=== PATIENT | female | born 2005 | race Caucasian/White ===

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

== ENCOUNTER 2023-10-24 18:17 | Emergency (ER) | payer MEDICAID, SELFPAY ==
[2023-10-24 18:18] VITALS: BP 115/96; PULSE 78; RESP 16; TEMP 36.6; O2SAT 99; BMI 26.4
--- NOTE | 2023-10-24 18:51 | US_ITS ---
STUDY: ULTRASOUND TRANSVAGINAL CLINICAL: Female, 18 years old. vaginal pain-RLQ PAIN TECHNIQUE: Transvaginal COMPARISON: None. FINDINGS: Normal uterine size measuring 8.1 x 5.8 x 3.8 cm in maximal craniocaudal dimension. There are no myometrial masses. Normal endometrial thickness measuring 13 mm. There are no endometrial masses, and there is no fluid in the endometrial cavity. Normal uterine cervix. Normal right ovary, measuring 2.9 x 2 x 2 cm. There are multiple follicles without a dominant cyst. Normal left ovary, measuring 2.9 x 2.2 x 1.9 cm. There are multiple follicles with a dominant cyst measuring 1.5 x 1.1 x 0.9 cm There is no free fluid in the pelvis. Polycystic ovary disease: No. US/Transvaginal Non- IMPRESSION: Small left ovarian cyst. No other significant abnormality Electronically Signed: Riki Gregg MD at 20:23 EDT ,
[2023-10-24] MEDS: 0.9% Normal Saline (1000mL) 1,000 ML 1000 ML IV (19:07)
[2023-10-24] MEDS: Ketorolac 15 MG/ML Vial IV (19:07)
[2023-10-24 19:08] LABS: Absolute Lymphocyte Count 2.22 X10^3/uL (0.83-4.51); Absolute Neutrophil Count 3.9 X10^3/uL (2.0-7.7); Basophil# 0.06 X10^3/uL; Basophil% 0.9 % (0-1); Eosinophil# 0.12 X10^3/uL; Eosinophils% 1.7 % (0-5); Hematocrit 42.7 % (37-47); Hemoglobin 13.7 g/dL (12.0-15.0); Lymphocyte # 2.22 X10^3/ul (0.83-4.51); Lymphocyte % 31.5 % (19-41); Mean Corp Hgb Conc 32.1 g/dL (32-36); Mean Corpuscular Volume 77.8 fL (81-99); Mean Platelet Vol. 9.6 fl (6.2-12.0); Monocyte# 0.76 X10^3/uL; Monocyte% 10.8 % (0-10); NRBC Flagged by Analyzer 0 % (0-5); Neutrophil # 3.86 X10^3/uL (2.7-7.7); Neutrophil % 54.8 % (47-70); Platelet Count 356 K/mm3 (150-450); RBC Distribution Width CV 13.7 % (11.6-14.6); RBC Distribution Width SD 38.9 fl (35.1-43.9); Red Blood Count 5.49 M/mm3 (4.2-5.4)
[2023-10-24] MEDS: Ondansetron 4 MG/2 ML Vial IV (19:08)
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
[2023-10-24 19:22] LABS: Anion Gap 5 (5-15); BUN 13 mg/dL (7-18); BUN/Creat Ratio 14.9 RATIO (10-20); Calcium,Total 9.9 mg/dL (8.5-10.1); Chloride 105 mmol/L (98-107); Creatinine, Serum 0.87 mg/dL (0.55-1.02); EST Glomerular Filtration Rate 88 mL/min (>60); Est Glom Filt Rate - Afr Amer 107 mL/min (>60); Estimated Creatinine Clearance 99.05 ml/min; Glucose 94 mg/dL (74-106); Potassium 3.8 mmol/L (3.5-5.1); Sodium Level 138 mmol/L (136-145)
[2023-10-24 19:51] LABS: Internal QC Validated? YES +Cl - CLEAR BKGD; Pregnancy, Serum, hCG Quali. NEGATIVE Negative
[2023-10-24 20:18] VITALS: BP 125/87; PULSE 68; RESP 18; O2SAT 100
[2023-10-24 20:46] LABS: Mucous, Urine 0 SEEN /hpf (<or=2+); Red Blood Cells-Urine 0 SEEN /hpf (0-5); White Blood Cells 0 SEEN /hpf (0-5)
[2023-10-24 20:51] LABS: Color, Urine Yellow (Yellow); Glucose, Dipstick Normal (Normal); Ketone-Dipstick Negative (Negative); Leukocyte Esterase-Dipstick 25 /ul (Negative); Nitrite-Dipstick Negative (Negative); Occult Blood-Urine Negative /ul (Negative); Protein-Dipstick Negative (Negative); Urine Bilirubin Dipstick Negative (Negative); Urine Clarity Sl. Cloudy (Clear); Urine Urobilinogen Normal (Normal); Urine pH 6.5 (5.0 - 8.0)
[2023-10-24 20:58] LABS: Bacteria 2+ /hpf (None Seen); Squamous Epithelial Cells - UA 5-10 SEEN /hpf (5-10)
[2023-10-24 20:59] LABS: Amorphous Sediment 1+
== END 2023-10-24 21:22 | disposition home or self-care (01) ==
PROVIDERS: Nurse Practitioner; Emergency Provider Emergency Medicine; PCP Family Medicine; Visit Provider Emergency Medicine
DX: N83.202 Unspecified ovarian cyst, left side (principal); R10.2 Pelvic and perineal pain
CPT/HCPCS: 76830; 80048; 81001; 84703; 85025; 96361; 96374; 96375; 99283; J7030; A4216; J2405

== ENCOUNTER → 2024-02-16 | Outpatient (CLI) | payer MEDICAID, SELFPAY ==
--- NOTE | 2024-02-16 10:26 | RAD_ITS ---
HISTORY COLLAR BONE PAIN. TECHNIQUE: XR Clavicle Unilateral. COMPARISON: 01/23/2018. FINDINGS: BONES : Cortical plate and screw fixation of old healed clavicle fracture. No acute fracture identified. Mineralization unremarkable. JOINTS: No dislocation. Joint spaces maintained. SOFT TISSUES: Right lung apex clear. RAD/Clavicle IMPRESSION: No acute fracture identified in the right clavicle. ORIF old clavicle fracture. Electronically Signed: Gianna Jacob MD at 8:53 EDT ,
== END | disposition home or self-care (01) ==
LOC: MTRAD 10:24
PROVIDERS: PCP Family Medicine; Referring Provider Family Medicine; Visit Provider Family Medicine
DX: M25.511 Pain in right shoulder (principal); X58.XXXA Exposure to other specified factors, initial encounter
CPT/HCPCS: 73000

== ENCOUNTER 2024-02-23 19:08 | Emergency (ER) | payer MEDICAID, SELFPAY ==
[2024-02-23 19:08] VITALS: BP 117/78; PULSE 64; RESP 14; TEMP 36.2; O2SAT 99; BMI 26.6
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
[2024-02-23 21:08] VITALS: BP 121/77; PULSE 66; RESP 16; O2SAT 98
[2024-02-23 21:50] VITALS: BP 118/74; PULSE 64; RESP 16; TEMP 36.8; O2SAT 99
== END 2024-02-23 21:53 | disposition home or self-care (01) ==
PROVIDERS: Emergency Provider Emergency Medicine; PCP Family Medicine; Visit Provider Emergency Medicine
DX: F07.81 Postconcussional syndrome (principal); F17.290 Nicotine dependence, other tobacco product, uncomplicated; V49.40XA Driver injured in collision with unspecified motor vehicles in traffic accident, initial encounter
CPT/HCPCS: 70450; 99283

== ENCOUNTER → 2024-12-10 | Outpatient (CLI) | payer MEDICAID, SELFPAY ==
[2024-12-10 17:12] LABS: Absolute Lymphocyte Count 1.68 X10^3/uL (0.83-4.51); Absolute Neutrophil Count 6.4 X10^3/uL (2.0-7.7); Basophil# 0.04 X10^3/uL; Basophil% 0.4 % (0-1); Eosinophil# 0.14 X10^3/uL; Eosinophils% 1.6 % (0-5); Hematocrit 39.2 % (37-47); Hemoglobin 13.2 g/dL (12.0-15.0); Lymphocyte # 1.68 X10^3/ul (0.83-4.51); Lymphocyte % 18.7 % (19-41); Mean Corp Hgb Conc 33.7 g/dL (32-36); Mean Corpuscular Hgb 26.1 pg (27.0-32.0); Mean Corpuscular Volume 77.5 fL (81-99); Mean Platelet Vol. 10.3 fl (6.2-12.0); Monocyte# 0.69 X10^3/uL; Monocyte% 7.7 % (0-10); NRBC Flagged by Analyzer 0 % (0-5); Neutrophil # 6.42 X10^3/uL (2.7-7.7); Neutrophil % 71.3 % (47-70); Platelet Count 318 K/mm3 (150-450); RBC Distribution Width CV 14.3 % (11.6-14.6); RBC Distribution Width SD 39.8 fl (35.1-43.9); Red Blood Count 5.06 M/mm3 (4.2-5.4)
[2024-12-10 18:18] LABS: HIV Nonreactive (Nonreactive); Hepatitis B Surface Antigen Nonreactive (Nonreactive); Hepatitis C Antibody Nonreactive (Nonreactive); Syphilis Antibodies Nonreactive (Nonreactive)
[2024-12-10 18:20] LABS: Rubella IgG REAC (Nonreactive)
[2024-12-10 18:49] LABS: Hemoglobin A1c 5.5 % (<=5.6)
== END | disposition home or self-care (01) ==
PROVIDERS: Registered Nurse; PCP Family Medicine; Referring Provider Obstetrics & Gynecology; Visit Provider Obstetrics & Gynecology
DX: O09.90 Supervision of high risk pregnancy, unspecified, unspecified trimester (principal); O99.210 Obesity complicating pregnancy, unspecified trimester; Z3A.00 Weeks of gestation of pregnancy not specified
CPT/HCPCS: 36415; 83036; 85025; 86703; 86762; 86780; 86803; 86850; 86900; 86901; 87086; 87340; 87491; 87591; 88175; G0145

== ENCOUNTER → 2025-03-06 | Outpatient (CLI) | payer MEDICAID, SELFPAY ==
--- OUTSIDE RECORDS SUMMARY | 2025-03-06 11:54 | XMS RPT_ITS | CCD ---
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 men Comment: [id number] Comment: No. of containers..01 ThinPrep Vial Result Comment: Tish Calle, Yarding Supervisor Performed By: #### L 509.4006, L501.9985, L3890.6102, L509.8002, L7000.1800, L3890.6301, L7400.0353, BTS, L100.0100, M100.2200, L3890.6006 ####[facility] [address] [place], [place], [phone] Urine Cultureon 12-13-2024 URC Mixed Gram Positive Organisms Mora Count 11,000-25,000 MIXC Mixed contaminants. Submit a new specimen if indicated. Normal [facility] Comment on above: Performed By: #### L 509.4006, L501.9985, L3890.6102, L509.8002, L7000.1800, L3890.6301, L7400.0353, BTS, L100.0100, M100.2200, L3890.6006 ####[facility] [address] [place], [address] Absolute lymphocyte countOrd ered By: Elo Rivas on 12-10-2024 Lymphocytes Auto (Unsp spec) [#/Vol] 1.68 10*3/uL 0.83-4.51 [facility] Absolute neutrophil countOrd ered By: Elo Rivas on 12-10-2024 Neutrophils (Bld) [#/Vol] 6.4 10*3/uL 2.0-7.7 [facility] Automated blood erythrocyte countOrdered By: Elo Rivas on 12-10-2024 RBC (Bld) [#/Vol] 5.06 10*6/uL Normal 4.2-5.4 [facility] Comment on above: Performed By: #### L 509.4006, L501.9985, L3890.6102, L509.8002, L7000.1800, L3890.6301, L7400.0353, BTS, L100.0100, M100.2200, L3890.6006 #### [facility] [address] [place], [place], [phone] Automated blood hematocrit ( percentage)Ordered By: Elo Rivas on 12-10-2024 Hematocrit (Bld) [Volume fraction] 39.2 % Normal 37-47 [facility] Comment on above: Performed By: #### L 509.4006, L501.9985, L3890.6102, L509.8002, L7000.1800, L3890.6301, L7400.0353, BTS, L100.0100, M100.2200, L3890.6006 #### [facility] [address] [place], [address] Automated lymphocyte count a s percentage of total leukocytesOrdered By: Elo Rivas on 12-10-2024 Lymphocytes/100 WBC Auto (Unsp spec) 18.7 % Low 19-41 [facility] Basophil percentageOrdered B y: Elo Rivas on 12-10-2024 Basophils/100 WBC (Bld) 0.4 % Normal 0-1 [facility] Comment on above: Performed By: #### L 509.4006, L501.9985, L3890.6102, L509.8002, L7000.1800, L3890.6301, L7400.0353, BTS, L100.0100, M100.2200, L3890.6006 #### [facility] [address] [place], [place], [phone] CBC W/Diff, Automatedon 11-13 Absolute Lymph 1.68 X10 3/uL Normal 0.83-4.51 [facility] Comment on above: Performed By: #### L 509.4006, L501.9985, L3890.6102, L509.8002, L7000.1800, L3890.6301, L7400.0353, BTS, L100.0100, M100.2200, L3890.6006 #### [facility] [address] [place], [place], [phone] Absolute Neut 6.4 X10 3/uL Normal 2.0-7.7 [facility] Comment on above: Performed By: #### L 509.4006, L501.9985, L3890.6102, L509.8002, L7000.1800, L3890.6301, L7400.0353, BTS, L100.0100, M100.2200, L3890.6006 #### [facility] [address] [place], [place], [phone] IG% 0.300 Normal 0.0-0.9 [facility] Comment on above: Result Comment: IG% - Immature Granulocytes (promyelocytes, myelocytes and metamyelocytes) > 1% indicates that a LEFT SHIFT is Present. Performed By: #### L 509.4006, L501.9985, L3890.6102, L509.8002, L7000.1800, L3890.6301, L7400.0353, BTS, L100.0100, M100.2200, L3890.6006 #### [facility] [address] [place], [address] Lymphocytes/100 WBC (Bld) 18.7 % Low 19-41 [facility] Comment on above: Performed By: #### L 509.4006, L501.9985, L3890.6102, L509.8002, L7000.1800, L3890.6301, L7400.0353, BTS, L100.0100, M100.2200, L3890.6006 #### [facility] [address] [place], [place], [phone] ([phone]) Nucleated RBC (Bld) [#/Vol] 0 10*3/uL Normal 0-5 [facility] Comment on above: Performed By: #### L 509.4006, L501.9985, L3890.6102, L509.8002, L7000.1800, L3890.6301, L7400.0353, BTS, L100.0100, M100.2200, L3890.6006 #### [facility] [address] [place], [place], [phone] (656) RDW SD 39.8 fl Normal 35.1-43.9 [facility] Comment on above: Performed By: #### L 509.4006, L501.9985, L3890.6102, L509.8002, L7000.1800, L3890.6301, L7400.0353, BTS, L100.0100, M100.2200, L3890.6006 #### [facility] [address] [place], [address] Cervical or vagninal specime n microscopic examination by cytology stain (reported asOrdered By: Elo Rivas on 12-10-2024 Cytology report Cyto stain Doc (Cvx/Vag) Comment . [facility] Comment on above: The Pap smear is a s creening test designed to aid in thedetection of premalignant and malignant conditions of theuterine cervix. It is not a diagnostic procedure andshould not be used as the sole means of detecting cervicalcancer. Both false-positive and false-negative reports dooccur. Chlamydia trachomatis rRNA d etection by probe and target amplification methodOrdered By: Elo Rivas on 12-10-2024 C. trachomatis rRNA SARIKA+probe Ql (Unsp spec) Negative Negative [facility] Eosinophil percentageOrdered By: Elo Rivas on 12-10-2024 Eosinophils/100 WBC (Bld) 1.6 % Normal 0-5 [facility] Comment on above: Performed By: #### L 509.4006, L501.9985, L3890.6102, L509.8002, L7000.1800, L3890.6301, L7400.0353, BTS, L100.0100, M100.2200, L3890.6006 #### [facility] [address] [place], [place], [phone] Erythrocyte distribution wid th ratioOrdered By: Elo Rivas on 12-10-2024 Erythrocyte distribution width (RBC) [Ratio] 14.3 % Normal 11.6-14.6 [facility] Comment on above: Performed By: #### L 509.4006, L501.9985, L3890.6102, L509.8002, L7000.1800, L3890.6301, L7400.0353, BTS, L100.0100, M100.2200, L3890.6006 #### [facility] [address] [place], [place], [phone] Erythrocyte distribution wid th standard deviationOrdered By: Elo Rivas on 12-10-2024 Erythrocyte distribution width (RBC) [Ratio] 39.8 fl 35.1-43.9 [facility] HIVon 12-10-2024 HIV Non-Reactive Normal Nonreactive [facility] Comment on above: Result Comment: Non- Reactive Reactive Repeatedly reactive samples must be confirmed according to CDC recommended confirmatory algorithms. The subresults for either HIVAG or AHIV can be used as an aid in the selection of the confirmation algorithm for reactive samples. Send out specimens with Reactive results to [facility] for confirmation. Order the HIV antibody detection and differentiation: lc#[id number] Performed By: #### L 509.4006, L501.9985, L3890.6102, L509.8002, L7000.1800, L3890.6301, L7400.0353, BTS, L100.0100, M100.2200, L3890.6006 #### [facility] [address] [place], [place], [phone] Hemoglobin A1c percentageOrd ered By: Elo Rivas on 12-10-2024 HbA1c (Bld) [Mass fraction] 5.5 % Normal <=5.6 [facility] Comment on above: Normal < 5.7 % Predi abetic 5.7 - 6.4 % Diabetic >or= 6.5 % Please note range changes. Result Comment: Norm al < 5.7 % Prediabetic 5.7 - 6.4 % Diabetic >or= 6.5 % Please note range changes. Performed By: #### L 509.4006, L501.9985, L3890.6102, L509.8002, L7000.1800, L3890.6301, L7400.0353, BTS, L100.0100, M100.2200, L3890.6006 ####[facility] [address] [place], [place], [phone] Hemoglobin measurementOrdere d By: Elo Rivas on 12-10-2024 Hemoglobin (Bld) [Mass/Vol] 13.2 g/dL Normal 12.0-15.0 [facility] Comment on above: Performed By: #### L 509.4006, L501.9985, L3890.6102, L509.8002, L7000.1800, L3890.6301, L7400.0353, BTS, L100.0100, M100.2200, L3890.6006 #### [facility] [address] [place], [place], [phone] Hepatitis C Antibodyon 12-10 Hepatitis C Ab Non-Reactive Normal Nonreactive [facility] Comment on above: Result Comment: Reac tive: Presumptive evidence of antibodies to HCV. Follow CDC recommendations for supplemental testing. Non-Reactive: Antibodies to HCV were not detected; does not exclude the possibility of exposure to HCV Reactive Results are presumptive evidence of antibodies to HCV. Follow CDC recommendations for supplemental testing. Order confirmation testing: HCV Quant by PCR testing - HCVPCR lc#[id number] Non Reactive: < 0.8 Equivocal: >/= 0.8 to < 1.0 Reactive: >/= 1.0 The [facility] requires that a reactive/equivocal HCV antibody result be sent out for confirmation. HCV Quant by PCR testing. Performed By: #### L 509.4006, L501.9985, L3890.6102, L509.8002, L7000.1800, L3890.6301, L7400.0353, BTS, L100.0100, M100.2200, L3890.6006 #### [facility] [address] [place], [place], [phone] Immature granulocytes/100 WB C Auto (Bld)Ordered By: Elo Rivas on 12-10-2024 Immature granulocytes/100 WBC (Bld) 0.300 % 0.0-0.9 [facility] Comment on above: IG% - Immature Granu locytes (promyelocytes, myelocytes and metamyelocytes) > 1% indicates that a LEFT SHIFT is Present. L3890.6102on 12-10-2024 HEP B Surf Ag Non-Reactive Normal Nonreactive [facility] Comment on above: Result Comment: Reac tive: Presumptive evidence of HBV. Repeatedly reactive samples must be confirmed using a neutralization test ([employer] HBsAg Confirmatory Test) Non-Reactive: HBsAg not detected; does not exclude the possibility of exposure to HBV Performed By: #### L 509.4006, L501.9985, L3890.6102, L509.8002, L7000.1800, L3890.6301, L7400.0353, BTS, L100.0100, M100.2200, L3890.6006 #### [facility] [address] [place], [place], [id number] L509.4006on 12-10-2024 Rubella IgG REAC Normal Nonreactive [facility] Comment on above: Result Comment: Anti body Result: Interpretation Non-Reactive: Non-Immune Reactive: Immune The following results were obtained with the [employer] Rubella IgG assay. Results from assays of other manufacturers cannot be used interchangeably. Performed By: #### L 509.4006, L501.9985, L3890.6102, L509.8002, L7000.1800, L3890.6301, L7400.0353, BTS, L100.0100, M100.2200, L3890.6006 #### [facility] [address] [place], [place], [phone] Laboratory - CytologyOrdered By: Elo Rivas on 12-10-2024 Yarding Supervisor Cyto stain Nom (Cvx/Vag) [ID] Comment . [facility] Comment on above: Misael Aguirre Laboratory - Microbiology an d Antimicrobial susceptibilityOrdered By: Elo Rivas on 12-10-2024 HBV surface Ag Ql (S) Non-Reactive Nonreactive [facility] Comment on above: Reactive: Presumptiv e evidence of HBV. Repeatedly reactive samples must be confirmed using a neutralization test ([employer] HBsAg Confirmatory Test)Non-Reactive: HBsAg not detected; does not exclude the possibility of exposure to HBV Laboratory - Miscellaneous t estsOrdered By: Elo Rivas on 12-10-2024 Service comment (Unsp spec) [Interp] . . [facility] MCV (mean corpuscular volume ) determinationOrdered By: Elo Rivas on 12-10-2024 MCV (RBC) [Entitic vol] 77.5 fL Low 81-99 [facility] Comment on above: Performed By: #### L 509.4006, L501.9985, L3890.6102, L509.8002, L7000.1800, L3890.6301, L7400.0353, BTS, L100.0100, M100.2200, L3890.6006 #### [facility] [address] [place], [place], [phone] Mean corpuscular hemoglobin (MCH) determinationOrdered By: Elo Rivas on 12-10-2024 MCH (RBC) [Entitic mass] 26.1 pg Low 27.0-32.0 [facility] Comment on above: Performed By: #### L 509.4006, L501.9985, L3890.6102, L509.8002, L7000.1800, L3890.6301, L7400.0353, BTS, L100.0100, M100.2200, L3890.6006 #### [facility] [address] [place], [address] Mean corpuscular hemoglobin concentration (MCHC) determinationOrdered By: Elo Rivas on 12-10-2024 MCHC (RBC) [Mass/Vol] 33.7 g/dL Normal 32-36 [facility] Comment on above: Performed By: #### L 509.4006, L501.9985, L3890.6102, L509.8002, L7000.1800, L3890.6301, L7400.0353, BTS, L100.0100, M100.2200, L3890.6006 #### [facility] [address] [place], [place], [phone] Mean platelet volume determi nationOrdered By: Elo Rivas on 12-10-2024 Platelet mean volume (Bld) [Entitic vol] 10.3 fL Normal 6.2-12.0 [facility] Comment on above: Performed By: #### L 509.4006, L501.9985, L3890.6102, L509.8002, L7000.1800, L3890.6301, L7400.0353, BTS, L100.0100, M100.2200, L3890.6006 #### [facility] [address] [place], [address] Monocyte percentageOrdered B y: Elo Rivas on 12-10-2024 Monocytes/100 WBC (Bld) 7.7 % Normal 0-10 [facility] Comment on above: Performed By: #### L 509.4006, L501.9985, L3890.6102, L509.8002, L7000.1800, L3890.6301, L7400.0353, BTS, L100.0100, M100.2200, L3890.6006 #### [facility] [address] [place], [address] NATERAon 12-10-2024 NATURA SEE SCANNED REPORT Normal [facility] Comment on above: Performed By: #### L 900.0098 ####[facility] [address] [place], [address] Neisseria gonorrhoeae nuclei c acid detection by amplified probe techniqueOrdered By: Elo Rivas on 12-10-2024 N. gonorrhoeae DNA SARIKA+probe Ql (Unsp spec) Negative Negative [facility] Comment on above: Performed at: =[address] [id number] Director: Rabia Odom MD, Phone: [phone] Neutrophil percentageOrdered By: Elo Rivas on 12-10-2024 Neutrophils/100 WBC (Bld) 71.3 % High 47-70 [facility] Comment on above: Performed By: #### L 509.4006, L501.9985, L3890.6102, L509.8002, L7000.1800, L3890.6301, L7400.0353, BTS, L100.0100, M100.2200, L3890.6006 #### [facility] [address] [place], [address] No Panel InformationOrdered By: Elo Rivas on 12-10-2024 HIV (1&2) Antibody Non-Reactive Nonreactive [facility] Comment on above: Non-ReactiveReactive Repeatedly reactive samples must be confirmed according to CDC recommended confirmatory algorithms. The subresults for either HIVAG or AHIV can be used as an aid in the selection of the confirmation algorithm for reactive samples.Send out specimens with Reactive results to [facility] for confirmation.Order the HIV antibody detection and differentiation: #[id number] Pap Smear Specimen Adequacy Comment . [facility] Comment on above: Satisfactory for iqra luation. Endocervical and/or squamous metaplasticcells (endocervical component) are present. Nucleated red blood cell per centageOrdered By: Elo Rivas on 12-10-2024 Nucleated RBC/100 WBC (Bld) [Ratio] 0 % 0-5 [facility] Janitorial Assistant Office Visit Reporton 12-10-2024 Janitorial Assistant Office Visit Report [facility] [address], [address] [place] [address] OFFICE VISIT Date of Service: 12/10/24 MR#: [id number] Acct: [id number] Name: ADENIKE RUTH Rep #: [id number] : 2005 Provider: Dr. Mayi Roach DO Age/Sex: 19/F Location: [facility] Status: Signed Intake Vital Signs 10/12/24 14:19 12/10/24 15:09 12/10/24 15:10 Height 5 ft 4 in 5 ft 4 in 5 ft 4 in Weight: 183 lb 2 oz BMI 31.4 BP 103/66 Intake Visit Reasons: NOB LMP 09/04 Disbursing Officer Required: No Is patient in pain?: No Allergies No Known Allergies Allergy (Verified 12/10/24 15:09) Medications ???Medication ???Instructions ???Recorded ???Confirmed ???Type PNV 153-FA 400 mcg-om3 35 mg-dha tab PO 10/26/24 12/10/24 History 25 mg-epa 5 mg-fish oil chew tablet ondansetron HCl 4 mg tablet 4 mg PO Q4H #60 tabs 10/26/2411/13 Rx Last Menstrual Period: 09/04/24 Zika: Zika virus screening: Negative : No PFSH PFSH Medical History Vaginal delivery Depression Surgical History Clavicle fracture Family History Father Diabetes Hypertension Uncle Diabetes Maternal Grandmother Diabetes Maternal Hypertension Maternal Social History adopted: No household members: significant other and children number of children: 1 current occupational status: employed 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 current occupational exposures/hazards: No pets and animals: No history of recent travel: No sexually active: Yes Smoking Status: Former smoker quit date: 10/12/24 alcohol intake: never substance use type: does not use well-balanced diet: about half the time caffeine: No eating out: 1-3 times/week during the past year weight has: increased > 10 lbs sharmila/mormon: None seatbelt use: sometimes do you feel safe at home: Yes additional social history: Boyfriend-Solomon History 4 Elective abortions 2 Hx Para 1 Spontaneous abortions Hx # Term Pregnancies Ectopic pregnancies Hx # Pregnancies Multiple births # of living children 1 Past Pregnancies Del. Date Name GA/Weeks Outcome Route Bth Weight Infant Gen Labor Lgth Anesthesia Del Locatn Provider FOB 12/01/22 Esatalyne 38 live - full term 7lbs 11oz Female epidural [facility] Nadege Jacob Delivery Date: 12/01/22 Last Updated by: Ruthy Wyatt 1st degree laceration HPI NOB LMP 09/04 Details: ADENIKE RUTH is a 19 year old who presents for New OB visit. OB Visit JIMENA Calculator Estimated Delivery Date Method Current WG Current Estimate 06/11/25 LMP (Certain) 13w 6d Estimated Due Date: 11/05/20 Expected Delivery Route/Plan Labor Preferences- CB/BF classes: [] labor support person: [] labor intervention preferences: [] pain management options preferred: [] cut cord/dad catch: [] : [] PP control planned: [] discussed possible routes of delivery and associated risks: [] special requests: [] Specific Issue/Plans Covid status: [] Flu vaccine: [] Tdap vaccine: [] Rhogam: [] LARC form signed: [] Problem list reviewed and updated with the most current plan of care details and appropriate orders placed. Relevant counseling for the gestational age provided. Continue routine care and follow up unless otherwise noted in visit notes/problem list details Initial Weight: Not Recorded Date -???-???-???-???-???-?? ?-???-???-???-???-???-? ??- EGA Weight BP Urine Prot -???-???-???-???-???-?? ?-???-???-???-???-???-? ??- Glucose FHR FuHt Pres Dilation -???-???-???-???-???-?? ?-???-???-???-???-???-? ??- Effaced St Visit Note 12/10/24 -???-???-???-???-???-?? ?-???-???-???-???-???-? ??- 13w 6d 183 lb 2 oz 103/66 -???-???-???-???-???-?? ?-???-???-???-???-???-? ??- 165 -???-???-???-???-???-?? ?-???-???-???-???-???-? ??- JV- CRL cons istent with LMP. 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 FOB to be tested. (new partner)also desires afp testing. Menstrual History Last Menstrual Period: 09/04/24 Reported LMP: definite Normal amount/duration: Yes Frequency in days: 28-30 On hormonal BC at conception: No hCG+: 10/11/24 Antepartum Record Genetic Screening: Congenital Heart Defect: Other, Neural Tube Defect: Other, Hemoglobinopathy Or Carrier: Other, Cystic Fibrosis: Other, Chromosome Abnormality: Other, Karson-Sachs: Other, Hemophilia: Other, Intellectual Disability/Autism: Other, Recurrent Loss/Stillbirth: Other, Other Structural Defect: Other, Other Genetic Disease: Other an (more content not included)... Normal [facility] Platelet countOrdered By: Shaista Rivas on 12-10-2024 Platelets (Bld) [#/Vol] 318 10*3/uL Normal 150-450 [facility] Comment on above: Performed By: #### L 509.4006, L501.9985, L3890.6102, L509.8002, L7000.1800, L3890.6301, L7400.0353, BTS, L100.0100, M100.2200, L3890.6006 #### [facility] [address] [place], [place], [id number] Syphilis Antibodieson 2024 Syphilis Abs Non-Reactive Normal Nonreactive [facility] Comment on above: Performed By: #### L 509.4006, L501.9985, L3890.6102, L509.8002, L7000.1800, L3890.6301, L7400.0353, BTS, L100.0100, M100.2200, L3890.6006 #### [facility] [address] [place], [place], [address] Type AND Screenon 12-10-2024 ABO and Rh group Nom (Bld) Blood group A Rh(D) positive Normal [facility] Comment on above: Order Comment: PN Performed By: #### L 509.4006, L501.9985, L3890.6102, L509.8002, L7000.1800, L3890.6301, L7400.0353, BTS, L100.0100, M100.2200, L3890.6006 #### [facility] [address] [place], [place], [address] Urine cultureOrdered By: lEizabeth Rivas on 12-10-2024 Bacteria identified Cx Nom (U) Positive Abnormal [facility] White blood cell (WBC) count Ordered By: Elo Rivas on 12-10-2024 WBC (Bld) [#/Vol] 9.0 10*3/uL Normal 4.4-11.0 [facility] Comment on above: Performed By: #### L 509.4006, L501.9985, L3890.6102, L509.8002, L7000.1800, L3890.6301, L7400.0353, BTS, L100.0100, M100.2200, L3890.6006 #### [facility] [address] [place], [place], [address] CNCOon 09-23-2024 CNCO Letter Text Normal [facility] CNOVon 09-23-2024 CNOV Office Visit (UCWSTR ) ADENIKE RUTHEE ([id number]) 1 F Date Time Provider Department 09/23/24 2:15 PM RIKI ALBARADO [facility] During your visit today, we recorded the following information about you: Temperature Pulse Respiration Blood pressure 98.3 degrees 84/minute 16/minute 110/76 Weight Last Period 87.5 kg 09/04/24 Riki Albarado APRN.CONSTRUCTION MANAGEMENT INSTRUCTOR 09/23/2024 2:52 PM Signed Subjective HPI Nontoxic-appearing female presents urgent care chief complaint headache. Duration of symptoms 3 days. Associated symptoms headache sinus pressure sore throat cough. States daughter sick with similar signs symptoms. Presents today with 6 out of 10 headache. Has not taken any medication today. Did try to try 200 mg ibuprofen yesterday. Denies any chest pain shortness of breath or hemoptysis. Is not is not breast-feeding. No flashes light floaters. Does have mild photophobia. Past medical history prescription medications allergies reviewed BP 110/76 (BP Site: Left Arm, BP Position: Sitting) Pulse 84 Temp 36.8 ?C (98.3 ?F) Resp 16 Wt 87.5 kg (192 lb 14.4 oz) LMP 09/04/2024 (Exact Date) SpO2 98% No .Patient presents with: Headache: X 3-4 days, fatigue, pain is behind the eyes PAST MEDICAL HISTORY Diagnosis Date Anemia Depression Fracture, clavicle 2018 right NEGATIVE HISTORY OF 01/30/2009 Normal color vision Trauma PAST SURGICAL HISTORY Procedure Laterality Date NONE PAST SURGICAL HISTORY OF right clavical ALLERGIES Patient has no known allergies. MEDICATIONS prental multivitamin 27 mg iron- 800 mcg tablet Take 1 tablet by mouth once daily. (Patient not taking: Reported on 08/11/2023) Polyethylene Glycol 3350 (MIRALAX) 17 gram/dose ORAL powder Take by mouth once daily. mix in juice or water. START 1/2 CAPFUL DAILY ADJUST DOSE TO PRODUCE SOFT STOOL DAILY (Patient not taking: No sig reported) FAMILY HISTORY Problem Relation Age of Onset No Known Problems Mother No Known Problems Father No Known Problems Sister No Known Problems Sister No Known Problems Sister No Known Problems Brother Stroke Maternal Grandmother Heart Attack Maternal Grandfather No Known Problems Paternal Grandmother Diabetes Other Maternal side Social History Tobacco Use Smoking status: Never Smokeless tobacco: Never Vaping Use Vaping status: Former Quit date: 04/13/2021 Substances: Nicotine Substance Use Topics Alcohol use: Not Currently Comment: rarely Drug use: Never Review of Systems Constitutional: Positive for malaise/fatigue. Negative for chills and fever. HENT: Positive for congestion and sore throat. Negative for ear discharge, ear pain and sinus pain. Eyes: Negative for blurred vision, pain, discharge and redness. Respiratory: Positive for cough. Negative for hemoptysis, sputum production, shortness of breath, wheezing and stridor. Cardiovascular: Negative for chest pain. Gastrointestinal: Negative for abdominal pain, diarrhea, nausea and vomiting. Musculoskeletal: Positive for myalgias. Skin: Negative for itching and rash. Neurological: Positive for headaches. Negative for dizziness. Objective Physical Exam HENT: Head: Normocephalic. Jaw: No trismus, tenderness, swelling or pain on movement. Right Ear: Tympanic membrane, ear canal and external ear normal. Left Ear: Tympanic membrane, ear canal and external ear normal. Nose: Congestion present. Mouth/Throat: Mouth: Mucous membranes are moist. Pharynx: Oropharynx is clear. Uvula midline. No oropharyngeal exudate or posterior oropharyngeal erythema. Eyes: Pupils: Pupils are equal, round, and reactive to light. Cardiovascular: Rate and Rhythm: Normal rate. Pulmonary: Effort: Pulmonary effort is normal. No accessory muscle usage, respiratory distress or retractions. Breath sounds: No stridor. No wheezing, rhonchi or rales. Abdominal: Palpations: Abdomen is soft. Tenderness: There is no abdominal tenderness. There is no guarding or rebound. Musculoskeletal: Cervical back: No erythema or tenderness. No pain with movement. Normal range of motion. Lymphadenopathy: Cervical: No cervical adenopathy. Neurological: General: No focal deficit present. Mental Status: She is alert and oriented to person, place, and time. Mental status is at baseline. ASSESSMENT/PLAN: 1. Viral illness - ICD9: 079.99, ICD10: B34.9 Diagnosed with viral illness. We discussed headache management. If symptoms are not revolved with use of 600 mg ibuprofen referred patient to ED. Patient was educated on supportive therapies. Patient will follow up with primary care provider as needed. Patient was instructed to immediately proceed to emergency room for any new, worsening, or symptoms lasting longer than anticipated. The patient's clinical presentation is otherwise unremarkabl (more content not included)... Normal [facility] Absolute lymphocyte countOrd ered By: Mickey Archer on 10-24-2023 Lymphocytes Auto (Unsp spec) [#/Vol] 2.22 10*3/uL 0.83-4.51 [facility] Amorphous sediment detection in urine sediment by light microscopyOrdered By: Mickey Archer on 10-24-2023 Amorphous sediment LM Ql (Urine sed) 1+ [facility] Automated lymphocyte count a s percentage of total leukocytesOrdered By: Mickey Archer on 10-24-2023 Lymphocytes/100 WBC Auto (Unsp spec) 31.5 % 19-41 [facility] Basophil percentageOrdered B y: Mickey Archer on 10-24-2023 Basophil percentage 0 SEEN /hpf 0-5 [facility] Basophils/100 WBC (Bld) 0.9 % 0-1 [facility] Chloride [Moles/Vol] 105 mmol/L 98-107 [facility] Eosinophils/100 WBC (Bld) 1.7 % 0-5 [facility] Glucose [Mass/Vol] 94 mg/dL 74-106 [facility] Hemoglobin (Bld) [Mass/Vol] 13.7 g/dL 12.0-15.0 [facility] Monocytes/100 WBC (Bld) 10.8 % 0-10 [facility] Neutrophils (Bld) [#/Vol] 3.9 10*3/uL 2.0-7.7 [facility] Neutrophils/100 WBC (Bld) 54.8 % 47-70 [facility] Potassium [Moles/Vol] 3.8 mmol/L 3.5-5.1 [facility] Sodium [Moles/Vol] 138 mmol/L 136-145 [facility] WBC (Bld) [#/Vol] 7.0 10*3/uL 4.4-11.0 [facility] Bilirubin Test strip Ql (U)O rdered By: Mickey Archer on 10-24-2023 Bilirubin Ql (U) Negative Negative [facility] Determination of erythrocyte mean corpuscular volume (MCV)Ordered By: Mickey Archer on 10-24-2023 MCV (RBC) [Entitic vol] 77.8 fL 81-99 [facility] Erythrocyte distribution wid th ratioOrdered By: Mickey Archer on 10-24-2023 Erythrocyte distribution width (RBC) [Ratio] 13.7 % 11.6-14.6 [facility] Erythrocyte distribution wid th standard deviationOrdered By: Mickey Archer on 10-24-2023 Erythrocyte distribution width (RBC) [Entitic vol] 38.9 fL 35.1-43.9 [facility] Hematocrit Auto (Bld) [Volum e fraction]Ordered By: Mickey Archer on 10-24-2023 Hematocrit (Bld) [Volume fraction] 42.7 % 37-47 [facility] Immature granulocytes/100 WB C Auto (Bld)Ordered By: Mickey Archer on 10-24-2023 Immature granulocytes/100 WBC (Bld) 0.300 % 0.0-0.9 [facility] Comment on above: IG% - Immature Granu locytes (promyelocytes, myelocytes and metamyelocytes) > 1% indicates that a LEFT SHIFT is Present. Ketones Test strip Ql (U)Ord ered By: Mickey Archer on 10-24-2023 Ketones Ql (U) Negative Negative [facility] Laboratory - Chemistry and C hemistry - challengeOrdered By: Mickey Archer on 10-24-2023 CO2 [Moles/Vol] 28.0 mmol/L 21.0-32.0 [facility] Urea nitrogen/Creatinine [Mass ratio] 14.9 mg/mg 10-20 [facility] Laboratory - Hematology and Cell countsOrdered By: Mickey Archer on 10-24-2023 MCH (RBC) [Entitic mass] 25.0 pg 27.0-32.0 [facility] MCHC (RBC) [Mass/Vol] 32.1 g/dL 32-36 [facility] Nucleated RBC/100 WBC (Bld) [Ratio] 0 % 0-5 [facility] Platelet mean volume (Bld) [Entitic vol] 9.6 fL 6.2-12.0 [facility] Platelets (Bld) [#/Vol] 356 10*3/uL 150-450 [facility] Mucus LM Ql (Urine sed)Order ed By: Mickey Archer on 10-24-2023 Mucus Ql (Urine sed) 0 SEEN /hpf [facility] Nitrite Test strip Ql (U)Ord ered By: Mickey Archer on 10-24-2023 Nitrite Ql (U) Negative Negative [facility] No Panel InformationOrdered By: Mickey Archer on 10-24-2023 Urine RBC 0 SEEN /hpf 0-5 [facility] Estimated Creatinine Clearance Calc 99.05 ml/min [facility] Estimated GFR (MDRD) Amer 107 mL/min >60 [facility] Comment on above: GFR Calc Estimated GFR (MDRD) Non-Af Amer 88 mL/min >60 [facility] Comment on above: Non- GFR Calc Protein Test strip Ql (U)Ord ered By: Mickey Archer on 10-24-2023 Protein Ql (U) Negative Negative [facility] RBC Auto (Bld) [#/Vol]Ordere d By: Mickey Archer on 10-24-2023 RBC (Bld) [#/Vol] 5.49 10*6/uL 4.2-5.4 [facility] Serum or plasma calcium debbie urement (mass/volume)Ordered By: Mickey Archer on 10-24-2023 Calcium [Mass/Vol] 9.9 mg/dL 8.5-10.1 [facility] Serum or plasma choriogonado tropin detectionOrdered By: Mayi Calix on 10-24-2023 HCG ( test) Ql Negative [facility] Serum or plasma creatinine m easurement (mass/volume)Ordered By: Mickey Archer on 10-24-2023 Creatinine [Mass/Vol] 0.87 mg/dL 0.55-1.02 [facility] Comment on above: The validity of the calculated GFR & GFRAA in patients over 70 years has not been determined. Clinical correlation is essential. Serum or plasma urea nitroge n measurement (mass/volume)Ordered By: Mickey Archer on 10-24-2023 Urea nitrogen [Mass/Vol] 13 mg/dL 7-18 [facility] Squamous epithelial cells de tection in urine sediment by light microscopyOrdered By: Mickey Archer on 10-24-2023 Epithelial cells.squamous LM Ql (Urine sed) 5-10 SEEN /hpf 5-10 [facility] Thin prep Papanicolaou smear with manual screeningOrdered By: Mickey Archer on 10-24-2023 Thin prep Papanicolaou smear with manual screening 5 5-15 [facility] Urine blood detectionOrdered By: Mickey Archer on 10-24-2023 RBC Ql (U) Negative Negative [facility] Urine clarityOrdered By: Janette Archer on 10-24-2023 Clarity (U) Sl. Cloudy Clear [facility] Urine color determinationOrd ered By: Mickey Archer on 10-24-2023 Color (U) Yellow Yellow [facility] Urine glucose detectionOrder ed By: Mickey Archer on 10-24-2023 Glucose Ql (U) Normal mg/dl Normal [facility] Urine leukocyte esterase det ection by dipstickOrdered By: Mickey Archer on 10-24-2023 Leukocyte esterase Test strip Ql (U) 25 /ul Negative [facility] Urine pHOrdered By: Mickey garza on 10-24-2023 pH (U) 6.5 [pH] 5.0 - 8.0 [facility] Urine sediment bacteria coun t by microscopy (number/high power field)Ordered By: Mickey Archer on 10-24-2023 Bacteria LM.HPF (Urine sed) [#/Area] 2 /[HPF] None Seen [facility] Urine specific gravity measu rementOrdered By: Mickey Archer on 10-24-2023 Specific gravity (U) [Rel density] 1.020 1.002-1.030 [facility] Urine urobilinogen measureme ntOrdered By: Mickey Archer on 10-24-2023 Urobilinogen Ql (U) Normal mg/dl Normal [facility] Absolute lymphocyte countOrd ered By: Dr. Knight on 12-01-2022 Lymphocytes Auto (Unsp spec) [#/Vol] 1.92 10*3/uL 0.83-4.51 [facility] Basophil percentageOrdered B y: Dr. Knight on 12-01-2022 Basophils/100 WBC (Bld) 0.4 % 0-1 [facility] Eosinophils/100 WBC (Bld) 1.7 % 0-5 [facility] Neutrophils (Bld) [#/Vol] 7.3 10*3/uL 2.0-7.7 [facility] Neutrophils/100 WBC (Bld) 67.7 % 47-70 [facility] WBC (Bld) [#/Vol] 10.7 10*3/uL 4.4-11.0 [facility] Blood erythrocytes count (nu mber/volume)Ordered By: Dr. Knight on 12-01-2022 RBC (Bld) [#/Vol] 4.72 10*6/uL 4.2-5.4 [facility] Blood hemoglobin measurement (mass/volume)Ordered By: Dr. Knight on 12-01-2022 Hemoglobin (Bld) [Mass/Vol] 12.0 g/dL 12.0-15.0 [facility] Blood lymphocytes/100 leukoc ytesOrdered By: Dr. Knight on 12-01-2022 Lymphocytes/100 WBC (Bld) 17.9 % 19-41 [facility] Blood monocytes/100 leukocyt esOrdered By: Dr. Knight on 12-01-2022 Monocytes/100 WBC (Bld) 10.8 % 0-10 [facility] Blood platelet mean volumeOr dered By: Dr. Knight on 12-01-2022 Platelet mean volume (Bld) [Entitic vol] 10.7 fL 6.2-12.0 [facility] Determination of erythrocyte mean corpuscular volume (MCV)Ordered By: Dr. Knight on 12-01-2022 MCV (RBC) [Entitic vol] 77.8 fL 81-99 [facility] Hematocrit Auto (Bld) [Volum e fraction]Ordered By: Dr. Knight on 12-01-2022 Hematocrit (Bld) [Volume fraction] 36.7 % 37-47 [facility] Laboratory - Drug toxicology Ordered By: Dr. Knight on 12-01-2022 Amphetamines Ql (U) Negative <1000 ng/mL [facility] Benzodiazepines Ql (U) Negative < 200 ng/mL [facility] Cannabinoids Screen Ql (U) Negative < 50 ng/mL [facility] Cocaine Ql (U) Negative < 300 ng/mL [facility] Opiates Ql (U) Negative < 300 ng/mL [facility] Laboratory - Hematology and Cell countsOrdered By: Dr. Knight on 12-01-2022 Erythrocyte distribution width (RBC) [Entitic vol] 41.8 fL 35.1-43.9 [facility] Erythrocyte distribution width (RBC) [Ratio] 15.1 % 11.6-14.6 [facility] Immature granulocytes/100 WBC (Bld) 1.500 % 0.0-0.9 [facility] Comment on above: IG% - Immature Granu locytes (promyelocytes, myelocytes and metamyelocytes) > 1% indicates that a LEFT SHIFT is Present. MCH (RBC) [Entitic mass] 25.4 pg 27.0-32.0 [facility] Nucleated RBC/100 WBC (Bld) [Ratio] 0 % 0-5 [facility] Auto (RBC) [Mass/Vol]Or dered By: Dr. Knight on 12-01-2022 MCHC (RBC) [Mass/Vol] 32.7 g/dL 32-36 [facility] No Panel InformationOrdered By: Dr. Knight on 12-01-2022 MDMA (Ecstasy) Screen Negative < 500 ng/mL [facility] Urine Barbiturates Screen Negative < 200 ng/mL [facility] Urine Drug Screen Comment [facility] Comment on above: CONFIRMATORY TESTING FOR ALL POSITIVE URINE DRUG SCREENRESULTS WILL ONLY BE SENT OUT UPON PHYSICIAN ORDER. [facility] Urine Drug Screen methods provide only preliminaryanalytical test results. A more specific alternate chemicalmethod must be used in order to obtain a confirmedanalytical result. Gas chromatography/mass spectrometery(GC/MS) is the preferred confirmatory method. Clinicalconsideration and professional judgement should be appliedto any drug of abuse test result, particularly whenpreliminary positive results are used. URINE TCA TESTING MUST BE ORDERED SEPARATELY. USE TESTMNEMONIC: [facility] Urine Methadone Screen Negative < 300 ng/mL [facility] Vaginal Amniotic Fluid Detection Positive Negative [facility] Comment on above: Amniotic fluid prese nt indicates rupture of Membranes. RESULTS CALLED TO Bladimir SCHAFER 12/01/22 0114 Jose Alejandro Echavarria.REPORT READ BACK BY SAME. Platelets bldOrdered By: Dr. Knight on 12-01-2022 Platelets (Bld) [#/Vol] 278 10*3/uL 150-450 [facility] Serum Treponema species anti body detectionOrdered By: Dr. Knight on 12-01-2022 Treponema sp Ab Ql (S) Non-Reactive [facility] Urine phencyclidine (PCP) de tectionOrdered By: Dr. Knight on 12-01-2022 Phencyclidine Ql (U) Negative < 25 ng/mL [facility] Laboratory - Chemistry and C hemistry - challengeon 11-24-2022 Glucose Ql (U) Negative [facility] Laboratory - Urinalysison Protein Ql (U) Negative [facility] No Panel InformationOrdered By: Elo Rivas on 06-10-2023 Group B Streptococcus Culture Group B Beta Streptococcus is not isolated. [facility] Laboratory - Chemistry and C hemistry - challengeon 11-17-2022 Glucose Ql (U) Negative [facility] Laboratory - Urinalysison Protein Ql (U) Negative [facility] Laboratory - Chemistry and C hemistry - challengeon 11-03-2022 Glucose Ql (U) Negative [facility] Laboratory - Urinalysison Protein Ql (U) Negative [facility] Laboratory - Chemistry and C hemistry - challengeon 10-20-2022 Glucose Ql (U) Negative [facility] Laboratory - Urinalysison Protein Ql (U) Negative [facility] Laboratory - Chemistry and C hemistry - challengeon 10-06-2022 Glucose Ql (U) Negative [facility] Laboratory - Urinalysison Protein Ql (U) Negative [facility] Chlamydia trachomatis rRNA d etection by probe and target amplification methodOrdered By: Beverly Penny on 09-22-2022 C. trachomatis rRNA SARIKA+probe Ql (Unsp spec) Negative Negative [facility] Laboratory - Chemistry and C hemistry - challengeon 09-22-2022 Glucose Ql (U) Negative [facility] Laboratory - Microbiology an d Antimicrobial susceptibilityOrdered By: Beverly Penny on 09-22-2022 N. gonorrhoeae DNA SARIKA+probe Ql (Unsp spec) Negative Negative [facility] Comment on above: Performed at: =[address] [id number] Director: Rabia Odom MD, Phone: [phone] Laboratory - Urinalysison Protein Ql (U) Negative [facility] Absolute lymphocyte countOrd ered By: Dr. Aguirre on 09-08-2022 Lymphocytes Auto (Unsp spec) [#/Vol] 1.43 10*3/uL 0.83-4.51 [facility] Basophil percentageOrdered B y: Dr. Aguirre on 09-08-2022 Basophils/100 WBC (Bld) 0.4 % 0-1 [facility] Eosinophils/100 WBC (Bld) 2.1 % 0-5 [facility] Neutrophils (Bld) [#/Vol] 7.4 10*3/uL 2.0-7.7 [facility] Neutrophils/100 WBC (Bld) 72.9 % 47-70 [facility] WBC (Bld) [#/Vol] 10.1 10*3/uL 4.4-11.0 [facility] Blood erythrocytes count (nu mber/volume)Ordered By: Dr. Aguirre on 09-08-2022 RBC (Bld) [#/Vol] 4.48 10*6/uL 4.2-5.4 [facility] Blood hemoglobin measurement (mass/volume)Ordered By: Dr. Aguirre on 09-08-2022 Hemoglobin (Bld) [Mass/Vol] 11.7 g/dL 12.0-15.0 [facility] Blood lymphocytes/100 leukoc ytesOrdered By: Dr. Aguirre on 09-08-2022 Lymphocytes/100 WBC (Bld) 14.2 % 19-41 [facility] Blood monocytes/100 leukocyt esOrdered By: Dr. Aguirre on 09-08-2022 Monocytes/100 WBC (Bld) 8.8 % 0-10 [facility] Blood platelet mean volumeOr dered By: Dr. Aguirre on 09-08-2022 Platelet mean volume (Bld) [Entitic vol] 9.8 fL 6.2-12.0 [facility] Determination of erythrocyte mean corpuscular volume (MCV)Ordered By: Dr. Aguirre on 09-08-2022 MCV (RBC) [Entitic vol] 82.4 fL 81-99 [facility] Gestational diabetes screen 1-hour screen with 50g oral glucose loadOrdered By: Dr. Aguirre on 09-08-2022 Glucose 1 Hr post 50 g glucose PO [Mass/Vol] 113 mg/dL 70-140 [facility] HIV 1 and HIV-2 antibody ass ay with HIV-1 p24 antigen detectionOrdered By: Dr. Aguirre on 09-08-2022 HIV 1+2 Ab+HIV1 p24 Ag IA Ql Non-Reactive Nonreactive [facility] Hematocrit Auto (Bld) [Volum e fraction]Ordered By: Dr. Aguirre on 09-08-2022 Hematocrit (Bld) [Volume fraction] 36.9 % 37-47 [facility] Laboratory - Chemistry and C hemistry - challengeon 09-08-2022 Glucose Ql (U) Negative [facility] Laboratory - Drug toxicology Ordered By: Beverly Penny on 09-08-2022 Amphetamines Ql (U) Negative <1000 ng/mL [facility] Benzodiazepines Ql (U) Negative < 200 ng/mL [facility] Cannabinoids Screen Ql (U) Negative < 50 ng/mL [facility] Cocaine Ql (U) Negative < 300 ng/mL [facility] Opiates Ql (U) Negative < 300 ng/mL [facility] Laboratory - Hematology and Cell countsOrdered By: Dr. Aguirre on 09-08-2022 Erythrocyte distribution width (RBC) [Entitic vol] 43.7 fL 35.1-43.9 [facility] Erythrocyte distribution width (RBC) [Ratio] 14.9 % 11.6-14.6 [facility] Immature granulocytes/100 WBC (Bld) 1.600 % 0.0-0.9 [facility] Comment on above: IG% - Immature Granu locytes (promyelocytes, myelocytes and metamyelocytes) > 1% indicates that a LEFT SHIFT is Present. MCH (RBC) [Entitic mass] 26.1 pg 27.0-32.0 [facility] Nucleated RBC/100 WBC (Bld) [Ratio] 0 % 0-5 [facility] Laboratory - Urinalysison Protein Ql (U) Negative [facility] MCHC Auto (RBC) [Mass/Vol]Or dered By: Dr. Aguirre on 09-08-2022 MCHC (RBC) [Mass/Vol] 31.7 g/dL 32-36 [facility] No Panel InformationOrdered By: Beverly Penny on 09-08-2022 MDMA (Ecstasy) Screen Negative < 500 ng/mL [facility] Urine Barbiturates Screen Negative < 200 ng/mL [facility] Urine Drug Screen Comment [facility] Comment on above: CONFIRMATORY TESTING FOR ALL POSITIVE URINE DRUG SCREENRESULTS WILL ONLY BE SENT OUT UPON PHYSICIAN ORDER. [facility] Urine Drug Screen methods provide only preliminaryanalytical test results. A more specific alternate chemicalmethod must be used in order to obtain a confirmedanalytical result. Gas chromatography/mass spectrometery(GC/MS) is the preferred confirmatory method. Clinicalconsideration and professional judgement should be appliedto any drug of abuse test result, particularly whenpreliminary positive results are used. URINE TCA TESTING MUST BE ORDERED SEPARATELY. USE TESTMNEMONIC: [facility] Urine Methadone Screen Negative < 300 ng/mL [facility] Platelets bldOrdered By: Dr. Aguirre on 09-08-2022 Platelets (Bld) [#/Vol] 317 10*3/uL 150-450 [facility] Serum Treponema species anti body detectionOrdered By: Dr. Aguirre on 09-08-2022 Treponema sp Ab Ql (S) Non-Reactive [facility] Urine phencyclidine (PCP) de tectionOrdered By: Beverly Penny on 09-08-2022 Phencyclidine Ql (U) Negative < 25 ng/mL [facility] Laboratory - Chemistry and C hemistry - challengeon 08-13-2022 Glucose Ql (U) Negative [facility] Laboratory - Urinalysison Protein Ql (U) Negative [facility] Laboratory - Chemistry and C hemistry - challengeon 07-16-2022 Glucose Ql (U) Negative [facility] Laboratory - Urinalysison Protein Ql (U) Negative [facility] Laboratory - Chemistry and C hemistry - challengeon 06-18-2022 Glucose Ql (U) Negative [facility] Laboratory - Urinalysison Protein Ql (U) Negative [facility] Absolute lymphocyte countOrd ered By: Dr. Oshea on 05-31-2022 Lymphocytes Auto (Unsp spec) [#/Vol] 1.39 10*3/uL 0.83-4.51 [facility] Basophil percentageOrdered B y: Dr. Oshea on 05-31-2022 Basophils/100 WBC (Bld) 0.3 % 0-1 [facility] Bilirubin [Mass/Vol] 0.30 mg/dL 0.20-1.00 [facility] Comment on above: For patients on eltr ombopag therapy, use of Dimension [place] TBIL is not recommended. Chloride [Moles/Vol] 106 mmol/L 98-107 [facility] Eosinophils/100 WBC (Bld) 1.6 % 0-3 [facility] Glucose [Mass/Vol] 91 mg/dL 74-106 [facility] Neutrophils (Bld) [#/Vol] 4.7 10*3/uL 2.0-7.7 [facility] Neutrophils/100 WBC (Bld) 68.2 % 34-64 [facility] Potassium [Moles/Vol] 3.4 mmol/L 3.5-5.1 [facility] Protein [Mass/Vol] 7.5 g/dL 6.4-8.2 [facility] Sodium [Moles/Vol] 137 mmol/L 136-145 [facility] WBC (Bld) [#/Vol] 6.9 10*3/uL 4.5-13.0 [facility] Blood erythrocytes count (nu mber/volume)Ordered By: Dr. Oshea on 05-31-2022 RBC (Bld) [#/Vol] 4.96 10*6/uL 4.1-4.8 [facility] Blood hemoglobin measurement (mass/volume)Ordered By: Dr. Oshea on 05-31-2022 Hemoglobin (Bld) [Mass/Vol] 12.8 g/dL 12.0-15.0 [facility] Blood lymphocytes/100 leukoc ytesOrdered By: Dr. Oshea on 05-31-2022 Lymphocytes/100 WBC (Bld) 20.2 % 25-45 [facility] Blood monocytes/100 leukocyt esOrdered By: Dr. Oshea on 05-31-2022 Monocytes/100 WBC (Bld) 9.3 % 3-6 [facility] Blood platelet mean volumeOr dered By: Dr. Oshea on 05-31-2022 Platelet mean volume (Bld) [Entitic vol] 9.4 fL 6.2-12.0 [facility] Determination of erythrocyte mean corpuscular volume (MCV)Ordered By: Dr. sOhea on 05-31-2022 MCV (RBC) [Entitic vol] 78.4 fL 78-96 [facility] Hematocrit Auto (Bld) [Volum e fraction]Ordered By: Dr. Oshea on 05-31-2022 Hematocrit (Bld) [Volume fraction] 38.9 % 37-46 [facility] Laboratory - Chemistry and C hemistry - challengeOrdered By: Dr. Oshea on 05-31-2022 ALP [Catalytic activity/Vol] 46 U/L 47-119 [facility] ALT [Catalytic activity/Vol] 18 U/L 13-56 [facility] CO2 [Moles/Vol] 24.0 mmol/L 21.0-32.0 [facility] Globulin (S) [Mass/Vol] 4.0 g/dL 2.2-4.2 [facility] Lipase [Catalytic activity/Vol] 75 U/L 73-393 [facility] Urea nitrogen/Creatinine [Mass ratio] 9.3 mg/mg 10-20 [facility] Laboratory - Hematology and Cell countsOrdered By: Dr. Oshea on 05-31-2022 Erythrocyte distribution width (RBC) [Entitic vol] 37.7 fL 35.1-43.9 [facility] Erythrocyte distribution width (RBC) [Ratio] 13.3 % 11.6-14.6 [facility] Immature granulocytes/100 WBC (Bld) 0.400 % 0.0-0.9 [facility] Comment on above: IG% - Immature Granu locytes (promyelocytes, myelocytes and metamyelocytes) > 1% indicates that a LEFT SHIFT is Present. MCH (RBC) [Entitic mass] 25.8 pg 25.0-35.0 [facility] Nucleated RBC/100 WBC (Bld) [Ratio] 0 % 0-5 [facility] MCHC Auto (RBC) [Mass/Vol]Or dered By: Dr. Oshea on 05-31-2022 MCHC (RBC) [Mass/Vol] 32.9 g/dL 32-36 [facility] No Panel InformationOrdered By: Dr. Oshea on 05-31-2022 Estimated Creatinine Clearance Calc 139.76 ml/min [facility] Estimated GFR (MDRD) Amer 189 mL/min >60 [facility] Comment on above: GFR Calc Estimated GFR (MDRD) Non-Af Amer 156 mL/min >60 [facility] Comment on above: Non- GFR Calc Platelets bldOrdered By: Dr. Oshea on 05-31-2022 Platelets (Bld) [#/Vol] 294 10*3/uL 150-450 [facility] Serum or plasma albumin debbie urement (mass/volume)Ordered By: Dr. Oshea on 05-31-2022 Albumin [Mass/Vol] 3.5 g/dL 3.2-5.0 [facility] Serum or plasma albumin/glob ulin mass ratioOrdered By: Dr. Oshae on 05-31-2022 Albumin/Globulin [Mass ratio] 0.9 {ratio} 0.9-2.4 [facility] Serum or plasma calcium dbebie urement (mass/volume)Ordered By: Dr. Oshea on 05-31-2022 Calcium [Mass/Vol] 9.7 mg/dL 8.5-10.1 [facility] Serum or plasma choriogonado tropin detectionOrdered By: Dr. Oshea on 05-31-2022 HCG ( test[place]l [address] mIU/mL <4 [facility] Comment on above: hCG levels with Gest ational AgeGestational Age hCG mIU/mL (IU/L)0.2 - 1 week 5 - 501-2 weeks 50 - 5002-3 weeks 100 - 04995-2 weeks 500 - 062541-4 weeks 1000 - 750502-0 weeks 98453 - 100,0006-8 weeks 29180 - 200,0002-3 months 76613 - 100,000 Serum or plasma creatinine m easurement (mass/volume)Ordered By: Dr. Oshea on 05-31-2022 Creatinine [Mass/Vol] 0.54 mg/dL 0.55-1.02 [facility] Comment on above: The validity of the calculated GFR & GFRAA in patients over 70 years has not been determined. Clinical correlation is essential. Serum or plasma urea nitroge n measurement (mass/volume)Ordered By: Dr. Oshea on 05-31-2022 Urea nitrogen [Mass/Vol] 5 mg/dL 7-18 [facility] Thin prep Papanicolaou smear with manual screeningOrdered By: Dr. Oshea on 05-31-2022 Thin prep Papanicolaou smear with manual screening 10 U/L 15-37 [facility] Thin prep Papanicolaou smear with manual screening 7 5-15 [facility] Culture, urineOrdered By: Dr Kerry Aguirre on 05-24-2022 Bacteria identified Cx Nom (U) Positive [facility] No Panel InformationOrdered By: Dr. Aguirre on 05-24-2022 Miscellaneous Test Comment MAILED SPECIMEN [facility] Absolute lymphocyte countOrd ered By: Dr. Aguirre on 05-21-2022 Lymphocytes Auto (Unsp spec) [#/Vol] 1.54 10*3/uL 0.83-4.51 [facility] Basophil percentageOrdered B y: Dr. Aguirre on 05-21-2022 Basophils/100 WBC (Bld) 0.3 % 0-1 [facility] Eosinophils/100 WBC (Bld) 1.0 % 0-3 [facility] Neutrophils (Bld) [#/Vol] 6.2 10*3/uL 2.0-7.7 [facility] Neutrophils/100 WBC (Bld) 71.4 % 34-64 [facility] WBC (Bld) [#/Vol] 8.7 10*3/uL 4.5-13.0 [facility] Blood erythrocytes count (nu mber/volume)Ordered By: Dr. Aguirre on 05-21-2022 RBC (Bld) [#/Vol] 5.02 10*6/uL 4.1-4.8 [facility] Blood hemoglobin measurement (mass/volume)Ordered By: Dr. Aguirre on 05-21-2022 Hemoglobin (Bld) [Mass/Vol] 13.3 g/dL 12.0-15.0 [facility] Blood lymphocytes/100 leukoc ytesOrdered By: Dr. Aguirre on 05-21-2022 Lymphocytes/100 WBC (Bld) 17.8 % 25-45 [facility] Blood monocytes/100 leukocyt esOrdered By: Dr. Aguirre on 05-21-2022 Monocytes/100 WBC (Bld) 9.2 % 3-6 [facility] Blood platelet mean volumeOr dered By: Dr. Aguirre on 05-21-2022 Platelet mean volume (Bld) [Entitic vol] 9.4 fL 6.2-12.0 [facility] Determination of erythrocyte mean corpuscular volume (MCV)Ordered By: Dr. Aguirre on 05-21-2022 MCV (RBC) [Entitic vol] 78.9 fL 78-96 [facility] HIV 1 and HIV-2 antibody ass ay with HIV-1 p24 antigen detectionOrdered By: Dr. Aguirre on 05-21-2022 HIV 1+2 Ab+HIV1 p24 Ag IA Ql Non-Reactive Nonreactive [facility] Hematocrit Auto (Bld) [Volum e fraction]Ordered By: Dr. Aguirre on 05-21-2022 Hematocrit (Bld) [Volume fraction] 39.6 % 37-46 [facility] Laboratory - Drug toxicology Ordered By: Dr. Aguirre on 05-21-2022 Amphetamines Ql (U) Negative <1000 ng/mL [facility] Benzodiazepines Ql (U) Negative < 200 ng/mL [facility] Cannabinoids Screen Ql (U) Positive < 50 ng/mL [facility] Cocaine Ql (U) Negative < 300 ng/mL [facility] Opiates Ql (U) Negative < 300 ng/mL [facility] Laboratory - Hematology and Cell countsOrdered By: Dr. Aguirre on 05-21-2022 Erythrocyte distribution width (RBC) [Entitic vol] 37.7 fL 35.1-43.9 [facility] Erythrocyte distribution width (RBC) [Ratio] 13.3 % 11.6-14.6 [facility] Immature granulocytes/100 WBC (Bld) 0.300 % 0.0-0.9 [facility] Comment on above: IG% - Immature Granu locytes (promyelocytes, myelocytes and metamyelocytes) > 1% indicates that a LEFT SHIFT is Present. MCH (RBC) [Entitic mass] 26.5 pg 25.0-35.0 [facility] Nucleated RBC/100 WBC (Bld) [Ratio] 0 % 0-5 [facility] MCHC Auto (RBC) [Mass/Vol]Or dered By: Dr. Aguirre on 05-21-2022 MCHC (RBC) [Mass/Vol] 33.6 g/dL 32-36 [facility] No Panel InformationOrdered By: Dr. Aguirre on 05-21-2022 MDMA (Ecstasy) Screen Negative < 500 ng/mL [facility] Urine Barbiturates Screen Negative < 200 ng/mL [facility] Urine Drug Screen Comment [facility] Comment on above: CONFIRMATORY TESTING FOR ALL POSITIVE URINE DRUG SCREENRESULTS WILL ONLY BE SENT OUT UPON PHYSICIAN ORDER. [facility] Urine Drug Screen methods provide only preliminaryanalytical test results. A more specific alternate chemicalmethod must be used in order to obtain a confirmedanalytical result. Gas chromatography/mass spectrometery(GC/MS) is the preferred confirmatory method. Clinicalconsideration and professional judgement should be appliedto any drug of abuse test result, particularly whenpreliminary positive results are used. URINE TCA TESTING MUST BE ORDERED SEPARATELY. USE TESTMNEMONIC: [facility] Urine Methadone Screen Negative < 300 ng/mL [facility] Hepatitis B Surface Antigen Non-Reactive Nonreactive [facility] Hepatitis C Antibody Non-Reactive Nonreactive [facility] Comment on above: Non Reactive: < 0.8 Equivocal: >/= 0.8 to < 1.0 Reactive: >/= 1.0The [facility] recommends that a reactive/equivocal HCV antibody result be followed up by the HCV Nucleic Acid Amplificationtest (346068) Rubella IgG Antibody Reactive Nonreactive [facility] Comment on above: Antibody Results Int erpretation of Immune Status Non Reactive Presumed Non-Immune Equivocal Equivocal Reactive Presumed Immune Platelets bldOrdered By: Dr. Aguirre on 05-21-2022 Platelets (Bld) [#/Vol] 402 10*3/uL 150-450 [facility] Serum Treponema species anti body detectionOrdered By: Dr. Aguirre on 05-21-2022 Treponema sp Ab Ql (S) Non-Reactive [facility] Urine phencyclidine (PCP) de tectionOrdered By: Dr. Aguirre on 05-21-2022 Phencyclidine Ql (U) Negative < 25 ng/mL [facility] AOH MAIN OR Intraop Recordon 01-31-2018 AO MAIN OR Intraop Record Normal [facility] ([place]) Depart Summaryon 01-31-2018 Depart Summary Normal [facility] ([place]) [place] Operative Reporton 01-31-2018 [place] Operative Report Normal [facility] ([place]) [place] Outpatient Patient Summaryon 01-31-2018 [place] [facility] Patient Summary Normal [facility] ([place]) XR FLUORO < 1HR TECH TIMEon 01-31-2018 XR FLUORO < 1HR TECH TIME ORIGINAL Images acquired, not reported on this accession number. Normal [facility] ([place]) Culture, urine Bacteria identified Cx Nom (U) Positive [facility] Work Phone: Vital Signs Date Time Vital Sign Value Performing Clinician Facility 02-04-2025 10:58-0400 Body height 162.56 cm Chucho Nickerson MD Work Phone: [facility] 02-04-2025 10:58-0400 Body mass index (BMI) [Ratio] 31.8 kg/m2 Chucho Nickerson MD Work Phone: [facility] 02-04-2025 10:58-0400 Body weight 84.05 kg Chucho Nickerson MD Work Phone: [facility] 02-04-2025 10:58-0400 Diastolic blood pressure 70 mm[Hg] Chucho Nickerson MD Work Phone: [facility] 02-04-2025 10:58-0400 Systolic blood pressure 104 mm[Hg] Chucho Nickerson MD Work Phone: [facility] 01-09-2025 15:51-0400 Body height 162.56 cm Chucho Nickerson MD Work Phone: [facility] 01-09-2025 15:51-0400 Body mass index (BMI) [Ratio] 31.2 kg/m2 Chucho Nickerson MD Work Phone: [facility] 01-09-2025 15:51-0400 Body weight 82.61 kg Chucoh Nickerson MD Work Phone: [facility] 01-09-2025 15:51-0400 Diastolic blood pressure 67 mm[Hg] Chucho Nickerson MD Work Phone: [facility] 01-09-2025 15:51-0400 Systolic blood pressure 102 mm[Hg] Chucho Nickerson MD Work Phone: [facility] 12-10-2024 15:10-0400 Body height 162.56 cm Chucho Nickerson MD Work Phone: [facility] 12-10-2024 15:09-0400 Body mass index (BMI) [Ratio] 31.4 kg/m2 Chucho Nickerson MD Work Phone: [facility] 12-10-2024 15:09-0400 Body weight 83.06 kg Chucho Nickerson MD Work Phone: [facility] 12-10-2024 15:09-0400 Diastolic blood pressure 66 mm[Hg] Chucho Nickerson MD Work Phone: [facility] 12-10-2024 15:09-0400 Systolic blood pressure 103 mm[Hg] Chucho Nickerson MD Work Phone: [facility] 09-23-2024 14:25-0400 Body temperature 98.29 [degF] [facility] ARCHITECT MANAGER.CONSTRUCTION MANAGEMENT INSTRUCTOR Work Phone: [facility] 09-23-2024 14:25-0400 Body weight 87.5 kg [facility] ARCHITECT MANAGER.CONSTRUCTION MANAGEMENT INSTRUCTOR Work Phone: [facility] 09-23-2024 14:25-0400 Diastolic blood pressure 76 mm[Hg] Riki [facility] ARCHITECT MANAGER.CONSTRUCTION MANAGEMENT INSTRUCTOR Work Phone: [facility] 09-23-2024 14:25-0400 Heart rate 84 /min [facility] ARCHITECT MANAGER.CONSTRUCTION MANAGEMENT INSTRUCTOR Work Phone: [facility] 09-23-2024 14:25-0400 Respiratory rate 16 /min Rikimaranda [facility] ARCHITECT MANAGER.CONSTRUCTION MANAGEMENT INSTRUCTOR Work Phone: [facility] 09-23-2024 14:25-0400 SaO2% (BldA) [Mass fraction] 98 [facility].CONSTRUCTION MANAGEMENT INSTRUCTOR Work Phone: [facility] 09-23-2024 14:25-0400 Systolic blood pressure 110 mm[Hg] Riki Jhay[facility] ARCHITECT MANAGER.CONSTRUCTION MANAGEMENT INSTRUCTOR Work Phone: [facility] 10-24-2023 20:18-0400 Diastolic blood pressure 87 mm[Hg] [facility] 10-24-2023 20:18-0400 Heart rate 68 /min [facility] 10-24-2023 20:18-0400 Respiratory rate 18 /min [facility] 10-24-2023 20:18-0400 SaO2% (BldA) [Mass fraction] 100 % [facility] 10-24-2023 20:18-0400 Systolic blood pressure 125 mm[Hg] [facility] 10-24-2023 18:18-0400 Body height 162.56 cm [facility] 10-24-2023 18:18-0400 Body mass index (BMI) [Ratio] 26.4 kg/m2 [facility] 10-24-2023 18:18-0400 Body temperature 97.8 [degF] [facility] 10-24-2023 18:18-0400 Body weight 70.02 kg [facility] 12-02-2022 13:53-0400 Body temperature 97.8 [degF] No Primary Care Physician [facility] 12-02-2022 13:53-0400 Diastolic blood pressure 62 mm[Hg] No Primary Care Physician [facility] 12-02-2022 13:53-0400 Heart rate 87 /min No Primary Care Physician [facility] 12-02-2022 13:53-0400 Respiratory rate 15 /min No Primary Care Physician [facility] 12-02-2022 13:53-0400 SaO2% (BldA) [Mass fraction] 97 % No Primary Care Physician [facility] 12-02-2022 13:53-0400 Systolic blood pressure 101 mm[Hg] No Primary Care Physician [facility] 12-01-2022 00:56-0400 Body height 162.56 cm No Primary Care Physician [facility] 12-01-2022 00:56-0400 Body mass index (BMI) [Percentile] Per age and sex 95.4 % No Primary Care Physician [facility] 12-01-2022 00:56-0400 Body mass index (BMI) [Ratio] 31.8 kg/m2 No Primary Care Physician [facility] 12-01-2022 00:56-0400 Body weight 84.02 kg No Primary Care Physician [facility] 11-24-2022 09:13-0400 Body mass index (BMI) [Percentile] Per age and sex 95.7 % No Primary Care Physician [facility] 11-24-2022 09:13-0400 Body mass index (BMI) [Ratio] 32.1 kg/m2 No Primary Care Physician [facility] 11-24-2022 09:13-0400 Body weight 82.15 kg No Primary Care Physician [facility] 11-24-2022 09:13-0400 Diastolic blood pressure 71 mm[Hg] No Primary Care Physician [facility] 11-24-2022 09:13-0400 Systolic blood pressure 113 mm[Hg] No Primary Care Physician [facility] 11-17-2022 10:24-0400 Body mass index (BMI) [Percentile] Per age and sex 95.4 % No Primary Care Physician [facility] 11-17-2022 10:24-0400 Body mass index (BMI) [Ratio] 31.7 kg/m2 No Primary Care Physician [facility] 11-17-2022 10:24-0400 Body weight 81.3 kg No Primary Care Physician [facility] 11-17-2022 10:24-0400 Diastolic blood pressure 75 mm[Hg] No Primary Care Physician [facility] 11-17-2022 10:24-0400 Systolic blood pressure 112 mm[Hg] No Primary Care Physician [facility] 11-03-2022 08:42-0400 Body mass index (BMI) [Percentile] Per age and sex 94.9 % No Primary Care Physician [facility] 11-03-2022 08:42-0400 Body mass index (BMI) [Ratio] 31.1 kg/m2 No Primary Care Physician [facility] 11-03-2022 08:42-0400 Body weight 79.83 kg No Primary Care Physician [facility] 11-03-2022 08:42-0400 Diastolic blood pressure 70 mm[Hg] No Primary Care Physician [facility] 11-03-2022 08:42-0400 Systolic blood pressure 111 mm[Hg] No Primary Care Physician [facility] 10-20-2022 09:15-0400 Body mass index (BMI) [Percentile] Per age and sex 94.3 % No Primary Care Physician [facility] 10-20-2022 09:15-0400 Body mass index (BMI) [Ratio] 30.5 kg/m2 No Primary Care Physician [facility] 10-20-2022 09:15-0400 Body weight 78.24 kg No Primary Care Physician [facility] 10-20-2022 09:15-0400 Diastolic blood pressure 66 mm[Hg] No Primary Care Physician [facility] 10-20-2022 09:15-0400 Systolic blood pressure 107 mm[Hg] No Primary Care Physician [facility] 10-06-2022 10:09-0400 Body mass index (BMI) [Percentile] Per age and sex 93.3 % No Primary Care Physician [facility] 10-06-2022 10:09-0400 Body mass index (BMI) [Ratio] 29.7 kg/m2 No Primary Care Physician [facility] 10-06-2022 10:09-0400 Body weight 76.26 kg No Primary Care Physician [facility] 10-06-2022 10:09-0400 Diastolic blood pressure 67 mm[Hg] No Primary Care Physician [facility] 10-06-2022 10:09-0400 Systolic blood pressure 102 mm[Hg] No Primary Care Physician [facility] 09-22-2022 09:10-0400 Body mass index (BMI) [Percentile] Per age and sex 92.9 % No Primary Care Physician [facility] 09-22-2022 09:10-0400 Body mass index (BMI) [Ratio] 29.4 kg/m2 No Primary Care Physician [facility] 09-22-2022 09:10-0400 Body weight 75.29 kg No Primary Care Physician [facility] 09-22-2022 09:10-0400 Diastolic blood pressure 68 mm[Hg] No Primary Care Physician [facility] 09-22-2022 09:10-0400 Systolic blood pressure 102 mm[Hg] No Primary Care Physician [facility] 09-08-2022 08:51-0400 Body height 160.[address] Mariaelena Ornelas Work Phone: [facility] 09-08-2022 08:51-0400 Body mass index (BMI) [Percentile] Per age and sex 91.3 % Dr. Mariaelena Ornelas Work Phone: [facility] 09-08-2022 08:51-0400 Body mass index (BMI) [Ratio] 28.4 kg/m2 Dr. Mariaelena Ornelas Work Phone: 5(189)294-775617 [place] [address] 09-08-2022 08:51-0400 Body weight 72.[address] Mariaelena Ornelas Work Phone: 1(929)619-183317 [place] [address] 09-08-2022 08:51-0400 Diastolic blood pressure 70 mm[Hg] Dr. Mariaelena Ornelas Work Phone: 3(950)152-161217 [place] [address] 09-08-2022 08:51-0400 Systolic blood pressure 110 mm[Hg] Dr. Mariaelena Ornelas Work Phone: 7(509)597-545817 [place] [address] 08-13-2022 08:45-0500 Body mass index (BMI) [Percentile] Per age and sex 88.3 % Dr. Mariaelena Ornelas Work Phone: 9(165)921-154117 [place] [address] 08-13-2022 08:45-0500 Body mass index (BMI) [Ratio] 27.1 kg/m2 Dr. Mariaelena Ornelas Work Phone: 4(847)546-552917 [place] [address] 08-13-2022 08:45-0500 Body weight 69.[address] Mariaelena Ornelas Work Phone: 7(566)857-923917 [place] [address] 08-13-2022 08:45-0500 Diastolic blood pressure 61 mm[Hg] Dr. Mariaelena Ornelas Work Phone: 5(026)824-408617 [place] [address] 08-13-2022 08:45-0500 Systolic blood pressure 102 mm[Hg] Dr. Mariaelena Ornelas Work Phone: 8(625)347-295617 [place] [address] 07-16-2022 13:23-0500 Body mass index (BMI) [Percentile] Per age and sex 81.6 % Dr. Mariaelena Ornelas Work Phone: 1(292)726-660417 [place] [address] 07-16-2022 13:23-0500 Body mass index (BMI) [Ratio] 25.3 kg/m2 Dr. Mariaelena Ornelas Work Phone: 6(382)232-815117 [place] [address] 07-16-2022 13:23-0500 Body weight 64.[address] Mariaelena Ornelas Work Phone: 6(678)370-274717 [place] [address] 07-16-2022 13:23-0500 Diastolic blood pressure 73 mm[Hg] Dr. Mariaelena Ornelas Work Phone: 3(919)754-861349 [address] 07-16-2022 13:23-0500 Systolic blood pressure 114 mm[Hg] Dr. Mariaelena Ornelas Work Phone: 1(960)547-560217 [place] [address] 06-18-2022 13:21-0500 Body mass index (BMI) [Percentile] Per age and sex 77.4 % Dr. Mariaelena Ornelas Work Phone: 2(356)255-308817 [place] [address] 06-18-2022 13:21-0500 Body mass index (BMI) [Ratio] 24.5 kg/m2 Dr. Mariaelena Ornelas Work Phone: 8(934)672-556017 [place] [address] 06-18-2022 13:21-0500 Body weight 62.[address] Mariaelena Ornelas Work Phone: 1(760)214-194817 [place] [address] 06-18-2022 13:21-0500 Diastolic blood pressure 76 mm[Hg] Dr. Mariaelena Ornelas Work Phone: 2(160)023-526117 [place] [address] 06-18-2022 13:21-0500 Systolic blood pressure 113 mm[Hg] Dr. Mariaelena Ornelas Work Phone: 6(189)657-572217 [place] [address] 05-31-2022 06:42-0500 Body height 160.[address] Mariaelena Ornelas Work Phone: 4(899)649-204117 [place] [address] Work Phone: 05-31-2022 06:42-0500 Body mass index (BMI) [Percentile] Per age and sex 83.2 % Dr. Mariaelena Ornelas Work Phone: 5(731)872-297749 [address] 05-31-2022 06:42-0500 Body mass index (BMI) [Ratio] 25.6 kg/m2 Dr. Mariaelena Ornelas Work Phone: 6(713)351-811917 [place] [address] 05-31-2022 06:42-0500 Body temperature 97.6 [degF] Dr. Mariaelena Ornelas Work Phone: 6(606)037-625117 [place] [address] 05-31-2022 06:42-0500 Body weight 65.[address] Mariaelena Ornelas Work Phone: 8(661)649-919417 [place] [address] 05-31-2022 06:42-0500 Diastolic blood pressure 70 mm[Hg] Dr. Mariaelena Ornelas Work Phone: [facility] 05-31-2022 06:42-0500 Heart rate 74 /min Dr. Mariaelena Ornelas Work Phone: [facility] 05-31-2022 06:42-0500 Respiratory rate 18 /min Dr. Mariaelena Ornelas Work Phone: [facility] 05-31-2022 06:42-0500 SaO2% (BldA) [Mass fraction] 96 % Dr. Mariaelena Ornelas Work Phone: 1(592)151-503835 [place] [address] 05-31-2022 06:42-0500 Systolic blood pressure 115 mm[Hg] Dr. Mariaelena Ornelas Work Phone: 4(678)716-810735 [place] [address] 05-21-2022 14:07-0500 Body mass index (BMI) [Percentile] Per age and sex 75.7 % Dr. Mariaelena Ornelas Work Phone: 2(612)046-920335 [place] [address] 05-21-2022 14:07-0500 Body mass index (BMI) [Ratio] 24.2 kg/m2 Dr. Mariaelena Ornelas Work Phone: 9(593)032-288335 [place] [address] 05-21-2022 14:07-0500 Body weight 64.[address] Mariaelena Ornelas Work Phone: [facility] 05-21-2022 14:07-0500 Diastolic blood pressure 74 mm[Hg] Dr. Mariaelena Ornelas Work Phone: 3(779)573-433435 [place] [address] 05-21-2022 14:07-0500 Systolic blood pressure 114 mm[Hg] Dr. Mariaelena Ornelas Work Phone: [facility] Encounters Encounter Date Encounter Type Care Provider Facility Start: 03-06-2025 ambulatory Chucho Nickerson Facility:[facility] Start: 02-04-2025 End: 02-04-2025 Patient encounter procedure Nadege Jarrell CNM -[facility] Work Phone: Start: 02-04-2025 End: 02-04-2025 ambulatory Chucho Nickerson MD Work Phone: [facility] Start: 01-24-2025 End: 01-24-2025 ambulatory BUBBA [facility] Start: 01-09-2025 End: 01-09-[address] Mayi Nuñez DO [facility] Work Phone: Start: 01-09-2025 End: 01-09-2025 ambulatory Chucho Nickerson MD Work Phone: [facility] Start: 12-10-2024 End: 12-10-2024 ambulatory Chucho Nickerson MD Work Phone: [facility] Start: 12-10-2024 End: 12-10-[address] Mayi Nuñez DO [facility] Start: 12-10-2024 End: 12-10-[address] Mayi Nuñez DO [facility] Work Phone: Start: 12-10-2024 End: 12-10-2024 ambulatory Chucho Nickerson MD Work Phone: [facility] Start: 12-10-2024 End: 12-10-2024 ambulatory Mayi Nuñez Facility:[facility] Start: 11-09-2024 ambulatory Elo Alvarez y:[facility] Start: 09-23-2024 End: 09-23-2024 ambulatory MARIAELENA ORNELAS Facility:[facility] Start: 09-23-2024 End: 09-23-2024 Office outpatient visit 15 minutes Riki Albarado APRN.CNP Work Phone: [facility] Comment on above: Viral illness (Prima ry Dx) Start: 06-22-2024 ambulatory Chucho Nickerson Facility:[facility] Start: 10-24-2023 End: 10-24-2023 Emergency department patient visit [facility] Work Phone: Start: 08-11-2023 End: 08-11-2023 Patient encounter procedure Nayan Clarke Work Phone: Podiatry Comment on above: Ingrowing toenail (P rimary Dx); Raynaud's disease without gangrene; Diminished pulses in lower extremity Start: 12-02-2022 Non-patient / Non-visit No Bette wise Care Physician [facility] Start: 12-01-2022 Non-patient / Non-visit No Bette wise [facility] Physician [facility] Start: 12-01-2022 End: 12-02-2022 Evaluation and management of inpatient No Primary [facility] Start: 11-24-2022 End: 11-24-2022 Patient encounter procedure No Primary Care Physician [facility] Start: 11-17-2022 End: 11-17-2022 Patient encounter procedure No Primary Care Physician [facility]-Laboratory, Specimen Start: 11-17-2022 End: 11-17-2022 Patient encounter procedure No Primary Care Physician [facility] Start: 11-03-2022 End: 11-03-2022 Patient encounter procedure No Primary Care Physician [facility] Start: 10-20-2022 End: 10-20-2022 Patient encounter procedure No Primary Care Physician [facility] Start: 10-06-2022 End: 10-06-2022 Patient encounter procedure No Primary Care Physician [facility] Start: 09-22-2022 End: 09-22-2022 Patient encounter procedure No Primary Care Physician [facility]Laboratory, Specimen Start: 09-22-2022 End: 09-22-2022 Patient encounter procedure No Primary Care Physician [facility] Start: 09-08-2022 End: 09-08-[address] Mariaelena Ornelas Work Phone: [facility] Work Phone: Start: 09-08-2022 End: 09-08-[address] Mariaelena Ornelas Work Phone: [facility] Start: 08-13-2022 End: 08-13-[address] Mariaelena Ornelas Work Phone: [facility] Start: 07-16-2022 End: 07-16-[address] Mariaelena Ornelas Work Phone: [facility] Start: 06-18-2022 End: 06-18-[address] Mariaelena Ornelas Work Phone: [facility] Start: 05-31-2022 End: 05-31-2022 Emergency department patient visit Dr. Mariaelena Ornelas Work Phone: [facility] Start: 05-24-2022 End: 05-24-[address] Mariaelena Ornelas Work Phone: [facility] Work Phone: Start: 05-24-2022 End: 05-24-[address] Mariaelena Ornelas Work Phone: [facility] Start: 05-21-2022 End: 05-21-[address] Mariaelena Ornelas Work Phone: [facility] Work Phone: Start: 05-21-2022 End: 05-21-[address] Mariaelena Ornelas Work Phone: [facility] Start: 05-21-2022 End: 05-21-[address] Mariaelena Ornelas Work Phone: [facility] Start: 05-05-2022 End: 05-05-2022 Nursing evaluation of patient and report Nurse [facility] Work Phone: OB/Gynecology Comment on above: Supervision of herrera brown first teen , unspecified trimester (Primary Dx); Nausea/vomiting in ; History of depression; Patient request for diagnostic testing Start: 05-05-2022 End: 05-05-2022 Patient requested procedure Nurse [facility] Work Phone: OB/Gynecology Start: 01-31-2018 End: 01-31-2018 Patient encounter KAMILAH ABEBE Facility:[facility] Start: 01-27-2018 Patient encounter KAMILAH NasirKerry ANDRAE Earl acility:B Procedures Date Procedure Procedure Detail Performing Clinician Start: 12-10-2024 Hepatitis C antibody measurement Chucho Nickerson MD Work Phone: Comment on above: Reactive: Presumptiv e evidence of antibodies to HCV. Follow CDC recommendations for supplemental testing.Non-Reactive: Antibodies to HCV were not detected; does not exclude the possibility of exposure to HCVReactive Results are presumptive evidence of antibodies to HCV. Follow CDC recommendations for supplemental testing.Order confirmation testing: HCV Quant by PCR testing - HCVPCR #[id number] Non Reactive: < 0.8 Equivocal: >/= 0.8 to < 1.0 Reactive: >/= 1.0The CDC requires that a reactive/equivocal HCV antibody result be sent out for confirmation. HCV Quant by PCR testing. Start: 12-10-2024 Liquid based cervica l cytology screening Chucho Nickerson MD Work Phone: Comment on above: NEGATIVE FOR INTRAEP ITHELIAL LESION OR MALIGNANCY. This liquid based Th inPrep(R) pap test was screened withthe use of an image guided system. The HPV DNA reflex c riteria were not met with this specimenresult therefore, no HPV testing was performed.Performed at: [address] [id number] Director: Rabia Odom MD, Phone: [phone] Start: 12-10-2024 Procedure Chucho swain MD Work Phone: Start: 12-10-2024 Rubella IgG measurement Chucho Nickerson MD Work Phone: Comment on above: Antibody Result: Int erpretationNon-Reactive: Non- ImmuneReactive: ImmuneThe following results were obtained with the [employer] Rubella IgG assay. Results from assays of other manufacturers cannot be used interchangeably. Start: 12-10-2024 Serologic test for syphilis Chucho Nickerson MD Work Phone: Start: 12-10-2024 Urine culture Chucho richardson MD Work Phone: Start: 10-24-2023 Transvaginal echography Group B Streptococcu s Culture No Primary Care Physician Urine culture Dr. Mariaelena dutton Work Phone: Urine culture Dr. Mariaelena dtuton Work Phone: Plan of Treatment Date Care Activity Detail Author Start: 04-29-2026 Urine microalbumin profile DTa P,Tdap,Td Vaccine (7 - Td or Tdap) [facility] Start: 12-10-2024 Procedure [facility] Start: 12-10-2024 Bacteria identified in Urine by Culture Urine Culture [facility] Start: 2024 Screening for malign ant neoplasm of cervix Cervical Cancer Screening [facility] Start: 02-12-2024 Covid-19 Vaccine ( season) Covid-19 Vaccine ( season) [facility] Start: 02-12-2024 Influenza vaccination Influenza Vacc ine (#1) [facility] Start: 10-24-2023 [facility] Start: 06-13-2023 Depression Assessment Depression Ass essment [facility] Start: 02-11-2023 Influenza vaccination Influenza Vacc ine (#1) [facility] Start: 12-02-2022 Patient discharge [facility] Start: 12-01-2022 Administration of medication [facility] Start: 12-01-2022 Application of ice c ollar, cap or bag [facility] Start: 12-01-2022 Catheterization of vein [facility] Start: 12-01-2022 Introduction of urin paul catheter [facility] Start: 12-01-2022 Measuring intake and output [facility] Start: 12-01-2022 Notification of physician [facility] Start: 12-01-2022 Procedure discontinued [facility] Start: 12-01-2022 Provision of activit y privileges [facility] Start: 12-01-2022 Vital signs measurements [facility] Start: 12-01-2022 [facility] Start: 12-01-2022 Admission procedure [facility] Start: 12-01-2022 Consultation [facility] Start: 02-11-2022 Influenza vaccination INFLUENZA (#1) [facility] Start: 2021 Anxiety Screening Anxiety Screening [facility] Start: 2021 CHLAMYDIA SCREENING (18-24) CHLAMYDIA SCREENING (18-24) [facility] Start: 2021 Depression Screening Depression Scre ening [facility] Start: 2021 GC (GONORRHEA) SCREE ASIA (18-24) GC (GONORRHEA) SCREENING (18-24) [facility] Start: 2021 HEPATITIS C SCREENING HEPATITIS C [facility] Start: 2021 Hepatitis C screening Hepatitis C [facility] Start: 2021 HIV SCREENING HIV SCREENING [facility] Start: 2021 HIV screening HIV Screening [facility] Start: 2021 Screening for Chlamy juan trachomatis Chlamydia Screening (18) [facility] Start: 06-13-2021 DEPRESSION ASSESSMENT DEPRESSION ASS ESSMENT [facility] Start: 2019 Meningococcal B Vacc ine (1 of 2 - Standard) Meningococcal B Vaccine (1 of 2 - Standard) [facility] Start: 2019 Meningococcal B Vacc ine: Consider Based On Risk (1 of 2 - Patient Seeks Protection) Meningococcal B Vaccine: Consider Based On Risk (1 of 2 - Patient Seeks Protection) [facility] Start: 2019 MENINGOCOCCAL CONJUG ATE (1 - 2-dose series) MENINGOCOCCAL CONJUGATE (1 - 2-dose series) [facility] Start: 2017 PEDS TO ADULT TRANSI TION ANNUAL ASSESSMENT PEDS TO ADULT TRANSITION ANNUAL ASSESSMENT [facility] Start: 2015 PEDS TO ADULT TRANSI TION INITIAL DISCUSSION PEDS TO ADULT TRANSITION INITIAL DISCUSSION [facility] Start: 2014 HPV VACCINE (1 - 2-d ose series) HPV VACCINE (1 - 2-dose series) [facility] Start: 2014 Urine microalbumin profile DTAP,TDAP ,TD (6 - Tdap) [facility] Start: 01-13-2004 COVID-19 VACCINE (#1) COVID-19 VACCI NE (#1) [facility] Chlamydia deoxyribon ucleic acid detection [facility] Work Phone: Erythrocyte mean corpuscular volume determination [facility] Hematocrit [Volume Fraction] of Blood [facility] Hemoglobin [Mass/vol ume] in Blood [facility] Hemoglobin A1c/Hemoglobin.total in Blood [facility] Hepatitis B virus peralta rface Ag [Presence] in Serum [facility] Hepatitis C antibody measurement [facility] Leukocytes [#/volume ] in Blood [facility] Mean corpuscular hemoglobin concentration determination [facility] Mean corpuscular hemoglobin determination [facility] Neisseria gonorrhoea e rRNA [Presence] in Unspecified specimen by SARIKA with probe detection [facility] Neutrophil count [facility] Neutrophil percent differential count [facility] Path report.final Dx Spec [facility] Patient Education [facility] Work Phone: Patient referral [facility] Work Phone: PCR test for Chlamyd ia trachomatis [facility] Platelets [#/volume] in Blood [facility] Red blood cell count [facility] Red cell distributio n width determination [facility] Rubella IgG measurement [facility] Serologic test for syphilis [facility] Urine culture [facility] End: 08-10-2024 US.doppler Extremity arteries - bilateral for physiologic artery study [facility] Vascular Lab Routine Ingrowing toenail Raynaud's disease without gangrene Diminished pulses in lower extremity 1 Occurrences starting 08/11/2023 until 08/10/2024 [facility] Work Phone: Comment on above: 1 Occurrences starti ng 08/11/2023 until 08/10/2024 [facility] Immunizations Immunization Date Immunization Notes Care Provider Sen monae 04-01-2014 influenza virus vaccine, unspecified formulation Nayan Clarke Work Phone: [facility] 09-27-2008 diphtheria, tetanus toxoids and acellular pertussis vaccine Nurse Rust Work Phone: [facility] Work Phone: 09-27-2008 measles, mumps and rubella virus vaccine Nurse Rust Work Phone: [facility] Work Phone: 09-27-2008 poliovirus vaccine, inactivated Nurse Wstr Work Phone: [facility] Work Phone: 09-27-2008 varicella virus vaccine Nurs e Wstr Work Phone: [facility] Work Phone: 02-24-2006 diphtheria, tetanus toxoids and acellular pertussis vaccine Nurse Wstr Work Phone: [facility] Work Phone: 02-24-2006 pneumococcal conjuga te vaccine, 7 valent Nurse Wstr Work Phone: [facility] Work Phone: 10-20-2004 haemophilus influenz ae type b vaccine, HbOC conjugate Nurse Wstr Work Phone: [facility] Work Phone: 10-20-2004 measles, mumps and rubella virus vaccine Nurse Wstr Work Phone: [facility] Work Phone: 10-20-2004 varicella virus vaccine Nurs e Wstr Work Phone: [facility] Work Phone: 01-29-2004 diphtheria, tetanus toxoids and acellular pertussis vaccine Nurse Wstr Work Phone: [facility] Work Phone: 01-29-2004 haemophilus influenz ae type b vaccine, HbOC conjugate Nurse Wstr Work Phone: [facility] Work Phone: 01-29-2004 hepatitis B vaccine, pediatric or pediatric/adolescent dosage Nurse Wstr Work Phone: [facility] Work Phone: 01-29-2004 poliovirus vaccine, inactivated Nurse Wstr Work Phone: [facility] Work Phone: 2003 diphtheria, tetanus toxoids and acellular pertussis vaccine Nurse Wstr Work Phone: [facility] Work Phone: 2003 haemophilus influenz ae type b vaccine, HbOC conjugate Nurse Wstr Work Phone: [facility] Work Phone: 2003 hepatitis B vaccine, pediatric or pediatric/adolescent dosage Nurse Wstr Work Phone: [facility] Work Phone: 2003 pneumococcal conjuga te vaccine, 7 valent Nurse Wstr Work Phone: [facility] Work Phone: 2003 poliovirus vaccine, inactivated Nurse Wstr Work Phone: [facility] Work Phone: 2003 diphtheria, tetanus toxoids and acellular pertussis vaccine Nurse Wstr Work Phone: [facility] Work Phone: 2003 haemophilus influenz ae type b vaccine, HbOC conjugate Nurse Wstr Work Phone: [facility] Work Phone: 2003 hepatitis B vaccine, pediatric or pediatric/adolescent dosage Nurse Wstr Work Phone: [facility] Work Phone: 2003 poliovirus vaccine, inactivated Nurse Wstr Work Phone: [facility] Work Phone: 2003 pneumococcal conjuga te vaccine, 7 valent Nurse Wstr Work Phone: [facility] Work Phone: Payers Date Payer Category Payer Self-pay [id number] 2022 [facility] [id number] 2018 Medicaid [id number] 2017 Medicaid [id number] 2003 Unknown [id number] [id number] Unknown [id number] [id number] Unknown [id number] [id number] [id number] Unknown [id number] [id number] [id number] Unknown [id number] [id number] Unknown [id number] [id number] Unknown [id number] [id number] Unknown [id number] [id number] [id number] Social History Date Type Detail Facility Start: 01-23-2018 End: 09-23-2024 Tobacco smoking status NHIS Never smoked tobacco [facility] Work Phone: Start: 01-23-2018 End: 09-23-2024 Tobacco use and exposure Smokeless tobacco non-user [facility] Work Phone: Start: 05-05-2022 End: 09-23-2024 Alcohol intake Ex-drinker (finding) [facility] Start: 05-05-2022 Education 11 [facility] Start: 05-05-2022 Alcohol Comment rarely [facility] Start: 03-22-2022 [facility] Start: 2003 [facility] Start: 04-25-2022 End: 05-05-2022 Exposure to SARS-CoV-2 (event) Not sure [facility] Work Phone: Start: 05-21-2022 End: 10-24-2023 Tobacco smoking status NHIS Unknown if ever smoked [facility] Start: 03-07-2023 End: 07-16-2024 History of Social function [facility] Start: 03-07-2023 End: 07-16-2024 Tobacco use panel [facility] National Score (1-100), lower number is lower risk 54 [facility] Start: 05-05-2022 Gender identity Identifies as female gender (finding) [facility] Start: 05-05-2022 Sexual orientation Heterosexual (kleber huertas) [facility] Start: 10-26-2024 End: 12-17-2024 Tobacco smoking status NHIS Ex-smoker (finding) [facility] NEGATED: Highlighted row [facility] Goals Date Patient Goal Desired Activity /State Clinical Notes 05-05-2022 to 02-04-2025 Note Date & Type Note Facility 02-04-2025 Progress note [facility] 12-10-2024 Evaluation note Diagnosis Onset Date Resolution Alpha thalassemia silent carrier acute December 10, 2024 2:58pm Depression acute December 10 2:58pm Former smoker acute December 10, 2024 2:58pm History of elective acute December 10, 2024 2:58pm Hx of vaginal delivery acute Ju ne 2024 2:58pm Obesity affecting acute December 10, 2024 2:58pm acute December 10 2:58pm Supervision of high-risk acute December 10, 2:58pm Varicella vaccination status unknown acute December 10, 2024 2:58pm [facility] Work Phone: 1(144) 200-725306-30-2025 Evaluation note* Diagnosis Onset Date Resolution Status Admit Date Alpha thalassemia silent carrier acu te December 10, 2024 2:58pm Depression acute December 10 2:58pm Former smoker acute December 10, 2024 2:58pm History of elective acute December 10, 2024 2:58pm Hx of vaginal delivery acute Ju ne 2024 2:58pm Obesity affecting acute December 10, 2024 2:58pm acute December 10 2:58pm Supervision of high-risk acute December 10, 2024 2:58pm Varicella vaccination status unknown acute December 10, 2024 2:58pm Alpha thalassemia silent carrier acu te January 09, 2025 3:49pm Depression acute January 09 3:49pm Former smoker acute January 09, 2025 3:49pm History of elective acute January 09, 2025 3:49pm Hx of vaginal delivery acute Ju ly 2024 3:49pm Obesity affecting acute January 09, 2025 3:49pm acute January 09 3:49pm Supervision of high-risk acute January 09, 2025 3:49pm Varicella vaccination status unknown acute January 09, 2025 3:49pm [place] [facility] Work Phone: 1(649) 227-712806-30-2025 Evaluation note* Diagnosis Onset Date Resolution Status Admit Date Alpha thalassemia silent carrier acute December 10, 2024 2:58pm Depression acute December 10 2:58pm Former smoker acute December 10, 2024 2:58pm History of elective acute December 10, 2024 2:58pm Hx of vaginal delivery acute Ju ne 2024 2:58pm Obesity affecting acute December 10, 2024 2:58pm acute December 10 2:58pm Supervision of high-risk acute December 10, 2024 2:58pm Varicella vaccination status unknown acute December 10, 2024 2:58pm Alpha thalassemia silent carrier acute January 09, 2025 3:49pm Depression acute January 09 3:49pm Former smoker acute January 09, 2025 3:49pm History of elective acute January 09, 2025 3:49pm Hx of vaginal delivery acute Ju ly 2024 3:49pm Obesity affecting acute January 09, 2025 3:49pm acute January 09 3:49pm Supervision of high-risk acute January 09, 2025 3:49pm Varicella vaccination status unknown acute January 09, 2025 3:49pm Alpha thalassemia silent carrier acute February 04 10:57am Depression acute February 04, 2 025 10:57am Former smoker acute January 10:57am History of elective acute February 04, 2025 10:57am Hx of vaginal delivery acute Au 2024 10:57am Obesity affecting acute February 04, 2025 10:57am acute February 04, 2 025 10:57am Supervision of high-risk acute February 04 10:57am Varicella vaccination status unknown acute February 04 10:57am [facility] Work Phone: 1(110) 445-759106-30-2025 Progress [facility] [address], [address] [place] [address] OFFICE VISIT Date of Service: 12/10/24 MR#: [id number] Acct: [id number] Name: ADENIKE RUTH Rep #: [id number] : 2005 Provider: Dr. Kat Nuñez DO Age/Sex: 19/F Location: [facility] [place] Status: Signed Intake Vital Signs 10/12/24 14:19 12/10/24 15:09 12/10/24 15:10 Height 5 ft 4 in 5 ft 4 in 5 ft 4 in Weight: 183 lb 2 oz BMI 31.4 BP 103/66 Intake Visit Reasons: NOB LMP 09/04 Disbursing Officer Required: No Is patient in pain?: No Allergies No Known Allergies Allergy (Verified 12/10/24 15:09) Medications ?Medication ?Instructions ?Recorded ?Confirmed ?Type PNV 153-FA 400 mcg-om3 35 mg-dha tab PO 10/26/2412/10 History 25 mg-epa 5 mg-fish oil chew tablet ondansetron HCl 4 mg tablet 4 mg PO Q4H #60 tabs 10/2612/10/24 Rx Last Menstrual Period: 09/04/24 Zika: Zika virus screening: Negative : No PFSH PFSH Medical History Vaginal delivery Depression Surgical History Clavicle fracture Family History Father Diabetes Hypertension Uncle Diabetes Maternal Grandmother Diabetes Maternal Hypertension Maternal Social History adopted: No household members: significant other and children number of children: 1 current occupational status: employed 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 current occupational exposures/hazards: No pets and animals: No history of recent travel: No sexually active: Yes Smoking Status: Former smoker quit date: 10/12/24 alcohol intake: never substance use type: does not use well-balanced diet: about half the time caffeine: No eating out: 1-3 times/week during the past year weight has: increased > 10 lbs sharmila/mormon: None seatbelt use: sometimes do you feel safe at home: Yes additional social history: Boyfriend-Solomon History 4 Elective abortions 2 Hx Para 1 Spontaneous abortions Hx # Term Pregnancies Ectopic pregnancies Hx # Pregnancies Multiple births # of living children 1 Past Pregnancies Del. Date Name GA/Weeks Outcome Route Bth Weight Infant Gen Labor Lgth Anesthesia Del Locatn Provider FOB 12/01/22 Esatalyne 38 live - full term 7lbs 11oz Female epidural [facility] Nadege Jacob Delivery Date: 12/01/22 Last Updated by: Ruthy Wyatt 1st degree laceration HPI NOB LMP 09/04 Details: ADENIKE RUTH is a 19 year old who presents for New OB visit. OB Visit JIMENA Calculator Estimated Delivery Date Method Current WG Current Estimate 06/11/25 LMP (Certain) 13w 6d Estimated Due Date: 11/05/20 Expected Delivery Route/Plan Labor Preferences- CB/BF classes: [] labor support person: [] labor intervention preferences: [] pain management options preferred: [] cut cord/dad catch: [] : [] PP control planned: [] discussed possible routes of delivery and associated risks: [] special requests: [] Specific Issue/Plans Covid status: [] Flu vaccine: [] Tdap vaccine: [] Rhogam: [] LARC form signed: [] Problem list reviewed and updated with the most current plan of care details and appropriate ordersplaced. Relevant counseling for the gestational age provided. Continue routine care and follow up unless otherwise noted in visit notes/problem list details Initial Weight: Not Recorded Date -?-?-?-?-?-?-?-?-?-?-?-?- EGA Weight BP Urine Prot -?-?-?-?-?-?-?-?-?-?-?-?- Glucose FHR FuHt Pres Dilation -?-?-?-?-?-?-?-?-?-?-?-?- Effaced St Visit Note 12/10/24 -?-?-?-?-?-?-?-?-?-?-?-?- 13w 6d 183 lb 2 oz 103/66 -?-?-?-?-?-?-?-?-?-?-?-?- 165 -?-?-?-?-?-?-?-?-?-?-?-?- JV- CRL consiste nt with LMP. 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 FOB to be tested. (new partner)also desires afp testing. Menstrual History Last Menstrual Period: 09/04/24 Reported LMP: definite Normal amount/duration: Yes Frequency in days: 28-30 On hormonal BC at conception: No hCG+: 10/11/24 Antepartum Record Genetic Screening: Congenital Heart Defect: Other, Neural Tube Defect: Other, Hemoglobinopathy Or Carrier: Other, Cystic Fibrosis: Other, Chromosome Abnormality: Other, Karson-Sachs: Other, Hemophilia: Other, Intellectual Disability/Autism: Other, Recurrent Loss/Stillbirth: Other, Other Structural Defect: Other, Other Genetic Disease: Other and Maternal Metabolic Disorder: Other Infection History: Live with someone with TB or Exposed to TB: No, Patient or Partner has history of Genital Herpes: No, Rash or Viral illness since last mentrual period: No, Prior GBS-Infected child: No, History of STD: No, HIV Infection: No, History of Hepatitis: No, Recent travel outside of [place]: No, Concern for hepatitis exposure: No, Varicella immune: No (unknown immunity) and Covid Vaccinated: No Medical History Medical History: Positive: Depression/ depression (Hx of childhood depression), Operations/hospitalizations (hx of clavical fracture) and Other (Obesity, 2 medical abortions in 2023) and Negative: Diabetes, Hypertension, Heart disease, Auto-immune disorder, Kidney disease/UTI, Neurologic/epilepsy, Psychiatric, Hepatitis/liver disease, Varicosities/phlebitis, Thyroid dysfunction, Trauma/domestic violence, History of blood transfusions, D (Rh) Sensitized, Pulmonary (e.g.,TB,Asthma), Seasonal allergies, Drug/latex allergies/reactions, Breast, Super[employer] Vault surgery, Anesthetic complications, History of abnormal pap, Uterine anomaly/kristy, Infertility, Anti-retroviral treatment and Relevant familyhistory ACOG First Trimester First Trimester: Desire for , Alcohol, Tobacco Cessation, Illicit/Recreational Drug/Substance Use, Intimate Partner Violence, Barriers to care, Unstable Housing, Communication Barriers, Environmental/Work Hazards, Anticipated Course of Care, Toxoplasmosis Precations, Use of Any med ications, Sexual activity, Exercise, Dental Care, Sauna/Hot tub use, Seat Belt use, Childbirth classes/Hospital facilities, Travel, Indications for Ultrasound and Screening for Aneuploidy; Discussed Second Trimester Second Trimester: Signs and Symptoms of Labor, Selecting a care provider, Reproductive Life Planning & Contreception, Care Planning and Intimate Partner Violence; Discussed Tobacco Cessation and Discussed Depression/Anxiety Third Trimester Third Trimester: Pain Management Plans, Labor support person(s), Immediate Larc, Movement Monitoring, Signs and Symptoms of Preeclampsia, Crivitz Education and Family Medical Leave or Disability Forms ROS Const Reports system reviewed and no additional complaints, except as documented, Reports fatigue and Denies fever(s) Eyes Reports system reviewed and no additional complaints, except as documented ENT Reports system reviewed and no additional complaints, except as documented Card Denies chest pain and Denies dyspnea Resp Reports system reviewed and no additional complaints, except as documented, Denies cough and Deniesdyspnea GI Denies abdominal pain and Reports nausea Reports system reviewed and no additional complaints, except as documented Musc Reports system reviewed and no additional complaints, except as documented Skin/Breast Reports system reviewed and no additional complaints, except as documented Neuro Yes system reviewed and no additional complaints, except as documented Psych Reports system reviewed and no additional complaints, except as documented Endo Reports system reviewed and no additional complaints, except as documented and Reports fatigue Exam Const General: healthy appearing, comfortable and no acute distress Orientation: alert [facility] Head: normal to inspection, normocephalic and atraumatic Ears: hearing grossly normal bilaterally and external ears normal Nose: external nose normal and nares normal Mouth: oral mucosae normal Teeth and gingiva: dentition normal Eyes General: appearance normal, both eyes and all related structures Neck Neck: normal visual inspection, no lymphadenopathy and supple Thyroid: thyroid normal Chest Chest palpation & inspection: normal inspection of the chest Breast inspection: normal inspection of the breasts and normal inspection of the axillae Breast palpation: normal palpation of the breasts and normal palpation of the axillae Resp Effort & Inspection: normal respiratory effort GI Inspection: normal to inspection Palpation: soft and no hepatosplenomegaly General: bladder normal to palpation External Female Exam: normal external appearance and normal appearance of the urethra Urethra: normal appearance of the urethra Speculum Exam - Vagina: normal appearance of the vagina and normal vaginal discharge Speculum Exam - Cervix: normal appearance of the cervix Bimanual Exam- Vagina & Uterus: normal bimanual exam, bladder normal to palpation, non-tender and other Bimanual Exam- Adnexa, other: non-tender Skin General: no rashes or lesions noted Neuro Motor: muscle tone normal throughout and no movement abnormalities noted Extrem General: normal to inspection and full ROM Supplemental Info ACOG book given and patient encouraged to read about nutrition, exercise, weight gain, and food avoidance in . Coding Level of Care Code Off vis,est,level 4 Diagnoses Hx of vaginal delivery Supervision of high-risk O09.90 Z34.90 History of elective Z98.890 Obesity affecting O99.210 Varicella vaccination status unknown Z78.9 Former smoker Z87.891 Depression F32.A Alpha thalassemia silent carrier D56.3 Assessment and Plan Assessment and Plan (1) Hx of vaginal delivery: Status: Acute (2) Supervision of high-risk : Status: Acute Comment: , JIMENA 06/11/25, TYLER Dia (3) : Status: Acute Comment: elects NIPT with Gender (4) History of elective : Status: Acute Comment: November 2023 & May 2024-medical abortions (5) Obesity affecting : Status: Acute Comment: HgbA1c (6) Varicella vaccination status unknown: Status: Acute (7) Former smoker: Status: Acute Comment: quit 2 weeks ago (8) Depression: Status: Acute Comment: enc counseling. Support International resource provided. Zoloft start at postpartem and 2 wk office follow up (9) Alpha thalassemia silent carrier: Status: Acute Comment: FOB to be tested. Orders: Orders BRENTON Today O09.90 - Supervision of high risk , unspecified, unspecified trimester Plan Patient oriented to practice and discussed care expectations and screenings. ACOG book offered to patient. Discussed routine and specially indicated labs if needed- patient consents to testing. See problem list details for plan information. Optional screening including maternal carrier screenings, neural tube defect screening, genetic screening options including quad screen, nuchal translucency, sequential screening, and NIPT screening offered to patient and patient chose: NIPT + AFP 12/10/24 1602 e Velde DO> Date _ Mayi Nuñez DO [facility] Services[facility] Signature: Date (if applicable) CC: ~ [id number] Progress note Author Mayi Aguirre [facility] Note Date/Time December 10, 2024 4:02 pm [facility] [address] [place] [address], [address] [place] [address] OFFICE VISIT Date of Service: 12/10/24 MR#: [id number] Acct: [id number] Name: ADENIKE RUTH Rep #: [id number] : 2005 Provider: Dr. Kat Nuñez DO Age/Sex: 19/F Location: [facility] [place] Status: Signed Intake Vital Signs 10/12/24 14:19 12/10/24 15:09 12/10/24 15:10 Height 5 ft 4 in 5 ft 4 in 5 ft 4 in Weight: 183 lb 2 oz BMI 31.4 BP 103/66 Intake Visit Reasons: NOB LMP 09/04 Disbursing Officer Required: No Is patient in pain?: No Allergies No Known Allergies Allergy (Verified 12/10/24 15:09) Medications ?Medication ?Instructions ?Recorded ?Confirmed ?Type PNV 153-FA 400 mcg-om3 35 mg-dha tab PO 10/26/2412/10 History 25 mg-epa 5 mg-fish oil chew tablet ondansetron HCl 4 mg tablet 4 mg PO Q4H #60 tabs 10/2612/10/24 Rx Last Menstrual Period: 09/04/24 Zika: Zika virus screening: Negative : No PFSH PFSH Medical History Vaginal delivery Depression Surgical History Clavicle fracture Family History Father Diabetes Hypertension Uncle Diabetes Maternal Grandmother Diabetes Maternal Hypertension Maternal Social History adopted: No household members: significant other and children number of children: 1 current occupational status: employed 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 current occupational exposures/hazards: No pets and animals: No history of recent travel: No sexually active: Yes Smoking Status: Former smoker quit date: 10/12/24 alcohol intake: never substance use type: does not use well-balanced diet: about half the time caffeine: No eating out: 1-3 times/week during the past year weight has: increased > 10 lbs sharmila/mormon: None seatbelt use: sometimes do you feel safe at home: Yes additional social history: Boyfriend-Solomon History 4 Elective abortions 2 Hx Para 1 Spontaneous abortions Hx # Term Pregnancies Ectopic pregnancies Hx # Pregnancies Multiple births # of living children 1 Past Pregnancies Del. Date Name GA/Weeks Outcome Route Bth Weight Gen Labor Lgth Anesthesia Del Locatn Provider FOB 12/01/22 Esatalyne 38 live - full term 7lbs 11oz Female epidural [facility] Nadege Jarrell Cecil Delivery Date: 12/01/22 Last Updated by: Ruthy Wyatt 1st degree laceration HPI NOB LMP 09/04 Details: ADENIKE RUTH is a 19 year old who presents for New OB visit. OB Visit JIMENA Calculator Estimated Delivery Date Method Current WG Current Estimate 06/11/25 LMP (Certain) 13w 6d Estimated Due Date: 11/05/20 Expected Delivery Route/Plan Labor Preferences- CB/BF classes: [] labor support person: [] labor intervention preferences: [] pain management options preferred: [] cut cord/dad catch: [] : [] PP control planned: [] discussed possible routes of delivery and associated risks: [] special requests: [] Specific Issue/Plans Covid status: [] Flu vaccine: [] Tdap vaccine: [] Rhogam: [] LARC form signed: [] Problem list reviewed and updated with the most current plan of care details and appropriate orders placed. Relevant counseling for the gestational age provided. Continue routine care and follow up unless otherwise noted in visit notes/problem list details Initial Weight: Not Recorded Date -?-?-?-?-?-?-?-?-?-?-?-?- EGA Weight BP Urine Prot -?-?-?-?-?-?-?-?-?-?-?-?- Glucose FHR FuHt Pres Dilation -?-?-?-?-?-?-?-?-?-?-?-?- Effaced St Visit Note 12/10/24 -?-?-?-?-?-?-?-?-?-?-?-?- 13w 6d 183 lb 2 oz 103/66 -?-?-?-?-?-?-?-?-?-?-?-?- 165 -?-?-?-?-?-?-?-?-?-?-?-?- JV- CRL consiste nt with LMP. 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 FOB to be tested. (new partner)also desires afp testing. Menstrual History Last Menstrual Period: 09/04/24 Reported LMP: definite Normal amount/duration: Yes Frequency in days: 28-30 On hormonal BC at conception: No hCG+: 10/11/24 Antepartum Record Genetic Screening: Congenital Heart Defect: Other, Neural Tube Defect: Other, Hemoglobinopathy Or Carrier: Other, Cystic Fibrosis: Other, Chromosome Abnormality: Other, Karson-Sachs: Other, Hemophilia: Other, Intellectual Disability/Autism: Other, Recurrent Loss/Stillbirth: Other, Other Structural Defect: Other, Other Genetic Disease: Other and Maternal Metabolic Disorder: Other Infection History: Live with someone with TB or Exposed to TB: No, Patient or Partner has history of Genital Herpes: No, Rash or Viral illness since last mentrual period: No, Prior GBS-Infected child: No, History of STD: No, HIV Infection: No, History of Hepatitis: No, Recent travel outside of [place]: No, Concern for hepatitis exposure: No, Varicella immune: No (unknown immunity) and Covid Vaccinated: No Medical History Medical History: Positive: Depression/ depression (Hx of childhood depression), Operations/hospitalizations (hx of clavical fracture) and Other (Obesity, 2 medical abortions in 2023) and Negative: Diabetes, Hypertension, Heart disease, Auto-immune disorder, Kidney disease/UTI, Neurologic/epilepsy, Psychiatric, Hepatitis/liver disease, Varicosities/phlebitis, Thyroid dysfunction, Trauma/domestic violence, History of blood transfusions, D (Rh) Sensitized, Pulmonary (e.g.,TB,Asthma), Seasonal allergies, Drug/latex allergies/reactions, Breast, [employer] Vault surgery, Anesthetic complications, History of abnormal pap, Uterine anomaly/kristy, Infertility, Anti-retroviral treatment and Relevant family history ACOG First Trimester First Trimester: Desire for , Alcohol, Tobacco Cessation, Illicit/Recreational Drug/Substance Use, Intimate Partner Violence, Barriers to care, Unstable Housing, Communication Barriers, Environmental/Work Hazards, Anticipated Course of Care, Toxoplasmosis Precations, Use of Any medications, Sexual activity, Exercise, Dental Care, Sauna/Hot tub use, Seat Belt use, Childbirth classes/Hospital facilities, Travel, Indications for Ultrasound and Screening for Aneuploidy; Discussed Second Trimester Second Trimester: Signs and Symptoms of Labor, Selecting a care provider, Reproductive Life Planning & Contreception, Care Planning and Intimate Partner Violence; Discussed Tobacco Cessation and Discussed Depression/Anxiety Third Trimester Third Trimester: Pain Management Plans, Labor support person(s), Immediate Larc, Movement Monitoring, Signs and Symptoms of Preeclampsia, Crivitz Education and Family Medical Leave or Disability Forms ROS Const Reports system reviewed and no additional complaints, except as documented, Reports fatigue and Denies fever(s) Eyes Reports system reviewed and no additional complaints, except as documented ENT Reports system reviewed and no additional complaints, except as documented Card Denies chest pain and Denies dyspnea Resp Reports system reviewed and no additional complaints, except as documented, Denies cough and Denies dyspnea GI Denies abdominal pain and Reports nausea Reports system reviewed and no additional complaints, except as documented Musc Reports system reviewed and no additional complaints, except as documented Skin/Breast Reports system reviewed and no additional complaints, except as documented Neuro Yes system reviewed and no additional complaints, except as documented Psych Reports system reviewed and no additional complaints, except as documented Endo Reports system reviewed and no additional complaints, except as documented and Reports fatigue Exam Const General: healthy appearing, comfortable and no acute distress Orientation: alert [facility] Head: normal to inspection, normocephalic and atraumatic Ears: hearing grossly normal bilaterally and external ears normal Nose: external nose normal and nares normal Mouth: oral mucosae normal Teeth and gingiva: dentition normal Eyes General: appearance normal, both eyes and all related structures Neck Neck: normal visual inspection, no lymphadenopathy and supple Thyroid: thyroid normal Chest Chest palpation & inspection: normal inspection of the chest Breast inspection: normal inspection of the breasts and normal inspection of the axillae Breast palpation: normal palpation of the breasts and normal palpation of the axillae Resp Effort & Inspection: normal respiratory effort GI Inspection: normal to inspection Palpation: soft and no hepatosplenomegaly General: bladder normal to palpation External Female Exam: normal external appearance and normal appearance of the urethra Urethra: normal appearance of the urethra Speculum Exam - Vagina: normal appearance of the vagina and normal vaginal discharge Speculum Exam - Cervix: normal appearance of the cervix Bimanual Exam- Vagina & Uterus: normal bimanual exam, bladder normal to palpation, non-tender and other Bimanual Exam- Adnexa, other: non-tender Skin General: no rashes or lesions noted Neuro Motor: muscle tone normal throughout and no movement abnormalities noted Extrem General: normal to inspection and full ROM Supplemental Info ACOG book given and patient encouraged to read about nutrition, exercise, weight gain, and food avoidance in . Coding Level of Care Code Off vis,est,level 4 Diagnoses Hx of vaginal delivery Supervision of high-risk O09.90 Z34.90 History of elective Z98.890 Obesity affecting O99.210 Varicella vaccination status unknown Z78.9 Former smoker Z87.891 Depression F32.A Alpha thalassemia silent carrier D56.3 Assessment and Plan Assessment and Plan (1) Hx of vaginal delivery: Status: Acute (2) Supervision of high-risk : Status: Acute Comment: , JIMENA 06/11/25, TYLER Dia (3) : Status: Acute Comment: elects NIPT with Gender (4) History of elective : Status: Acute Comment: November 2023 & May 2024-medical abortions (5) Obesity affecting : Status: Acute Comment: HgbA1c (6) Varicella vaccination status unknown: Status: Acute (7) Former smoker: Status: Acute Comment: quit 2 weeks ago (8) Depression: Status: Acute Comment: enc counseling. Support International resource provided. Zoloft start at postpartem and 2 wk office follow up (9) Alpha thalassemia silent carrier: Status: Acute Comment: FOB to be tested. Orders: Orders BRENTON Today O09.90 - Supervision of high risk , unspecified, unspecified trimester Plan Patient oriented to practice and discussed care expectations and screenings. ACOG book offered to patient. Discussed routine and specially indicated labs if needed- patient consents to testing. See problem list details for plan information. Optional screening including maternal carrier screenings, neural tube defect screening, genetic screening options including quad screen, nuchal translucency, sequential screening, and NIPT screening offered to patient and patient chose: NIPT + AFP 12/10/24 1602 <Electronically signed by Mayi Mcconnell DO> Date _ Mayi Nuñez DO Cosigner Signature: Date (if applicable) CC: ~ [facility] [place] [facility] Work Phone: [phone] NoteHNO ID: [id number] Author: RIKI ALBARADO APRN.[facility] Service: ? Author Type: Nurse Practitioner Type: Progress Notes Filed: 09/23/2024 14:52 Note Text: Subjective HPI Nontoxic-appearing female presents urgent care chief complaint headache. Duration of symptoms 3 days. Associated symptoms headache sinus pressure sore throat cough. States daughter sick with similar signs symptoms. Presents today with 6 out of 10 headache. Has not taken any medication today. Did try to try 200 mg ibuprofen yesterday. Denies any chest pain shortness of breath or hemoptysis. Is not is not breast-feeding. No flashes light floaters. Does have mild photophobia. Past medical history prescription medications allergies reviewed BP 110/76 (BP Site: Left Arm, BP Position: Sitting) Pulse 84 Temp 36.8 ?C (98.3 ?F) Resp 16 Wt 87.5 kg (192 lb 14.4 oz) LMP 09/04/2024 (Exact Date) SpO2 98% No .Patient presents with: Headache: X 3-4 days, fatigue, pain is behind the eyes PAST MEDICAL HISTORY Diagnosis Date Anemia Depression Fracture, clavicle 2018 right NEGATIVE HISTORY OF 01/30/2009 Normal color vision Trauma PAST SURGICAL HISTORY Procedure Laterality Date NONE PAST SURGICAL HISTORY OF right clavical ALLERGIES Patient has no known allergies. MEDICATIONS prental multivitamin 27 mg iron- 800 mcg tablet Take 1 tablet by mouth once daily. (Patient not taking: Reported on 08/11/2023) Polyethylene Glycol 3350 (MIRALAX) 17 gram/dose ORAL powder Take by mouth once daily. mix in juice or water. START 1/2 CAPFUL DAILY ADJUST DOSE TO PRODUCE SOFT STOOL DAILY (Patient not taking: No sig reported) FAMILY HISTORY Problem Relation Age of Onset No Known Problems Mother No Known Problems Father No Known Problems Sister No Known Problems Sister No Known Problems Sister No Known Problems Brother Stroke Maternal Grandmother Heart Attack Maternal Grandfather No Known Problems Paternal Grandmother Diabetes Other Maternal side Social History Tobacco Use Smoking status: Never Smokeless tobacco: Never Vaping Use Vaping status: Former Quit date: 04/13/2021 Substances: Nicotine Substance Use Topics Alcohol use: Not Currently Comment: rarely Drug use: Never Review of Systems Constitutional: Positive for malaise/fatigue. Negative for chills and fever. HENT: Positive for congestion and sore throat. Negative for ear discharge, ear pain and sinus pain. Eyes: Negative for blurred vision, pain, discharge and redness. Respiratory: Positive for cough. Negative for hemoptysis, sputum production, shortness of breath, wheezing and stridor. Cardiovascular: Negative for chest pain. Gastrointestinal: Negative for abdominal pain, diarrhea, nausea and vomiting. Musculoskeletal: Positive for myalgias. Skin: Negative for itching and rash. Neurological: Positive for headaches. Negative for dizziness. Objective Physical Exam HENT: Head: Normocephalic. Jaw: No trismus, tenderness, swelling or pain on movement. Right Ear: Tympanic membrane, ear canal and external ear normal. Left Ear: Tympanic membrane, ear canal and external ear normal. Nose: Congestion present. Mouth/Throat: Mouth: Mucous membranes are moist. Pharynx: Oropharynx is clear. Uvula midline. No oropharyngeal exudate or posterior oropharyngeal erythema. Eyes: Pupils: Pupils are equal, round, and reactive to light. Cardiovascular: Rate and Rhythm: Normal rate. Pulmonary: Effort: Pulmonary effort is normal. No accessory muscle usage, respiratory distress or retractions. Breath sounds: No stridor. No wheezing, rhonchi or rales. Abdominal: Palpations: Abdomen is soft. Tenderness: There is no abdominal tenderness. There is no guarding or rebound. Musculoskeletal: Cervical back: No erythema or tenderness. No pain with movement. Normal range of motion. Lymphadenopathy: Cervical: No cervical adenopathy. Neurological: General: No focal deficit present. Mental Status: She is alert and oriented to person, place, and time. Mental status is at baseline. ASSESSMENT/PLAN: 1. Viral illness - ICD9: 079.99, ICD10: B34.9 Diagnosed with viral illness. We discussed headache management. If symptoms are not revolved with use of 600 mg ibuprofen referred patient to ED. Patient was educated on supportive therapies. Patient will follow up with primary care provider as needed. Patient was instructed to immediately proceed to emergency room for any new, worsening, or symptoms lasting longer than anticipated. The patient's clinical presentation is otherwise unremarkable at this time. Based on exam and clinical finding, the patient is stable for discharge. Plan of care was discussed with patient. Patient verbalizes understanding and agrees to plan of care. [place] subarachnoid rule 0 this note was generated using Synergy Hub software. It may contain errors in wording, punctuation (more content not included)...[facility]04-13-2025 History of Present illness Narrative* Riki Albarado, KARLA.CONSTRUCTION MANAGEMENT INSTRUCTOR - 09/23/2024 2:31 PM EDT Subjective HPI Nontoxic-appearing female presents urgent care chief complaint headache. Duration of symptoms 3 days. Associated symptoms headache sinus pressure sore throat cough. States daughter sick with similar signs symptoms. Presents today with 6 out of 10 headache. Has not taken any medication today. Did try to try 200 mg ibuprofen yesterday. Denies any chest pain shortness of breath or hemoptysis. Is not is not breast-feeding. No flashes light floaters. Does have mild photophobia. Past medicalhistory prescription medications allergies reviewed BP 110/76 (BP Site: Left Arm, BP Position: Sitting) Pulse 84 Temp 36.8 C (98.3 F) Resp 16 Wt 87.5 kg (192 lb 14.4 oz) LMP 09/04/2024 (Exact Date) SpO2 98% No .Patient presents with: Headache: X 3-4 days, fatigue, pain is behind the eyes PAST MEDICAL HISTORY Diagnosis Date Anemia Depression Fracture, clavicle 2018 right NEGATIVE HISTORY OF 01/30/2009 Normal color vision Trauma PAST SURGICAL HISTORY Procedure Laterality Date NONE PAST SURGICAL HISTORY OF right clavical ALLERGIES Patient has no known allergies. MEDICATIONS prental multivitamin 27 mg iron- 800 mcg tablet Take 1 tablet by mouth once daily. (Patient not taking: Reported on 08/11/2023) Polyethylene Glycol 3350 (MIRALAX) 17 gram/dose ORAL powder Take by mouth once daily. mix in juice or water. START 1/2 CAPFUL DAILY ADJUST DOSE TO PRODUCE SOFT STOOL DAILY (Patient not taking: No sigreported) FAMILY HISTORY Problem Relation Age of Onset No Known Problems Mother No Known Problems Father No Known Problems Sister No Known Problems Sister No Known Problems Sister No Known Problems Brother Stroke Maternal Grandmother Heart Attack Maternal Grandfather No Known Problems Paternal Grandmother Diabetes Other Maternal side Social History Tobacco Use Smoking status: Never Smokeless tobacco: Never Vaping Use Vaping status: Former Quit date: 04/13/2021 Substances: Nicotine Substance Use Topics Alcohol use: Not Currently Comment: rarely Drug use: Never Review of Systems Constitutional: Positive for malaise/fatigue. Negative for chills and fever. HENT: Positive for congestion and sore throat. Negative for ear discharge, ear pain and sinus pain. Eyes: Negative for blurred vision, pain, discharge and redness. Respiratory: Positive for cough. Negative for hemoptysis, sputum production, shortness of breath, wheezing and stridor. Cardiovascular: Negative for chest pain. Gastrointestinal: Negative for abdominal pain, diarrhea, nausea and vomiting. Musculoskeletal: Positive for myalgias. Skin: Negative for itching and rash. Neurological: Positive for headaches. Negative for dizziness. Objective Physical Exam HENT: Head: Normocephalic. Jaw: No trismus, tenderness, swelling or pain on movement. Right Ear: Tympanic membrane, ear canal and external ear normal. Left Ear: Tympanic membrane, ear canal and external ear normal. Nose: Congestion present. Mouth/Throat: Mouth: Mucous membranes are moist. Pharynx: Oropharynx is clear. Uvula midline. No oropharyngeal exudate or posterior oropharyngeal erythema. Eyes: Pupils: Pupils are equal, round, and reactive to light. Cardiovascular: Rate and Rhythm: Normal rate. Pulmonary: Effort: Pulmonary effort is normal. No accessory muscle usage, respiratory distress or retractions. Breath sounds: No stridor. No wheezing, rhonchi or rales. Abdominal: Palpations: Abdomen is soft. Tenderness: There is no abdominal tenderness. There is no guarding or rebound. Musculoskeletal: Cervical back: No erythema or tenderness. No pain with movement. Normal range of motion. Lymphadenopathy: Cervical: No cervical adenopathy. Neurological: General: No focal deficit present. Mental Status: She is alert and oriented to person, place, and time. Mental status is at baseline. ASSESSMENT/PLAN: 1. Viral illness - ICD9: 079.99, ICD10: B34.9 Diagnosed with viral illness. We discussed headache management. If symptoms are not revolved with use of 600 mg ibuprofen referred patient to ED. Patient was educated on supportive therapies. Patient will follow up with primary care provider as needed. Patient was instructed to immediately proceed to emergency room for any new, worsening, or symptoms lasting longer than anticipated. The patient's clinical presentation is otherwise unremarkable at this time. Based on exam and clinical finding, the patient is stable for discharge. Plan of care was discussed with patient. Patient verbalizes understanding and agrees to plan of care. [place] subarachnoid rule 0 this note was generated using Synergy Hub software. It may contain errors in wording, p unctuation, or spelling. Riki Albarado APRN.AYAAN documented in this encounter[facility] History of Present illness Narrative* Vince Nayan - 08/11/2023 10:41 AM EST Initial Podiatric Office Visit: Chief Complaint: This 18 year old female who presents with chief complaint:ingrowing toenail of b/lhallux HPI Patient presents to clinic for evaluation of b/l great toe Has history of ingrowing toenail of b/l hallux medial and lateral nail border First noticed in March and she was prescribed doxycycline. Has had several episodes of ingrowing toenail with swelling and drainage. Has been on doxycycline multiple times. She has been offered removal of the toenail by her pcp but she has not elected to pursue. She is here to discuss options for ingrowing toenail. PAIN EVALUATION No data found in the last 1 encounters. No results found for: HBA1C PCP: Mariaelena Ornelas MD, MD PAST MEDICAL HISTORY Diagnosis Date Anemia Depression Fracture, clavicle 2018 right NEGATIVE HISTORY OF 01/30/2009 Normal color vision Trauma Current Outpatient Medications Medication Sig prental multivitamin 27 mg iron- 800 mcg tablet Take 1 tablet by mouth once daily. (Patient not taking: Reported on 08/11/2023) Polyethylene Glycol 3350 (MIRALAX) 17 gram/dose ORAL powder Take by mouth once daily. mix in juice or water. START 1/2 CAPFUL DAILY ADJUST DOSE TO PRODUCE SOFT STOOL DAILY (Patient not taking: No sigreported) No current facility-administered medications for this visit. ALLERGIES No Known Allergies PAST SURGICAL HISTORY Procedure Laterality Date NONE PAST SURGICAL HISTORY OF right clavical FAMILY HISTORY Problem Relation Age of Onset No Known Problems Mother No Known Problems Father No Known Problems Sister No Known Problems Sister No Known Problems Sister No Known Problems Brother Stroke Maternal Grandmother Heart Attack Maternal Grandfather No Known Problems Paternal Grandmother Diabetes Other Maternal side Social History Tobacco Use Smoking status: Never Smokeless tobacco: Never Vaping Use Vaping Use: Former Quit date: 04/13/2021 Substances: Nicotine Substance Use Topics Alcohol use: Not Currently Comment: rarely Drug use: Never REVIEW OF SYSTEMS GENERAL: Negative for Malaise, significant weight loss, fever RESPIRATORY: Negative for cough, wheezing and shortness of breath CARDIOVASCULAR: Negative for chest pain, leg swelling and palpitations GI: Negative for abdominal discomfort, blood in stools or black stools and change in bowel habits : Negative for dysuria, frequency and incontinence MUSCULOSKELETAL: Negative for joint pain or swelling, back pain, and muscle pain. SKIN: Negative for lesions, rash, and itching. HEMATOLOGY/LYMPHOLOGY Negative for prolonged bleeding, bruising easily, and swollen nodes. ENDOCRINE: Negative for cold or heat intolerance, polyuria, polydipsia and goiter. NEURO: negative Physical Exam: Constitutional: Pt is a well developed 18 year old female who is alert, oriented and cooperative Eyes: Following during examination. No redness or drainage. Respiratory: RR normal and nonlabored. Even breathing. No evidence of distress or shortness of breath. Psychology: Patient is engaged during conversation. Normal affect and mood. Does not appear depressed or anxious during encounter. Vascular: Dorsalis pedis and posterior tibial pulses palpable b/l Capillary Fill time < 5 seconds to digits 1-5 b/l Skin temperature warm to cool proximal to distal b/l Hair growth present to digits Neurological: intact light touch/epicritic sensation b/l intact protective sensation no significant neurological deficits Dermatological: B/l hallux medial and lateral nail border shows ingrowing tendency. No signs of infection. Webspaces clean and dry 1-4 b/l. Skin appears well hydrated and supple. good color, texture, turgor. No openlesions present. No callosities present. Radiographs: n/a ASSESSMENT: (L60.0) Ingrowing toenail (primary encounter diagnosis) (I73.00) Raynaud's disease without gangrene (R09.89) Diminished pulses in lower extremity PLAN: 1. History and physical examination performed. 2. Discussed ingrowing toenail of b/l hallux medial and lateral nail border. No signs of infection. 3. Discussed proper trimming of nail vs partial nail matrixectomy. Would consider partial nail matrixectomy of medial and lateral nail border. Would do phenol procedure but she is breast feeding. Would ask that she pump and dump for a few days to limit low risk of transmission 4. I do suspect she suffers from raynauds. Would like to get pvr prior to performing procedure justto make sure pressure in toe is adequate to heal a procedure 5. No signs of infection currently. No need for antibiotic. Pain minimal at this time. Nayan Clarke DPM Podiatry [address] [facility] [address] Dept: [phone] Dept * Gianna Prieto RN - 08/11/2023 10:18 AM EST Patient presents with: Left Foot - New: ingrown nail Right Foot - New: ingrown nail AMB ROOMING INTAKE FLOWSHEET DATA Risk Screening Do you have concerns about personal safety or safety in the home?: No documented in this encounterSelect [facility] Progress note Author Beverly Penny [facility] December 02, 2022 7:53am Note Date/Time December 02, 2022 7:53 am [facility] Medical Records Department [address] [place] [address] Progress Note - OBGYN 12/02/22 0744 MR#: [id number] Acct: [id number] Name: ADENIKE RUTH Rep #:[id number] : 2005 17 From: Beverly Penny EXPLOSIVES ENGINEER EXPLOSIVES ENGINEER-C PCP: Care Physician,No Primary Status :ADM IN Location: [address] Subjective Subjective Patient doing well without complaints. Tolerating PO. Ambulating and voiding without difficulty. Feeding well. Denies chest pain, shortness of breath, calf pain/swelling, fevers, chills, lightheadedness. Objective Data Objective Data Vital Signs: Vital Signs Temp Pulse Resp BP Pulse Ox O2 Del Method 98.9 F 97 18 102/70 97 Room Air 12/01/22 20:20 12/02/22 04:15 12/02/22 04:15 12/02/22 04:15 12/01/22 16:00 12/02/22 04:15 Oxygen Delivery Method Room Air Weight: 185 lb 4 oz Body Mass Index (BMI) 31.8 Intake & Output: Intake and Output for Last 24 Hours 11/30/22 12/01/22 12/02/22 23:59 23:59 23:59 Intake Total 2844.67 / 2844.67 Output Total 100 / 100 Balance 2744.67 / 2744.67 Lab / Micro Data Result Diagrams: 12/01/22 01:35 Physical Exam Const alert and oriented x3 HEENT normocephalic Eyes PERRL Neck full ROM Resp normal respiratory effort GI soft to palpation GI Narrative: FF below U Assessment & Plan (1) Vaginal delivery: COMMENT: KW 38.3 IAL-SROM Girl Estalyne (2) Depression: COMMENT: enc counseling. Support International resource provided. Zoloft start at postpartem and 2 wk office follow up PLAN: Plan s/p PPD # 1 1. routine post delivery care 2. breast feeding- support given 3. rh positive 4. rubella immune 5. Rx zoloft sent. Will have office call her to schedule 2 wk follow up 6. home today 12/02/22 2813 <Electronically signed by Beverly Penny NP, NP-C> Cosigner Signature (if applicable): CC: ~ Signed [facility] Work Phone: 1(156) 909-588406-21-2023 Discharge summary Author Nadege Jarrell [facility] December 01, 2022 10:49am Note Date/Time December 01, 2022 10:4 9am [facility] Medical Records Department [address] [place] [address] Instructions for Home/Discharge Instructions 12/01/22 1048 MR#: [id number] Acct: [id number] Name: ADENIKE RUTH Rep #:[id number] : 2005 17 From: Nadege Jarrell CNM PCP: Care Physician,No Primary Status :ADM IN Discharge Instructions Diet Discharge Diet: No restrictions Activity Discharge Activity: Return to Normal Activity May resume sexual activity in: 6-8 weeks Dressing / Incision Call your doctor if you observe: Fever of 101 or Higher, Coldness, Increased Pain, Numbness or Tingling, Change in Color, Inability to urinate, Inability to have a bowel movement, Using more than 1 pad per hour, Shortness of breath, Dizziness, Fainting spells, Swelling in the ankles, Chest pain, Increased palpitations (irregular heartbeat), Calf discomfort and Uncontrolled pain Follow Up Care Please Follow Up With: Nadege Jarrell CNM When: Please call the office to schedule your follow up appointment in 6 weeks. If you had high blood pressure please call to schedule an appointment in 2 weeks. Test Results: Test results from this visit will be discussed in further detail at your follow- up appointment, if applicable. Discharge Plan Admission Admit Date/Time: 12/01/22 01:17 Attending Provider: Nadege Jarrell Primary Care Provider: Luz Maria Physician,Amarilis Primary Discharge Orders/Prescriptions Prescriptions: No Action prenat.vits,julius,[id number] Tablet 1 tab PO DAILY Referrals / Follow Up: Care Physician,No Primary [Primary Care Provider] - Disposition Disposition (needs filled in before D/C Order can be placed): Home, Self Care 12/01/22 1049<Electronically signed by Nadege Jarrell CNM>Nadege Jarrell CNM CC: No Primary Care Physician ~ Signed [facility] Work Phone: 1(256) 579-472006-21-2023 Procedure [facility] 12-01-2022 Progress note Author Nadege Jarrell [facility] December 01, 2022 7:46am Note Date/Time December 01, 2022 7:46 am [facility] Medical Records Department [address] [place] [address] Progress Note 12/01/22 0743 MR#: [id number] Acct: [id number] Name: ADENIKE RUTH Rep #:[id number] : 2005 17 From: Nadege Jarrell CNM PCP: Care Physician,No Primary Status :ADM IN Location: [place] [address]1 Progress Note patient comfortable with epidural current tracing: FHT: 145 Moderate variability reactive no decelerations category I tracing Hagan: 2-4 minute Contractions SVE 5/90/0 A/P: start pitocin, titrate per protocol. continue position changes anticipate Multi Select Codes Urinary/Genital Urinary/Genital CPT Codes: No Charge 12/01/22 0746 <Electronically signed by Nadege Jarrell CNM> Nadege Jarrell CNM Cosigner Signature (if applicable): CC: ~ Signed [facility] Work Phone: 1(422) 744-768406-21-2023 History and physical note Author Dr. Knight [facility] December 01, 2022 5:56am Note Date/Time December 01, 2022 5:56 am [facility] Medical Records Department [address] [place] [address] H&P Exam - DOCUMENTATION SPEC 12/01/22 0546 MR#: [id number] Acct: [id number] Name: ADENIKE RUTH Rep #:[id number] : 2005 17 From: Jacqueline ellison MD PCP: Care Physician,No Primary Status :ADM IN Location: [address] HPI - General General Date of Admission: 12/01/22 HPI Narrative ADENIKE RUTH, is a 17 F who presents IAL and SROM clear fluid regular contractions, changed from 4 to 5 cm. Maternal Data Information JIMENA Calculator Estimated Delivery Date Method Current WG Current Estimate 12/13/22 LMP (Certain) 38w 2d Other Estimates 12/13/22 Ultrasound #1 38w 2d PFSH [facility] Medical History (Updated 12/01/22 @ 05:[address] Jacqueline Knight MD) Depression Home Medications prenat.vits,julius,[id number] 1 tab PO DAILY 09/08/22 [History Last Taken Unknown] Allergy/AdvReac Type Severity Reaction Status Date / Time No Known Allergies Allergy Verified 12/01/22 00:57 Family History Other Diabetes Hypertension Surgical History Clavicle fracture Social History Smoking Status: Never smoker alcohol intake: never substance use type: does not use caffeine: No what type of physical activity do you participate in: walking frequency: 5-6 times per week seatbelt use: always do you feel safe at home: Yes additional social history: Boyfriend-Cecil History 1 Elective abortions Hx Para 0 Spontaneous abortions Hx # Term Pregnancies Ectopic pregnancies Hx # Pregnancies Multiple births # of living children Visit Details Expected Delivery Route/Plan Labor Preferences- CB/BF classes: encouraged. Probably at [facility] labor support person: Frank labor intervention preferences: [] pain management options preferred: epidural cut cord/dad catch: maybe : yes PP control planned: plans nexplanon, info given discussed possible routes of delivery and associated risks: [] special requests: [] Plans Covid status: unvaccinated Flu vaccine: no Tdap vaccine: declines Rhogam: NA LARC form signed: yes Problem list reviewed and updated with the most current plan of care details and appropriate orders placed. Relevant counseling for the gestational age provided. Continue routine care and follow up unless otherwise noted in visit notes/problem list details OB Flowsheet Initial Weight: Not Recorded Date -?-?-?-?-?-?-?-?-?-?-?-?- EGA Weight BP Urine Prot -?-?-?-?-?-?-?-?-?-?-?-?- Glucose FHR FuHt Pres Dilation -?-?-?-?-?-?-?-?-?-?-?-?- Effaced St Visit Note 05/21/22 -?-?-?-?-?-?-?-?-?-?-?-?- 10w 4d 141 lb 2 oz 114/74 -?-?-?-?-?-?-?-?-?-?-?-?- 171 -?-?-?-?-?-?-?-?-?-?-?-?- JV- single live IUP consistent with 10 weeks 4 days, also consistent with LMP. wants nipt and carrier test. 06/18/22 -?-?-?-?-?-?-?-?-?-?-?-?- 14w 4d 138 lb 8 oz 113/76 Nega tive -?-?-?-?-?-?-?-?-?-?-?-?- Negative 158 -?-?-?-?-?-?-?-?-?-?-?-?- JV- no lof, vagi nal bleeding, or cramping. normal NIPT. female 07/16/22 -?-?-?-?-?-?-?-?-?-?-?-?- 18w 4d 143 lb 2 oz 114/73 Nega tive -?-?-?-?-?-?-?-?-?-?-?-?- Negative 141 -?-?-?-?-?-?-?-?-?-?-?-?- JV- energy obed zepeda. working and going to school, drinking a gallon of water a day. has anatomy scan scheduled 07/19/22 08/13/22 -?-?-?-?-?-?-?-?-?-?-?-?- 22w 4d 153 lb 6 oz 102/61 Nega tive -?-?-?-?-?-?-?-?-?-?-?-?- Negative 134 -?-?-?-?-?-?-?-?-?-?-?-?- JV- normal anato my scan. glucola ordered. going to [place] at 31 weeks. 09/08/22 -?-?-?-?-?-?-?-?-?-?-?-?- 26w 2d 160 lb 8 oz 110/70 Nega tive -?-?-?-?-?-?-?-?-?-?-?-?- Negative 149 26 -?-?-?-?-?-?-?-?-?-?-?-?- MH-No Vb, LOF. g ood FM. Plans nexplanon pp. Larc. 28 wk labs 09/22/22 -?-?-?-?-?-?-?-?-?-?-?-?- 28w 2d 166 lb 102/68 Negative -?-?-?-?-?-?-?-?-?-?-?-?- Negative 145 28 -?-?-?-?-?-?-?-?-?-?-?-?- MH-No Vb, LOF. G ood FM. 10/06/22 -?-?-?-?-?-?-?-?-?-?-?-?- 30w 2d 168 lb 2 oz 102/67 Nega tive -?-?-?-?-?-?-?-?-?-?-?-?- Negative 140 30 -?-?-?-?-?-?-?--?-?-?-?-?- JV- going to [place] next week. no complaints. 10/20/22 -?-?-?-?-?-?-?-?-?-?-?-?- 32w 2d 172 lb 8 oz 107/66 Nega tive -?-?-?-?-?-?-?-?-?-?-?-?- Negative 145 32 Cephalic -?-?-?-?-?-?-?-?-?-?-?-?- JV- no lof, vagi nal bleeding, or dec fm. no complaints other than some upper back pain. 11/03/22 -?-?-?-?-?-?-?-?-?-?-?-?- 34w 2d 176 lb 111/70 Negative -?-?-?-?-?-?-?-?-?-?-?-?- Negative 136 34 Cephalic -?-?-?-?-?-?-?-?-?-?-?-?- LC-no lof/vb/ctx . good fm. no concerns today. 11/17/22 -?-?-?-?-?-?-?-?-?-?-?-?- 36w 2d 179 lb 4 oz 112/75 Nega tive -?-?-?-?-?-?-?-?-?-?-?-?- Negative 140 36 Cephalic 1 -?-?-?-?-?-?-?-?-?-?-?-?- 40 -3 LC- no lof /vb/ctx. good fm. concerned with PP depression. had depression with early . would like to start zoloft at delivery. LC- no lof/vb/ctx. good fm. concerned with PP depression. had depression with early . would like to start zoloft at delivery. gbs collected today 11/24/22 -?-?-?-?-?-?-?--?-?-?-?-?- 37w 2d 181 lb 2 oz 113/71 Nega tive -?-?-?-?-?-?-?-?-?-?-?-?- Negative 132 37 Cephalic 2 -?-?-?-?-?-?-?-?-?-?-?-?- 70 -1 JV- no lof , vaginal bleeding, or dec fm. labor precautions discussed. no complaints. 12/01/22 -?-?-?-?-?-?-?-?-?-?-?-?- 38w 2d 185 lb 4 oz 125/79 134/86 138/89 119/85 134/76 122/63 111/58 112/62 117/68 100/60 89/51 98/57 83/51 90/54 97/55 96/52 95/53 97/53 -?-?-?-?-?-?-?-?-?-?-?-?- -?-?-?-?-?-?-?-?-?-?-?-?- NST FHR Rate Baby A Baseline: 140 Variability:: Moderate Accelerations:: 15 x 15 Decelerations:: None NST Reactive:: Yes FHR Category:: Category I Uterine Activity:: q3-5 ROS Constitutional Constitutional: Reports systems reviewed and no addt'l complaints, except as documented ENT HEENT: Reports systems reviewed and no addt'l complaints, except as documented Cardiovascular Cardiovascular: Reports systems reviewed and no addt'l complaints, except as documented Respiratory/Chest Respiratory/Chest: Reports systems reviewed and no addt'l complaints, except as documented Gastrointestinal Gastrointestinal: Reports systems reviewed and no addt'l complaints, except as documented and nausea; Denies abdominal pain Genitourinary Genitourinary: Reports systems reviewed and no addt'l complaints, except as documented, contractions Details: present and frequency (regular ) and movement Details: present Musculoskeletal Musculoskeletal: Reports systems reviewed and no addt'l complaints, except as documented Integumentary Integumentary: Reports as per HPI Neurologic Neurologic: Reports systems reviewed and no addt'l complaints, except as documented Endocrine Endocrinology: Reports systems reviewed and no addt'l complaints, except as documented Vital Signs Vital Signs Vital Signs: 12/01/22 00:55 12/01/22 00:55 12/01/22 00:52 Temperature Temperature Source Temporal Pulse Rate 90 Blood Pressure 125/79 H BP Systolic 125 BP Diastolic 79 Pulse Ox 12/01/22 00:52 12/01/22 01:08 12/01/22 01:08 Temperature 98.1 F Temperature Source Pulse Rate 90 Blood Pressure BP Systolic BP Diastolic Pulse Ox 97 12/01/22 02:13 12/01/22 02:13 12/01/22 03:10 Temperature Temperature Source Pulse Rate 91 Blood Pressure 134/86 H 138/89 H BP Systolic 134 138 BP Diastolic 86 89 Pulse Ox 12/01/22 03:10 12/01/22 03:08 12/01/22 03:08 Temperature 98.3 F Temperature Source Temporal Pulse Rate 79 Blood Pressure BP Systolic BP Diastolic Pulse Ox 12/01/22 04:16 12/01/22 04:16 12/01/22 04:21 Temperature Temperature Source Pulse Rate 155 H 107 H Blood Pressure BP Systolic BP Diastolic Pulse Ox 82 12/01/22 04:21 12/01/22 04:26 12/01/22 04:26 Temperature Temperature Source Pulse Rate 75 Blood Pressure 119/85 H BP Systolic 119 BP Diastolic 85 Pulse Ox 99 12/01/22 04:26 12/01/22 04:26 12/01/22 04:31 Temperature Temperature Source Pulse Rate 83 Blood Pressure 134/76 H BP Systolic 134 BP Diastolic 76 Pulse Ox 99 12/01/22 04:31 12/01/22 04:31 12/01/22 04:31 Temperature Temperature Source Pulse Rate 89 98 Blood Pressure BP Systolic BP Diastolic Pulse Ox 99 12/01/22 04:35 12/01/22 04:35 12/01/22 04:36 Temperature Temperature Source Pulse Rate 110 H 113 H Blood Pressure 122/63 H BP Systolic 122 BP Diastolic 63 Pulse Ox 12/01/22 04:36 12/01/22 04:40 12/01/22 04:40 Temperature Temperature Source Pulse Rate 85 Blood Pressure 111/58 L BP Systolic 111 BP Diastolic 58 Pulse Ox 98 12/01/22 04:41 12/01/22 04:41 12/01/22 04:41 Temperature Temperature Source Pulse Rate 96 Blood Pressure 112/62 BP Systolic 112 BP Diastolic 62 Pulse Ox 99 12/01/22 04:46 12/01/22 04:46 12/01/22 04:46 Temperature Temperature Source Pulse Rate 93 Blood Pressure 117/68 BP Systolic 117 BP Diastolic 68 Pulse Ox 98 12/01/22 04:50 12/01/22 04:50 12/01/22 04:51 Temperature Temperature Source Pulse Rate 89 87 Blood Pressure 100/60 BP Systolic 100 BP Diastolic 60 Pulse Ox 12/01/22 04:51 12/01/22 04:55 12/01/22 04:55 Temperature Temperature Source Pulse Rate 88 Blood Pressure 89/51 L BP Systolic 89 BP Diastolic 51 Pulse Ox 100 12/01/22 04:56 12/01/22 04:56 12/01/22 05:01 Temperature Temperature Source Pulse Rate 101 H Blood Pressure 98/57 L BP Systolic 98 BP Diastolic 57 Pulse Ox 100 12/01/22 05:01 12/01/22 05:01 12/01/22 05:01 Temperature Temperature Source Pulse Rate 88 89 Blood Pressure BP Systolic BP Diastolic Pulse Ox 99 12/01/22 05:06 12/01/22 05:06 12/01/22 05:11 Temperature 97.6 F L Temperature Source Pulse Rate 87 Blood Pressure BP Systolic BP Diastolic Pulse Ox 99 12/01/22 05:14 12/01/22 05:14 12/01/22 05:20 Temperature Temperature Source Pulse Rate 97 Blood Pressure 83/51 L 90/54 L BP Systolic 83 90 BP Diastolic 51 54 Pulse Ox 12/01/22 05:20 12/01/22 05:25 12/01/22 05:25 Temperature Temperature Source Pulse Rate 90 87 Blood Pressure 97/55 L BP Systolic 97 BP Diastolic 55 Pulse Ox 12/01/22 05:30 12/01/22 05:30 12/01/22 05:35 Temperature Temperature Source Pulse Rate 93 Blood Pressure 96/52 L 95/53 L BP Systolic 96 95 BP Diastolic 52 53 Pulse Ox 12/01/22 05:35 12/01/22 05:40 12/01/22 05:40 Temperature Temperature Source Pulse Rate 97 96 Blood Pressure 97/53 L BP Systolic 97 BP Diastolic 53 Pulse Ox Weight Weight: 185 lb 4 oz Body Mass Index (BMI) 31.8 Physical Exam Const alert, oriented x3 and healthy appearing Constitutional Narrative: uncomfortable with contractions HEENT normocephalic and moist oral mucous membranes Head and Scalp: atraumatic Neck full ROM, no lymphadenopathy, supple and thyroid normal General: trachea midline Thyroid: thyroid normal Lymph Lymphatic: no lymphadenopathy noted Chest inspection of chest normal Resp normal respiratory effort Cardio regular rate GI normal to inspection, nondistended, normoactive bowel sounds, soft to palpation and non-tender Inspection: gravid external exam normal Bimanual Exam - Vag & Uterus: uterus non-tender Manual OB Exam: estimated gestational size appropriate, presentation cephalic, dilated, effaced and station Extremity normal to inspection General Extremity: Negative for edema Skin no rashes or lesions noted Neuro deep tendon reflexes 2+ bilaterally Motor Exam: strength 5/5 throughout and clonus absent Psych mental status grossly normal Labs Labs Labs: Blood Type A POSITIVE Antibody Screen NEGATIVE Hct 36.7 % (37-47) L Hgb 12.0 g/dL (12.0-15.0) Syphilis Total Ab Non-reactive Rubella IgG Antibody Reactive (Nonreactive) Hep Bs Antigen Non-Reactive (Nonreactive) Chlamydia DNA (SARIKA) Negative (Negative) Neisseria gonorrhoeae DNA (SARIKA) Negative (Negative) HIV 1&2 Antibody Non-Reactive (Nonreactive) Glucose 1 Hr 50 gm 113 mg/dL (70-140) Assessment & Plan (1) : QUALIFIERS: Weeks of gestation: 37 weeks Qualified Code(s): Z3A.37 - 37 weeks gestation of COMMENT: GBS negative. anatomy nl, silent carrier for Alpha-Thalassemia recommend FOB to be tested, neg. (2) Marijuana use: COMMENT: 05/21 tox +; neg 09/08 (3) Supervision of normal first teen : COMMENT: PRR JIMENA 12/13/22 Girl BF:Cecil (4) Depression: COMMENT: enc counseling. Support International resource provided. wants to start Zoloft at delivery seen in office for 2 week PP to discuss mood (5) SROM (spontaneous rupture of membranes): PLAN: Plan Patient presents IAL, plan expectant management for , pitocin PRN if needed. Pain management: s/p epidural. GBS neg. Management of any complications: none I have reviewed the [facility] and made any clinically relevant updates. 12/01/22 0556 <Electronically signed by Jacqueline Knight MD> Cosigner Signature (if applicable): CC: Dr. Jacqueline Knight MD; No Primary Care Physician~ Signed [facility] Work Phone: [phone] 618-587911-23-2022 Miscellaneous Notes* Quick Notes - Noris Echeverria RN - 05/05/2022 1:26 PM EST DISTANCE HEALTH VISIT This Team Access Model visit is a phone encounter. It required patient-provider interaction for themedical decision making as documented below. Adenike Ruth is a 16 year old female seen for PNOB. She has had 2 visits of the care center. 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 Planning on graduating this spring. The father the babyis 18 years old. He is involved. Patient is complaining of nausea and occasional vomiting in . Dietary considerations discussed . Vitamin B6 recommended. Advised patient to call/come in if she is unable to keep any food or fluids down in a 24-hour period. Pt has a history of depression diagnosed 6 years ago. She has been off medication 5 years. She believes she is doing well off medication. She has seen a psychiatrist and a counselor at the counseling center in the past. Discussed increased risks of depression during and and importance of reporting the development or worsening of symptoms should they occur. Pt denies ever having any suicidal thoughts or tendencies or thoughts of hurting others. Patient desires aneuploidy screening. Patient given contact information for [employer] to check on insurance coverage. Patient considering genetic carrier screening testing. Patient is given contact information for the [facility] to check on insurance coverage.Noris Echeverria RN [facility] Diagnosis Supervision of normal first teen , unspecified trimester- Primary Nausea/vomiting in Unspecified vomiting of , unspecified as to episode of care History of depression Personal history of other mental disorder Patient request for diagnostic testing Other specified examination documented in this encounter [facility]* Diagnosis Onset Date Resolution Status acute Supervision of normal acute [facility] Work Phone: Evaluation note* Diagnosis Onset Date Resolution Status acute Supervision of normal acute Marijuana use acute acute Supervision of normal acute Marijuana use acute acute Supervision of normal acute Marijuana use acute acute Supervision of normal acute Marijuana use acute acute Supervision of normal acute [facility] Work Phone: Evaluation note* Diagnosis Onset Date Resolution Status Marijuana use resolved resolved Marijuana use resolved resolved Marijuana use resolved resolved Supervision of normal first teen resolved Marijuana use resolved resolved Supervision of normal first teen resolved Marijuana use resolved resolved Supervision of normal first teen resolved Marijuana use resolved resolved Supervision of normal first teen resolved Depression acute Marijuana use resolved resolved Supervision of normal first teen resolved Depression acute Marijuana use resolved resolved Supervision of normal first teen resolved Depression acute Vaginal delivery acute Marijuana use resolved resolved SROM (spontaneous rupture of membranes) resolved Supervision of normal first teen resolved [facility] Work Phone: Evaluation note* Diagnosis Ingrowing toenail- Primary Ingrowing nail Raynaud's disease without gangrene Diminished pulses in lower extremity Other symptoms involving cardiovascular system [facility] information availableW[facility] Work Phone: Evaluation note* Diagnosis Viral illness- Primary Unspecified viral infection, in conditions classified elsewhere and of unspecified site [facility] Diagnosis Onset Date Resolution Status Admit Date Alpha thalassemia silent carrier acu te December 10, 2024 2:58pm Depression acute December 10 2:58pm Former smoker acute December 10, 2024 2:58pm History of elective acute December 10, 2024 2:58pm Hx of vaginal delivery acute 2024 2:58pm Obesity affecting acute December 10, 2024 2:58pm acute December 10 2:58pm Supervision of high-risk acute December 10, 2024 2:58pm Varicella vaccination status unknown acute December 10, 2024 2:58pm [facility] Work Phone: Hospital Discharge instructions Additional Instructions Please follow-up outpatient. Use safe sex practicesWKind[facility] Work Phone: Progress note Author Nadege Jarrell [facility] Note Date/Time February 04, 2025 11 :18am [facility] [address] [place] [address], [address] [place] [address] OFFICE VISIT Date of Service: 02/04/25 MR#: [id number] Acct: [id number] Name: ADENIKE RUTH Rep #: [id number] : 2005 Provider: JAXON Jarrell Age/Sex: 19/F Location: [facility] Status: Signed Intake Vital Signs 01/09/25 15:51 02/04/25 10:58 Height 5 ft 4 in 5 ft 4 in Weight: 185 lb 5 oz BMI 31.8 BP 104/70 Intake Visit Reasons: 22wk ob Chief Complaint: 22wk OB Disbursing Officer Required: No Is patient in pain?: No Allergies No Known Allergies Allergy (Verified 02/04/25 10:58) Medications ?Medication ?Instructions ?Recorded ?Confirmed ?Type PNV 153-FA 400 mcg-om3 35 mg-dha tab PO 10/26/2402/04 History 25 mg-epa 5 mg-fish oil chew tablet ondansetron HCl 4 mg tablet 4 mg PO Q4H #60 tabs 10/2602/04/25 Rx Last Menstrual Period: 09/04/24 : No PFSH PFSH Medical History Vaginal delivery Depression Surgical History Clavicle fracture Family History Father Diabetes Hypertension Uncle Diabetes Maternal Grandmother Diabetes Maternal Hypertension Maternal Social History adopted: No household members: significant other and children number of children: 1 current occupational status: employed 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 current occupational exposures/hazards: No pets and animals: No history of recent travel: No sexually active: Yes Smoking Status: Former smoker quit date: 10/12/24 alcohol intake: never substance use type: does not use well-balanced diet: about half the time caffeine: No eating out: 1-3 times/week during the past year weight has: increased > 10 lbs sharmila/mormon: None seatbelt use: sometimes do you feel safe at home: Yes additional social history: Boyfriend-Soloomn History 4 Elective abortions 2 Hx Para 1 Spontaneous abortions Hx # Term Pregnancies Ectopic pregnancies Hx # Pregnancies Multiple births # of living children 1 Past Pregnancies Del. Date Name GA/Weeks Outcome Route Bth Weight Infant Gen Labor Lgth Anesthesia Del Locatn Provider FOB 12/01/22 Esatalyne 38 live - full term 7lbs 11oz Female epidural [facility] Nadege Jacob Delivery Date: 12/01/22 Last Updated by: Ruthy Wyatt 1st degree laceration HPI 22wk ob Details: ADENIKE RUTH is a 19 year old who presents for routine OB visit. OB Visit JIMENA Calculator Estimated Delivery Date Method Current WG Current Estimate 06/11/25 LMP (Certain) 21w 6d Expected Delivery Route/Plan Labor Preferences- CB/BF classes: [] labor support person: [] labor intervention preferences: [] pain management options preferred: [] cut cord/dad catch: [] : [] PP control planned: [] discussed possible routes of delivery and associated risks: [] special requests: [] Specific Issue/Plans Covid status: [] Flu vaccine: [] Tdap vaccine: [] Rhogam: [] LARC form signed: [] Problem list reviewed and updated with the most current plan of care details and appropriate orders placed. Relevant counseling for the gestational age provided. Continue routine care and follow up unless otherwise noted in visit notes/problem list details Initial Weight: Not Recorded Date -?-?-?-?-?-?-?-?-?-?-?-?- EGA Weight BP Urine Prot -?-?-?-?-?-?-?-?-?-?-?-?- Glucose FHR FuHt Pres Dilation -?-?-?-?-?-?-?-?-?-?-?-?- Effaced St Visit Note 12/10/24 -?-?-?-?-?-?-?-?-?-?-?-?- 13w 6d 183 lb 2 oz 103/66 -?-?-?-?-?-?-?-?-?-?-?-?- 165 -?-?-?-?-?-?-?-?-?-?-?-?- JV- CRL consiste nt with LMP. 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 FOB to be tested. (new partner)also desires afp testing. 01/09/25 -?-?-?-?-?--?-?-?-?-?-?-?- 18w 1d 182 lb 2 oz 102/67 Nega tive -?-?-?-?-?-?-?-?-?-?-?-?- Negative 145 -?-?-?-?-?-?-?-?-?-?-?-?- JV- no complaint s today. FOB passed out after she gave blood last time so she wants to decline afp. He will not do the carrier testing either. will notify peds for alpha thal carrier status. 02/04/25 -?-?-?--?-?-?-?-?-?-?-?-?- 21w 6d 185 lb 5 oz 104/70 Nega tive -?-?-?-?-?-?-?-?-?-?-?-?- Negative 160 -?-?-?-?-?-?-?-?-?-?-?-?- KW- no vb/lof/ct x. +flutters. glucose info given. anatomy US normal. concerns with yeast infection-only used Monistat for 2 days. instructed to use Monistat 7 ACOG First Trimester First Trimester: Desire for , Alcohol, Tobacco Cessation, Illicit/Recreational Drug/Substance Use, Intimate Partner Violence, Barriers to care, Unstable Housing, Communication Barriers, Environmental/Work Hazards, Anticipated Course of Care, Toxoplasmosis Precations, Use of Any medications, Sexual activity, Exercise, Dental Care, Sauna/Hot tub use, Seat Belt use, Childbirth classes/Hospital facilities, Travel, Indications for Ultrasound and Screening for Aneuploidy; Discussed Second Trimester Second Trimester: Signs and Symptoms of Labor, Selecting a care provider, Reproductive Life Planning & Contreception, Care Planning and Intimate Partner Violence; Discussed Tobacco Cessation and Discussed Depression/Anxiety Third Trimester Third Trimester: Pain Management Plans, Labor support person(s), Immediate Larc, Movement Monitoring, Signs and Symptoms of Preeclampsia, Crivitz Education and Family Medical Leave or Disability Forms ROS Const Reports system reviewed and no additional complaints, except as documented Eyes Reports system reviewed and no additional complaints, except as documented ENT Reports system reviewed and no additional complaints, except as documented Card Reports system reviewed and no additional complaints, except as documented Resp Reports system reviewed and no additional complaints, except as documented GI Reports system reviewed and no additional complaints, except as documented, Denies nausea and Denies vomiting Reports system reviewed and no additional complaints, except as documented Musc Reports system reviewed and no additional complaints, except as documented Skin/Breast Reports system reviewed and no additional complaints, except as documented Neuro Yes system reviewed and no additional complaints, except as documented Psych Reports system reviewed and no additional complaints, except as documented Endo Reports system reviewed and no additional complaints, except as documented Gonzales/Lymph Reports system reviewed and no additional complaints, except as documented Aller/Immun Reports system reviewed and no additional complaints, except as documented Exam Const General: cooperative, healthy appearing and no acute distress Orientation: alert, awake and oriented x3 Neck Neck: normal visual inspection and full ROM Resp Effort & Inspection: normal respiratory effort, able to speak in complete sentences and symmetric chest movement GI Inspection: normal to inspection Palpation: soft and other Other: gravid Skin General: no rashes or lesions noted Neuro General: patient alert, patient awake and patient oriented x3 Cognition: normal cognition Speech: speech normal Gait: normal gait Motor: muscle tone normal throughout Extrem General: normal to inspection and full ROM Psych Appearance: grossly normal Mental Status: mental status grossly normal Mood: congruent mood Affect: normal affect Speech and Movement: speech and movement normal Attitude: cooperative Thought Process: normal Thought Content: normal Judgment: judgment good Results POC Urinalysis 2 Dip (Clinic) Office Urine Glucose Negative Last Edit by Susan Morales on 02/04/25 11:06 Office Urine Protein Negative Last Edit by Susan Morales on 02/04/25 11:06 Coding Level of Care Code Off vis,est,level 3 Diagnoses Alpha thalassemia silent carrier D56.3 Hx of vaginal delivery Supervision of high-risk O09.90 21 weeks gestation of Z3A.21 Weeks of gestation: 21 weeks History of elective Z98.890 Obesity affecting O99.210 Former smoker Z87.891 Varicella vaccination status unknown Z78.9 Depression F32.A Assessment and Plan Assessment and Plan (1) Alpha thalassemia silent carrier: Status: Acute Comment: FOB to be tested. (2) Hx of vaginal delivery: Status: Acute (3) Supervision of high-risk : Status: Acute Comment: , JIMENA 06/11/25, boy, PC Aleshia, BF Solomon (4) : Status: Acute Qualifiers: Weeks of gestation: 21 weeks Qualified Code(s): Z3A.21 - 21 weeks gestation of Comment: NIPT low risk (5) History of elective : Status: Acute Comment: November 2023 & May 2024-medical abortions (6) Obesity affecting : Status: Acute Comment: HgbA1c (7) Former smoker: Status: Acute Comment: quit 2 weeks ago (8) Varicella vaccination status unknown: Status: Acute (9) Depression: Status: Acute Comment: enc counseling. Support International resource provided. Zoloft start at postpartem and 2 wk office follow up Orders: Orders POC Urinalysis 2 Dip (Clinic) Today Plan Details Additional Comments: ACOG trimester education reviewed and updated. see problem list details for updated plan management information and see below for orders placed at this visit. GA appropriate handout given. 02/04/25 1118 <Electronically signed by Nadege chung CNM> Date _ Nadege Jarrell CNM Cosigner Signature: Date (if applicable) CC: ~ [facility] Work Phone: Reason for referral (narrative)* Outpatient Procedure (Routine) - Authorized Specialty Diagnoses / Procedures Referred By Ziyad rao [facility] Diagnoses Ingrowing toenail Raynaud's disease without gangrene Diminished pulses in lower extremity Procedures PVR ANK PRESS [facility]ERRON V[facility] LAB NON-INVAS PHYSIOLOGIC STD EXTREMITY ART 2 LEVEL Nayan Clarke [address] [place] [address] [facility] [address] [place] [id number] Referral ID Status Reason Start Date Expiration Date Visits Requested Visits Authorized [id number] Authorized Auto-Generat ed Referral 08/11/2023 08/10/2024 1 1 [facility] for referral (narrative)No reason for referral information availableBar[facility] Work Phone: Summary Purpose Family History No Family History Records Found Relationship Condition Age at Onset Recorded Date/T joann Not Specified Diabetes mellitus Unknown Hypertension Unknown Relationship Condition Age at Onset Recorded Date/T joann father Diabetes mellitus Unknown Hypertension Unknown uncle Diabetes mellitus Unknown grandmother Diabetes mellitus Unknown Advance Directives No Advanced Directives Records Found Advance Directive Response Recorded Date/ Time Living Will No May 21 2:38pm Power of Svp [employer] No May 21, 2022 2:38pm Advance Directive Response Recorded Date/ Time Living Will No May 31 6:44am Power of Svp [employer] No May 31, 2022 6:44am Advance Directive Response Recorded Date/ Time Living Will No May 31, 022 7:44am Power of Svp [employer] No May 31, 2022 7:44am Advance Directive Response Recorded Date/ Time Living Will No December 01, 2022 1:51am Power of Svp [employer] No December 01 1:51am Advance Directive Response Recorded Date/ Time Living Will No October 24, 2023 6 :42pm Power of Svp [employer] No October 24, 2023 6:42pm Chief Complaint and Reason for Visit Chief Complaint NOB LMP 03/08/2022 E ORDER PANORAMA- BOX Reason for Visit Supervision of normal Chief Complaint NOB LMP 03/08/2022 E ORDER PANORAMA- BOX ABD PAIN Reason for Visit Supervision of normal Chief Complaint NOB LMP 03/08/2022 E ORDER PANORAMA- BOX ABD PAIN 14 WK OB 18 WK OB 22 WK OB GLUCOSE TEST 26 WK OB/GLUCOSE Reason for Visit Supervision of normal Marijuana use Supervision of normal Marijuana use Supervision of normal Marijuana use Supervision of normal Marijuana use Supervision of normal Chief Complaint 22 WK OB GLUCOSE TEST 26 WK OB/GLUCOSE 28 WK OB 30 WK OB 32 WK OB 34 WK OB 36 WK OB 37 WK OB 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 Reason for Visit Marijuana use Marijuana use Marijuana use Supervision of normal first teen Marijuana use Supervision of normal first teen Marijuana use Supervision of normal first teen Marijuana use Supervision of normal first teen Depression Marijuana use Supervision of normal first teen Depression Marijuana use Supervision of normal first teen Depression Vaginal delivery Marijuana use SROM (spontaneous rupture of membranes) Supervision of normal first teen Chief Complaint ABD PAIN Chief Complaint Admit Date NOB LMP 09/04December 10, 2024 2:58 pm Reason for Visit Admit Date Alpha thalassemia silent carrier December 102024 2:58pm Depression December 10, 2024 2:58 pm Former smoker December 10, 2024 2:58 pm History of elective December 10, 2024 2:58pm Hx of vaginal delivery December 10, 2024 2 :58pm Obesity affecting December 10, 2 025 2:58pm December 10, 2024 2:58 pm Supervision of high-risk December 10, 2024 2:58pm Varicella vaccination status unknown Nov 2:58pm Chief Complaint Admit Date NOB LMP 09/04December 10, 2024 2:58 pm 18 wks ob January 09, 2025 3:49 pm Reason for Visit Admit Date Alpha thalassemia silent carrier December 102024 2:58pm Depression December 10, 2024 2:58 pm Former smoker December 10, 2024 2:58 pm History of elective December 10, 2024 2:58pm Hx of vaginal delivery December 10, 2024 2 :58pm Obesity affecting December 10, 2 025 2:58pm December 10, 2024 2:58 pm Supervision of high-risk December 10, 2024 2:58pm Varicella vaccination status unknown Nov 2:58pm Alpha thalassemia silent carrier January 092024 3:49pm Depression January 09, 2025 3:49 pm Former smoker January 09, 2025 3:49 pm History of elective January 09, 2025 3:49pm Hx of vaginal delivery January 09, 2025 3 :49pm Obesity affecting January 09, 2 025 3:49pm January 09, 2025 3:49 pm Supervision of high-risk January 09, 2025 3:49pm Varicella vaccination status unknown Dec 3:49pm Chief Complaint Admit Date NOB LMP 09/04December 10, 2024 2:58 pm 18 wks ob January 09, 2025 3:49 pm 22wk ob February 04, 2025 10 :57am Reason for Visit Admit Date Alpha thalassemia silent carrier December 102024 2:58pm Depression December 10, 2024 2:58 pm Former smoker December 10, 2024 2:58 pm History of elective December 10, 2024 2:58pm Hx of vaginal delivery December 10, 2024 2 :58pm Obesity affecting December 10, 2 025 2:58pm December 10, 2024 2:58 pm Supervision of high-risk December 10, 2024 2:58pm Varicella vaccination status unknown Nov 2:58pm Alpha thalassemia silent carrier January 092024 3:49pm Depression January 09, 2025 3:49 pm Former smoker Sharri 30th, 2025 3:49 pm History of elective January 09, 2025 3:49pm Hx of vaginal delivery January 09, 2025 3 :49pm Obesity affecting January 09, 2 025 3:49pm January 09, 2025 3:49 pm Supervision of high-risk January 09, 2025 3:49pm Varicella vaccination status unknown Dec 3:49pm Alpha thalassemia silent carrier February 04, 2025 10:57am Depression February 04, 2025 10 :57am Former smoker February 04, 2025 10 :57am History of elective January 10:57am Hx of vaginal delivery February 04, 2025 10:57am Obesity affecting February 04, 2025 10:57am February 04, 2025 10 :57am Supervision of high-risk [id number] 10:57am Varicella vaccination status unknown Jan 10:57am Additional Source Comments INFORMATION SOURCE (unrecogn ized section and content) DATE CREATED AUTHOR 02/01/2018 [facility] ([place]) DATE CREATED AUTHOR AUTHOR'S ORGANIZ ATION 09/24/2024 [facility] DATE CREATED AUTHOR AUTHOR'S ORGANIZ ATION 01/26/2025 [facility] DATE CREATED AUTHOR AUTHOR'S ORGANIZ ATION 03/02/2025 [facility] Source Comments (unrecognize d section and content) In the event this informatio n is protected by the Federal Confidentiality of Alcohol and Drug Abuse Patient Records regulations: The Federal rules restrict any use of the information to criminally investigate or prosecute any alcohol or drug abuse patient.[facility] the event this information is protected by the Federal Confidentiality of Alcohol and Drug Abuse Patient Records regulations: The Federal rules restrict any use of the information to criminally investigate or prosecute any alcohol or drug abuse patient.[facility] the event this information is protected by the Federal Confidentiality of Alcohol and Drug Abuse Patient Records regulations: The Federal rules restrict any use of the information to criminally investigate or prosecute any alcohol or drug abuse patient.[facility] Reason for Visit (unrecogniz ed section and content) Reason Comments Care Reason Comments New ingrown nail Reason Comments Headache X 3-4 days, fatigue, pain is behind the eyes Care Teams (unrecognized sec tion and content) Crusher Assembler Relationship Specialty Start Date End Date [place] [address] [place] [address] PCP - General Pediatrics 03/14/17 Team Status: Active Member Role Status Dates Dr. Mariaelena Ornelas MD Family Provider Active No Primary Care Physician Primary Care Provider Active Team Status: Inactive Member Role Status Dates Dr. Mariaelena Ornelas MD Primary Care Provider, Referrin g Provider Active Dr. Mayi Nuñez , DO Attending Provider Activ e Team Status: Inactive Member Role Status Dates Dr. Mariaelena Ornelas MD Referring Provider Active Dr. Mayi Nuñez DO Attending Provider Activ e No Primary Care Physician Primary Care Provider Active Team Status: Inactive Member Role Status Dates No Primary Care Physician Primary Care Provider, Refer ring Provider Active Dr. Maiy Nuñez , DO Attending Provider Activ e Team Status: Inactive Member Role Status Dates No Primary Care Physician Primary Care Provider, Refer ring Provider Active Beverly Penny EXPLOSIVES ENGINEER, EXPLOSIVES ENGINEER-C Attending Provider Active Team Status: Inactive Member Role Status Dates No Primary Care Physician Primary Care Provider Active Dr. Mayi Nuñez DO Attending Provider Activ e Team Status: Inactive Member Role Status Dates No Primary Care Physician Primary Care Provider Active Dr. Mayi Nuñez DO Attending Provider, Refe rring Provider Active Team Status: Inactive Member Role Status Dates No Primary Care Physician Primary Care Provider Active Dr. Silverio Oshea DO Attending Provider, Emergency P sheryl Active Team Status: Inactive Member Role Status Dates No Primary Care Physician Primary Care Provider Active Dr. Mayi Nuñez DO Attending Provider, Refe rring Provider Active Beverly Penny EXPLOSIVES ENGINEER, EXPLOSIVES ENGINEER-C Other Provider Active Team Status: Inactive Member Role Status Dates No Primary Care Physician Primary Care Provider, Refer ring Provider Active Elo Rivas CNM Attending Provider Active Team Status: Active Member Role Status Dates No Primary Care Physician Primary Care Provider Active Dr. Jacqueline Knight MD Admit Provid er, Attending Provider, Referring Provider, Other Provider Active Team Status: Active Member Role Status Dates No Primary Care Physician Primary Care Provider Active Nadege Jarrell CNM Admit Provider, Ref erring Provider, Other Provider Active Beverly Penny EXPLOSIVES ENGINEER, EXPLOSIVES ENGINEER-C Attending Provider Active Team Status: Inactive Member Role Status Dates No Primary Care Physician Primary Care Provider Active Beverly Penny EXPLOSIVES ENGINEER, EXPLOSIVES ENGINEER-C Attending Provider, Referring Provider Active Team Status: Inactive Member Role Status Dates No Primary Care Physician Primary Care Provider Active Elo Rivas CNM Attending Provider, Referring Pr ovider Active Team Status: Inactive Member Role Status Dates No Primary Care Physician Primary Care Provider Active Nadege Jarrell CNM Admit Provider, Att ending Provider, Referring Provider Active Crusher Assembler Relationship Specialty Start Date End Date Mariaelena Ornelas MD [address] [place] [address] PCP - General Pediatrics 03/14/17 Team Status: Active Member Role Status Dates Dr. Mariaelena Ornelas MD Family Provider Active Chucho Nickerson MD Primary Care Provider Active Team Status: Inactive Member Role Status Dates Chucho Nickerson MD Primary Care Provider Active Dr. Mayi Calix MD Emergency Provider Active Crusher Assembler Relationship Specialty Start Date End Date Mariaelena Ornelas MD [address] [place] [address] PCP - General Pediatrics 03/14/17 Team Status: Active Member Role/Relationship Status Dates Dr. Mariaelena Ornelas MD Family Provider Active Chucho Nickerson MD Primary Care Provider Active Team Status: Inactive Member Role/Relationship Status Dates Chucho Nickerson MD Primary Care Provider Active St art: December 10, 2024 End: December 10, 2024 Chucho Nickerson MD Referring Provider Active Start : December 10, 2024 End: December 10, 2024 Dr. Mayi Nuñez DO Attending Provider Activ e Start: December 10, 2024 End: December 10, 2024 Team Status: Active Member Role/Relationship Status Narendra Nickerson MD Primary Care Provider Active St art: December 10, 2024 Dr. Mayi Nuñez DO Attending Provider Activ e Start: December 10, 2024 Dr. Mayi Nuñez DO Referring Provider Activ e Start: December 10, 2024 Team Status: Inactive Member Role/Relationship Status Narendra Nickerson MD Primary Care Provider Active St art: December 10, 2024 End: December 10, 2024 Dr. Mayi Nuñez DO Attending Provider Activ e Start: December 10, 2024 End: December 10, 2024 Dr. Mayi Nuñez DO Referring Provider Activ e Start: December 10, 2024 End: December 10, 2024 Team Status: Inactive Member Role/Relationship Status Narendra Nickerson MD Primary Care Provider Active St art: January 09, 2025 End: January 09, 2025 Chucho Nickerson MD Referring Provider Active Start : January 09, 2025 End: January 09, 2025 Dr. Mayi Nuñez DO Attending Provider Activ e Start: January 09, 2025 End: January 09, 2025 Team Status: Inactive Member Role/Relationship Status Narendra Nickerson MD Primary Care Provider Active St art: February 04, 2025 End: February 04, 2025 Chucho Nickerson MD Referring Provider Active Start : February 04, 2025 End: February 04, 2025 Nadege Jarrell CNM Attending Provider Active S tart: February 04, 2025 End: February 04, 2025 Goals (unrecognized section and content) Goals may be documented in a n alternate sectionGoals may be documented in an alternate sectionGoals may be documented in an alternate sectionGoals may be documented in an alternate sectionGoals may be documented in an alternate sectionGoals may be documented in an alternate sectionGoals may be documented in an alternate sectionGoals may be documented in an alternate sectionGoals may be documented in an alternate section FOR RECORDS PERTAINING TO PATIENTS WHO ARE OR HAVE BEEN ENROLLED IN A CHEMICAL DEPENDENCY/SUBSTANCEABUSE PROGRAM, SOME INFORMATION MAY BE OMITTED. This clinical summary was aggregated from multiple sources. Caution should be exercised in using it in the provision of clinical care. This summary normalizes information from multiple sources, and as a consequence, information in this document may materially change the coding, format and clinical context of patient data. In addition, data may be omitted in some cases. CLINICAL DECISIONS SHOULD BE BASED ON THE PRIMARY CLINICAL RECORDS. [facility] [employer] [facility]. provides no warranty or guarantee of the accuracy or completeness of information in this document.
--- OUTSIDE RECORDS SUMMARY | 2025-03-06 11:54 | XMS RPT_ITS | CCD ---
Author Organization [facility]ini[facility] Care Team Providers Care Shipbuilding Draftsperson Name Role Phone KAMILAH ABEBE Unavailable Unavailable [...] Care Provider Krishan GALLEGOS, [place] Referring Provider [phone] Jeri Aguirre DO, Dr. See Attending Provider Dr. Mayi Nuñez DO Referring Provider BUBBA VALENCIA Attending Unavailable MAYI LE Referring Unavailab MARIAELENA oWng Primary Care Unavailable Nadege Jarrell CNM Attending [...] Active MG PO May 21, 2022 12:00am [place] (Nk) (1 source) Start: 05-31-2022 [place] (Nk) Active May 31, 2022 12:00am ondansetron 4 mg oral tablet (4 sources) Serotonin-3 Receptor Antagonist Start: 10-26-2024 take 1 tablet by mouth every four hours Ondansetron Hcl 4 mg tablet Active 4 mg PO Q4H 60 3 October 26, 2024 12:00am Pnv No.673-Wh-Tb5-Dha-Epa -Fish 400 mcg-35 mg- 25 mg-5 mg tablet,chewable (4 sources) Start: 10-26-2024 Pnv No.208-Su-Ew9-Dha-Ep a-Fish 400 mcg-35 mg- 25 mg-5 mg tablet,chewable Active {tbl} PO October 26, 2024 12:00am polyethylene glycol 3350 10454 mg powder for oral solution (3 sources) [...] 1 tablet by estelita th once daily Prenat.Vits,Julius,Imy-Oohb-Eicfo Active 1 TABLET PO DAILY September 08, 2022 12:00am Prenat.Vits,Julius,Lte-Jmmf-Iui ic tablet (4 sources) Start: 09-08-2022 End: 10-24-2023 Prenat.Vits,Julius,Qcc-Rggk-Ock ic tablet Discontinued 1 {tbl} PO DAILY [...] Test Name Value Interpretation Reference Range Facility Jukebox Checker Office Visit Reporton 02-04-2025 Jukebox Checker Office Visit Report [facility] [address], [address] [place] [address] OFFICE VISIT Date of Service: 02/04/25 MR#: [id number] Acct: [id number] Name: ADENIKE RUTH Rep #: [id number] : 2005 Provider: JAXON Frazier ams Age/Sex: 19/F Location[place] [facility] [place] Status: Signed Intake Vital Signs 01/09/25 15:51 02/04/25 10:58 Height 5 ft 4 in 5 ft 4 in Weight: 185 lb 5 oz BMI 31.8 BP 104/70 Intake Visit Reasons: 22wk ob Chief Complaint: 22wk OB Circus Artist Required: No Is patient in pain?: No [...] year weight has: increased > 10 lbs sharmila/anabaptism: None seatbelt use: sometimes do you feel [...] - full term 7lbs 11oz Female epidural [facility] Nadege Jacob Delivery Date: 12/01/22 [...] +flutters. gluco (more content not included)... Normal [facility] Laboratory - Chemistry and C hemistry - challengeOrdered By: Mayi Aguirre on 01-09-2025 Glucose Ql (U) Negative [facility] Laboratory - UrinalysisOrder ed By: Mayi Aguirre on 01-09-2025 Protein Ql (U) Negative [facility] Jukebox Checker Office Visit Reporton 01-09-2025 Jukebox Checker Office Visit Report [facility] [address], [address] [place] [address] OFFICE VISIT Date of Service: 01/09/25 MR#: [id number] Acct: [id number] Name: ADENIKE RUTH Rep #: [id number] : 2005 Provider: Dr. Mayi Roach DO Age/Sex: 19/F Location: [facility] [place] Status: Signed Intake Vital Signs 12/10/24 15:10 12/17/24 13:25 01/09/25 15:51 Height 5 ft 4 in 5 ft 4 in 5 ft 4 in Weight: 182 lb 2 oz BMI 31.2 BP 102/67 Intake Visit Reasons: 18 wks ob Circus Artist Required: No Is patient in pain?: No [...] year weight has: increased > 10 lbs sharmila/anabaptism: None seatbelt use: sometimes do you feel [...] - full term 7lbs 11oz Female epidural [facility] Nadege Jacob Delivery Date: 12/01/22 Last Updated by: Ruthy Wyatt 1st degree laceration HPI 18 wks [...] care, Un (more content not included)... Normal [facility] Chlamydia/GC SARIKA aptimaon CHLAMY,NUC ACID Negative Normal Negative [facility] Comment on above: Performed By: #### L 509.4006, L501.9985, L3890.6102, L509.8002, L7000.1800, L3890.6301, L7400.0353, BTS, L100.0100, M100.2200, L3890.6006 ####[facility] [address] [place], [address] GC BY NUC ACID Negative Normal Negative [facility] Comment on above: Result Comment: Perf ormed at: =G - [facility] [address] Travis Gilbert, ESEQUIEL [id number] Rand Tacker: Rabia Odom MD, Phone: [phone] Performed By: #### L 509.4006, L501.9985, L3890.6102, L509.8002, L7000.1800, L3890.6301, L7400.0353, BTS, L100.0100, M100.2200, L3890.6006 ####[facility] [address] [place], [place], [phone] PAP I-G w/rfx hrHPV-Aptimaon 12-13-2024 ADEQ Comment Normal . [facility] Comment on above: Order Comment: Speci men Comment: [id number] Comment: No. of containers..01 ThinPrep Vial Result Comment: Sati sfactory for evaluation. Endocervical and/or squamous metaplastic cells (endocervical component) are present. Performed By: #### L 509.4006, L501.9985, L3890.6102, L509.8002, L7000.1800, L3890.6301, L7400.0353, BTS, L100.0100, M100.2200, L3890.6006 ####[facility] [address] [place], [place], [phone] COMM . Normal . [facility] Comment on above: Order Comment: Speci men Comment: [id number] Comment: No. of containers..01 ThinPrep Vial Performed By: #### L 509.4006, L501.9985, L3890.6102, L509.8002, L7000.1800, L3890.6301, L7400.0353, BTS, L100.0100, M100.2200, L3890.6006 ####[facility] [address] [place], [place], [phone] COMMENT Comment Normal . [facility] Comment on above: Order Comment: Speci men Comment: [id number] Comment: No. of containers..01 ThinPrep Vial Result Comment: This liquid based ThinPrep(R) pap test was screened with the use of an image guided system. Performed By: #### L 509.4006, L501.9985, L3890.6102, L509.8002, L7000.1800, L3890.6301, L7400.0353, BTS, L100.0100, M100.2200, L3890.6006 ####[facility] [address] [place], [place], [phone] DIAG Comment Normal . [facility] Comment on above: Order Comment: Speci men Comment: [id number] Comment: No. of containers..01 ThinPrep Vial Result Comment: NEGA TIVE FOR INTRAEPITHELIAL LESION OR MALIGNANCY. Performed By: #### L 509.4006, L501.9985, L3890.6102, L509.8002, L7000.1800, L3890.6301, L7400.0353, BTS, L100.0100, M100.2200, L3890.6006 ####[facility] [address] [facility] [address] [place], [place], [phone] HPV RFLX Comment Normal . [facility] Comment on above: Order Comment: Speci men Comment: [id number] Comment: No. of containers..01 ThinPrep Vial Result Comment: The HPV DNA reflex criteria were not met with this specimen result therefore, no HPV testing was performed. Performed at: [address] [id number] Rand Tacker: Rabia Odom MD, Phone: [phone] Performed By: #### L 509.4006, L501.9985, L3890.6102, L509.8002, L7000.1800, L3890.6301, L7400.0353, BTS, L100.0100, M100.2200, L3890.6006 ####[facility] [address] [place], [place], [phone] PAPSMR Comment Normal . [facility] Comment on above: Order Comment: Speci men Comment: [id number] Comment: No. of containers..01 ThinPrep Vial Result [...] L7000.1800, L3890.6301, L7400.0353, BTS, L100.0100, M100.2200, L3890.6006 ####[facility] [address] [place], [place], [phone] PERFORM Comment Normal . [facility] Comment on above: Order Comment: Speci men Comment: [id number] Comment: No. of containers..01 ThinPrep Vial Result Comment: Tish Calle, Snailer Performed By: #### L 509.4006, L501.9985, L3890.6102, L509.8002, L7000.1800, L3890.6301, L7400.0353, BTS, L100.0100, M100.2200, L3890.6006 ####[facility] [address] [place], [place], [phone] Urine Cultureon 12-13-2024 URC Mixed Gram Positive Organisms [place] Count 11,000-25,000 MIXC Mixed contaminants. Submit a new specimen if indicated. Normal [facility] Comment on above: Performed By: #### L 509.4006, L501.9985, L3890.6102, L509.8002, L7000.1800, L3890.6301, L7400.0353, BTS, L100.0100, M100.2200, L3890.6006 ####[facility] [address] [place], [address] Absolute lymphocyte countOrd ered By: Elo Rivas on 12-10-2024 Lymphocytes Auto (Unsp spec) [#/Vol] 1.68 10*3/uL 0.83-4.51 [facility] Absolute neutrophil countOrd ered By: Elo Rivas on 12-10-2024 Neutrophils (Bld) [#/Vol] 6.4 10*3/uL 2.0-7.7 [facility] Automated blood erythrocyte countOrdered By: Elo Rivas on 12-10-2024 RBC (Bld) [#/Vol] 5.06 10*6/uL Normal 4.2-5.4 [facility] Comment on above: Performed By: #### L 509.4006, L501.9985, L3890.6102, L509.8002, L7000.1800, L3890.6301, L7400.0353, BTS, L100.0100, M100.2200, L3890.6006 #### [facility] Laboratory [address] [place], [place], [phone] Automated blood hematocrit ( percentage)Ordered By: Elo Rivas on 12-10-2024 Hematocrit (Bld) [Volume fraction] 39.2 % Normal 37-47 [facility] Comment on above: Performed By: #### L 509.4006, L501.9985, L3890.6102, L509.8002, L7000.1800, L3890.6301, L7400.0353, BTS, L100.0100, M100.2200, L3890.6006 #### [facility] Laboratory [address] [place], [address] Automated lymphocyte count a s percentage of total leukocytesOrdered By: Elo Rivas on 12-10-2024 Lymphocytes/100 WBC Auto (Unsp spec) 18.7 % Low 19-41 [facility] Basophil percentageOrdered B y: Elo Rivas on 12-10-2024 Basophils/100 WBC (Bld) 0.4 % Normal 0-1 [facility] Comment on above: Performed By: #### L 509.4006, L501.9985, L3890.6102, L509.8002, L7000.1800, L3890.6301, L7400.0353, BTS, L100.0100, M100.2200, L3890.6006 #### [facility] Laboratory [address] [place], [place], [phone] CBC W/Diff, Automatedon 11-13 Absolute Lymph 1.68 X10 3/uL Normal 0.83-4.51 [facility] Comment on above: Performed By: #### L 509.4006, L501.9985, L3890.6102, L509.8002, L7000.1800, L3890.6301, L7400.0353, BTS, L100.0100, M100.2200, L3890.6006 #### [facility] Laboratory [address] [place], [place], [address] Absolute Neut 6.4 X10 3/uL Normal 2.0-7.7 [facility] Comment on above: Performed By: #### L 509.4006, L501.9985, L3890.6102, L509.8002, L7000.1800, L3890.6301, L7400.0353, BTS, L100.0100, M100.2200, L3890.6006 #### [facility] [address] [place], [place], [address] IG% 0.300 Normal 0.0-0.9 [facility] Comment on above: Result Comment: IG% - Immature Granulocytes (promyelocytes, myelocytes and metamyelocytes) > 1% indicates that a LEFT SHIFT is Present. Performed By: #### L 509.4006, L501.9985, L3890.6102, L509.8002, L7000.1800, L3890.6301, L7400.0353, BTS, L100.0100, M100.2200, L3890.6006 #### [facility] [address] [place], [address] Lymphocytes/100 WBC (Bld) 18.7 % Low 19-41 [facility] Comment on above: Performed By: #### L 509.4006, L501.9985, L3890.6102, L509.8002, L7000.1800, L3890.6301, L7400.0353, BTS, L100.0100, M100.2200, L3890.6006 #### [facility] Laboratory [address] [place], [place], [phone] (405) Nucleated RBC (Bld) [#/Vol] 0 10*3/uL Normal 0-5 [facility] Comment on above: Performed By: #### L 509.4006, L501.9985, L3890.6102, L509.8002, L7000.1800, L3890.6301, L7400.0353, BTS, L100.0100, M100.2200, L3890.6006 #### [facility] Laboratory [address] [place], [place], [phone] (913) RDW SD 39.8 fl Normal 35.1-43.9 [facility] Comment on above: Performed By: #### L 509.4006, L501.9985, L3890.6102, L509.8002, L7000.1800, L3890.6301, L7400.0353, BTS, L100.0100, M100.2200, L3890.6006 #### [facility] Laboratory [address] [place], [address] Cervical or vagninal specime n microscopic examination by cytology stain (reported asOrdered By: Elo Rivas on 12-10-2024 Cytology report Cyto stain Doc (Cvx/Vag) Comment . [facility] Comment on above: The Pap [...] rRNA SARIKA+probe Ql (Unsp spec) Negative Negative [facility] Eosinophil percentageOrdered By: Elo Rivas on 12-10-2024 Eosinophils/100 WBC (Bld) 1.6 % Normal 0-5 [facility] Comment on above: Performed By: #### L 509.4006, L501.9985, L3890.6102, L509.8002, L7000.1800, L3890.6301, L7400.0353, BTS, L100.0100, M100.2200, L3890.6006 #### [facility] [address] [place], [place], [phone] Erythrocyte distribution wid th ratioOrdered By: Elo Rivas on 12-10-2024 Erythrocyte distribution width (RBC) [Ratio] 14.3 % Normal 11.6-14.6 [facility] Comment on above: Performed By: #### L 509.4006, L501.9985, L3890.6102, L509.8002, L7000.1800, L3890.6301, L7400.0353, BTS, L100.0100, M100.2200, L3890.6006 #### [facility] Laboratory [address] [place], [place], [phone] Erythrocyte distribution wid th standard deviationOrdered By: Elo Rivas on 12-10-2024 Erythrocyte distribution width (RBC) [Ratio] 39.8 fl 35.1-43.9 [facility] HIVon 12-10-2024 HIV Non-Reactive Normal Nonreactive [facility] Comment on above: Result Comment: Non- Reactive Reactive Repeatedly reactive samples must be confirmed according to CDC recommended confirmatory algorithms. The subresults for either HIVAG or AHIV can be used as an aid in the selection of the confirmation algorithm for reactive samples. Send out specimens with Reactive results to [facility] for confirmation. Order the HIV antibody detection and differentiation: lc#[id number] Performed By: #### L 509.4006, L501.9985, L3890.6102, L509.8002, L7000.1800, L3890.6301, L7400.0353, BTS, L100.0100, M100.2200, L3890.6006 #### [facility] Laboratory [address] [place], [place], [address] Hemoglobin A1c percentageOrd ered By: Elo Rivas on 12-10-2024 HbA1c (Bld) [Mass fraction] 5.5 % Normal <=5.6 [facility] Comment on above: Normal < 5.7 % Predi abetic 5.7 - 6.4 % Diabetic >or= 6.5 % Please note range changes. Result Comment: Norm al < 5.7 % Prediabetic 5.7 - 6.4 % Diabetic >or= 6.5 % Please note range changes. Performed By: #### L 509.4006, L501.9985, L3890.6102, L509.8002, L7000.1800, L3890.6301, L7400.0353, BTS, L100.0100, M100.2200, L3890.6006 ####[facility] [address] [place], [place], [phone] Hemoglobin measurementOrdere d By: Elo Rivas on 12-10-2024 Hemoglobin (Bld) [Mass/Vol] 13.2 g/dL Normal 12.0-15.0 [facility] Comment on above: Performed By: #### L 509.4006, L501.9985, L3890.6102, L509.8002, L7000.1800, L3890.6301, L7400.0353, BTS, L100.0100, M100.2200, L3890.6006 #### [facility] [address] [place], [place], [address] Hepatitis C Antibodyon 12-10 Hepatitis C Ab Non-Reactive Normal Nonreactive [facility] Comment on above: Result Comment: Reac tive: Presumptive evidence of antibodies to HCV. Follow CDC recommendations for supplemental testing. Non-Reactive: Antibodies to HCV were not detected; does not exclude the possibility of exposure to HCV Reactive Results are presumptive evidence of antibodies to HCV. Follow CDC recommendations for supplemental testing. Order confirmation testing: HCV Quant by PCR testing - HCVPCR lc#[id number] Non Reactive: < 0.8 Equivocal: >/= 0.8 to < 1.0 Reactive: >/= 1.0 The [facility] requires that a reactive/equivocal HCV antibody result be sent out for confirmation. HCV Quant by PCR testing. Performed By: #### L 509.4006, L501.9985, L3890.6102, L509.8002, L7000.1800, L3890.6301, L7400.0353, BTS, L100.0100, M100.2200, L3890.6006 #### [facility] [address] [place], [place], [phone] Immature granulocytes/100 WB C Auto (Bld)Ordered By: Elo Rivas on 12-10-2024 Immature granulocytes/100 WBC (Bld) 0.300 % 0.0-0.9 [facility] Comment on above: IG% - Immature Granu locytes (promyelocytes, myelocytes and metamyelocytes) > 1% indicates that a LEFT SHIFT is Present. L3890.6102on 12-10-2024 HEP B Surf Ag Non-Reactive Normal Nonreactive [facility] Comment on above: Result Comment: Reac tive: Presumptive evidence of HBV. Repeatedly reactive samples must be confirmed using a neutralization test ([employer] HBsAg Confirmatory Test) Non-Reactive: HBsAg not detected; does not exclude the possibility of exposure to HBV Performed By: #### L 509.4006, L501.9985, L3890.6102, L509.8002, L7000.1800, L3890.6301, L7400.0353, BTS, L100.0100, M100.2200, L3890.6006 #### [facility] [address] [place], [place], [phone] L509.4006on 12-10-2024 Rubella IgG REAC Normal Nonreactive [facility] Comment on above: Result Comment: Anti body Result: Interpretation Non-Reactive: Non-Immune Reactive: Immune The following results were obtained with the [employer] Rubella IgG assay. Results from assays of other manufacturers cannot be used interchangeably. Performed By: #### L 509.4006, L501.9985, L3890.6102, L509.8002, L7000.1800, L3890.6301, L7400.0353, BTS, L100.0100, M100.2200, L3890.6006 #### [facility] [address] [place], [place], [phone] Laboratory - CytologyOrdered By: Elo Rivas on 12-10-2024 Snailer Cyto stain Nom (Cvx/Vag) [ID] Comment . [facility] Comment on above: Misael Aguirre Laboratory - Microbiology an d Antimicrobial susceptibilityOrdered By: Elo Rivas on 12-10-2024 HBV surface Ag Ql (S) Non-Reactive Nonreactive [facility] Comment on above: Reactive: Presumptiv e evidence of HBV. Repeatedly reactive samples must be confirmed using a neutralization test ([employer] HBsAg Confirmatory Test)Non-Reactive: HBsAg not detected; does not exclude the possibility of exposure to HBV Laboratory - Miscellaneous t estsOrdered By: Elo Rivas on 12-10-2024 Service comment (Unsp spec) [Interp] . . [facility] MCV (mean corpuscular volume ) determinationOrdered By: Elo Rivas on 12-10-2024 MCV (RBC) [Entitic vol] 77.5 fL Low 81-99 [facility] Comment on above: Performed By: #### L 509.4006, L501.9985, L3890.6102, L509.8002, L7000.1800, L3890.6301, L7400.0353, BTS, L100.0100, M100.2200, L3890.6006 #### [facility] [address] [place], [place], [address] Mean corpuscular hemoglobin (MCH) determinationOrdered By: Elo Rivas on 12-10-2024 MCH (RBC) [Entitic mass] 26.1 pg Low 27.0-32.0 [facility] Comment on above: Performed By: #### L 509.4006, L501.9985, L3890.6102, L509.8002, L7000.1800, L3890.6301, L7400.0353, BTS, L100.0100, M100.2200, L3890.6006 #### [facility] [address] [facility] [place], [address] Mean corpuscular hemoglobin concentration (MCHC) determinationOrdered By: Elo Rivas on 12-10-2024 MCHC (RBC) [Mass/Vol] 33.7 g/dL Normal 32-36 [facility] Comment on above: Performed By: #### L 509.4006, L501.9985, L3890.6102, L509.8002, L7000.1800, L3890.6301, L7400.0353, BTS, L100.0100, M100.2200, L3890.6006 #### [facility] [address] [place], [place], [phone] Mean platelet volume determi nationOrdered By: Elo Rivas on 12-10-2024 Platelet mean volume (Bld) [Entitic vol] 10.3 fL Normal 6.2-12.0 [facility] Comment on above: Performed By: #### L 509.4006, L501.9985, L3890.6102, L509.8002, L7000.1800, L3890.6301, L7400.0353, BTS, L100.0100, M100.2200, L3890.6006 #### [facility] [address] [place], [address] Monocyte percentageOrdered B y: Elo Rivas on 12-10-2024 Monocytes/100 WBC (Bld) 7.7 % Normal 0-10 [facility] Comment on above: Performed By: #### L 509.4006, L501.9985, L3890.6102, L509.8002, L7000.1800, L3890.6301, L7400.0353, BTS, L100.0100, M100.2200, L3890.6006 #### [facility] [address] [place], [address] NATERAon 12-10-2024 NATURA SEE SCANNED REPORT Normal [facility] Comment on above: Performed By: #### L 900.0098 ####[facility] [address] [place], [address] Neisseria gonorrhoeae nuclei c acid detection by amplified probe techniqueOrdered By: Elo Rivas on 12-10-2024 N. gonorrhoeae DNA SARIKA+probe Ql (Unsp spec) Negative Negative [facility] Comment on above: Performed at: =[address] [id number] Director: Rabia Odom MD, Phone: [phone] Neutrophil percentageOrdered By: Elo Rivas on 12-10-2024 Neutrophils/100 WBC (Bld) 71.3 % High 47-70 [facility] Comment on above: Performed By: #### L 509.4006, L501.9985, L3890.6102, L509.8002, L7000.1800, L3890.6301, L7400.0353, BTS, L100.0100, M100.2200, L3890.6006 #### [facility] [address] [place], [address] No Panel InformationOrdered By: Elo Rivas on 12-10-2024 HIV (1&2) Antibody Non-Reactive Nonreactive [facility] Comment on above: Non-ReactiveReactive Repeatedly reactive samples must be confirmed according to CDC recommended confirmatory algorithms. The subresults for either HIVAG or AHIV can be used as an aid in the selection of the confirmation algorithm for reactive samples.Send out specimens with Reactive results to [facility] for confirmation.Order the HIV antibody detection and differentiation: #[id number] Pap Smear Specimen Adequacy Comment . [facility] Comment on above: Satisfactory for iqra luation. Endocervical and/or squamous metaplasticcells (endocervical component) are present. Nucleated red blood cell per centageOrdered By: Eol Rivas on 12-10-2024 Nucleated RBC/100 WBC (Bld) [Ratio] 0 % 0-5 [facility] Jukebox Checker Office Visit Reporton 12-10-2024 Jukebox Checker Office Visit Report [facility] [address], [address] [place] [address] OFFICE VISIT Date of Service: 12/10/24 MR#: [id number] Acct: [id number] Name: ADENIKE RUTH Rep #: [id number] : 2005 Provider: Dr. Mayi Roach DO Age/Sex: 19/F Location[place] [facility] [place] Status: Signed Intake Vital Signs 10/12/24 14:19 12/10/24 15:09 12/10/24 15:10 Height 5 ft 4 in 5 ft 4 in 5 ft 4 in Weight: 183 lb 2 oz BMI 31.4 BP 103/66 Intake Visit Reasons: NOB LMP 09/04 Circus Artist Required: No Is patient in pain?: No [...] year weight has: increased > 10 lbs sharmila/anabaptism: None seatbelt use: sometimes do you feel [...] - full term 7lbs 11oz Female epidural [facility] Nadege Jacob Delivery Date: 12/01/22 [...] Other an (more content not included)... Normal [facility] Platelet countOrdered By: Shaista Rivas on 12-10-2024 Platelets (Bld) [#/Vol] 318 10*3/uL Normal 150-450 [facility] Comment on above: Performed By: #### L 509.4006, L501.9985, L3890.6102, L509.8002, L7000.1800, L3890.6301, L7400.0353, BTS, L100.0100, M100.2200, L3890.6006 #### [facility] [address] [place], [place], [id number] Syphilis Antibodieson 2024 Syphilis Abs Non-Reactive Normal Nonreactive [facility] Comment on above: Performed By: #### L 509.4006, L501.9985, L3890.6102, L509.8002, L7000.1800, L3890.6301, L7400.0353, BTS, L100.0100, M100.2200, L3890.6006 #### [facility] [address] [place], [place], [address] Type AND Screenon 12-10-2024 ABO and Rh group Nom (Bld) Blood group A Rh(D) positive Normal [facility] Comment on above: Order Comment: PN Performed By: #### L 509.4006, L501.9985, L3890.6102, L509.8002, L7000.1800, L3890.6301, L7400.0353, BTS, L100.0100, M100.2200, L3890.6006 #### [facility] [address] [place], [place], [address] Urine cultureOrdered By: Elizabeth Rivas on 12-10-2024 Bacteria identified Cx Nom (U) Positive Abnormal [facility] White blood cell (WBC) count Ordered By: Elo Rivas on 12-10-2024 WBC (Bld) [#/Vol] 9.0 10*3/uL Normal 4.4-11.0 [facility] Comment on above: Performed By: #### L 509.4006, L501.9985, L3890.6102, L509.8002, L7000.1800, L3890.6301, L7400.0353, BTS, L100.0100, M100.2200, L3890.6006 #### [facility] [address] [place], [place], [address] CNCOon 09-23-2024 CNCO Letter Text Normal [facility] CNOVon 09-23-2024 CNOV Office Visit (UCWSTR ) ADENIKE RUTHEE ([id number]) 1 F Date Time Provider Department 09/23/24 2:15 PM RIKI ALBARADO [facility] During your visit today, we recorded the following information about you: Temperature Pulse Respiration Blood pressure 98.3 degrees 84/minute 16/minute 110/76 Weight Last Period 87.5 kg 09/04/24 Riki Albarado APRN.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 09/23/2024 2:52 PM Signed Subjective HPI Nontoxic-appearing [...] otherwise unremarkabl (more content not included)... Normal [facility] Absolute lymphocyte countOrd ered By: Mickey Archer on 10-24-2023 Lymphocytes Auto (Unsp spec) [#/Vol] 2.22 10*3/uL 0.83-4.51 [facility] Amorphous sediment detection in urine sediment by light microscopyOrdered By: Mickey Archer on 10-24-2023 Amorphous sediment LM Ql (Urine sed) 1+ [facility] Automated lymphocyte count a s percentage of total leukocytesOrdered By: Mickey Archer on 10-24-2023 Lymphocytes/100 WBC Auto (Unsp spec) 31.5 % 19-41 [facility] Basophil percentageOrdered B y: Mickey Archer on 10-24-2023 Basophil percentage 0 SEEN /hpf 0-5 [facility] Basophils/100 WBC (Bld) 0.9 % 0-1 [facility] Chloride [Moles/Vol] 105 mmol/L 98-107 [facility] Eosinophils/100 WBC (Bld) 1.7 % 0-5 [facility] Glucose [Mass/Vol] 94 mg/dL 74-106 [facility] Hemoglobin (Bld) [Mass/Vol] 13.7 g/dL 12.0-15.0 [facility] Monocytes/100 WBC (Bld) 10.8 % 0-10 [facility] Neutrophils (Bld) [#/Vol] 3.9 10*3/uL 2.0-7.7 [facility] Neutrophils/100 WBC (Bld) 54.8 % 47-70 [facility] Potassium [Moles/Vol] 3.8 mmol/L 3.5-5.1 [facility] Sodium [Moles/Vol] 138 mmol/L 136-145 [facility] WBC (Bld) [#/Vol] 7.0 10*3/uL 4.4-11.0 [facility] Bilirubin Test strip Ql (U)O rdered By: Mickey Archer on 10-24-2023 Bilirubin Ql (U) Negative Negative [facility] Determination of erythrocyte mean corpuscular volume (MCV)Ordered By: Mickey Archer on 10-24-2023 MCV (RBC) [Entitic vol] 77.8 fL 81-99 [facility] Erythrocyte distribution wid th ratioOrdered By: Mickey Archer on 10-24-2023 Erythrocyte distribution width (RBC) [Ratio] 13.7 % 11.6-14.6 [facility] Erythrocyte distribution wid th standard deviationOrdered By: Mickey Archer on 10-24-2023 Erythrocyte distribution width (RBC) [Entitic vol] 38.9 fL 35.1-43.9 [facility] Hematocrit Auto (Bld) [Volum e fraction]Ordered By: Mickey Archer on 10-24-2023 Hematocrit (Bld) [Volume fraction] 42.7 % 37-47 [facility] Immature granulocytes/100 WB C Auto (Bld)Ordered By: Mickey Archer on 10-24-2023 Immature granulocytes/100 WBC (Bld) 0.300 % 0.0-0.9 [facility] Comment on above: IG% - Immature Granu locytes (promyelocytes, myelocytes and metamyelocytes) > 1% indicates that a LEFT SHIFT is Present. Ketones Test strip Ql (U)Ord ered By: Mickey Archer on 10-24-2023 Ketones Ql (U) Negative Negative [facility] Laboratory - Chemistry and C hemistry - challengeOrdered By: Mickey Archer on 10-24-2023 CO2 [Moles/Vol] 28.0 mmol/L 21.0-32.0 [facility] Urea nitrogen/Creatinine [Mass ratio] 14.9 mg/mg 10-20 [facility] Laboratory - Hematology and Cell countsOrdered By: Mickey Archer on 10-24-2023 MCH (RBC) [Entitic mass] 25.0 pg 27.0-32.0 [facility] MCHC (RBC) [Mass/Vol] 32.1 g/dL 32-36 [facility] Nucleated RBC/100 WBC (Bld) [Ratio] 0 % 0-5 [facility] Platelet mean volume (Bld) [Entitic vol] 9.6 fL 6.2-12.0 [facility] Platelets (Bld) [#/Vol] 356 10*3/uL 150-450 [facility] Mucus LM Ql (Urine sed)Order ed By: Mickey Archer on 10-24-2023 Mucus Ql (Urine sed) 0 SEEN /hpf [facility] Nitrite Test strip Ql (U)Ord ered By: Mickey Archer on 10-24-2023 Nitrite Ql (U) Negative Negative [facility] No Panel InformationOrdered By: Mickey Archer on 10-24-2023 Urine RBC 0 SEEN /hpf 0-5 [facility] Estimated Creatinine Clearance Calc 99.05 ml/min [facility] Estimated GFR (MDRD) Amer 107 mL/min >60 [facility] Comment on above: GFR Calc Estimated GFR (MDRD) Non-Af Amer 88 mL/min >60 [facility] Comment on above: Non- GFR Calc Protein Test strip Ql (U)Ord ered By: Mickey Archer on 10-24-2023 Protein Ql (U) Negative Negative [facility] RBC Auto (Bld) [#/Vol]Ordere d By: Mickey Archer on 10-24-2023 RBC (Bld) [#/Vol] 5.49 10*6/uL 4.2-5.4 [facility] Serum or plasma calcium debbie urement (mass/volume)Ordered By: Mickey Archer on 10-24-2023 Calcium [Mass/Vol] 9.9 mg/dL 8.5-10.1 [facility] Serum or plasma choriogonado tropin detectionOrdered By: Mayi Calix on 10-24-2023 HCG ( test) Ql Negative [facility] Serum or plasma creatinine m easurement (mass/volume)Ordered By: Mickey Archer on 10-24-2023 Creatinine [Mass/Vol] 0.87 mg/dL 0.55-1.02 [facility] Comment on above: The validity of the calculated GFR & GFRAA in patients over 70 years has not been determined. Clinical correlation is essential. Serum or plasma urea nitroge n measurement (mass/volume)Ordered By: Mickey Archer on 10-24-2023 Urea nitrogen [Mass/Vol] 13 mg/dL 7-18 [facility] Squamous epithelial cells de tection in urine sediment by light microscopyOrdered By: Mickey Archer on 10-24-2023 Epithelial cells.squamous LM Ql (Urine sed) 5-10 SEEN /hpf 5-10 [facility] Thin prep Papanicolaou smear with manual screeningOrdered By: Mickey Archer on 10-24-2023 Thin prep Papanicolaou smear with manual screening 5 5-15 [facility] Urine blood detectionOrdered By: Mickey Archer on 10-24-2023 RBC Ql (U) Negative Negative [facility] Urine clarityOrdered By: Janette Archer on 10-24-2023 Clarity (U) Sl. Cloudy Clear [facility] Urine color determinationOrd ered By: Mickey Archer on 10-24-2023 Color (U) Yellow Yellow [facility] Urine glucose detectionOrder ed By: Mickey Archer on 10-24-2023 Glucose Ql (U) Normal mg/dl Normal [facility] Urine leukocyte esterase det ection by dipstickOrdered By: Mickey Archer on 10-24-2023 Leukocyte esterase Test strip Ql (U) 25 /ul Negative [facility] Urine pHOrdered By: Mickey garza on 10-24-2023 pH (U) 6.5 [pH] 5.0 - 8.0 [facility] Urine sediment bacteria coun t by microscopy (number/high power field)Ordered By: Mickey Archer on 10-24-2023 Bacteria LM.HPF (Urine sed) [#/Area] 2 /[HPF] None Seen [facility] Urine specific gravity measu rementOrdered By: Mickey Archer on 10-24-2023 Specific gravity (U) [Rel density] 1.020 1.002-1.030 [facility] Urine urobilinogen measureme ntOrdered By: Mickey Archer on 10-24-2023 Urobilinogen Ql (U) Normal mg/dl Normal [facility] Absolute lymphocyte countOrd ered By: Dr. Knight on 12-01-2022 Lymphocytes Auto (Unsp spec) [#/Vol] 1.92 10*3/uL 0.83-4.51 [facility] Basophil percentageOrdered B y: Dr. Knight on 12-01-2022 Basophils/100 WBC (Bld) 0.4 % 0-1 [facility] Eosinophils/100 WBC (Bld) 1.7 % 0-5 [facility] Neutrophils (Bld) [#/Vol] 7.3 10*3/uL 2.0-7.7 [facility] Neutrophils/100 WBC (Bld) 67.7 % 47-70 [facility] WBC (Bld) [#/Vol] 10.7 10*3/uL 4.4-11.0 [facility] Blood erythrocytes count (nu mber/volume)Ordered By: Dr. Knight on 12-01-2022 RBC (Bld) [#/Vol] 4.72 10*6/uL 4.2-5.4 [facility] Blood hemoglobin measurement (mass/volume)Ordered By: Dr. Knight on 12-01-2022 Hemoglobin (Bld) [Mass/Vol] 12.0 g/dL 12.0-15.0 [facility] Blood lymphocytes/100 leukoc ytesOrdered By: Dr. Knight on 12-01-2022 Lymphocytes/100 WBC (Bld) 17.9 % 19-41 [facility] Blood monocytes/100 leukocyt esOrdered By: Dr. Knight on 12-01-2022 Monocytes/100 WBC (Bld) 10.8 % 0-10 [facility] Blood platelet mean volumeOr dered By: Dr. Knight on 12-01-2022 Platelet mean volume (Bld) [Entitic vol] 10.7 fL 6.2-12.0 [facility] Determination of erythrocyte mean corpuscular volume (MCV)Ordered By: Dr. Knight on 12-01-2022 MCV (RBC) [Entitic vol] 77.8 fL 81-99 [facility] Hematocrit Auto (Bld) [Volum e fraction]Ordered By: Dr. Knight on 12-01-2022 Hematocrit (Bld) [Volume fraction] 36.7 % 37-47 [facility] Laboratory - Drug toxicology Ordered By: Dr. Knight on 12-01-2022 Amphetamines Ql (U) Negative <1000 ng/mL [facility] Benzodiazepines Ql (U) Negative < 200 ng/mL [facility] Cannabinoids Screen Ql (U) Negative < 50 ng/mL [facility] Cocaine Ql (U) Negative < 300 ng/mL [facility] Opiates Ql (U) Negative < 300 ng/mL [facility] Laboratory - Hematology and Cell countsOrdered By: Dr. Knight on 12-01-2022 Erythrocyte distribution width (RBC) [Entitic vol] 41.8 fL 35.1-43.9 [facility] Erythrocyte distribution width (RBC) [Ratio] 15.1 % 11.6-14.6 [facility] Immature granulocytes/100 WBC (Bld) 1.500 % 0.0-0.9 [facility] Comment on above: IG% - Immature Granu locytes (promyelocytes, myelocytes and metamyelocytes) > 1% indicates that a LEFT SHIFT is Present. MCH (RBC) [Entitic mass] 25.4 pg 27.0-32.0 [facility] Nucleated RBC/100 WBC (Bld) [Ratio] 0 % 0-5 [facility] Auto (RBC) [Mass/Vol]Or dered By: Dr. Knight on 12-01-2022 MCHC (RBC) [Mass/Vol] 32.7 g/dL 32-36 [facility] No Panel InformationOrdered By: Dr. Knight on 12-01-2022 MDMA (Ecstasy) Screen Negative < 500 ng/mL [facility] Urine Barbiturates Screen Negative < 200 ng/mL [facility] Urine Drug Screen Comment [facility] Comment on above: CONFIRMATORY TESTING [...] Methadone Screen Negative < 300 ng/mL [facility] Vaginal Amniotic Fluid Detection Positive Negative [facility] Comment on above: Amniotic fluid prese nt indicates rupture of Membranes. RESULTS CALLED TO Bladimir SCHAFER 12/01/22 0114 Jose Alejandro Echavarria.REPORT READ BACK BY SAME. Platelets bldOrdered By: Dr. Knight on 12-01-2022 Platelets (Bld) [#/Vol] 278 10*3/uL 150-450 [facility] Serum Treponema species anti body detectionOrdered By: Dr. Knight on 12-01-2022 Treponema sp Ab Ql (S) Non-Reactive [facility] Urine phencyclidine (PCP) de tectionOrdered By: Dr. Knight on 12-01-2022 Phencyclidine Ql (U) Negative < 25 ng/mL [facility] Laboratory - Chemistry and C hemistry - challengeon 11-24-2022 Glucose Ql (U) Negative [facility] Laboratory - Urinalysison Protein Ql (U) Negative [facility] No Panel InformationOrdered By: Elo Rivas on 06-10-2023 Group B Streptococcus Culture Group B Beta Streptococcus is not isolated. [facility] Laboratory - Chemistry and C hemistry - challengeon 11-17-2022 Glucose Ql (U) Negative [facility] Laboratory - Urinalysison Protein Ql (U) Negative [facility] Laboratory - Chemistry and C hemistry - challengeon 11-03-2022 Glucose Ql (U) Negative [facility] Laboratory - Urinalysison Protein Ql (U) Negative [facility] Laboratory - Chemistry and C hemistry - challengeon 10-20-2022 Glucose Ql (U) Negative [facility] Laboratory - Urinalysison Protein Ql (U) Negative [facility] Laboratory - Chemistry and C hemistry - challengeon 10-06-2022 Glucose Ql (U) Negative [facility] Laboratory - Urinalysison Protein Ql (U) Negative [facility] Chlamydia trachomatis rRNA d etection by probe and target amplification methodOrdered By: Beverly Penny on 09-22-2022 C. trachomatis rRNA SARIKA+probe Ql (Unsp spec) Negative Negative [facility] Laboratory - Chemistry and C hemistry - challengeon 09-22-2022 Glucose Ql (U) Negative [facility] Laboratory - Microbiology an d Antimicrobial susceptibilityOrdered By: Beverly Penny on 09-22-2022 N. gonorrhoeae DNA SARIKA+probe Ql (Unsp spec) Negative Negative [facility] Comment on above: Performed at: =[address] [id number] Director: Rabia Odom MD, Phone: [phone] Laboratory - Urinalysison Protein Ql (U) Negative [facility] Absolute lymphocyte countOrd ered By: Dr. Aguirre on 09-08-2022 Lymphocytes Auto (Unsp spec) [#/Vol] 1.43 10*3/uL 0.83-4.51 [facility] Basophil percentageOrdered B y: Dr. Aguirre on 09-08-2022 Basophils/100 WBC (Bld) 0.4 % 0-1 [facility] Eosinophils/100 WBC (Bld) 2.1 % 0-5 [facility] Neutrophils (Bld) [#/Vol] 7.4 10*3/uL 2.0-7.7 [facility] Neutrophils/100 WBC (Bld) 72.9 % 47-70 [facility] WBC (Bld) [#/Vol] 10.1 10*3/uL 4.4-11.0 [facility] Blood erythrocytes count (nu mber/volume)Ordered By: Dr. Aguirre on 09-08-2022 RBC (Bld) [#/Vol] 4.48 10*6/uL 4.2-5.4 [facility] Blood hemoglobin measurement (mass/volume)Ordered By: Dr. Aguirre on 09-08-2022 Hemoglobin (Bld) [Mass/Vol] 11.7 g/dL 12.0-15.0 [facility] Blood lymphocytes/100 leukoc ytesOrdered By: Dr. Aguirre on 09-08-2022 Lymphocytes/100 WBC (Bld) 14.2 % 19-41 [facility] Blood monocytes/100 leukocyt esOrdered By: Dr. Aguirre on 09-08-2022 Monocytes/100 WBC (Bld) 8.8 % 0-10 [facility] Blood platelet mean volumeOr dered By: Dr. Aguirre on 09-08-2022 Platelet mean volume (Bld) [Entitic vol] 9.8 fL 6.2-12.0 [facility] Determination of erythrocyte mean corpuscular volume (MCV)Ordered By: Dr. Aguirre on 09-08-2022 MCV (RBC) [Entitic vol] 82.4 fL 81-99 [facility] Gestational diabetes screen 1-hour screen with 50g oral glucose loadOrdered By: Dr. Aguirre on 09-08-2022 Glucose 1 Hr post 50 g glucose PO [Mass/Vol] 113 mg/dL 70-140 [facility] HIV 1 and HIV-2 antibody ass ay with HIV-1 p24 antigen detectionOrdered By: Dr. Aguirre on 09-08-2022 HIV 1+2 Ab+HIV1 p24 Ag IA Ql Non-Reactive Nonreactive [facility] Hematocrit Auto (Bld) [Volum e fraction]Ordered By: Dr. Aguirre on 09-08-2022 Hematocrit (Bld) [Volume fraction] 36.9 % 37-47 [facility] Laboratory - Chemistry and C hemistry - challengeon 09-08-2022 Glucose Ql (U) Negative [facility] Laboratory - Drug toxicology Ordered By: Beverly Penny on 09-08-2022 Amphetamines Ql (U) Negative <1000 ng/mL [facility] Benzodiazepines Ql (U) Negative < 200 ng/mL [facility] Cannabinoids Screen Ql (U) Negative < 50 ng/mL [facility] Cocaine Ql (U) Negative < 300 ng/mL [facility] Opiates Ql (U) Negative < 300 ng/mL [facility] Laboratory - Hematology and Cell countsOrdered By: Dr. Aguirre on 09-08-2022 Erythrocyte distribution width (RBC) [Entitic vol] 43.7 fL 35.1-43.9 [facility] Erythrocyte distribution width (RBC) [Ratio] 14.9 % 11.6-14.6 [facility] Immature granulocytes/100 WBC (Bld) 1.600 % 0.0-0.9 [facility] Comment on above: IG% - Immature Granu locytes (promyelocytes, myelocytes and metamyelocytes) > 1% indicates that a LEFT SHIFT is Present. MCH (RBC) [Entitic mass] 26.1 pg 27.0-32.0 [facility] Nucleated RBC/100 WBC (Bld) [Ratio] 0 % 0-5 [facility] Laboratory - Urinalysison Protein Ql (U) Negative [facility] MCHC Auto (RBC) [Mass/Vol]Or dered By: Dr. Aguirre on 09-08-2022 MCHC (RBC) [Mass/Vol] 31.7 g/dL 32-36 [facility] No Panel InformationOrdered By: Beverly Penny on 09-08-2022 MDMA (Ecstasy) Screen Negative < 500 ng/mL [facility] Urine Barbiturates Screen Negative < 200 ng/mL [facility] Urine Drug Screen Comment [facility] Comment on above: CONFIRMATORY TESTING [...] Methadone Screen Negative < 300 ng/mL [facility] Platelets bldOrdered By: Dr. Aguirre on 09-08-2022 Platelets (Bld) [#/Vol] 317 10*3/uL 150-450 [facility] Serum Treponema species anti body detectionOrdered By: Dr. Aguirre on 09-08-2022 Treponema sp Ab Ql (S) Non-Reactive [facility] Urine phencyclidine (PCP) de tectionOrdered By: Beverly Penny on 09-08-2022 Phencyclidine Ql (U) Negative < 25 ng/mL [facility] Laboratory - Chemistry and C hemistry - challengeon 08-13-2022 Glucose Ql (U) Negative [facility] Laboratory - Urinalysison Protein Ql (U) Negative [facility] Laboratory - Chemistry and C hemistry - challengeon 07-16-2022 Glucose Ql (U) Negative [facility] Laboratory - Urinalysison Protein Ql (U) Negative [facility] Laboratory - Chemistry and C hemistry - challengeon 06-18-2022 Glucose Ql (U) Negative [facility] Laboratory - Urinalysison Protein Ql (U) Negative [facility] Absolute lymphocyte countOrd ered By: Dr. Oshea on 05-31-2022 Lymphocytes Auto (Unsp spec) [#/Vol] 1.39 10*3/uL 0.83-4.51 [facility] Basophil percentageOrdered B y: Dr. Oshea on 05-31-2022 Basophils/100 WBC (Bld) 0.3 % 0-1 [facility] Bilirubin [Mass/Vol] 0.30 mg/dL 0.20-1.00 [facility] Comment on above: For patients on eltr ombopag therapy, use of Dimension [place] TBIL is not recommended. Chloride [Moles/Vol] 106 mmol/L 98-107 [facility] Eosinophils/100 WBC (Bld) 1.6 % 0-3 [facility] Glucose [Mass/Vol] 91 mg/dL 74-106 [facility] Neutrophils (Bld) [#/Vol] 4.7 10*3/uL 2.0-7.7 [facility] Neutrophils/100 WBC (Bld) 68.2 % 34-64 [facility] Potassium [Moles/Vol] 3.4 mmol/L 3.5-5.1 [facility] Protein [Mass/Vol] 7.5 g/dL 6.4-8.2 [facility] Sodium [Moles/Vol] 137 mmol/L 136-145 [facility] WBC (Bld) [#/Vol] 6.9 10*3/uL 4.5-13.0 [facility] Blood erythrocytes count (nu mber/volume)Ordered By: Dr. Oshea on 05-31-2022 RBC (Bld) [#/Vol] 4.96 10*6/uL 4.1-4.8 [facility] Blood hemoglobin measurement (mass/volume)Ordered By: Dr. Oshea on 05-31-2022 Hemoglobin (Bld) [Mass/Vol] 12.8 g/dL 12.0-15.0 [facility] Blood lymphocytes/100 leukoc ytesOrdered By: Dr. Oshea on 05-31-2022 Lymphocytes/100 WBC (Bld) 20.2 % 25-45 [facility] Blood monocytes/100 leukocyt esOrdered By: Dr. Oshea on 05-31-2022 Monocytes/100 WBC (Bld) 9.3 % 3-6 [facility] Blood platelet mean volumeOr dered By: Dr. Oshea on 05-31-2022 Platelet mean volume (Bld) [Entitic vol] 9.4 fL 6.2-12.0 [facility] Determination of erythrocyte mean corpuscular volume (MCV)Ordered By: Dr. Oshea on 05-31-2022 MCV (RBC) [Entitic vol] 78.4 fL 78-96 [facility] Hematocrit Auto (Bld) [Volum e fraction]Ordered By: Dr. Oshea on 05-31-2022 Hematocrit (Bld) [Volume fraction] 38.9 % 37-46 [facility] Laboratory - Chemistry and C hemistry - challengeOrdered By: Dr. Oshea on 05-31-2022 ALP [Catalytic activity/Vol] 46 U/L 47-119 [facility] [facility] ALT [Catalytic activity/Vol] 18 U/L 13-56 [facility] CO2 [Moles/Vol] 24.0 mmol/L 21.0-32.0 [facility] Globulin (S) [Mass/Vol] 4.0 g/dL 2.2-4.2 [facility] Lipase [Catalytic activity/Vol] 75 U/L 73-393 [facility] Urea nitrogen/Creatinine [Mass ratio] 9.3 mg/mg 10-20 [facility] Laboratory - Hematology and Cell countsOrdered By: Dr. Oshea on 05-31-2022 Erythrocyte distribution width (RBC) [Entitic vol] 37.7 fL 35.1-43.9 [facility] Erythrocyte distribution width (RBC) [Ratio] 13.3 % 11.6-14.6 [facility] Immature granulocytes/100 WBC (Bld) 0.400 % 0.0-0.9 [facility] Comment on above: IG% - Immature Granu locytes (promyelocytes, myelocytes and metamyelocytes) > 1% indicates that a LEFT SHIFT is Present. MCH (RBC) [Entitic mass] 25.8 pg 25.0-35.0 [facility] Nucleated RBC/100 WBC (Bld) [Ratio] 0 % 0-5 [facility] MCHC Auto (RBC) [Mass/Vol]Or dered By: Dr. Oshea on 05-31-2022 MCHC (RBC) [Mass/Vol] 32.9 g/dL 32-36 [facility] No Panel InformationOrdered By: Dr. Oshea on 05-31-2022 Estimated Creatinine Clearance Calc 139.76 ml/min [facility] Estimated GFR (MDRD) Amer 189 mL/min >60 [facility] Comment on above: GFR Calc Estimated GFR (MDRD) Non-Af Amer 156 mL/min >60 [facility] Comment on above: Non- GFR Calc Platelets bldOrdered By: Dr. Oshea on 05-31-2022 Platelets (Bld) [#/Vol] 294 10*3/uL 150-450 [facility] Serum or plasma albumin debbie urement (mass/volume)Ordered By: Dr. sOhea on 05-31-2022 Albumin [Mass/Vol] 3.5 g/dL 3.2-5.0 [facility] Serum or plasma albumin/glob ulin mass ratioOrdered By: Dr. Oshea on 05-31-2022 Albumin/Globulin [Mass ratio] 0.9 {ratio} 0.9-2.4 [facility] Serum or plasma calcium debbie urement (mass/volume)Ordered By: Dr. Oshea on 05-31-2022 Calcium [Mass/Vol] 9.7 mg/dL 8.5-10.1 [facility] Serum or plasma choriogonado tropin detectionOrdered By: Dr. Oshea on 05-31-2022 HCG ( test) [place]l [address] mIU/mL <4 [facility] Comment on above: hCG levels with Gest ational AgeGestational Age hCG mIU/mL (IU/L)0.2 - 1 week 5 - 501-2 weeks 50 - 5002-3 weeks 100 - 37801-5 weeks 500 - 597634-5 weeks 1000 - 136882-2 weeks 02736 - 100,0006-8 weeks 87242 - 200,0002-3 months 65637 - 100,000 Serum or plasma creatinine m easurement (mass/volume)Ordered By: Dr. Oshea on 05-31-2022 Creatinine [Mass/Vol] 0.54 mg/dL 0.55-1.02 [facility] Comment on above: The validity of the calculated GFR & GFRAA in patients over 70 years has not been determined. Clinical correlation is essential. Serum or plasma urea nitroge n measurement (mass/volume)Ordered By: Dr. Oshea on 05-31-2022 Urea nitrogen [Mass/Vol] 5 mg/dL 7-18 [facility] Thin prep Papanicolaou smear with manual screeningOrdered By: Dr. Oshea on 05-31-2022 Thin prep Papanicolaou smear with manual screening 10 U/L 15-37 [facility] Thin prep Papanicolaou smear with manual screening 7 5-15 [facility] Culture, urineOrdered By: Dr Kerry Aguirre on 05-24-2022 Bacteria identified Cx Nom (U) Positive [facility] No Panel InformationOrdered By: Dr. Aguirre on 05-24-2022 Miscellaneous Test Comment MAILED SPECIMEN [facility] Absolute lymphocyte countOrd ered By: Dr. Aguirre on 05-21-2022 Lymphocytes Auto (Unsp spec) [#/Vol] 1.54 10*3/uL 0.83-4.51 [facility] Basophil percentageOrdered B y: Dr. Aguirre on 05-21-2022 Basophils/100 WBC (Bld) 0.3 % 0-1 [facility] Eosinophils/100 WBC (Bld) 1.0 % 0-3 [facility] Neutrophils (Bld) [#/Vol] 6.2 10*3/uL 2.0-7.7 [facility] Neutrophils/100 WBC (Bld) 71.4 % 34-64 [facility] WBC (Bld) [#/Vol] 8.7 10*3/uL 4.5-13.0 [facility] Blood erythrocytes count (nu mber/volume)Ordered By: Dr. Aguirre on 05-21-2022 RBC (Bld) [#/Vol] 5.02 10*6/uL 4.1-4.8 [facility] Blood hemoglobin measurement (mass/volume)Ordered By: Dr. Aguirre on 05-21-2022 Hemoglobin (Bld) [Mass/Vol] 13.3 g/dL 12.0-15.0 [facility] Blood lymphocytes/100 leukoc ytesOrdered By: Dr. Aguirre on 05-21-2022 Lymphocytes/100 WBC (Bld) 17.8 % 25-45 [facility] Blood monocytes/100 leukocyt esOrdered By: Dr. Aguirre on 05-21-2022 Monocytes/100 WBC (Bld) 9.2 % 3-6 [facility] Blood platelet mean volumeOr dered By: Dr. Aguirre on 05-21-2022 Platelet mean volume (Bld) [Entitic vol] 9.4 fL 6.2-12.0 [facility] Determination of erythrocyte mean corpuscular volume (MCV)Ordered By: Dr. Aguirre on 05-21-2022 MCV (RBC) [Entitic vol] 78.9 fL 78-96 [facility] HIV 1 and HIV-2 antibody ass ay with HIV-1 p24 antigen detectionOrdered By: Dr. Aguirre on 05-21-2022 HIV 1+2 Ab+HIV1 p24 Ag IA Ql Non-Reactive Nonreactive [facility] Hematocrit Auto (Bld) [Volum e fraction]Ordered By: Dr. Aguirre on 05-21-2022 Hematocrit (Bld) [Volume fraction] 39.6 % 37-46 [facility] Laboratory - Drug toxicology Ordered By: Dr. Aguirre on 05-21-2022 Amphetamines Ql (U) Negative <1000 ng/mL [facility] Benzodiazepines Ql (U) Negative < 200 ng/mL [facility] Cannabinoids Screen Ql (U) Positive < 50 ng/mL [facility] Cocaine Ql (U) Negative < 300 ng/mL [facility] Opiates Ql (U) Negative < 300 ng/mL [facility] Laboratory - Hematology and Cell countsOrdered By: Dr. Aguirre on 05-21-2022 Erythrocyte distribution width (RBC) [Entitic vol] 37.7 fL 35.1-43.9 [facility] Erythrocyte distribution width (RBC) [Ratio] 13.3 % 11.6-14.6 [facility] Immature granulocytes/100 WBC (Bld) 0.300 % 0.0-0.9 [facility] Comment on above: IG% - Immature Granu locytes (promyelocytes, myelocytes and metamyelocytes) > 1% indicates that a LEFT SHIFT is Present. MCH (RBC) [Entitic mass] 26.5 pg 25.0-35.0 [facility] Nucleated RBC/100 WBC (Bld) [Ratio] 0 % 0-5 [facility] MCHC Auto (RBC) [Mass/Vol]Or dered By: Dr. Aguirre on 05-21-2022 MCHC (RBC) [Mass/Vol] 33.6 g/dL 32-36 [facility] No Panel InformationOrdered By: Dr. Aguirre on 05-21-2022 MDMA (Ecstasy) Screen Negative < 500 ng/mL [facility] Urine Barbiturates Screen Negative < 200 ng/mL [facility] Urine Drug Screen Comment [facility] Comment on above: CONFIRMATORY TESTING [...] Urine Methadone Screen Negative < 300 ng/mL [facility] Hepatitis B Surface Antigen Non-Reactive Nonreactive [facility] Hepatitis C Antibody Non-Reactive Nonreactive [facility] Comment on above: Non Reactive: < 0.8 Equivocal: >/= 0.8 to < 1.0 Reactive: >/= 1.0The [facility] recommends that a reactive/equivocal HCV antibody result be followed up by the HCV Nucleic Acid Amplificationtest (202902) Rubella IgG Antibody Reactive Nonreactive [facility] Comment on above: Antibody Results Int erpretation of Immune Status Non Reactive Presumed Non-Immune Equivocal Equivocal Reactive Presumed Immune Platelets bldOrdered By: Dr. Aguirre on 05-21-2022 Platelets (Bld) [#/Vol] 402 10*3/uL 150-450 [facility] Serum Treponema species anti body detectionOrdered By: Dr. Aguirre on 05-21-2022 Treponema sp Ab Ql (S) Non-Reactive [facility] Urine phencyclidine (PCP) de tectionOrdered By: Dr. Aguirre on 05-21-2022 Phencyclidine Ql (U) Negative < 25 ng/mL [facility] AOH MAIN OR Intraop Recordon 01-31-2018 AO MAIN OR Intraop Record Normal [facility] (DC) Depart Summaryon 01-31-2018 Depart Summary Normal [facility] (DC) [place] Operative Reporton 01-31-2018 [place] Operative Report Normal [facility] (DC) [place] Outpatient Patient Summaryon 01-31-2018 [place] [facility]patient Patient Summary Normal [facility] (DC) XR FLUORO < 1HR TECH TIMEon 01-31-2018 XR FLUORO < 1HR TECH TIME ORIGINAL Images acquired, not reported on this accession number. Normal [facility] ([place]) Culture, urine Bacteria identified Cx Nom (U) Positive [facility] Work Phone: Vital Signs Date Time Vital Sign Value Performing Clinician Facility 02-04-2025 10:58-0400 Body height 162.56 cm Chucho Nickerson MD Work Phone: [facility] 02-04-2025 10:58-0400 Body mass index (BMI) [Ratio] 31.8 kg/m2 Chucho Nickerson MD Work Phone: [facility] 02-04-2025 10:58-0400 Body weight 84.05 kg Chucho Nickerson MD Work Phone: [facility] 02-04-2025 10:58-0400 Diastolic blood pressure 70 mm[Hg] Chucho Nickerson MD Work Phone: [facility] 02-04-2025 10:58-0400 Systolic blood pressure 104 mm[Hg] Chucho Nickerson MD Work Phone: [facility] 01-09-2025 15:51-0400 Body height 162.56 cm Chucho Nickerson MD Work Phone: [facility] 01-09-2025 15:51-0400 Body mass index (BMI) [Ratio] 31.2 kg/m2 Chucho Nickerson MD Work Phone: [facility] 01-09-2025 15:51-0400 Body weight 82.61 kg Chucho Nickerson MD Work Phone: [facility] 01-09-2025 15:51-0400 Diastolic blood pressure 67 mm[Hg] Chucho Nickerson MD Work Phone: [facility] 01-09-2025 15:51-0400 Systolic blood pressure 102 mm[Hg] Chucho Nickerson MD Work Phone: [facility] 12-10-2024 15:10-0400 Body height 162.56 cm Chucho Nickerson MD Work Phone: [facility] 12-10-2024 15:09-0400 Body mass index (BMI) [Ratio] 31.4 kg/m2 Chucho Nickerson MD Work Phone: [facility] 12-10-2024 15:09-0400 Body weight 83.06 kg Chucho Nickerson MD Work Phone: [facility] 12-10-2024 15:09-0400 Diastolic blood pressure 66 mm[Hg] Chucho Nickerson MD Work Phone: [facility] 12-10-2024 15:09-0400 Systolic blood pressure 103 mm[Hg] Chucho Nickerson MD Work Phone: [facility] 09-23-2024 14:25-0400 Body temperature 98.29 [degF] [facility] [employer]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 Work Phone: [facility] 09-23-2024 14:25-0400 Body weight 87.5 kg [facility] [employer].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 Work Phone: [facility] 09-23-2024 14:25-0400 Diastolic blood pressure 76 mm[Hg] [facility] [employer].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 Work Phone: [facility] 09-23-2024 14:25-0400 Heart rate 84 /min [facility] [employer].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 Work Phone: [facility] 09-23-2024 14:25-0400 Respiratory rate 16 /min [facility] [employer].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 Work Phone: [facility] 09-23-2024 14:25-0400 SaO2% (BldA) [Mass fraction] 98 % [facility].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 Work Phone: [facility] 09-23-2024 14:25-0400 Systolic blood pressure 110 mm[Hg] [facility] [employer].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 Work Phone: [facility] 10-24-2023 20:18-0400 Diastolic blood pressure 87 mm[Hg] [facility] 10-24-2023 20:18-0400 Heart rate 68 /min [facility] 10-24-2023 20:18-0400 Respiratory rate 18 /min [facility] 10-24-2023 20:18-0400 SaO2% (BldA) [Mass fraction] 100 % [facility] 10-24-2023 20:18-0400 Systolic blood pressure 125 mm[Hg] [facility] 10-24-2023 18:18-0400 Body height 162.56 cm [facility] 10-24-2023 18:18-0400 Body mass index (BMI) [Ratio] 26.4 kg/m2 [facility] 10-24-2023 18:18-0400 Body temperature 97.8 [degF] [facility] 10-24-2023 18:18-0400 Body weight 70.02 kg [facility] 12-02-2022 13:53-0400 Body temperature 97.8 [degF] No Primary Care Physician [facility] 12-02-2022 13:53-0400 Diastolic blood pressure 62 mm[Hg] No Primary Care Physician [facility] 12-02-2022 13:53-0400 Heart rate 87 /min No Primary Care Physician [facility] 12-02-2022 13:53-0400 Respiratory rate 15 /min No Primary Care Physician [facility] 12-02-2022 13:53-0400 SaO2% (BldA) [Mass fraction] 97 % No Primary Care Physician [facility] 12-02-2022 13:53-0400 Systolic blood pressure 101 mm[Hg] No Primary Care Physician [facility] 12-01-2022 00:56-0400 Body height 162.56 cm No Primary Care Physician [facility] 12-01-2022 00:56-0400 Body mass index (BMI) [Percentile] Per age and sex 95.4 % No Primary Care Physician [facility] 12-01-2022 00:56-0400 Body mass index (BMI) [Ratio] 31.8 kg/m2 No Primary Care Physician [facility] 12-01-2022 00:56-0400 Body weight 84.02 kg No Primary Care Physician [facility] 11-24-2022 09:13-0400 Body mass index (BMI) [Percentile] Per age and sex 95.7 % No Primary Care Physician [facility] 11-24-2022 09:13-0400 Body mass index (BMI) [Ratio] 32.1 kg/m2 No Primary Care Physician [facility] 11-24-2022 09:13-0400 Body weight 82.15 kg No Primary Care Physician [facility] 11-24-2022 09:13-0400 Diastolic blood pressure 71 mm[Hg] No Primary Care Physician [facility] 11-24-2022 09:13-0400 Systolic blood pressure 113 mm[Hg] No Primary Care Physician [facility] 11-17-2022 10:24-0400 Body mass index (BMI) [Percentile] Per age and sex 95.4 % No Primary Care Physician [facility] 11-17-2022 10:24-0400 Body mass index (BMI) [Ratio] 31.7 kg/m2 No Primary Care Physician [facility] 11-17-2022 10:24-0400 Body weight 81.3 kg No Primary Care Physician [facility] 11-17-2022 10:24-0400 Diastolic blood pressure 75 mm[Hg] No Primary Care Physician [facility] 11-17-2022 10:24-0400 Systolic blood pressure 112 mm[Hg] No Primary Care Physician [facility] 11-03-2022 08:42-0400 Body mass index (BMI) [Percentile] Per age and sex 94.9 % No Primary Care Physician [facility] 11-03-2022 08:42-0400 Body mass index (BMI) [Ratio] 31.1 kg/m2 No Primary Care Physician [facility] 11-03-2022 08:42-0400 Body weight 79.83 kg No Primary Care Physician [facility] 11-03-2022 08:42-0400 Diastolic blood pressure 70 mm[Hg] No Primary Care Physician [facility] 11-03-2022 08:42-0400 Systolic blood pressure 111 mm[Hg] No Primary Care Physician [facility] 10-20-2022 09:15-0400 Body mass index (BMI) [Percentile] Per age and sex 94.3 % No Primary Care Physician [facility] 10-20-2022 09:15-0400 Body mass index (BMI) [Ratio] 30.5 kg/m2 No Primary Care Physician [facility] 10-20-2022 09:15-0400 Body weight 78.24 kg No Primary Care Physician [facility] 10-20-2022 09:15-0400 Diastolic blood pressure 66 mm[Hg] No Primary Care Physician [facility] 10-20-2022 09:15-0400 Systolic blood pressure 107 mm[Hg] No Primary Care Physician [facility] 10-06-2022 10:09-0400 Body mass index (BMI) [Percentile] Per age and sex 93.3 % No Primary Care Physician [facility] 10-06-2022 10:09-0400 Body mass index (BMI) [Ratio] 29.7 kg/m2 No Primary Care Physician [facility] 10-06-2022 10:09-0400 Body weight 76.26 kg No Primary Care Physician [facility] 10-06-2022 10:09-0400 Diastolic blood pressure 67 mm[Hg] No Primary Care Physician [facility] 10-06-2022 10:09-0400 Systolic blood pressure 102 mm[Hg] No Primary Care Physician [facility] 09-22-2022 09:10-0400 Body mass index (BMI) [Percentile] Per age and sex 92.9 % No Primary Care Physician [facility] 09-22-2022 09:10-0400 Body mass index (BMI) [Ratio] 29.4 kg/m2 No Primary Care Physician [facility] 09-22-2022 09:10-0400 Body weight 75.29 kg No Primary Care Physician [facility] 09-22-2022 09:10-0400 Diastolic blood pressure 68 mm[Hg] No Primary Care Physician [facility] 09-22-2022 09:10-0400 Systolic blood pressure 102 mm[Hg] No Primary Care Physician [facility] 09-08-2022 08:51-0400 Body height 160.[address] Mariaelena Ornelas Work Phone: [facility] 09-08-2022 08:51-0400 Body mass index (BMI) [Percentile] Per age and sex 91.3 % Dr. Mariaelena Ornelas Work Phone: [facility] 09-08-2022 08:51-0400 Body mass index (BMI) [Ratio] 28.4 kg/m2 Dr. Mariaelena Ornelas Work Phone: 6(932)998-207527 [place] [address] 09-08-2022 08:51-0400 Body weight 72.[address] Mariaelena Ornelas Work Phone: 5(406)780-472527 [place] [address] 09-08-2022 08:51-0400 Diastolic blood pressure 70 mm[Hg] Dr. Mariaelena Ornelas Work Phone: 6(206)533-657627 [place] [address] 09-08-2022 08:51-0400 Systolic blood pressure 110 mm[Hg] Dr. Mariaelena Ornelas Work Phone: 7(507)013-949927 [place] [address] 08-13-2022 08:45-0500 Body mass index (BMI) [Percentile] Per age and sex 88.3 % Dr. Mariaelena Ornelas Work Phone: 3(932)091-268727 [place] [address] 08-13-2022 08:45-0500 Body mass index (BMI) [Ratio] 27.1 kg/m2 Dr. Mariaelena Ornelas Work Phone: 1(905)553-753427 [place] [address] 08-13-2022 08:45-0500 Body weight 69.[address] Mariaelena Ornelas Work Phone: 8(214)766-905027 [place] [address] 08-13-2022 08:45-0500 Diastolic blood pressure 61 mm[Hg] Dr. Mariaelena Ornelas Work Phone: 9(470)910-080127 [place] [address] 08-13-2022 08:45-0500 Systolic blood pressure 102 mm[Hg] Dr. Mariaelena Ornelas Work Phone: 7(849)005-651627 [place] [address] 07-16-2022 13:23-0500 Body mass index (BMI) [Percentile] Per age and sex 81.6 % Dr. Mariaelena Ornelas Work Phone: 1(865)599-624227 [place] [address] 07-16-2022 13:23-0500 Body mass index (BMI) [Ratio] 25.3 kg/m2 Dr. Mariaelena Ornelas Work Phone: 1(540)116-097427 [place] [address] 07-16-2022 13:23-0500 Body weight 64.[address] Mariaelena Ornelas Work Phone: 9(267)829-978527 [place] [address] 07-16-2022 13:23-0500 Diastolic blood pressure 73 mm[Hg] Dr. Mariaelena Ornelas Work Phone: 9(439)895-833167 [address] 07-16-2022 13:23-0500 Systolic blood pressure 114 mm[Hg] Dr. Mariaelena Ornelas Work Phone: 1(360)261-449527 [place] [address] 06-18-2022 13:21-0500 Body mass index (BMI) [Percentile] Per age and sex 77.4 % Dr. Mariaelena Ornelas Work Phone: 8(068)810-862927 [place] [address] 06-18-2022 13:21-0500 Body mass index (BMI) [Ratio] 24.5 kg/m2 Dr. Mariaelena Ornelas Work Phone: 3(025)306-204727 [place] [address] 06-18-2022 13:21-0500 Body weight 62.[address] Mariaelena Ornelas Work Phone: 0(216)746-539527 [place] [address] 06-18-2022 13:21-0500 Diastolic blood pressure 76 mm[Hg] Dr. Mariaelena Ornelas Work Phone: 8(168)527-369827 [place] [address] 06-18-2022 13:21-0500 Systolic blood pressure 113 mm[Hg] Dr. Mariaelena Ornelas Work Phone: 2(354)133-985627 [place] [address] 05-31-2022 06:42-0500 Body height 160.[address] Mariaelena Ornelas Work Phone: 1(753)330-609727 [place] [address] Work Phone: 05-31-2022 06:42-0500 Body mass index (BMI) [Percentile] Per age and sex 83.2 % Dr. Mariaelena Ornelas Work Phone: 9(912)822-310267 [address] 05-31-2022 06:42-0500 Body mass index (BMI) [Ratio] 25.6 kg/m2 Dr. Mariaelena Ornelas Work Phone: 1(661)734-811227 [place] [address] 05-31-2022 06:42-0500 Body temperature 97.6 [degF] Dr. Mariaelena Ornelas Work Phone: 4(863)002-260727 [place] [address] 05-31-2022 06:42-0500 Body weight 65.[address] Mariaelena Ornelas Work Phone: 4(564)910-685527 [place] [address] 05-31-2022 06:42-0500 Diastolic blood pressure 70 mm[Hg] Dr. Mariaelena Ornelas Work Phone: [facility] 05-31-2022 06:42-0500 Heart rate 74 /min Dr. Mariaelena Ornelas Work Phone: [facility] 05-31-2022 06:42-0500 Respiratory rate 18 /min Dr. Mariaelena Ornelas Work Phone: [facility] 05-31-2022 06:42-0500 SaO2% (BldA) [Mass fraction] 96 % Dr. Mariaelena Ornelas Work Phone: 3(398)401-878649 [place] [address] 05-31-2022 06:42-0500 Systolic blood pressure 115 mm[Hg] Dr. Mariaelena Ornelas Work Phone: 7(977)305-706649 [place] [address] 05-21-2022 14:07-0500 Body mass index (BMI) [Percentile] Per age and sex 75.7 % Dr. Mariaelena Ornelas Work Phone: 0(543)555-307849 [place] [address] 05-21-2022 14:07-0500 Body mass index (BMI) [Ratio] 24.2 kg/m2 Dr. Mariaelena Ornelas Work Phone: 7(149)735-748649 [place] [address] 05-21-2022 14:07-0500 Body weight 64.[address] Mariaelena Ornelas Work Phone: [facility] 05-21-2022 14:07-0500 Diastolic blood pressure 74 mm[Hg] Dr. Mariaelena Ornelas Work Phone: 1(874)356-010749 [place] [address] 05-21-2022 14:07-0500 Systolic blood pressure 114 mm[Hg] Dr. Mariaelena Ornelas Work Phone: [facility] Encounters Encounter Date Encounter Type Care Provider Facility Start: 03-06-2025 ambulatory Chucho Nickerson Facility:[facility] Start: 02-04-2025 End: 02-04-2025 Patient encounter procedure Nadege Jarrell CNM -[facility] Work Phone: Start: 02-04-2025 End: 02-04-2025 ambulatory Chucho Nickerson MD Work Phone: [facility] Start: 01-24-2025 End: 01-24-2025 ambulatory [facility] Start: 01-09-2025 End: 01-09-[address] Mayi Nuñez DO [facility] Work Phone: Start: 01-09-2025 End: 01-09-2025 ambulatory Chucho Nickerson MD Work Phone: [facility] Start: 12-10-2024 End: 12-10-2024 ambulatory Chucho Nickerson MD Work Phone: [facility] Start: 12-10-2024 End: 12-10-[address] Mayi Nuñez DO [facility] Start: 12-10-2024 End: 12-10-[address] Mayi Nueñz DO [facility] Work Phone: Start: 12-10-2024 End: 12-10-2024 ambulatory Chucho Nickersno MD Work Phone: [facility] Start: 12-10-2024 End: 12-10-2024 ambulatory Mayi Nuñez Facility:[facility] Start: 11-09-2024 ambulatory Elo Alvarez y:[facility] Start: 09-23-2024 End: 09-23-2024 ambulatory MARIAELENA ORNELAS Facility:[facility] Start: 09-23-2024 End: 09-23-2024 Office outpatient visit 15 minutes Riki Albarado APRN.CNP Work Phone: [facility] Comment on above: Viral illness (Prima ry Dx) Start: 06-22-2024 ambulatory Chucho Nickerson Facility:[facility] Start: 10-24-2023 End: 10-24-2023 Emergency department patient visit [facility] Work Phone: Start: 08-11-2023 End: 08-11-2023 Patient encounter procedure Nayan Clarke Work Phone: Podiatry Comment on above: Ingrowing toenail (P rimary Dx); Raynaud's disease without gangrene; Diminished pulses in lower extremity Start: 12-02-2022 Non-patient / Non-visit No Bette wise Care Physician [facility] Start: 12-01-2022 Non-patient / Non-visit No Bette wise [facility] Emergency Department Physician [facility] Start: 12-01-2022 End: 12-02-2022 Evaluation and management of inpatient No Primary Care Physician [facility] Start: 11-24-2022 End: 11-24-2022 Patient encounter procedure No Primary Care Physician [facility] Start: 11-17-2022 End: 11-17-2022 Patient encounter procedure No Primary Care Physician [facility]-Laboratory, Specimen Start: 11-17-2022 End: 11-17-2022 Patient encounter procedure No Primary Care Physician [facility] Start: 11-03-2022 End: 11-03-2022 Patient encounter procedure No Primary Care Physician [facility] Start: 10-20-2022 End: 10-20-2022 Patient encounter procedure No Primary Care Physician [facility] Start: 10-06-2022 End: 10-06-2022 Patient encounter procedure No Primary Care Physician [facility] Start: 09-22-2022 End: 09-22-2022 Patient encounter procedure No Primary Care Physician [facility]Labor[facility], Specimen Start: 09-22-2022 End: 09-22-2022 Patient encounter procedure No Primary Care Physician [facility] Start: 09-08-2022 End: 09-08-[address] Mariaelena Ornelas Work Phone: [facility] Work Phone: Start: 09-08-2022 End: 09-08-[address] Mariaelena Ornelas Work Phone: [facility] Start: 08-13-2022 End: 08-13-[address] Mariaelena Ornelas Work Phone: [facility] Start: 07-16-2022 End: 07-16-[address] Mariaelena Ornelas Work Phone: [facility] Start: 06-18-2022 End: 06-18-[address] Mariaelena Ornelas Work Phone: [facility] Start: 05-31-2022 End: 05-31-2022 Emergency department patient visit Dr. Mariaelena Ornelas Work Phone: [facility] Start: 05-24-2022 End: 05-24-[address] Mariaelena Ornelas Work Phone: [facility] Work Phone: Start: 05-24-2022 End: 05-24-[address] Mariaelena Ornelas Work Phone: [facility] Start: 05-21-2022 End: 05-21-[address] Mariaelena Ornelas Work Phone: [facility] Work Phone: Start: 05-21-2022 End: 05-21-[address] Mariaelena Ornelas Work Phone: [facility] Start: 05-21-2022 End: 05-21-[address] Mariaelena Ornelas Work Phone: [facility] Start: 05-05-2022 End: 05-05-2022 Nursing evaluation of patient and report [facility] Work [facility]: [facility]necology Comment on above: Supervision of herrera brown first teen , unspecified trimester (Primary Dx); Nausea/vomiting in ; History of depression; Patient request for diagnostic testing Start: 05-05-2022 End: 05-05-2022 Patient requested procedure Nurse [facility] Work Phone: OB/Gynecology Start: 01-31-2018 End: [...] HCV Quant by PCR testing - HCVPCR #[id number] Non Reactive: < 0.8 Equivocal: >/= 0.8 [...] therefore, no HPV testing was performed.Performed at: [address] [id number] Director: Rabia Odom MD, Phone: [phone] Start: 12-10-2024 Procedure Chucho swain MD Work [...] dutton Work Phone: Urine culture Dr. Mariaelena dutton Work Phone: Plan of Treatment Date Care Activity Detail Author Start: 04-29-2026 Urine microalbumin profile DTa P,Tdap,Td Vaccine (7 - Td or Tdap) [facility] Start: 12-10-2024 Procedure [facility] Start: 12-10-2024 Bacteria identified in Urine by Culture Urine Culture [facility] Start: 2024 Screening for malign ant neoplasm of cervix Cervical Cancer Screening [facility] Start: 02-12-2024 Covid-19 Vaccine ( season) Covid-19 Vaccine ( season) [facility] Start: 02-12-2024 Influenza vaccination Influenza Vacc ine (#1) [facility] Start: 10-24-2023 [facility] Start: 06-13-2023 Depression Assessment Depression Ass essment [facility] Start: 02-11-2023 Influenza vaccination Influenza Vacc ine (#1) [facility] Start: 12-02-2022 Patient discharge [facility] Start: 12-01-2022 Administration of medication [facility] Start: 12-01-2022 Application of ice c ollar, cap or bag [facility] Start: 12-01-2022 Catheterization of vein [facility] Start: 12-01-2022 Introduction of urin paul catheter [facility] Start: 12-01-2022 Measuring intake and output [facility] Start: 12-01-2022 Notification of physician [facility] Start: 12-01-2022 Procedure discontinued [facility] Start: 12-01-2022 Provision of activit y privileges [facility] Start: 12-01-2022 Vital signs measurements [facility] Start: 12-01-2022 [facility] Start: 12-01-2022 Admission procedure [facility] Start: 12-01-2022 Consultation [facility] Start: 02-11-2022 Influenza vaccination INFLUENZA (#1) [facility] Start: 2021 Anxiety Screening Anxiety Screening [facility] Start: 2021 CHLAMYDIA SCREENING (18-24) CHLAMYDIA SCREENING (18-24) [facility] Start: 2021 Depression Screening Depression Scre ening [facility] Start: 2021 GC (GONORRHEA) SCREE ASIA (18-24) GC (GONORRHEA) SCREENING (18-24) [facility] Start: 2021 HEPATITIS C SCREENING HEPATITIS C [facility] Start: 2021 Hepatitis C screening Hepatitis C [facility] Start: 2021 HIV SCREENING HIV SCREENING [facility] Start: 2021 HIV screening HIV Screening [facility] Start: 2021 Screening for Chlamy juan trachomatis Chlamydia Screening (18) [facility] Start: 06-13-2021 DEPRESSION ASSESSMENT DEPRESSION ASS ESSMENT [facility] Start: 2019 Meningococcal B Vacc ine (1 of 2 - Standard) Meningococcal B Vaccine (1 of 2 - Standard) [facility] Start: 2019 Meningococcal B Vacc ine: Consider Based On Risk (1 of 2 - Patient Seeks Protection) Meningococcal B Vaccine: Consider Based On Risk (1 of 2 - Patient Seeks Protection) [facility] Start: 2019 MENINGOCOCCAL CONJUG ATE (1 - 2-dose series) MENINGOCOCCAL CONJUGATE (1 - 2-dose series) [facility] Start: 2017 PEDS TO ADULT TRANSI TION ANNUAL ASSESSMENT PEDS TO ADULT TRANSITION ANNUAL ASSESSMENT [facility] Start: 2015 PEDS TO ADULT TRANSI TION INITIAL DISCUSSION PEDS TO ADULT TRANSITION INITIAL DISCUSSION [facility] Start: 2014 HPV VACCINE (1 - 2-d ose series) HPV VACCINE (1 - 2-dose series) [facility] Start: 2014 Urine microalbumin profile DTAP,TDAP ,TD (6 - Tdap) [facility] Start: 01-13-2004 COVID-19 VACCINE (#1) COVID-19 VACCI NE (#1) [facility] Chlamydia deoxyribon ucleic acid detection [facility] Work Phone: Erythrocyte mean corpuscular volume determination [facility] Hematocrit [Volume Fraction] of Blood [facility] Hemoglobin [Mass/vol ume] in Blood [facility] Hemoglobin A1c/Hemoglobin.total in Blood [facility] Hepatitis B virus peralta rface Ag [Presence] in Serum [facility] Hepatitis C antibody measurement [facility] Leukocytes [#/volume ] in Blood [facility] Mean corpuscular hemoglobin concentration determination [facility] Mean corpuscular hemoglobin determination [facility] Neisseria gonorrhoea e rRNA [Presence] in Unspecified specimen by SARIKA with probe detection [facility] Neutrophil count [facility] Neutrophil percent differential count [facility] Path report.final Dx Spec [facility] Patient Education [facility] Work Phone: Patient referral [facility] Work Phone: PCR test for Chlamyd ia trachomatis [facility] Platelets [#/volume] in Blood [facility] Red blood cell count [facility] Red cell distributio n width determination [facility] Rubella IgG measurement [facility] Serologic test for syphilis [facility] Urine culture [facility] End: 08-10-2024 US.doppler Extremity arteries - bilateral for physiologic artery study [facility] V[facility] Lab Routine Ingrowing toenail Raynaud's disease without gangrene Diminished pulses in lower extremity 1 Occurrences starting 08/11/2023 until 08/10/2024 [facility] Work Phone: Comment on above: 1 Occurrences starti ng 08/11/2023 until 08/10/2024 [facility] Immunizations Immunization Date Immunization Notes Care Provider Sen monae 04-01-2014 influenza virus vaccine, unspecified formulation Nayan Clarke Work Phone: [facility] 09-27-2008 diphtheria, tetanus toxoids and acellular pertussis vaccine Nurse [facility] Work Phone: [facility] Work Phone: 09-27-2008 measles, mumps and rubella virus vaccine Nurse [facility] Work Phone: [facility] Work Phone: 09-27-2008 poliovirus vaccine, inactivated Nurse Wstr Work Phone: [facility] Work Phone: 09-27-2008 varicella virus vaccine Nurs e Wstr Work Phone: [facility] Work Phone: 02-24-2006 diphtheria, tetanus toxoids and acellular pertussis vaccine Nurse Wstr Work Phone: [facility] Work Phone: 02-24-2006 pneumococcal conjuga te vaccine, 7 valent Nurse Wstr Work Phone: [facility] Work Phone: 10-20-2004 haemophilus influenz ae type b vaccine, HbOC conjugate Nurse Wstr Work Phone: [facility] Work Phone: 10-20-2004 measles, mumps and rubella virus vaccine Nurse Wstr Work Phone: [facility] Work Phone: 10-20-2004 varicella virus vaccine Nurs e Wstr Work Phone: [facility] Work Phone: 01-29-2004 diphtheria, tetanus toxoids and acellular pertussis vaccine Nurse Wstr Work Phone: [facility] Work Phone: 01-29-2004 haemophilus influenz ae type b vaccine, HbOC conjugate Nurse Wstr Work Phone: [facility] Work Phone: 01-29-2004 hepatitis B vaccine, pediatric or pediatric/adolescent dosage Nurse Wstr Work Phone: [facility] Work Phone: 01-29-2004 poliovirus vaccine, inactivated Nurse Wstr Work Phone: [facility] Work Phone: 2003 diphtheria, tetanus toxoids and acellular pertussis vaccine Nurse Wstr Work Phone: [facility] Work Phone: 2003 haemophilus influenz ae type b vaccine, HbOC conjugate Nurse Wstr Work Phone: [facility] Work Phone: 2003 hepatitis B vaccine, pediatric or pediatric/adolescent dosage Nurse Wstr Work Phone: [facility] Work Phone: 2003 pneumococcal conjuga te vaccine, 7 valent Nurse Wstr Work Phone: [facility] Work Phone: 2003 poliovirus vaccine, inactivated Nurse Wstr Work Phone: [facility] Work Phone: 2003 diphtheria, tetanus toxoids and acellular pertussis vaccine Nurse Wstr Work Phone: [facility] Work Phone: 2003 haemophilus influenz ae type b vaccine, HbOC conjugate Nurse Wstr Work Phone: [facility] Work Phone: 2003 hepatitis B vaccine, pediatric or pediatric/adolescent dosage Nurse Wstr Work Phone: [facility] Work Phone: 2003 poliovirus vaccine, inactivated Nurse Wstr Work Phone: [facility] Work Phone: 2003 pneumococcal conjuga te vaccine, 7 valent Nurse Wstr Work Phone: [facility] Work Phone: Payers Date Payer Category Payer Self-pay [id number] 2022 [facility] [id number] 2018 Medicaid [id number] 2017 Medicaid [id number] 2003 Unknown [id number] [id number]. [id number] Unknown [id number] [id number] Unknown [id number] 2.16.8 [id number] Unknown [id number] 2.16.8 [id number] Unknown [id number] 2.16.8 [id number] Unknown [id number] 2.16.8 [id number] Unknown [id number] 2.16.8 [id number] Unknown [id number] 2.16.8 [id number] Social History Date Type Detail Facility Start: 01-23-2018 End: 09-23-2024 Tobacco smoking status NHIS Never smoked tobacco [facility] Work Phone: Start: 01-23-2018 End: 09-23-2024 Tobacco use and exposure Smokeless tobacco non-user [facility] Work Phone: Start: 05-05-2022 End: 09-23-2024 Alcohol intake Ex-drinker (finding) [facility] Start: 05-05-2022 Education 11 [facility] Start: 05-05-2022 Alcohol Comment rarely [facility] Start: 03-22-2022 [facility] Start: 2005 [facility] Start: 04-25-2022 End: 05-05-2022 Exposure to SARS-CoV-2 (event) Not sure [facility] Work Phone: Start: 05-21-2022 End: 10-24-2023 Tobacco smoking status NHIS Unknown if ever smoked [facility] Start: 03-07-2023 End: 07-16-2024 History of Social function [facility] Start: 03-07-2023 End: 07-16-2024 Tobacco use panel [facility] National Score (1-100), lower number is lower risk 54 [facility] Start: 05-05-2022 Gender identity Identifies as female gender (finding) [facility] Start: 05-05-2022 Sexual orientation Heterosexual (kleber huertas) [facility] Start: 10-26-2024 End: 12-17-2024 Tobacco smoking status NHIS Ex-smoker (finding) [facility] NEGATED: Highlighted row [facility] Goals Date Patient Goal Desired Activity /State Clinical Notes 05-05-2022 to 02-04-2025 Note Date & Type Note Facility 02-04-2025 Progress note [facility] 12-10-2024 Evaluation note Diagnosis Onset Date Resolution [...] status unknown acute December 10, 2024 2:58pm [facility] Work Phone: 1(130) 514-174906-30-2025 Evaluation note* Diagnosis Onset Date Resolution Status [...] status unknown acute January 09, 2025 3:49pm [place] [facility] Work Phone: 1(380) 669-781206-30-2025 Evaluation note* Diagnosis Onset Date Resolution Status [...] vaccination status unknown acute February 04 10:57am [facility] Work Phone: 1(262) 750-368206-30-2025 Progress [facility] [address], [address] [place] [address] OFFICE VISIT Date of Service: 12/10/24 MR#: [id number] Acct: [id number] Name: ADENIKE RUTH Rep #: [id number] : 2005 Provider: Dr. 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 Required: No Is patient in pain?: No [...] year weight has: increased > 10 lbs sharmila/anabaptism: None seatbelt use: sometimes do you feel [...] - full term 7lbs 11oz Female epidural [facility] Nadege Jacob Delivery Date: 12/01/22 [...] Pulmonary (e.g.,TB,Asthma), Seasonal allergies, Drug/latex allergies/reactions, Breast, 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, Anesthetic complications, History of abnormal pap, [...] Movement Monitoring, Signs and Symptoms of Preeclampsia, [place] Education and Family Medical Leave or Disability [...] comfortable and no acute distress Orientation: alert [facility] Head: normal to inspection, normocephalic and [...] Velde DO> Date _ Mayi Nu[facility]ez DO [facility] Signature: Date (if applicable) CC: ~ [place] [facility] [id number] Progress note Author Mayi Aguirre [facility] Note Date/Time December 10, 2024 4:02 pm [facility] [place] [facility] [address] [place] [address], [address] [place] [address] OFFICE VISIT Date of Service: 12/10/24 MR#: [id number] Acct: [id number] Name: ADENIKE RUTH Rep #: [id number] : 2005 Provider: Dr. 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 Required: No Is patient in pain?: No [...] year weight has: increased > 10 lbs sharmila/anabaptism: None seatbelt use: sometimes do you feel [...] - full term 7lbs 11oz Female epidural [facility] Nadege Jarrell Cecil Delivery Date: [...] Pulmonary (e.g.,TB,Asthma), Seasonal allergies, Drug/latex allergies/reactions, Breast, 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, Anesthetic complications, History of abnormal pap, [...] Movement Monitoring, Signs and Symptoms of Preeclampsia, [place] Education and Family Medical Leave or Disability [...] comfortable and no acute distress Orientation: alert [facility] Head: normal to inspection, normocephalic and [...] Cosigner Signature: Date (if applicable) CC: ~ [place] [employer] Work Phone: 1(895) 762-425804-13-2025 NoteHNO ID: [id number] Author: RIKI ALBARADO APRN.[facility] Service: ? Author Type: Nurse Practitioner [...] understanding and agrees to plan of care. Qawalangin subarachnoid rule 0 this note was generated using [employer] software. It may contain errors in wording, punctuation (more content not included)...[facility]04-13-2025 History of Present illness Narrative* Riki Albarado, KARLA.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 - 09/23/2024 2:31 PM EDT Subjective HPI [...] understanding and agrees to plan of care. Qawalangin subarachnoid rule 0 this note was generated using [employer] software. It may contain errors in wording, p unctuation, or spelling. Riki Albarado APRN.AYAAN documented [facility] History of Present illness Narrative* Vince Nayan [...] time. Nayan Clarke DPM Podiatry [address] [facility] [address] Dept: [phone] Dept * Gianna Prieto RN - 08/11/2023 10:18 AM EST Patient presents with: Left Foot - New: ingrown nail Right Foot - New: ingrown nail AMB ROOMING INTAKE FLOWSHEET DATA Risk Screening Do you have concerns about personal safety or safety in the home?: No documented in this encounterL[facility]06-22-2023 Progress note Author Beverly Penny [facility] December 02, 2022 7:53am Note Date/Time December 02, 2022 7:[address] [facility] Medical Records Department [address] [place] [address] Progress Note - OBGYN 12/02/22 0744 MR#: [id number] Acct: [id number] Name: ADENIKE RUTH Rep #:[id number] : 2005 17 From: Beverly Penny DERMATOLOGIST MANAGING PARTNER DERMATOLOGIST MANAGING PARTNER-C PCP: Care Physician,No Primary Status :ADM IN Location: [address] Subjective Subjective Patient doing well without [...] wk follow up 6. home today 12/02/22 7003 <Electronically signed by Beverly Penny NP, NP-C> Cosigner Signature (if applicable): CC: ~ Signed [facility] Work Phone: 1(236) 386-321306-21-2023 Discharge summary Author Nadege Jarrell [facility] December 01, 2022 10:49am Note Date/Time December 01, 2022 10:[address] [facility] Medical Records Department [address] [place] [address] Instructions for Home/Discharge Instructions 12/01/22 1048 MR#: [id number] Acct: [id number] Name: ADENIKE RUTH Rep #:[id number] : [...] Physician,Amarilis Primary Discharge Orders/Prescriptions Prescriptions: No Action prenat.vits,julius,eae-oovr-firbd Tablet 1 tab PO DAILY Referrals / Follow Up: Care Physician,No Primary [Primary Care Provider] - Disposition Disposition (needs filled in before D/C Order can be placed): Home, Self Care 12/01/22 1049<Electronically signed by Nadege Jarrell CNM>Nadege Jarrell CNM CC: No Primary Care Physician ~ Signed [facility] Work Phone: [phone]) 318-352706-21-2023 Procedure [facility] 12-01-2022 Progress note Author Nadege Jarrell [facility] December 01, 2022 7:46am Note Date/Time December 01, 2022 7:46 am [facility] Medical Records Department [address] [place] [address] Progress Note 12/01/22 0743 MR#: [id number] Acct: [id number] Name: ADENIKE RUTH Rep #:[id number] : 2005 17 From: Nadege Jarrell CNM PCP: Care Physician,No Primary Status :ADM IN Location: [place] [id number] Progress Note patient comfortable with epidural current tracing: FHT: 145 Moderate variability reactive no decelerations category I tracing Farmers: 2-4 minute Contractions SVE 5/90/0 A/P: start pitocin, titrate per protocol. continue position changes anticipate Multi Select Codes Urinary/Genital Urinary/Genital CPT Codes: No Charge 12/01/22 0746 <Electronically signed by Nadege Jarrell CNM> Nadege Jarrell CNM Cosigner Signature (if applicable): CC: ~ Signed [facility] Work Phone: 1(128) 233-271206-21-2023 History and physical note Author Dr. Knight [facility] December 01, 2022 5:56am Note Date/Time December 01, 2022 5:56 am [facility] Medical Records Department [address] [place] [address] H&P Exam - WINDROWER OPERATOR 12/01/22 0546 MR#: [id number] Acct: [id number] Name: ADENIKE RUTH Rep #:[id number] : 2005 17 From: Jacqueline ellison MD PCP: Care Physician,No Primary Status :ADM IN Location: [address] HPI - General General Date of Admission: 12/01/22 HPI Narrative ADENIKE RUTH, is a 17 F who presents IAL and SROM clear fluid regular contractions, changed from 4 to 5 cm. Maternal Data Information JIMENA Calculator Estimated Delivery Date Method Current WG Current Estimate 12/13/22 LMP (Certain) 38w 2d Other Estimates 12/13/22 Ultrasound #1 38w 2d PFSH [facility] Medical History (Updated 12/01/22 @ 05:[address] Jacqueline Knight MD) Depression Home Medications prenat.vits,julius,max-zhbb-nukoy 1 tab PO DAILY 09/08/22 [History Last [...] Labor Preferences- CB/BF classes: encouraged. Probably at [facility] labor support person: Frank labor intervention preferences: [...] anato my scan. glucola ordered. going to [place] at 31 weeks. 09/08/22 -?-?-?-?-?-?-?-?-?-?-?-?- 26w 2d [...] complications: none I have reviewed the [facility] and made any clinically relevant updates. 12/01/22 0556 <Electronically signed by Jacqueline Knight MD> Cosigner Signature (if applicable): CC: Dr. Jacqueline Knight MD; No Primary Care Physician~ Signed [facility] Work Phone: 1(599) 848-140711-23-2022 Miscellaneous Notes* Quick Notes - Noris Echeverria RN - 05/05/2022 1:26 PM EST DISTANCE HEALTH VISIT This Team Access Model visit is a phone encounter. It required patient-provider interaction for themedical decision making as documented below. Adenike Ruth is a 16 year old female seen for PNOB. She has had 2 visits of the care center. 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 Planning on graduating this spring. The father [...] aneuploidy screening. Patient given contact information for [employer] to check on insurance coverage. Patient considering genetic carrier screening testing. Patient is given contact information [facility] to check on insurance coverage.Noris Echeverria RN [facility] Diagnosis Supervision of normal first teen , unspecified trimester- Primary Nausea/vomiting in Unspecified vomiting of , unspecified as to episode of care History of depression Personal history of other mental disorder Patient request for diagnostic testing Other specified examination documented in this encounter [facility] note* Diagnosis Onset Date Resolution Status acute Supervision of normal acute [facility] Work Phone: Evaluation note* Diagnosis Onset Date Resolution Status acute Supervision of normal acute Marijuana use acute acute Supervision of normal acute Marijuana use acute acute Supervision of normal acute Marijuana use acute acute Supervision of normal acute Marijuana use acute acute Supervision of normal acute [facility] Work Phone: Evaluation note* Diagnosis [...] resolved Supervision of normal first teen resolved [facility] Work Phone: Evaluation note* Diagnosis Ingrowing toenail- Primary Ingrowing nail Raynaud's disease without gangrene Diminished pulses in lower extremity Other symptoms involving cardiovascular system [facility] information availableWDay[facility] Work Phone: Evaluation note* Diagnosis Viral illness- Primary Unspecified viral infection, in conditions classified elsewhere and of unspecified site [facility] Diagnosis Onset Date Resolution Status Admit [...] status unknown acute December 10, 2024 2:58pm [facility] Work Phone: Hospital Discharge instructions Additional Instructions Please follow-up outpatient. Use safe sex practicesWDayton [facility] Work Phone: Progress note Author Nadege Jarrell [facility] Note Date/Time February 04, 2025 11 :18am [facility] [address] [place] [address], [address] [place] [address] OFFICE VISIT Date of Service: 02/04/25 MR#: [id number] Acct: [id number] Name: ADENIKE RUTH Rep #: [id number] : 2005 Provider: JAXON Jarrell Age/Sex: 19/F Location: [facility] Status: Signed Intake Vital Signs 01/09/25 15:51 02/04/25 10:58 Height 5 ft 4 in 5 ft 4 in Weight: 185 lb 5 oz BMI 31.8 BP 104/70 Intake Visit Reasons: 22wk ob Chief Complaint: 22wk OB Circus Artist Required: No Is patient in pain?: No [...] year weight has: increased > 10 lbs sharmila/anabaptism: None seatbelt use: sometimes do you feel [...] - full term 7lbs 11oz Female epidural [facility] Nadege Jacob Delivery Date: 12/01/22 [...] Movement Monitoring, Signs and Symptoms of Preeclampsia, [place] Education and Family Medical Leave or Disability [...] Cosigner Signature: Date (if applicable) CC: ~ [facility] Work Phone: Reason for referral (narrative)* Outpatient Procedure (Routine) - Authorized Specialty Diagnoses / Procedures Referred By Ziyad rao [facility] Diagnoses Ingrowing toenail Raynaud's disease without gangrene Diminished pulses in lower extremity Procedures PVR ANK PRESS [facility] NON-INVAS PHYSIOLOGIC STD EXTREMITY ART 2 LEVEL Nayan Clarke [address] [place] [address] [facility] [place] [address] [place] [id number] Referral ID Status Reason Start Date Expiration Date Visits Requested Visits Authorized [id number] Authorized Auto-Generat ed Referral 08/11/2023 08/10/2024 1 1 [facility] for referral (narrative)No reason for referral information [facility]North[facility] Work Phone: Summary Purpose Family History No [...] Will No May 21 2:38pm Power of Purchasing Administrative Assistant No May 21, 2022 2:38pm Advance Directive Response Recorded Date/ Time Living Will No May 31 6:44am Power of Purchasing Administrative Assistant No May 31, 2022 6:44am Advance Directive Response Recorded Date/ Time Living Will No May 31, 022 7:44am Power of Purchasing Administrative Assistant No May 31, 2022 7:44am Advance Directive Response Recorded Date/ Time Living Will No December 01, 2022 1:51am Power of Purchasing Administrative Assistant No December 01 1:51am Advance Directive Response Recorded Date/ Time Living Will No October 24, 2023 6 :42pm Power of Purchasing Administrative Assistant No October 24, 2023 6:42pm Chief Complaint [...] section and content) DATE CREATED AUTHOR 02/01/2018 [facility] ([place]) DATE CREATED AUTHOR AUTHOR'S ORGANIZ ATION 09/24/2024 [facility] DATE CREATED AUTHOR AUTHOR'S ORGANIZ ATION 01/26/2025 [facility] DATE CREATED AUTHOR AUTHOR'S ORGANIZ ATION 03/02/2025 [facility] Source Comments (unrecognize d section and content) In the event this informatio n is protected by the Federal Confidentiality of Alcohol and Drug Abuse Patient Records regulations: The Federal rules restrict any use of the information to criminally investigate or prosecute any alcohol or drug abuse patient.[facility] the event this information is protected by the Federal Confidentiality of Alcohol and Drug Abuse Patient Records regulations: The Federal rules restrict any use of the information to criminally investigate or prosecute any alcohol or drug abuse patient.[facility] Center[facility] the event this information is protected by the Federal Confidentiality of Alcohol and Drug Abuse Patient Records regulations: The Federal rules restrict any use of the information to criminally investigate or prosecute any alcohol or drug abuse patient.[facility] Reason for Visit (unrecogniz ed section and content) Reason Comments Care Reason Comments New ingrown nail Reason Comments Headache X 3-4 days, fatigue, pain is behind the eyes Care Teams (unrecognized sec tion and content) Shipbuilding Draftsperson Relationship Specialty Start Date End Date [place] [address] [address] PCP - General Pediatrics 03/14/17 Team Status: [...] Care Provider, Refer ring Provider Active Dr. Mayi Nuñez , DO Attending Provider Activ e Team Status: Inactive Member Role Status Dates No Primary Care Physician Primary Care Provider, Refer ring Provider Active Beverly Penny DERMATOLOGIST MANAGING PARTNER, DERMATOLOGIST MANAGING PARTNER-C Attending Provider Active Team Status: Inactive Member [...] Provider, Refe rring Provider Active Beverly Penny DERMATOLOGIST MANAGING PARTNER, DERMATOLOGIST MANAGING PARTNER-C Other Provider Active Team Status: Inactive Member [...] erring Provider, Other Provider Active Beverly Penny DERMATOLOGIST MANAGING PARTNER, DERMATOLOGIST MANAGING PARTNER-C Attending Provider Active Team Status: Inactive Member Role Status Dates No Primary Care Physician Primary Care Provider Active Beverly Penny DERMATOLOGIST MANAGING PARTNER, DERMATOLOGIST MANAGING PARTNER-C Attending Provider, Referring Provider Active Team Status: Inactive Member Role Status Dates No Primary Care Physician Primary Care Provider Active Elo Rivas CNM Attending Provider, Referring Pr ovider Active Team Status: Inactive Member Role Status Dates No Primary Care Physician Primary Care Provider Active Nadege Jarrell CNM Admit Provider, Att ending Provider, Referring Provider Active Shipbuilding Draftsperson Relationship Specialty Start Date End Date Mariaelena Ornelas MD [address] [place] [address] PCP - General Pediatrics 03/14/17 Team Status: Active Member Role Status Dates Dr. Mariaelena Ornelas MD Family Provider Active Chucho Nickerson MD Primary Care Provider Active Team Status: Inactive Member Role Status Dates Chucho Nickerson MD Primary Care Provider Active Dr. Mayi Calix MD Emergency Provider Active Shipbuilding Draftsperson Relationship Specialty Start Date End Date Mariaelena Ornelas MD [address] [place] [address] PCP - General Pediatrics 03/14/17 Team Status: [...] BE BASED ON THE PRIMARY CLINICAL RECORDS. [facility]. provides no warranty or guarantee of the accuracy or completeness of information in this document.
[2025-03-06 12:24] LABS: Hematocrit 32.3 % (37-47); Hemoglobin 10.5 g/dL (12.0-15.0); Immature Granulocytes Count 0.090 X10^3/uL (0.0-0.0); Mean Corp Hgb Conc 32.5 g/dL (32-36); Mean Corpuscular Volume 77.1 fL (81-99); Mean Platelet Vol. 11.0 fl (6.2-12.0); NRBC Flagged by Analyzer 0 % (0-5); Platelet Count 283 K/mm3 (150-450); RBC Distribution Width CV 15.3 % (11.6-14.6); RBC Distribution Width SD 41.6 fl (35.1-43.9); Red Blood Count 4.19 M/mm3 (4.2-5.4); White Blood Count 9.1 K/mm3 (4.4-11.0)
[2025-03-06 13:19] LABS: Glucose Challenge Gest 1H 50g 128 mg/dL (70-140); HIV Nonreactive (Nonreactive); Syphilis Antibodies Nonreactive (Nonreactive)
[2025-03-06 14:25] LABS: Ferritin 11 ng/mL (22-378); Iron 40 ug/dL (50-170); Iron Binding Capacity,Unsat 473 ug/dL (228-428)
[2025-03-06 14:27] LABS: Iron Binding Capacity,Total 513 ug/dL (250-450)
[2025-03-07 06:08] LABS: Transferrin 437 mg/dL (192-364)
== END | disposition home or self-care (01) ==
PROVIDERS: PCP Family Medicine; Referring Provider Obstetrics & Gynecology; Visit Provider Obstetrics & Gynecology
DX: O09.90 Supervision of high risk pregnancy, unspecified, unspecified trimester (principal); O99.019 Anemia complicating pregnancy, unspecified trimester; Z3A.26 26 weeks gestation of pregnancy; Z13.1 Encounter for screening for diabetes mellitus
CPT/HCPCS: 36415; 82728; 82950; 83540; 83550; 84466; 85025; 86703; 86780

== ENCOUNTER → 2025-04-02 | Outpatient (CLI) | payer MEDICAID, SELFPAY ==
[2025-04-02 11:11] LABS: Hematocrit 34.4 % (37-47); Hemoglobin 11.0 g/dL (12.0-15.0); Immature Granulocytes Count 0.060 X10^3/uL (0.0-0.0); Mean Corp Hgb Conc 32.0 g/dL (32-36); Mean Corpuscular Volume 74.9 fL (81-99); Mean Platelet Vol. 10.6 fl (6.2-12.0); NRBC Flagged by Analyzer 0 % (0-5); Platelet Count 290 K/mm3 (150-450); RBC Distribution Width CV 15.4 % (11.6-14.6); RBC Distribution Width SD 41.2 fl (35.1-43.9); Red Blood Count 4.59 M/mm3 (4.2-5.4); White Blood Count 8.8 K/mm3 (4.4-11.0)
== END | disposition home or self-care (01) ==
LOC: BWCLAB 10:16
PROVIDERS: PCP Family Medicine; Visit Provider Obstetrics & Gynecology
DX: O09.90 Supervision of high risk pregnancy, unspecified, unspecified trimester (principal); D56.3 Thalassemia minor; Z3A.00 Weeks of gestation of pregnancy not specified
CPT/HCPCS: 36415; 85025

== ENCOUNTER → 2025-04-30 | Outpatient (CLI) | payer MEDICAID, SELFPAY | END | disposition home or self-care (01) | LOC: LABSPEC 10:41 | PROVIDERS: PCP Family Medicine; Referring Provider Obstetrics & Gynecology; Visit Provider Obstetrics & Gynecology | DX: Z00.00 Encounter for general adult medical examination without abnormal findings (principal) | CPT/HCPCS: 84112 ==

== ENCOUNTER → 2025-05-16 | Outpatient (CLI) | payer MEDICAID, SELFPAY | END | disposition home or self-care (01) | LOC: LABSPEC 15:44 | PROVIDERS: PCP Family Medicine; Referring Provider Obstetrics & Gynecology; Visit Provider Obstetrics & Gynecology | DX: O09.93 Supervision of high risk pregnancy, unspecified, third trimester (principal); Z3A.00 Weeks of gestation of pregnancy not specified | CPT/HCPCS: 87077; 87081; 87186 ==

== ENCOUNTER 2025-06-06 05:25 | Inpatient (IN) | payer MEDICAID, SELFPAY ==
[2025-06-06] VITALS (53 sets, daily range): BP systolic 94–137; BP diastolic 50–91; PULSE 80–128; RESP 16–18; TEMP 36.3–37.6; O2SAT 92–100; BMI 35.5
--- OUTSIDE RECORDS SUMMARY | 2025-06-06 04:51 | XMS RPT_ITS | CCD ---
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 [address] [place], [address] Absolute lymphocyte countOrd ered By: Jacqueline Keithmaximo on 03-06-2025 Lymphocytes Auto (Unsp spec) [#/Vol] 1.64 10*3/uL 0.83-4.51 [facility] Absolute neutrophil countOrd ered By: Jacqueline Keithmaximo on 03-06-2025 Neutrophils (Bld) [#/Vol] 6.6 10*3/uL 2.0-7.7 [facility] Automated lymphocyte count a s percentage of total leukocytesOrdered By: Jacqueline Keithmaximo on 03-06-2025 Lymphocytes/100 WBC Auto (Unsp spec) 17.9 % Low 19-41 [facility] Basophil percentageOrdered B y: Jacqueline Keithmaximo on 03-06-2025 Basophils/100 WBC (Bld) 0.3 % 0-1 [facility] CBC W/Diff, Automatedon 02-12 Absolute Lymph 1.64 X10 3/uL Normal 0.83-4.51 [facility] Comment on above: Performed By: #### L 3890.6006, L100.0100, L501.0250, L509.8002 ####[facility] [address] [place], [address] Absolute Neut 6.6 X10 3/uL Normal 2.0-7.7 [facility] Comment on above: Performed By: #### L 3890.6006, L100.0100, L501.0250, L509.8002 ####[facility] [address] [place], [address] Basophils/100 WBC (Bld) 0.3 % Normal 0-1 [facility] Comment on above: Performed By: #### L 3890.6006, L100.0100, L501.0250, L509.8002 ####[facility] [address] [place], [address] Eosinophils/100 WBC (Bld) 1.4 % Normal 0-5 [facility] Comment on above: Performed By: #### L 3890.6006, L100.0100, L501.0250, L509.8002 ####[facility] [address] [place], [address] Erythrocyte distribution width (RBC) [Ratio] 15.3 % High 11.6-14.6 [facility] Comment on above: Performed By: #### L 3890.6006, L100.0100, L501.0250, L509.8002 ####[facility] [address] [place], [address] Hematocrit (Bld) [Volume fraction] 32.3 % Low 37-47 [facility] Comment on above: Performed By: #### L 3890.6006, L100.0100, L501.0250, L509.8002 ####[facility] [address] [place], [address] Hemoglobin (Bld) [Mass/Vol] 10.5 g/dL Low 12.0-15.0 [facility] Comment on above: Performed By: #### L 3890.6006, L100.0100, L501.0250, L509.8002 ####[facility] [address] [place], [address] IG% 1.000 High 0.0-0.9 [facility] Comment on above: Result Comment: IG% - Immature Granulocytes (promyelocytes, myelocytes and metamyelocytes) > 1% indicates that a LEFT SHIFT is Present. Performed By: #### L 3890.6006, L100.0100, L501.0250, L509.8002 ####[facility] [address] [place], [address] Lymphocytes/100 WBC (Bld) 17.9 % Low 19-41 [facility] Comment on above: Performed By: #### L 3890.6006, L100.0100, L501.0250, L509.8002 ####[facility] [address] [place], [address] MCH (RBC) [Entitic mass] 25.1 pg Low 27.0-32.0 [facility] Comment on above: Performed By: #### L 3890.6006, L100.0100, L501.0250, L509.8002 ####[facility] [address] [place], [address] MCHC (RBC) [Mass/Vol] 32.5 g/dL Normal 32-36 [facility] Comment on above: Performed By: #### L 3890.6006, L100.0100, L501.0250, L509.8002 ####[facility] [address] [place], [address] MCV (RBC) [Entitic vol] 77.1 fL Low 81-99 [facility] Comment on above: Performed By: #### L 3890.6006, L100.0100, L501.0250, L509.8002 ####[facility] [address] [place], [address] Monocytes/100 WBC (Bld) 7.2 % Normal 0-10 [facility] Comment on above: Performed By: #### L 3890.6006, L100.0100, L501.0250, L509.8002 ####[facility] [address] [place], [address] Neutrophils/100 WBC (Bld) 72.2 % High 47-70 [facility] Comment on above: Performed By: #### L 3890.6006, L100.0100, L501.0250, L509.8002 ####[facility] [address] [place], [address] Nucleated RBC (Bld) [#/Vol] 0 10*3/uL Normal 0-5 [facility] Comment on above: Performed By: #### L 3890.6006, L100.0100, L501.0250, L509.8002 ####[facility] [address] [place], [address] Platelet mean volume (Bld) [Entitic vol] 11.0 fL Normal 6.2-12.0 [facility] Comment on above: Performed By: #### L 3890.6006, L100.0100, L501.0250, L509.8002 ####[facility] [address] [place], [address] Platelets (Bld) [#/Vol] 283 10*3/uL Normal 150-450 [facility] Comment on above: Performed By: #### L 3890.6006, L100.0100, L501.0250, L509.8002 ####[facility] [address] [place], [address] RBC (Bld) [#/Vol] 4.19 10*6/uL Low 4.2-5.4 [facility] Comment on above: Performed By: #### L 3890.6006, L100.0100, L501.0250, L509.8002 ####[facility] [address] [place], [address] RDW SD 41.6 fl Normal 35.1-43.9 [facility] Comment on above: Performed By: #### L 3890.6006, L100.0100, L501.0250, L509.8002 ####[facility] [address] [place], [address] WBC (Bld) [#/Vol] 9.1 10*3/uL Normal 4.4-11.0 [facility] Comment on above: Performed By: #### L 3890.6006, L100.0100, L501.0250, L509.8002 ####[facility] [address] [place], [address] Eosinophil percentageOrdered By: Jacqueline Knight on 03-06-2025 Eosinophils/100 WBC (Bld) 1.4 % 0-5 [facility] Erythrocyte distribution wid th ratioOrdered By: Jacqueline Knight on 03-06-2025 Erythrocyte distribution width (RBC) [Ratio] 15.3 % High 11.6-14.6 [facility] Erythrocyte distribution wid th standard deviationOrdered By: Jacqueline Knight on 03-06-2025 Erythrocyte distribution width (RBC) [Ratio] 41.6 fl 35.1-43.9 [facility] Ferritinon 03-06-2025 Ferritin [Mass/Vol] 11 ng/mL Low 22-378 [facility] Comment on above: Performed By: #### L 503.6030, L503.6550, L3400.3800 ####[facility] [address] [place], [address] Glucose Challenge Gest 1H 50 alanna 03-06-2025 GLU GEST 50g 1H 128 mg/dL Normal 70-140 [facility] Comment on above: Performed By: #### L 3890.6006, L100.0100, L501.0250, L509.8002 ####[facility] [address] [place], [address] Glucose measurement at 2 zamzam rs post-dose gestational glucose tolerance testOrdered By: Jacqueline Knight on 03-06-2025 Glucose [Mass/Vol] 128 mg/dL 70-140 [facility] HIVon 03-06-2025 HIV Non-Reactive Normal Nonreactive [facility] Comment on above: Result Comment: Non- Reactive Reactive Repeatedly reactive samples must be confirmed according to CDC recommended confirmatory algorithms. The subresults for either HIVAG or AHIV can be used as an aid in the selection of the confirmation algorithm for reactive samples. Send out specimens with Reactive results to [facility] for confirmation. Order the HIV antibody detection and differentiation: lc#[id number] Performed By: #### L 3890.6006, L100.0100, L501.0250, L509.8002 ####[facility] [address] [place], [place], [id number] Hematocrit Auto (Bld) [Volum e fraction]Ordered By: Jacqueline Knight on 03-06-2025 Hematocrit (Bld) [Volume fraction] 32.3 % Low 37-47 [facility] Hemoglobin measurementOrdere d By: Jacqueline Knight on 03-06-2025 Hemoglobin (Bld) [Mass/Vol] 10.5 g/dL Low 12.0-15.0 [facility] Immature granulocytes/100 WB C Auto (Bld)Ordered By: Jacqueline Knight on 03-06-2025 Immature granulocytes/100 WBC (Bld) 1.000 % High 0.0-0.9 [facility] Comment on above: IG% - Immature Granu locytes (promyelocytes, myelocytes and metamyelocytes) > 1% indicates that a LEFT SHIFT is Present. Iron measurement (mass/mass) Ordered By: Jacqueline Knight on 03-06-2025 Iron (Unsp spec) [Mass/Mass] 40 ug/dL Low 50-170 [facility] Iron+Iron Binding Capacityon 03-06-2025 TIBC 513 ug/dL High 250-450 [facility] Comment on above: Performed By: #### L 503.6030, L503.6550, L3400.3800 ####[facility] [address] [place], [place], [id number] Laboratory - Chemistry and C hemistry - challengeOrdered By: Jacqueline Knight on 03-06-2025 Glucose Ql (U) Negative [facility] Laboratory - UrinalysisOrder ed By: Jacqueline Knight on 03-06-2025 Protein Ql (U) Negative [facility] MCV (mean corpuscular volume ) determinationOrdered By: Jacqueline Knight on 03-06-2025 MCV (RBC) [Entitic vol] 77.1 fL Low 81-99 [facility] Mean corpuscular hemoglobin (MCH) determinationOrdered By: Jacqueline Knight on 03-06-2025 MCH (RBC) [Entitic mass] 25.1 pg Low 27.0-32.0 [facility] Mean corpuscular hemoglobin concentration (MCHC) determinationOrdered By: Jacqueline Knight on 03-06-2025 MCHC (RBC) [Mass/Vol] 32.5 g/dL 32-36 [facility] Mean platelet volume determi nationOrdered By: Jacqueline Knight on 03-06-2025 Platelet mean volume (Bld) [Entitic vol] 11.0 fL 6.2-12.0 [facility] Monocyte percentageOrdered B y: Jacqueline Knight on 03-06-2025 Monocytes/100 WBC (Bld) 7.2 % 0-10 [facility] Neutrophil percentageOrdered By: Jacqueline Knight on 03-06-2025 Neutrophils/100 WBC (Bld) 72.2 % High 47-70 [facility] No Panel InformationOrdered By: Jacqueline Knight on 03-06-2025 Unsaturated Iron Binding Capacity 473 ug/dL High 228-428 [facility] HIV (1&2) Antibody Non-Reactive Nonreactive [facility] Comment on above: Non-ReactiveReactive Repeatedly reactive samples must be confirmed according to CDC recommended confirmatory algorithms. The subresults for either HIVAG or AHIV can be used as an aid in the selection of the confirmation algorithm for reactive samples.Send out specimens with Reactive results to [facility] for confirmation.Order the HIV antibody detection and differentiation: #[id number] Nucleated red blood cell per centageOrdered By: Jacqueline Eugene on 03-06-2025 Nucleated RBC/100 WBC (Bld) [Ratio] 0 % 0-5 [facility] Retail Receiving Clerk Office Visit Reporton 03-06-2025 Retail Receiving Clerk Office Visit Report [address], [address] [place] [address] OFFICE VISIT Date of Service: 03/06/25 MR#: [id number] Acct: [id number] Name: ADENIKE RUTH Rep #: [id number] : 2005 Provider: Dr. 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 Is patient in pain?: No Allergies No Known Allergies Allergy (Verified 03/06/25 09:44) Medications ???Medication ???Instructions ???Recorded ???Confirmed ???Type PNV 153-FA 400 mcg-om3 35 mg-dha tab PO 10/26/24 03/06/25 History 25 mg-epa 5 mg-fish oil chew tablet fluoxetine 20 mg capsule (Prozac) 20 mg PO DAILY #30 caps 03/06/25 03/06/25 Rx vitamins no.180-ferrous 1 tab PO DAILY #30 tabs 03/06/25 0 03/06/25 Rx fumarate 27 mg-folic acid 1 mg tablet ( Plus Vitamin-Mineral) Last Menstrual Period: 09/04/24 : No PFSH [...] year weight has: increased > 10 lbs sharmila/cheondoism: None seatbelt use: sometimes do you feel [...] - full term 7lbs 11oz Female epidural [facility] Nadege Jacob Delivery Date: 12/01/22 Last Updated by: Ruthy Wyatt 1st degree laceration HPI 26wk ob/glucose Details: ADENIKE RUTH is a 19 year old who presents for routine OB visit. OB Visit JIMENA Calculator Estimated Delivery Date Method Current WG Current Estimate 06/11/25 LMP (Certain) 26w 1d Expected Delivery Route/Plan Labor Preferences- CB/BF [...] either. will notify peds for alpha thal jose (more content not included)... Normal [facility] Platelet countOrdered By: Trip Knight on 03-06-2025 Platelets (Bld) [#/Vol] 283 10*3/uL 150-450 [facility] RBC Auto (Bld) [#/Vol]Ordere d By: Jacqueline Knight on 03-06-2025 RBC (Bld) [#/Vol] 4.19 10*6/uL Low 4.2-5.4 [facility] Serum or plasma ferritin sharon surement (mass/volume)Ordered By: Jacqueline Knight on 03-06-2025 Ferritin [Mass/Vol] 11 ng/mL Low 22-378 [facility] Serum or plasma iron saturat ion measurement (mass fraction)Ordered By: Jacqueline Knight on 03-06-2025 Iron saturation [Mass fraction] 7.8 % Low 13-59 [facility] Comment on above: Previous reported re sult: 7.7 %Edited by: SADIE on 03/06/25:1427 Syphilis Antibodieson 2024 Syphilis Abs Non-Reactive Normal Nonreactive [facility] Comment on above: Performed By: #### L 3890.6006, L100.0100, L501.0250, L509.8002 ####[facility] [address], [place], [id number] TransferrinOrdered By: Tessa Knight on 03-06-2025 Transferrin [Mass/Vol] 437 mg/dL High 192-364 [facility] Comment on above: Performed at: [address] [id number] Director: Iván Calles PhD, Phone: [phone] White blood cell (WBC) count Ordered By: Jacqueline Knight on 03-06-2025 WBC (Bld) [#/Vol] 9.1 10*3/uL 4.4-11.0 [facility] Laboratory - Chemistry and C hemistry - challengeOrdered By: Nadege Jarrell on 02-04-2025 Glucose Ql (U) Negative [facility] Laboratory - UrinalysisOrder ed By: Nadege Jarrell on 02-04-2025 Protein Ql (U) Negative [facility] Retail Receiving Clerk Office Visit Reporton 02-04-2025 Retail Receiving Clerk Office Visit Report [facility], [address] [place] [address] OFFICE VISIT Date of Service: 02/04/25 MR#: [id number] Acct: [id number] Name: ADENIKE RUTH Rep #: [id number] : 2005 Provider: JAXON Frazier ams Age/Sex: 19/F [place] [facility] [place]: Signed Intake Vital Signs 01/09/25 15:51 02/04/25 10:58 Height 5 ft 4 in 5 ft 4 in Weight: 185 lb 5 oz BMI 31.8 BP 104/70 Intake Visit Reasons: 22wk ob Chief Complaint: 22wk OB Wood Cabinet Finisher Required: No Is patient in pain?: No [...] year weight has: increased > 10 lbs sharmila/cheondoism: None seatbelt use: sometimes do you feel safe at home: Yes additional social history: Boyfriend-Solomon History 4 Elective abortions 2 Hx Para 1 Spontaneous abortions Hx # Term Pregnancies Ectopic pregnancies Hx # Pregnancies Multiple births # of living children 1 Past Pregnancies Del. Date Name GA/Weeks Outcome Route Bth Weight Infant Gen Labor Lgth Anesthesia Del [place] Provider FOB 12/01/22 Ismaeltalyne 38 live - full term 7lbs 11oz Female epidural [facility] Nadege Jacob Delivery Date: 12/01/22 [...] +flutters. gluco (more content not included)... Normal [facility] Laboratory - Chemistry and C hemistry - challengeOrdered By: Mayi Aguirre on 01-09-2025 Glucose Ql (U) Negative [facility] Laboratory - UrinalysisOrder ed By: Mayi Aguirre on 01-09-2025 Protein Ql (U) Negative [facility] Retail Receiving Clerk Office Visit Reporton 01-09-2025 Retail Receiving Clerk Office Visit Report [facility] [address], [address] [place] [address] OFFICE VISIT Date of Service: 01/09/25 MR#: [id number] Acct: [id number] Name: ADENIKE RUTH Rep #: [id number] : 2005 Provider: Dr. Mayi Roach DO Age/Sex: 19/F [place] [facility] [place]: Signed Intake Vital Signs 12/10/24 15:10 12/17/24 13:25 01/09/25 15:51 Height 5 ft 4 in 5 ft 4 in 5 ft 4 in Weight: 182 lb 2 oz BMI 31.2 BP 102/67 Intake Visit Reasons: 18 wks ob Wood Cabinet Finisher Required: No Is patient in pain?: No [...] year weight has: increased > 10 lbs sharmila/cheondoism: None seatbelt use: sometimes do you feel [...] - full term 7lbs 11oz Female epidural [facility] Nadege Jarrell Cecil Delivery Date: [...] care, Un (more content not included)... Normal [facility] Chlamydia/GC SARIKA aptimaon CHLAMY,NUC ACID Negative Normal Negative [facility] Comment on above: Performed By: #### M 100.2200, L3890.6006, L509.4006, L501.9985, L3890.6102, L509.8002, L7000.1800, L3890.6301, L7400.0353, BTS, L100.0100 ####[facility] [address] [place], [place], [id number] GC BY NUC ACID Negative Normal Negative [facility] Comment on above: Result Comment: Perf ormed at: =G - [facility] [address] [id number] Shipfitter Helper: Rabia Odom MD, Phone: [phone] Performed By: #### M 100.2200, L3890.6006, L509.4006, L501.9985, L3890.6102, L509.8002, L7000.1800, L3890.6301, L7400.0353, BTS, L100.0100 ####[facility] [address] [place], [address] PAP I-G w/rfx hrHPV-Aptimaon 12-13-2024 ADEQ Comment Normal . [facility] Comment on above: Order Comment: Speci men Comment: [id number] Comment: No. of containers..01 ThinPrep Vial Result Comment: Sati sfactory for evaluation. Endocervical and/or squamous metaplastic cells (endocervical component) are present. Performed By: #### M 100.2200, L3890.6006, L509.4006, L501.9985, L3890.6102, L509.8002, L7000.1800, L3890.6301, L7400.0353, BTS, L100.0100 ####[facility] [address] [place], [place], [address] COMM . Normal . [facility] Comment on above: Order Comment: Speci men Comment: [id number] Comment: No. of containers..01 ThinPrep Vial Performed By: #### M 100.2200, L3890.6006, L509.4006, L501.9985, L3890.6102, L509.8002, L7000.1800, L3890.6301, L7400.0353, BTS, L100.0100 ####[facility] [address] [place], [address] COMMENT Comment Normal . [facility] Comment on above: Order Comment: Rufinai men Comment: [id number] Comment: No. of containers..01 ThinPrep Vial Result Comment: This liquid based ThinPrep(R) pap test was screened with the use of an image guided system. Performed By: #### M 100.2200, L3890.6006, L509.4006, L501.9985, L3890.6102, L509.8002, L7000.1800, L3890.6301, L7400.0353, BTS, L100.0100 ####[facility] [address] [place], [place], [address] DIAG Comment Normal . [facility] Comment on above: Order Comment: Speci men Comment: [id number] Comment: No. of containers..01 ThinPrep Vial Result Comment: NEGA TIVE FOR INTRAEPITHELIAL LESION OR MALIGNANCY. Performed By: #### M 100.2200, L3890.6006, L509.4006, L501.9985, L3890.6102, L509.8002, L7000.1800, L3890.6301, L7400.0353, BTS, L100.0100 ####[facility] [address] [place], [place], [address] HPV RFLX Comment Normal . [facility] Comment on above: Order Comment: Speci men Comment: [id number] Comment: No. of containers..01 ThinPrep Vial Result Comment: The HPV DNA reflex criteria were not met with this specimen result therefore, no HPV testing was performed. Performed at: [address] [id number] Shipfitter Helper: Rabia Odom MD, Phone: [phone] Performed By: #### M 100.2200, L3890.6006, L509.4006, L501.9985, L3890.6102, L509.8002, L7000.1800, L3890.6301, L7400.0353, BTS, L100.0100 ####[facility] [address] [place], [place], [address] PAPSMR Comment Normal . [facility] Comment on above: Order Comment: Speci men Comment: [id number] Comment: No. of containers..01 ThinPrep Vial Result Comment: The Pap smear is a screening test designed to aid in the detection of premalignant and malignant conditions of the uterine cervix. It is not a diagnostic procedure and should not be used as the sole means of detecting cervical cancer. Both false-positive and false-negative reports do occur. Performed By: #### M 100.2200, L3890.6006, L509.4006, L501.9985, L3890.6102, L509.8002, L7000.1800, L3890.6301, L7400.0353, BTS, L100.0100 ####[facility] [address] [place], [place], [address] PERFORM Comment Normal . [facility] Comment on above: Order Comment: Speci men Comment: [id number] Comment: No. of containers..01 ThinPrep Vial Result Comment: Tish Calle, Sticker On Performed By: #### M 100.2200, L3890.6006, L509.4006, L501.9985, L3890.6102, L509.8002, L7000.1800, L3890.6301, L7400.0353, BTS, L100.0100 ####[facility] [address] [place], [address] Urine Cultureon 12-13-2024 [facility] Mixed Gram Positive Organisms [place] Count 11,000-25,000 MIXC Mixed contaminants. Submit a new specimen if indicated. Normal [facility] Comment on above: Performed By: #### M 100.2200, L3890.6006, L509.4006, L501.9985, L3890.6102, L509.8002, L7000.1800, L3890.6301, L7400.0353, BTS, L100.0100 ####[facility] [address] [place], [place], [id number] Absolute lymphocyte countOrd ered By: Elo Rivas on 12-10-2024 Lymphocytes Auto (Unsp spec) [#/Vol] 1.68 10*3/uL 0.83-4.51 [facility] Absolute neutrophil countOrd ered By: Elo Rivas on 12-10-2024 Neutrophils (Bld) [#/Vol] 6.4 10*3/uL 2.0-7.7 [facility] Automated blood erythrocyte countOrdered By: Elo Rivas on 12-10-2024 RBC (Bld) [#/Vol] 5.06 10*6/uL Normal 4.2-5.4 [facility] Comment on above: Performed By: #### M 100.2200, L3890.6006, L509.4006, L501.9985, L3890.6102, L509.8002, L7000.1800, L3890.6301, L7400.0353, BTS, L100.0100 #### [facility] [address] [place], [place], [id number] Automated blood hematocrit ( percentage)Ordered By: Elo Rivas on 12-10-2024 Hematocrit (Bld) [Volume fraction] 39.2 % Normal 37-47 [facility] Comment on above: Performed By: #### M 100.2200, L3890.6006, L509.4006, L501.9985, L3890.6102, L509.8002, L7000.1800, L3890.6301, L7400.0353, BTS, L100.0100 #### [facility] [address] [place], [place], [id number] Automated lymphocyte count a s percentage of total leukocytesOrdered By: Elo Rivas on 12-10-2024 Lymphocytes/100 WBC Auto (Unsp spec) 18.7 % Low 19-41 [facility] Basophil percentageOrdered B y: Elo Rivas on 12-10-2024 Basophils/100 WBC (Bld) 0.4 % Normal 0-1 [facility] Comment on above: Performed By: #### M 100.2200, L3890.6006, L509.4006, L501.9985, L3890.6102, L509.8002, L7000.1800, L3890.6301, L7400.0353, BTS, L100.0100 #### [facility] [address] [place], [place], [id number] CBC W/Diff, Automatedon 06-3 0-2024 Absolute Lymph 1.68 X10 3/uL Normal 0.83-4.51 [facility] Comment on above: Performed By: #### M 100.2200, L3890.6006, L509.4006, L501.9985, L3890.6102, L509.8002, L7000.1800, L3890.6301, L7400.0353, BTS, L100.0100 #### [facility] [address] [place], [address] Absolute Neut 6.4 X10 3/uL Normal 2.0-7.7 [facility] Comment on above: Performed By: #### M 100.2200, L3890.6006, L509.4006, L501.9985, L3890.6102, L509.8002, L7000.1800, L3890.6301, L7400.0353, BTS, L100.0100 #### [facility] [address] [place], [address] IG% 0.300 Normal 0.0-0.9 [facility] Comment on above: Result Comment: IG% - Immature Granulocytes (promyelocytes, myelocytes and metamyelocytes) > 1% indicates that a LEFT SHIFT is Present. Performed By: #### M 100.2200, L3890.6006, L509.4006, L501.9985, L3890.6102, L509.8002, L7000.1800, L3890.6301, L7400.0353, BTS, L100.0100 #### [facility] [address] [place], [address] Lymphocytes/100 WBC (Bld) 18.7 % Low 19-41 [facility] Comment on above: Performed By: #### M 100.2200, L3890.6006, L509.4006, L501.9985, L3890.6102, L509.8002, L7000.1800, L3890.6301, L7400.0353, BTS, L100.0100 #### [facility] [address] [place], [address] Nucleated RBC (Bld) [#/Vol] 0 10*3/uL Normal 0-5 [facility] Comment on above: Performed By: #### M 100.2200, L3890.6006, L509.4006, L501.9985, L3890.6102, L509.8002, L7000.1800, L3890.6301, L7400.0353, BTS, L100.0100 #### [facility] [address] [place], [place], [address] RDW SD 39.8 fl Normal 35.1-43.9 [facility] Comment on above: Performed By: #### M 100.2200, L3890.6006, L509.4006, L501.9985, L3890.6102, L509.8002, L7000.1800, L3890.6301, L7400.0353, BTS, L100.0100 #### [facility] [address] [place], [place], [id number] Cervical or vagninal specime n microscopic examination by cytology stain (reported asOrdered By: Elo Rivas on 12-10-2024 Cytology report Cyto stain Doc (Cvx/Vag) Comment . [facility] Comment on above: The Pap smear is [...] rRNA SARIKA+probe Ql (Unsp spec) Negative Negative [facility] Eosinophil percentageOrdered By: Elo Rivas on 12-10-2024 Eosinophils/100 WBC (Bld) 1.6 % Normal 0-5 [facility] Comment on above: Performed By: #### M 100.2200, L3890.6006, L509.4006, L501.9985, L3890.6102, L509.8002, L7000.1800, L3890.6301, L7400.0353, BTS, L100.0100 #### [facility] [address] [place], [address] Erythrocyte distribution wid th ratioOrdered By: Elo Rivas on 12-10-2024 Erythrocyte distribution width (RBC) [Ratio] 14.3 % Normal 11.6-14.6 [facility] Comment on above: Performed By: #### M 100.2200, L3890.6006, L509.4006, L501.9985, L3890.6102, L509.8002, L7000.1800, L3890.6301, L7400.0353, BTS, L100.0100 #### [facility] [address] [place], [place], [id number] (585) Erythrocyte distribution wid th standard deviationOrdered By: Elo Rivas on 12-10-2024 Erythrocyte distribution width (RBC) [Ratio] 39.8 fl 35.1-43.9 [facility] HIVon 12-10-2024 HIV Non-Reactive Normal Nonreactive [facility] Comment on above: Result Comment: Non- Reactive Reactive Repeatedly reactive samples must be confirmed according to CDC recommended confirmatory algorithms. The subresults for either HIVAG or AHIV can be used as an aid in the selection of the confirmation algorithm for reactive samples. Send out specimens with Reactive results to [facility] for confirmation. Order the HIV antibody detection and differentiation: lc#[id number] Performed By: #### M 100.2200, L3890.6006, L509.4006, L501.9985, L3890.6102, L509.8002, L7000.1800, L3890.6301, L7400.0353, BTS, L100.0100 #### [facility] [address] [place], [place], [id number] (433) Hemoglobin A1c percentageOrd ered By: Elo Rivas on 12-10-2024 HbA1c (Bld) [Mass fraction] 5.5 % Normal <=5.6 [facility] Comment on above: Normal < 5.7 % Predi abetic 5.7 - 6.4 % Diabetic >or= 6.5 % Please note range changes. Result Comment: Norm al < 5.7 % Prediabetic 5.7 - 6.4 % Diabetic >or= 6.5 % Please note range changes. Performed By: #### M 100.2200, L3890.6006, L509.4006, L501.9985, L3890.6102, L509.8002, L7000.1800, L3890.6301, L7400.0353, BTS, L100.0100 ####[facility] [address] [place], [place], [id number] Hemoglobin measurementOrdere d By: Elo Rivas on 12-10-2024 Hemoglobin (Bld) [Mass/Vol] 13.2 g/dL Normal 12.0-15.0 [facility] Comment on above: Performed By: #### M 100.2200, L3890.6006, L509.4006, L501.9985, L3890.6102, L509.8002, L7000.1800, L3890.6301, L7400.0353, BTS, L100.0100 #### [facility] [address] [place], [place], [address] Hepatitis C Antibodyon 12-10 Hepatitis C Ab Non-Reactive Normal Nonreactive [facility] Comment on above: Result Comment: Reac tive: Presumptive evidence of antibodies to HCV. Follow CDC recommendations for supplemental testing. Non-Reactive: Antibodies to HCV were not detected; does not exclude the possibility of exposure to HCV Reactive Results are presumptive evidence of antibodies to HCV. Follow CDC recommendations for supplemental testing. Order confirmation testing: HCV Quant by PCR testing - HCVPCR #[id number] Non Reactive: < 0.8 Equivocal: >/= 0.8 to < 1.0 Reactive: >/= 1.0 The CDC requires that a reactive/equivocal HCV antibody result be sent out for confirmation. HCV Quant by PCR testing. Performed By: #### M 100.2200, L3890.6006, L509.4006, L501.9985, L3890.6102, L509.8002, L7000.1800, L3890.6301, L7400.0353, BTS, L100.0100 #### [facility] [address] [facility] [place], [address] Immature granulocytes/100 WB C Auto (Bld)Ordered By: Elo Rivas on 12-10-2024 Immature granulocytes/100 WBC (Bld) 0.300 % 0.0-0.9 [facility] Comment on above: IG% - Immature Granu locytes (promyelocytes, myelocytes and metamyelocytes) > 1% indicates that a LEFT SHIFT is Present. L3890.6102on 12-10-2024 HEP B Surf Ag Non-Reactive Normal Nonreactive [facility] Comment on above: Result Comment: Reac tive: Presumptive evidence of HBV. Repeatedly reactive samples must be confirmed using a neutralization test ([employer] HBsAg Confirmatory Test) Non-Reactive: HBsAg not detected; does not exclude the possibility of exposure to HBV Performed By: #### M 100.2200, L3890.6006, L509.4006, L501.9985, L3890.6102, L509.8002, L7000.1800, L3890.6301, L7400.0353, BTS, L100.0100 #### [facility] [address] [facility] [place], [address] L509.4006on 12-10-2024 Rubella IgG REAC Normal Nonreactive [facility] Comment on above: Result Comment: Anti body Result: Interpretation Non-Reactive: Non-Immune Reactive: Immune The following results were obtained with the [employer] Rubella IgG assay. Results from assays of other manufacturers cannot be used interchangeably. Performed By: #### M 100.2200, L3890.6006, L509.4006, L501.9985, L3890.6102, L509.8002, L7000.1800, L3890.6301, L7400.0353, BTS, L100.0100 #### [facility] [address] [place], [place], [id number] Laboratory - CytologyOrdered By: Elo Rivas on 12-10-2024 Sticker On Cyto stain Nom (Cvx/Vag) [ID] Comment . [facility] Comment on above: Misael Aguirre tologdavid Laboratory - Microbiology an d Antimicrobial susceptibilityOrdered By: Elo Rivas on 12-10-2024 HBV surface Ag Ql (S) Non-Reactive Nonreactive [facility] Comment on above: Reactive: Presumptiv e evidence of HBV. Repeatedly reactive samples must be confirmed using a neutralization test ([employer] HBsAg Confirmatory Test)Non-Reactive: HBsAg not detected; does not exclude the possibility of exposure to HBV Laboratory - Miscellaneous t estsOrdered By: Elo Rivas on 12-10-2024 Service comment (Unsp spec) [Interp] . . [facility] MCV (mean corpuscular volume ) determinationOrdered By: Elo Rivas on 12-10-2024 MCV (RBC) [Entitic vol] 77.5 fL Low 81-99 [facility] Comment on above: Performed By: #### M 100.2200, L3890.6006, L509.4006, L501.9985, L3890.6102, L509.8002, L7000.1800, L3890.6301, L7400.0353, BTS, L100.0100 #### [facility] [address] [place], [place], [address] Mean corpuscular hemoglobin (MCH) determinationOrdered By: Elo Rivas on 12-10-2024 MCH (RBC) [Entitic mass] 26.1 pg Low 27.0-32.0 [facility] Comment on above: Performed By: #### M 100.2200, L3890.6006, L509.4006, L501.9985, L3890.6102, L509.8002, L7000.1800, L3890.6301, L7400.0353, BTS, L100.0100 #### [facility] [address] [place], [address] Mean corpuscular hemoglobin concentration (MCHC) determinationOrdered By: Elo Rivas on 12-10-2024 MCHC (RBC) [Mass/Vol] 33.7 g/dL Normal 32-36 [facility] Comment on above: Performed By: #### M 100.2200, L3890.6006, L509.4006, L501.9985, L3890.6102, L509.8002, L7000.1800, L3890.6301, L7400.0353, BTS, L100.0100 #### [facility] [address] [place], [address] Mean platelet volume determi nationOrdered By: Elo Rivas on 12-10-2024 Platelet mean volume (Bld) [Entitic vol] 10.3 fL Normal 6.2-12.0 [facility] Comment on above: Performed By: #### M 100.2200, L3890.6006, L509.4006, L501.9985, L3890.6102, L509.8002, L7000.1800, L3890.6301, L7400.0353, BTS, L100.0100 #### [facility] [address] [place], [address] Monocyte percentageOrdered B y: Elo Rivas on 12-10-2024 Monocytes/100 WBC (Bld) 7.7 % Normal 0-10 [facility] Comment on above: Performed By: #### M 100.2200, L3890.6006, L509.4006, L501.9985, L3890.6102, L509.8002, L7000.1800, L3890.6301, L7400.0353, BTS, L100.0100 #### [facility] [address] [facility] [place], [place], [id number] NATERAon 12-10-2024 NATURA SEE SCANNED REPORT Normal [facility] Comment on above: Performed By: #### L 900.0098 ####[facility] [address] [place], [place], [address] Neisseria gonorrhoeae nuclei c acid detection by amplified probe techniqueOrdered By: Elo Rivas on 12-10-2024 N. gonorrhoeae DNA SARIKA+probe Ql (Unsp spec) Negative Negative [facility] Comment on above: Performed at: =[address] [id number] Director: Rabia Odom MD, Phone: [phone] Neutrophil percentageOrdered By: Elo Rivas on 12-10-2024 Neutrophils/100 WBC (Bld) 71.3 % High 47-70 [facility] Comment on above: Performed By: #### M 100.2200, L3890.6006, L509.4006, L501.9985, L3890.6102, L509.8002, L7000.1800, L3890.6301, L7400.0353, BTS, L100.0100 #### [facility] [address] [place], [address] No Panel InformationOrdered By: Elo Rivas on 12-10-2024 HIV (1&2) Antibody Non-Reactive Nonreactive [facility] Comment on above: Non-ReactiveReactive Repeatedly reactive samples must be confirmed according to CDC recommended confirmatory algorithms. The subresults for either HIVAG or AHIV can be used as an aid in the selection of the confirmation algorithm for reactive samples.Send out specimens with Reactive results to [facility] for confirmation.Order the HIV antibody detection and differentiation: #[id number] Pap Smear Specimen Adequacy Comment . [facility] Comment on above: Satisfactory for iqra luation. Endocervical and/or squamous metaplasticcells (endocervical component) are present. Nucleated red blood cell per centageOrdered By: Elo Rivas on 12-10-2024 Nucleated RBC/100 WBC (Bld) [Ratio] 0 % 0-5 [facility] Retail Receiving Clerk Office Visit Reporton 12-10-2024 Retail Receiving Clerk Office Visit Report [facility] [address], [address] [place] [address] OFFICE VISIT Date of Service: 12/10/24 MR#: [id number] Acct: [id number] Name: ADENIKE RUTH Rep #: [id number] : 2005 Provider: Dr. 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 Normal [facility] Platelet countOrdered By: Shaista Rivas on 12-10-2024 Platelets (Bld) [#/Vol] 318 10*3/uL Normal 150-450 [facility] Comment on above: Performed By: #### M 100.2200, L3890.6006, L509.4006, L501.9985, L3890.6102, L509.8002, L7000.1800, L3890.6301, L7400.0353, BTS, L100.0100 #### [facility] [address] [place], [address] Syphilis Antibodieson 2024 Syphilis Abs Non-Reactive Normal Nonreactive [facility] Comment on above: Performed By: #### M 100.2200, L3890.6006, L509.4006, L501.9985, L3890.6102, L509.8002, L7000.1800, L3890.6301, L7400.0353, BTS, L100.0100 #### [facility] [address] [facility] [place], [address] Type AND Screenon 12-10-2024 ABO and Rh group Nom (Bld) Blood group A Rh(D) positive Normal [facility] Comment on above: Order Comment: PN Performed By: #### M 100.2200, L3890.6006, L509.4006, L501.9985, L3890.6102, L509.8002, L7000.1800, L3890.6301, L7400.0353, BTS, L100.0100 #### [facility] [address] [facility] [address] [facility] [address] [place], [place], [address] Urine cultureOrdered By: Elizabeth Rivas on 12-10-2024 Bacteria identified Cx Nom (U) Positive Abnormal [facility] White blood cell (WBC) count Ordered By: Elo Rivas on 12-10-2024 WBC (Bld) [#/Vol] 9.0 10*3/uL Normal 4.4-11.0 [facility] Comment on above: Performed By: #### M 100.2200, L3890.6006, L509.4006, L501.9985, L3890.6102, L509.8002, L7000.1800, L3890.6301, L7400.0353, BTS, L100.0100 #### [facility] [address] [facility] [place], [address] CNCOon 09-23-2024 CNCO Letter Text Normal [facility] CNOVon 09-23-2024 CNOV Office Visit (UCWSTR ) LIDYAADENIKE CARLTON ([id number]) 1 F Date Time Provider Department 09/23/24 2:15 PM RIKI ALBARADO [facility] During your visit today, we recorded the following information about you: Temperature Pulse Respiration Blood pressure 98.3 degrees 84/minute 16/minute 110/76 Weight Last Period 87.5 kg 09/04/24 Riki Albarado, APPLICATION SUPPORT DEVELOPER.RN CORRECTIONAL 09/23/2024 2:52 PM Signed Subjective HPI Nontoxic-appearing [...] otherwise unremarkabl (more content not included)... Normal [facility] Absolute lymphocyte countOrd ered By: Mickey Archer on 10-24-2023 Lymphocytes Auto (Unsp spec) [#/Vol] 2.22 10*3/uL 0.83-4.51 [facility] Amorphous sediment detection in urine sediment by light microscopyOrdered By: Mickey Archer on 10-24-2023 Amorphous sediment LM Ql (Urine sed) 1+ [facility] Automated lymphocyte count a s percentage of total leukocytesOrdered By: Mickey Archer on 10-24-2023 Lymphocytes/100 WBC Auto (Unsp spec) 31.5 % 19-41 [facility] Basophil percentageOrdered B y: Mickey Archer on 10-24-2023 Basophil percentage 0 SEEN /hpf 0-5 [facility] Basophils/100 WBC (Bld) 0.9 % 0-1 [facility] Chloride [Moles/Vol] 105 mmol/L 98-107 [facility] Eosinophils/100 WBC (Bld) 1.7 % 0-5 [facility] Glucose [Mass/Vol] 94 mg/dL 74-106 [facility] Hemoglobin (Bld) [Mass/Vol] 13.7 g/dL 12.0-15.0 [facility] Monocytes/100 WBC (Bld) 10.8 % 0-10 [facility] Neutrophils (Bld) [#/Vol] 3.9 10*3/uL 2.0-7.7 [facility] Neutrophils/100 WBC (Bld) 54.8 % 47-70 [facility] Potassium [Moles/Vol] 3.8 mmol/L 3.5-5.1 [facility] Sodium [Moles/Vol] 138 mmol/L 136-145 [facility] WBC (Bld) [#/Vol] 7.0 10*3/uL 4.4-11.0 [facility] Bilirubin Test strip Ql (U)O rdered By: Mickey Archer on 10-24-2023 Bilirubin Ql (U) Negative Negative [facility] Determination of erythrocyte mean corpuscular volume (MCV)Ordered By: Mickey Archer on 10-24-2023 MCV (RBC) [Entitic vol] 77.8 fL 81-99 [facility] Erythrocyte distribution wid th ratioOrdered By: Mickey Archer on 10-24-2023 Erythrocyte distribution width (RBC) [Ratio] 13.7 % 11.6-14.6 [facility] Erythrocyte distribution wid th standard deviationOrdered By: Mickey Archer on 10-24-2023 Erythrocyte distribution width (RBC) [Entitic vol] 38.9 fL 35.1-43.9 [facility] Hematocrit Auto (Bld) [Volum e fraction]Ordered By: Mickey Archer on 10-24-2023 Hematocrit (Bld) [Volume fraction] 42.7 % 37-47 [facility] Immature granulocytes/100 WB C Auto (Bld)Ordered By: Mickey Archer on 10-24-2023 Immature granulocytes/100 WBC (Bld) 0.300 % 0.0-0.9 [facility] Comment on above: IG% - Immature Granu locytes (promyelocytes, myelocytes and metamyelocytes) > 1% indicates that a LEFT SHIFT is Present. Ketones Test strip Ql (U)Ord ered By: Mickey Archer on 10-24-2023 Ketones Ql (U) Negative Negative [facility] Laboratory - Chemistry and C hemistry - challengeOrdered By: Mickey Archer on 10-24-2023 CO2 [Moles/Vol] 28.0 mmol/L 21.0-32.0 [facility] Urea nitrogen/Creatinine [Mass ratio] 14.9 mg/mg 10-20 [facility] - Hematology and Cell countsOrdered By: Mickey Archer on 10-24-2023 MCH (RBC) [Entitic mass] 25.0 pg 27.0-32.0 [facility] MCHC (RBC) [Mass/Vol] 32.1 g/dL 32-36 [facility] Nucleated RBC/100 WBC (Bld) [Ratio] 0 % 0-5 [facility] Platelet mean volume (Bld) [Entitic vol] 9.6 fL 6.2-12.0 [facility] Platelets (Bld) [#/Vol] 356 10*3/uL 150-450 [facility] Mucus LM Ql (Urine sed)Order ed By: Mickey Archer on 10-24-2023 Mucus Ql (Urine sed) 0 SEEN /hpf [facility] Nitrite Test strip Ql (U)Ord ered By: Mickey Archer on 10-24-2023 Nitrite Ql (U) Negative Negative [facility] No Panel InformationOrdered By: Mickey Archer on 10-24-2023 Urine RBC 0 SEEN /hpf 0-5 [facility] Estimated Creatinine Clearance Calc 99.05 ml/min [facility] Estimated GFR (MDRD) Amer 107 mL/min >60 [facility] Comment on above: GFR Calc Estimated GFR (MDRD) Non-Af Amer 88 mL/min >60 [facility] Comment on above: Non- GFR Calc Protein Test strip Ql (U)Ord ered By: Mickey Archer on 10-24-2023 Protein Ql (U) Negative Negative [facility] RBC Auto (Bld) [#/Vol]Ordere d By: Mickey Archer on 10-24-2023 RBC (Bld) [#/Vol] 5.49 10*6/uL 4.2-5.4 [facility] Serum or plasma calcium debbie urement (mass/volume)Ordered By: Mickey Archer on 10-24-2023 Calcium [Mass/Vol] 9.9 mg/dL 8.5-10.1 [facility] Serum or plasma choriogonado tropin detectionOrdered By: Mayi Calix on 10-24-2023 HCG ( test) Ql Negative [facility] Serum or plasma creatinine m easurement (mass/volume)Ordered By: Mickey Archer on 10-24-2023 Creatinine [Mass/Vol] 0.87 mg/dL 0.55-1.02 [facility] Comment on above: The validity of the calculated GFR & GFRAA in patients over 70 years has not been determined. Clinical correlation is essential. Serum or plasma urea nitroge n measurement (mass/volume)Ordered By: Mickey Archer on 10-24-2023 Urea nitrogen [Mass/Vol] 13 mg/dL 7-18 [facility] Squamous epithelial cells de tection in urine sediment by light microscopyOrdered By: Mickey Archer on 10-24-2023 Epithelial cells.squamous LM Ql (Urine sed) 5-10 SEEN /hpf 5-10 [facility] Thin prep Papanicolaou smear with manual screeningOrdered By: Mickey Archer on 10-24-2023 Thin prep Papanicolaou smear with manual screening 5 5-15 [facility] Urine blood detectionOrdered By: Mickey Archer on 10-24-2023 RBC Ql (U) Negative Negative [facility] Urine clarityOrdered By: Janette Archer on 10-24-2023 Clarity (U) Sl. Cloudy Clear [facility] Urine color determinationOrd ered By: Mickey Archer on 10-24-2023 Color (U) Yellow Yellow [facility] Urine glucose detectionOrder ed By: Mickey Archer on 10-24-2023 Glucose Ql (U) Normal mg/dl Normal [facility] Urine leukocyte esterase det ection by dipstickOrdered By: Mickey Archer on 10-24-2023 Leukocyte esterase Test strip Ql (U) 25 /ul Negative [facility] Urine pHOrdered By: Mickey garza on 10-24-2023 pH (U) 6.5 [pH] 5.0 - 8.0 [facility] Urine sediment bacteria coun t by microscopy (number/high power field)Ordered By: Mickey Archer on 10-24-2023 Bacteria LM.HPF (Urine sed) [#/Area] 2 /[HPF] None Seen [facility] Urine specific gravity measu rementOrdered By: Mickey Archer on 10-24-2023 Specific gravity (U) [Rel density] 1.020 1.002-1.030 [facility] Urine urobilinogen measureme ntOrdered By: Mickey Archer on 10-24-2023 Urobilinogen Ql (U) Normal mg/dl Normal [facility] Absolute lymphocyte countOrd ered By: Dr. Knight on 12-01-2022 Lymphocytes Auto (Unsp spec) [#/Vol] 1.92 10*3/uL 0.83-4.51 [facility] Basophil percentageOrdered B y: Dr. Knight on 12-01-2022 Basophils/100 WBC (Bld) 0.4 % 0-1 [facility] Eosinophils/100 WBC (Bld) 1.7 % 0-5 [facility] Neutrophils (Bld) [#/Vol] 7.3 10*3/uL 2.0-7.7 [facility] Neutrophils/100 WBC (Bld) 67.7 % 47-70 [facility] WBC (Bld) [#/Vol] 10.7 10*3/uL 4.4-11.0 [facility] Blood erythrocytes count (nu mber/volume)Ordered By: Dr. Knight on 12-01-2022 RBC (Bld) [#/Vol] 4.72 10*6/uL 4.2-5.4 [facility] Blood hemoglobin measurement (mass/volume)Ordered By: Dr. Knight on 12-01-2022 Hemoglobin (Bld) [Mass/Vol] 12.0 g/dL 12.0-15.0 [facility] Blood lymphocytes/100 leukoc ytesOrdered By: Dr. Knight on 12-01-2022 Lymphocytes/100 WBC (Bld) 17.9 % 19-41 [facility] Blood monocytes/100 leukocyt esOrdered By: Dr. Knight on 12-01-2022 Monocytes/100 WBC (Bld) 10.8 % 0-10 [facility] Blood platelet mean volumeOr dered By: Dr. Knight on 12-01-2022 Platelet mean volume (Bld) [Entitic vol] 10.7 fL 6.2-12.0 [facility] Determination of erythrocyte mean corpuscular volume (MCV)Ordered By: Dr. Knight on 12-01-2022 MCV (RBC) [Entitic vol] 77.8 fL 81-99 [facility] Hematocrit Auto (Bld) [Volum e fraction]Ordered By: Dr. Knight on 12-01-2022 Hematocrit (Bld) [Volume fraction] 36.7 % 37-47 [facility] Laboratory - Drug toxicology Ordered By: Dr. Knight on 12-01-2022 Amphetamines Ql (U) Negative <1000 ng/mL [facility] Benzodiazepines Ql (U) Negative < 200 ng/mL [facility] Cannabinoids Screen Ql (U) Negative < 50 ng/mL [facility] Cocaine Ql (U) Negative < 300 ng/mL [facility] Opiates Ql (U) Negative < 300 ng/mL [facility] Laboratory - Hematology and Cell countsOrdered By: Dr. Knight on 12-01-2022 Erythrocyte distribution width (RBC) [Entitic vol] 41.8 fL 35.1-43.9 [facility] Erythrocyte distribution width (RBC) [Ratio] 15.1 % 11.6-14.6 [facility] Immature granulocytes/100 WBC (Bld) 1.500 % 0.0-0.9 [facility] Comment on above: IG% - Immature Granu locytes (promyelocytes, myelocytes and metamyelocytes) > 1% indicates that a LEFT SHIFT is Present. MCH (RBC) [Entitic mass] 25.4 pg 27.0-32.0 [facility] Nucleated RBC/100 WBC (Bld) [Ratio] 0 % 0-5 [facility] MCHC Auto (RBC) [Mass/Vol]Or dered By: Dr. Knight on 12-01-2022 MCHC (RBC) [Mass/Vol] 32.7 g/dL 32-36 [facility] No Panel InformationOrdered By: Dr. Knight on 12-01-2022 MDMA (Ecstasy) Screen Negative < 500 ng/mL [facility] Urine Barbiturates Screen Negative < 200 ng/mL [facility] Urine Drug Screen Comment [facility] Comment on above: CONFIRMATORY TESTING FOR ALL [...] Methadone Screen Negative < 300 ng/mL [facility] Vaginal Amniotic Fluid Detection Positive Negative [facility] Comment on above: Amniotic fluid prese nt indicates rupture of Membranes. RESULTS CALLED TO Bladimir SCHAFER 12/01/22 011Jacey Echavarria.REPORT READ BACK BY SAME. Platelets bldOrdered By: Dr. Knight on 12-01-2022 Platelets (Bld) [#/Vol] 278 10*3/uL 150-450 [facility] Serum Treponema species anti body detectionOrdered By: Dr. Knight on 12-01-2022 Treponema sp Ab Ql (S) Non-Reactive [facility] Urine phencyclidine (PCP) de tectionOrdered By: Dr. Knight on 12-01-2022 Phencyclidine Ql (U) Negative < 25 ng/mL [facility] Laboratory - Chemistry and C hemistry - challengeon 11-24-2022 Glucose Ql (U) Negative [facility] Laboratory - Urinalysison Protein Ql (U) Negative [facility] No Panel InformationOrdered By: Elo Rivas on 11-20-2022 Group B Streptococcus Culture Group B Beta Streptococcus is not isolated. [facility] Laboratory - Chemistry and C hemistry - challengeon 11-17-2022 Glucose Ql (U) Negative [facility] Laboratory - Urinalysison Protein Ql (U) Negative [facility] Laboratory - Chemistry and C hemistry - challengeon 11-03-2022 Glucose Ql (U) Negative [facility] Laboratory - Urinalysison Protein Ql (U) Negative [facility] Laboratory - Chemistry and C hemistry - challengeon 10-20-2022 Glucose Ql (U) Negative [facility] Laboratory - Urinalysison Protein Ql (U) Negative [facility] Laboratory - Chemistry and C hemistry - challengeon 10-06-2022 Glucose Ql (U) Negative [facility] Laboratory - Urinalysison Protein Ql (U) Negative [facility] Chlamydia trachomatis rRNA d etection by probe and target amplification methodOrdered By: Beverly Penny on 09-22-2022 C. trachomatis rRNA SARIKA+probe Ql (Unsp spec) Negative Negative [facility] Laboratory - Chemistry and C hemistry - challengeon 09-22-2022 Glucose Ql (U) Negative [facility] Laboratory - Microbiology an d Antimicrobial susceptibilityOrdered By: Beverly Penny on 09-22-2022 N. gonorrhoeae DNA SARIKA+probe Ql (Unsp spec) Negative Negative [facility] Comment on above: Performed at: =[address] [id number] Director: Rabia Odom MD, Phone: [phone] Laboratory - Urinalysison Protein Ql (U) Negative [facility] Absolute lymphocyte countOrd ered By: Dr. Aguirre on 09-08-2022 Lymphocytes Auto (Unsp spec) [#/Vol] 1.43 10*3/uL 0.83-4.51 [facility] Basophil percentageOrdered B y: Dr. Aguirre on 09-08-2022 Basophils/100 WBC (Bld) 0.4 % 0-1 [facility] Eosinophils/100 WBC (Bld) 2.1 % 0-5 [facility] Neutrophils (Bld) [#/Vol] 7.4 10*3/uL 2.0-7.7 [facility] Neutrophils/100 WBC (Bld) 72.9 % 47-70 [facility] WBC (Bld) [#/Vol] 10.1 10*3/uL 4.4-11.0 [facility] Blood erythrocytes count (nu mber/volume)Ordered By: Dr. Aguirre on 09-08-2022 RBC (Bld) [#/Vol] 4.48 10*6/uL 4.2-5.4 [facility] Blood hemoglobin measurement (mass/volume)Ordered By: Dr. Aguirre on 09-08-2022 Hemoglobin (Bld) [Mass/Vol] 11.7 g/dL 12.0-15.0 [facility] Blood lymphocytes/100 leukoc ytesOrdered By: Dr. Aguirre on 09-08-2022 Lymphocytes/100 WBC (Bld) 14.2 % 19-41 [facility] Blood monocytes/100 leukocyt esOrdered By: Dr. Aguirre on 09-08-2022 Monocytes/100 WBC (Bld) 8.8 % 0-10 [facility] Blood platelet mean volumeOr dered By: Dr. Aguirre on 09-08-2022 Platelet mean volume (Bld) [Entitic vol] 9.8 fL 6.2-12.0 [facility] Determination of erythrocyte mean corpuscular volume (MCV)Ordered By: Dr. Aguirre on 09-08-2022 MCV (RBC) [Entitic vol] 82.4 fL 81-99 [facility] Gestational diabetes screen 1-hour screen with 50g oral glucose loadOrdered By: Dr. Aguirre on 09-08-2022 Glucose 1 Hr post 50 g glucose PO [Mass/Vol] 113 mg/dL 70-140 [facility] HIV 1 and HIV-2 antibody ass ay with HIV-1 p24 antigen detectionOrdered By: Dr. Aguirre on 09-08-2022 HIV 1+2 Ab+HIV1 p24 Ag IA Ql Non-Reactive Nonreactive [facility] Hematocrit Auto (Bld) [Volum e fraction]Ordered By: Dr. Aguirre on 09-08-2022 Hematocrit (Bld) [Volume fraction] 36.9 % 37-47 [facility] Laboratory - Chemistry and C hemistry - challengeon 09-08-2022 Glucose Ql (U) Negative [facility] Laboratory - Drug toxicology Ordered By: Beverly Penny on 09-08-2022 Amphetamines Ql (U) Negative <1000 ng/mL [facility] Benzodiazepines Ql (U) Negative < 200 ng/mL [facility] Cannabinoids Screen Ql (U) Negative < 50 ng/mL [facility] Cocaine Ql (U) Negative < 300 ng/mL [facility] Opiates Ql (U) Negative < 300 ng/mL [facility] Laboratory - Hematology and Cell countsOrdered By: Dr. Aguirre on 09-08-2022 Erythrocyte distribution width (RBC) [Entitic vol] 43.7 fL 35.1-43.9 [facility] Erythrocyte distribution width (RBC) [Ratio] 14.9 % 11.6-14.6 [facility] Immature granulocytes/100 WBC (Bld) 1.600 % 0.0-0.9 [facility] Comment on above: IG% - Immature Granu locytes (promyelocytes, myelocytes and metamyelocytes) > 1% indicates that a LEFT SHIFT is Present. MCH (RBC) [Entitic mass] 26.1 pg 27.0-32.0 [facility] Nucleated RBC/100 WBC (Bld) [Ratio] 0 % 0-5 [facility] Laboratory - Urinalysison Protein Ql (U) Negative [facility] MCHC Auto (RBC) [Mass/Vol]Or dered By: Dr. Aguirre on 09-08-2022 MCHC (RBC) [Mass/Vol] 31.7 g/dL 32-36 [facility] No Panel InformationOrdered By: Beverly Penny on 09-08-2022 MDMA (Ecstasy) Screen Negative < 500 ng/mL [facility] Urine Barbiturates Screen Negative < 200 ng/mL [facility] Urine Drug Screen Comment [facility] Comment on above: CONFIRMATORY TESTING FOR ALL [...] Methadone Screen Negative < 300 ng/mL [facility] Platelets bldOrdered By: Dr. Aguirre on 09-08-2022 Platelets (Bld) [#/Vol] 317 10*3/uL 150-450 [facility] Serum Treponema species anti body detectionOrdered By: Dr. Aguirre on 09-08-2022 Treponema sp Ab Ql (S) Non-Reactive [facility] Urine phencyclidine (PCP) de tectionOrdered By: Beverly Penny on 09-08-2022 Phencyclidine Ql (U) Negative < 25 ng/mL [facility] Laboratory - Chemistry and C hemistry - challengeon 08-13-2022 Glucose Ql (U) Negative [facility] Laboratory - Urinalysison Protein Ql (U) Negative [facility] Laboratory - Chemistry and C hemistry - challengeon 07-16-2022 Glucose Ql (U) Negative [facility] Laboratory - Urinalysison Protein Ql (U) Negative [facility] Laboratory - Chemistry and C hemistry - challengeon 06-18-2022 Glucose Ql (U) Negative [facility] Laboratory - Urinalysison Protein Ql (U) Negative [facility] Absolute lymphocyte countOrd ered By: Dr. Oshea on 05-31-2022 Lymphocytes Auto (Unsp spec) [#/Vol] 1.39 10*3/uL 0.83-4.51 [facility] Basophil percentageOrdered B y: Dr. Oshea on 05-31-2022 Basophils/100 WBC (Bld) 0.3 % 0-1 [facility] Bilirubin [Mass/Vol] 0.30 mg/dL 0.20-1.00 [facility] Comment on above: For patients on eltr ombopag therapy, use of Dimension [place] TBIL is not recommended. Chloride [Moles/Vol] 106 mmol/L 98-107 [facility] Eosinophils/100 WBC (Bld) 1.6 % 0-3 [facility] Glucose [Mass/Vol] 91 mg/dL 74-106 [facility] Neutrophils (Bld) [#/Vol] 4.7 10*3/uL 2.0-7.7 [facility] Neutrophils/100 WBC (Bld) 68.2 % 34-64 [facility] Potassium [Moles/Vol] 3.4 mmol/L 3.5-5.1 [facility] Protein [Mass/Vol] 7.5 g/dL 6.4-8.2 [facility] Sodium [Moles/Vol] 137 mmol/L 136-145 [facility] WBC (Bld) [#/Vol] 6.9 10*3/uL 4.5-13.0 [facility] Blood erythrocytes count (nu mber/volume)Ordered By: Dr. Oshea on 05-31-2022 RBC (Bld) [#/Vol] 4.96 10*6/uL 4.1-4.8 [facility] Blood hemoglobin measurement (mass/volume)Ordered By: Dr. Oshea on 05-31-2022 Hemoglobin (Bld) [Mass/Vol] 12.8 g/dL 12.0-15.0 [facility] Blood lymphocytes/100 leukoc ytesOrdered By: Dr. Oshea on 05-31-2022 Lymphocytes/100 WBC (Bld) 20.2 % 25-45 [facility] Blood monocytes/100 leukocyt esOrdered By: Dr. Oshea on 05-31-2022 Monocytes/100 WBC (Bld) 9.3 % 3-6 [facility] Blood platelet mean volumeOr dered By: Dr. Oshea on 05-31-2022 Platelet mean volume (Bld) [Entitic vol] 9.4 fL 6.2-12.0 [facility] Determination of erythrocyte mean corpuscular volume (MCV)Ordered By: Dr. Oshea on 05-31-2022 MCV (RBC) [Entitic vol] 78.4 fL 78-96 [facility] Hematocrit Auto (Bld) [Volum e fraction]Ordered By: Dr. Oshea on 05-31-2022 Hematocrit (Bld) [Volume fraction] 38.9 % 37-46 [facility] Laboratory - Chemistry and C hemistry - challengeOrdered By: Dr. Oshea on 05-31-2022 ALP [Catalytic activity/Vol] 46 U/L 47-119 [facility] ALT [Catalytic activity/Vol] 18 U/L 13-56 [facility] CO2 [Moles/Vol] 24.0 mmol/L 21.0-32.0 [facility] Globulin (S) [Mass/Vol] 4.0 g/dL 2.2-4.2 [facility] Lipase [Catalytic activity/Vol] 75 U/L 73-393 [facility] Urea nitrogen/Creatinine [Mass ratio] 9.3 mg/mg 10-20 [facility] Laboratory - Hematology and Cell countsOrdered By: Dr. Oshea on 05-31-2022 Erythrocyte distribution width (RBC) [Entitic vol] 37.7 fL 35.1-43.9 [facility] Erythrocyte distribution width (RBC) [Ratio] 13.3 % 11.6-14.6 [facility] Immature granulocytes/100 WBC (Bld) 0.400 % 0.0-0.9 [facility] Comment on above: IG% - Immature Granu locytes (promyelocytes, myelocytes and metamyelocytes) > 1% indicates that a LEFT SHIFT is Present. MCH (RBC) [Entitic mass] 25.8 pg 25.0-35.0 [facility] Nucleated RBC/100 WBC (Bld) [Ratio] 0 % 0-5 [facility] MCHC Auto (RBC) [Mass/Vol]Or dered By: Dr. Oshea on 05-31-2022 MCHC (RBC) [Mass/Vol] 32.9 g/dL 32-36 [facility] No Panel InformationOrdered By: Dr. Oshea on 05-31-2022 Estimated Creatinine Clearance Calc 139.76 ml/min [facility] Estimated GFR (MDRD) Amer 189 mL/min >60 [facility] Comment on above: GFR Calc Estimated GFR (MDRD) Non-Af Amer 156 mL/min >60 [facility] Comment on above: Non- GFR Calc Platelets bldOrdered By: Dr. Oshea on 05-31-2022 Platelets (Bld) [#/Vol] 294 10*3/uL 150-450 [facility] Serum or plasma albumin debbie urement (mass/volume)Ordered By: Dr. Oshea on 05-31-2022 Albumin [Mass/Vol] 3.5 g/dL 3.2-5.0 [facility] Serum or plasma albumin/glob ulin mass ratioOrdered By: Dr. Oshea on 05-31-2022 Albumin/Globulin [Mass ratio] 0.9 {ratio} 0.9-2.4 [facility] Serum or plasma calcium debbie urement (mass/volume)Ordered By: Dr. Oshea on 05-31-2022 Calcium [Mass/Vol] 9.7 mg/dL 8.5-10.1 [facility] Serum or plasma choriogonado tropin detectionOrdered By: Dr. Oshea on 05-31-2022 HCG ( test) Ql [address] mIU/mL <4 [facility] Comment on above: hCG levels with Gest ational AgeGestational Age hCG mIU/mL (IU/L)0.2 - 1 week 5 - 501-2 weeks 50 - 5002-3 weeks 100 - 55615-8 weeks 500 - 449650-9 weeks 1000 - 126533-1 weeks 97059 - 100,0006-8 weeks 88596 - 200,0002-3 months 88854 - 100,000 Serum or plasma creatinine m easurement (mass/volume)Ordered By: Dr. Oshea on 05-31-2022 Creatinine [Mass/Vol] 0.54 mg/dL 0.55-1.02 [facility] Comment on above: The validity of the calculated GFR & GFRAA in patients over 70 years has not been determined. Clinical correlation is essential. Serum or plasma urea nitroge n measurement (mass/volume)Ordered By: Dr. Oshea on 05-31-2022 Urea nitrogen [Mass/Vol] 5 mg/dL 7-18 [facility] Thin prep Papanicolaou smear with manual screeningOrdered By: Dr. Oshea on 05-31-2022 Thin prep Papanicolaou smear with manual screening 10 U/L 15-37 [facility] Thin prep Papanicolaou smear with manual screening 7 5-15 [facility] Culture, urineOrdered By: Dr Kerry Aguirre on 05-24-2022 Bacteria identified Cx Nom (U) Positive [facility] No Panel InformationOrdered By: Dr. Aguirre on 05-24-2022 Miscellaneous Test Comment MAILED SPECIMEN [facility] Absolute lymphocyte countOrd ered By: Dr. Aguirre on 05-21-2022 Lymphocytes Auto (Unsp spec) [#/Vol] 1.54 10*3/uL 0.83-4.51 [facility] Basophil percentageOrdered B y: Dr. Aguirre on 05-21-2022 Basophils/100 WBC (Bld) 0.3 % 0-1 [facility] Eosinophils/100 WBC (Bld) 1.0 % 0-3 [facility] Neutrophils (Bld) [#/Vol] 6.2 10*3/uL 2.0-7.7 [facility] Neutrophils/100 WBC (Bld) 71.4 % 34-64 [facility] WBC (Bld) [#/Vol] 8.7 10*3/uL 4.5-13.0 [facility] Blood erythrocytes count (nu mber/volume)Ordered By: Dr. Aguirre on 05-21-2022 RBC (Bld) [#/Vol] 5.02 10*6/uL 4.1-4.8 [facility] Blood hemoglobin measurement (mass/volume)Ordered By: Dr. Aguirre on 05-21-2022 Hemoglobin (Bld) [Mass/Vol] 13.3 g/dL 12.0-15.0 [facility] Blood lymphocytes/100 leukoc ytesOrdered By: Dr. Aguirre on 05-21-2022 Lymphocytes/100 WBC (Bld) 17.8 % 25-45 [facility] Blood monocytes/100 leukocyt esOrdered By: Dr. Aguirre on 05-21-2022 Monocytes/100 WBC (Bld) 9.2 % 3-6 [facility] Blood platelet mean volumeOr dered By: Dr. Aguirre on 05-21-2022 Platelet mean volume (Bld) [Entitic vol] 9.4 fL 6.2-12.0 [facility] Determination of erythrocyte mean corpuscular volume (MCV)Ordered By: Dr. Aguirre on 05-21-2022 MCV (RBC) [Entitic vol] 78.9 fL 78-96 [facility] HIV 1 and HIV-2 antibody ass ay with HIV-1 p24 antigen detectionOrdered By: Dr. Aguirre on 05-21-2022 HIV 1+2 Ab+HIV1 p24 Ag IA Ql Non-Reactive Nonreactive [facility] Hematocrit Auto (Bld) [Volum e fraction]Ordered By: Dr. Aguirre on 05-21-2022 Hematocrit (Bld) [Volume fraction] 39.6 % 37-46 [facility] Laboratory - Drug toxicology Ordered By: Dr. Aguirre on 05-21-2022 Amphetamines Ql (U) Negative <1000 ng/mL [facility] Benzodiazepines Ql (U) Negative < 200 ng/mL [facility] Cannabinoids Screen Ql (U) Positive < 50 ng/mL [facility] Cocaine Ql (U) Negative < 300 ng/mL [facility] Opiates Ql (U) Negative < 300 ng/mL [facility] Laboratory - Hematology and Cell countsOrdered By: Dr. Aguirre on 05-21-2022 Erythrocyte distribution width (RBC) [Entitic vol] 37.7 fL 35.1-43.9 [facility] Erythrocyte distribution width (RBC) [Ratio] 13.3 % 11.6-14.6 [facility] Immature granulocytes/100 WBC (Bld) 0.300 % 0.0-0.9 [facility] Comment on above: IG% - Immature Granu locytes (promyelocytes, myelocytes and metamyelocytes) > 1% indicates that a LEFT SHIFT is Present. MCH (RBC) [Entitic mass] 26.5 pg 25.0-35.0 [facility] Nucleated RBC/100 WBC (Bld) [Ratio] 0 % 0-5 [facility] MCHC Auto (RBC) [Mass/Vol]Or dered By: Dr. Aguirre on 05-21-2022 MCHC (RBC) [Mass/Vol] 33.6 g/dL 32-36 [facility] No Panel InformationOrdered By: Dr. Aguirre on 05-21-2022 MDMA (Ecstasy) Screen Negative < 500 ng/mL [facility] Urine Barbiturates Screen Negative < 200 ng/mL [facility] Urine Drug Screen Comment [facility] Comment on above: CONFIRMATORY TESTING FOR ALL [...] Screen Negative < 300 ng/mL [facility] Hepatitis B Surface Antigen Non-Reactive Nonreactive [facility] Hepatitis C Antibody Non-Reactive Nonreactive [facility] Comment on above: Non Reactive: < 0.8 Equivocal: >/= 0.8 to < 1.0 Reactive: >/= 1.0The CDC recommends that a reactive/equivocal HCV antibody result be followed up by the HCV Nucleic Acid Amplificationtest (259494) Rubella IgG Antibody Reactive Nonreactive [facility] Comment on above: Antibody Results Int erpretation of Immune Status Non Reactive Presumed Non-Immune Equivocal Equivocal Reactive Presumed Immune Platelets bldOrdered By: Dr. Aguirre on 05-21-2022 Platelets (Bld) [#/Vol] 402 10*3/uL 150-450 [facility] Serum Treponema species anti body detectionOrdered By: Dr. Aguirre on 05-21-2022 Treponema sp Ab Ql (S) Non-Reactive [facility] Urine phencyclidine (PCP) de tectionOrdered By: Dr. Aguirre on 05-21-2022 Phencyclidine Ql (U) Negative < 25 ng/mL [facility] AOH MAIN OR Intraop Recordon 01-31-2018 AOH MAIN OR Intraop Record Normal [facility] ([place]) Depart Summaryon 01-31-2018 Depart Summary Normal [facility] [place] Operative Reporton 01-31-2018 [place] Operative Report Normal [facility] [place] [facility] Patient Summaryon 01-31-2018 [place] [facility] Patient Summary Normal [facility] XR FLUORO < 1HR TECH TIMEon 01-31-2018 XR FLUORO < 1HR TECH TIME ORIGINAL Images acquired, not reported on this accession number. Normal [facility]) Culture, urine Bacteria identified Cx Nom (U) Positive [facility] Work Phone: Vital Signs Date Time Vital Sign Value Performing Clinician Facility 04-02-2025 09:58-0400 Body height 162.56 cm Chucho Nickerson MD Work Phone: [facility] 04-02-2025 09:58-0400 Body mass index (BMI) [Ratio] 32.6 kg/m2 Chucho Nickerson MD Work Phone: [facility] 04-02-2025 09:58-0400 Body weight 86.23 kg Chucho Nickerson MD Work Phone: [facility] 04-02-2025 09:58-0400 Diastolic blood pressure 66 mm[Hg] Chucho Nickerson MD Work Phone: [facility] 04-02-2025 09:58-0400 Systolic blood pressure 103 mm[Hg] Chucho Nickerson MD Work Phone: [facility] 03-06-2025 09:46-0400 Body height 162.56 cm Chucho Nickerson MD Work Phone: [facility] 03-06-2025 09:46-0400 Body mass index (BMI) [Ratio] 33.1 kg/m2 Chucho Nickerson MD Work Phone: [facility] 03-06-2025 09:46-0400 Body weight 87.6 kg Chucho Nickerson MD Work Phone: [facility] 03-06-2025 09:46-0400 Diastolic blood pressure 78 mm[Hg] Chucho Nickerson MD Work Phone: [facility] 03-06-2025 09:46-0400 Systolic blood pressure 120 mm[Hg] Chucho Nickerson MD Work Phone: [facility] 02-04-2025 10:58-0400 Body height 162.56 cm Chucho Nickerson MD Work Phone: [facility] 02-04-2025 10:58-0400 Body mass index (BMI) [Ratio] 31.8 kg/m2 Chucho Nickerson MD Work Phone: [facility] 02-04-2025 10:58-0400 Body weight 84.05 kg Chucho Nickerson MD Work Phone: [facility] 02-04-2025 10:58-0400 Diastolic blood pressure 70 mm[Hg] Chucho Nickerson MD Work Phone: [facility] 02-04-2025 10:58-0400 Systolic blood pressure 104 mm[Hg] Chucho Nickerson MD Work Phone: [facility] 01-09-2025 15:51-0400 Body height 162.56 cm Chucho Nickerson MD Work Phone: [facility] 01-09-2025 15:51-0400 Body mass index (BMI) [Ratio] 31.2 kg/m2 Chucho Nickerson MD Work Phone: [facility] 01-09-2025 15:51-0400 Body weight 82.61 kg Chucho Nickerson MD Work Phone: [facility] 01-09-2025 15:51-0400 Diastolic blood pressure 67 mm[Hg] Chucho Nickerson MD Work Phone: [facility] 01-09-2025 15:51-0400 Systolic blood pressure 102 mm[Hg] Chucho Nickerson MD Work Phone: [facility] 12-10-2024 15:10-0400 Body height 162.56 cm Chucho Nickerson MD Work Phone: [facility] 12-10-2024 15:09-0400 Body mass index (BMI) [Ratio] 31.4 kg/m2 Chucho Nickerson MD Work Phone: [facility] 12-10-2024 15:09-0400 Body weight 83.06 kg Chucho Nickerson MD Work Phone: [facility] 12-10-2024 15:09-0400 Diastolic blood pressure 66 mm[Hg] Chucho Nickerson MD Work Phone: [facility] 12-10-2024 15:09-0400 Systolic blood pressure 103 mm[Hg] Chucho Nickerson MD Work Phone: [facility] 09-23-2024 14:25-0400 Body temperature 98.29 [degF] Riki Albarado APPLICATION SUPPORT DEVELOPER.RN CORRECTIONAL Work Phone: [facility] 09-23-2024 14:25-0400 Body weight 87.5 kg Riki Albarado APPLICATION SUPPORT DEVELOPER.RN CORRECTIONAL Work Phone: [facility] 09-23-2024 14:25-0400 Diastolic blood pressure 76 mm[Hg] Riki Albarado APPLICATION SUPPORT DEVELOPER.RN CORRECTIONAL Work Phone: [facility] 09-23-2024 14:25-0400 Heart rate 84 /min Riki Albarado APPLICATION SUPPORT DEVELOPER.RN CORRECTIONAL Work Phone: [facility] 09-23-2024 14:25-0400 Respiratory rate 16 /min Riki Albarado APPLICATION SUPPORT DEVELOPER.RN CORRECTIONAL Work Phone: [facility] 09-23-2024 14:25-0400 SaO2% (BldA) [Mass fraction] 98 % Riki Albarado APPLICATION SUPPORT DEVELOPER.RN CORRECTIONAL Work Phone: [facility] 09-23-2024 14:25-0400 Systolic blood pressure 110 mm[Hg] Riki Albarado APPLICATION SUPPORT DEVELOPER.RN CORRECTIONAL Work Phone: [facility] 10-24-2023 20:18-0400 Diastolic blood pressure 87 mm[Hg] [facility] 10-24-2023 20:18-0400 Heart rate 68 /min [facility] 10-24-2023 20:18-0400 Respiratory rate 18 /min [facility] 10-24-2023 20:18-0400 SaO2% (BldA) [Mass fraction] 100 % [facility] 10-24-2023 20:18-0400 Systolic blood pressure 125 mm[Hg] [facility] 10-24-2023 18:18-0400 Body height 162.56 cm [facility] 10-24-2023 18:18-0400 Body mass index (BMI) [Ratio] 26.4 kg/m2 [facility] 10-24-2023 18:18-0400 Body temperature 97.8 [degF] [facility] 10-24-2023 18:18-0400 Body weight 70.02 kg [facility] 12-02-2022 13:53-0400 Body temperature 97.8 [degF] No Primary Care Physician [facility] 12-02-2022 13:53-0400 Diastolic blood pressure 62 mm[Hg] No Primary Care Physician [facility] 12-02-2022 13:53-0400 Heart rate 87 /min No Primary Care Physician [facility] 12-02-2022 13:53-0400 Respiratory rate 15 /min No Primary Care Physician [facility] 12-02-2022 13:53-0400 SaO2% (BldA) [Mass fraction] 97 % No Primary Care Physician [facility] 12-02-2022 13:53-0400 Systolic blood pressure 101 mm[Hg] No Primary Care Physician [facility] 12-01-2022 00:56-0400 Body height 162.56 cm No Primary Care Physician [facility] 12-01-2022 00:56-0400 Body mass index (BMI) [Percentile] Per age and sex 95.4 % No Primary Care Physician [facility] 12-01-2022 00:56-0400 Body mass index (BMI) [Ratio] 31.8 kg/m2 No Primary Care Physician [facility] 12-01-2022 00:56-0400 Body weight 84.02 kg No Primary Care Physician [facility] 11-24-2022 09:13-0400 Body mass index (BMI) [Percentile] Per age and sex 95.7 % No Primary Care Physician [facility] 11-24-2022 09:13-0400 Body mass index (BMI) [Ratio] 32.1 kg/m2 No Primary Care Physician [facility] 11-24-2022 09:13-0400 Body weight 82.15 kg No Primary Care Physician [facility] 11-24-2022 09:13-0400 Diastolic blood pressure 71 mm[Hg] No Primary Care Physician [facility] 11-24-2022 09:13-0400 Systolic blood pressure 113 mm[Hg] No Primary Care Physician [facility] 11-17-2022 10:24-0400 Body mass index (BMI) [Percentile] Per age and sex 95.4 % No Primary Care Physician [facility] 11-17-2022 10:24-0400 Body mass index (BMI) [Ratio] 31.7 kg/m2 No Primary Care Physician [facility] 11-17-2022 10:24-0400 Body weight 81.3 kg No Primary Care Physician [facility] 11-17-2022 10:24-0400 Diastolic blood pressure 75 mm[Hg] No Primary Care Physician [facility] 11-17-2022 10:24-0400 Systolic blood pressure 112 mm[Hg] No Primary Care Physician [facility] 11-03-2022 08:42-0400 Body mass index (BMI) [Percentile] Per age and sex 94.9 % No Primary Care Physician [facility] 11-03-2022 08:42-0400 Body mass index (BMI) [Ratio] 31.1 kg/m2 No Primary Care Physician [facility] 11-03-2022 08:42-0400 Body weight 79.83 kg No Primary Care Physician [facility] 11-03-2022 08:42-0400 Diastolic blood pressure 70 mm[Hg] No Primary Care Physician [facility] 11-03-2022 08:42-0400 Systolic blood pressure 111 mm[Hg] No Primary Care Physician [facility] 10-20-2022 09:15-0400 Body mass index (BMI) [Percentile] Per age and sex 94.3 % No Primary Care Physician [facility] 10-20-2022 09:15-0400 Body mass index (BMI) [Ratio] 30.5 kg/m2 No Primary Care Physician [facility] 10-20-2022 09:15-0400 Body weight 78.24 kg No Primary Care Physician [facility] 10-20-2022 09:15-0400 Diastolic blood pressure 66 mm[Hg] No Primary Care Physician [facility] 10-20-2022 09:15-0400 Systolic blood pressure 107 mm[Hg] No Primary Care Physician [facility] 10-06-2022 10:09-0400 Body mass index (BMI) [Percentile] Per age and sex 93.3 % No Primary Care Physician [facility] 10-06-2022 10:09-0400 Body mass index (BMI) [Ratio] 29.7 kg/m2 No Primary Care Physician [facility] 10-06-2022 10:09-0400 Body weight 76.26 kg No Primary Care Physician [facility] 10-06-2022 10:09-0400 Diastolic blood pressure 67 mm[Hg] No Primary Care Physician [facility] 10-06-2022 10:09-0400 Systolic blood pressure 102 mm[Hg] No Primary Care Physician [facility] 09-22-2022 09:10-0400 Body mass index (BMI) [Percentile] Per age and sex 92.9 % No Primary Care Physician [facility] 09-22-2022 09:10-0400 Body mass index (BMI) [Ratio] 29.4 kg/m2 No Primary Care Physician [facility] 09-22-2022 09:10-0400 Body weight 75.29 kg No Primary Care Physician [facility] 09-22-2022 09:10-0400 Diastolic blood pressure 68 mm[Hg] No Primary Care Physician [facility] 09-22-2022 09:10-0400 Systolic blood pressure 102 mm[Hg] No Primary Care Physician [facility] 09-08-2022 08:51-0400 Body height 160.[address] Mariaelena Ornelas Work Phone: 5(820)390-059363 [place] [address] 09-08-2022 08:51-0400 Body mass index (BMI) [Percentile] Per age and sex 91.3 % Dr. Mariaelena Ornelas Work Phone: 1(859)604-689463 [place] [address] 09-08-2022 08:51-0400 Body mass index (BMI) [Ratio] 28.4 kg/m2 Dr. Mariaelena Ornelas Work Phone: 8(541)898-965563 [place] [address] 09-08-2022 08:51-0400 Body weight 72.[address] Mariaelena Ornelas Work Phone: 9(292)666-447663 [place] [address] 09-08-2022 08:51-0400 Diastolic blood pressure 70 mm[Hg] Dr. Mariaelena Ornelas Work Phone: 3(355)652-267063 [place] [address] 09-08-2022 08:51-0400 Systolic blood pressure 110 mm[Hg] Dr. Mariaelena Ornelas Work Phone: 2(823)506-965863 [place] [address] 08-13-2022 08:45-0500 Body mass index (BMI) [Percentile] Per age and sex 88.3 % Dr. Mariaelena Ornelas Work Phone: 1(645)112-702263 [place] [address] 08-13-2022 08:45-0500 Body mass index (BMI) [Ratio] 27.1 kg/m2 Dr. Mariaelena Ornelas Work Phone: 7(828)311-487563 [place] [address] 08-13-2022 08:45-0500 Body weight 69.[address] Mariaelena Ornelas Work Phone: 4(935)247-659163 [place] [address] 08-13-2022 08:45-0500 Diastolic blood pressure 61 mm[Hg] Dr. Mariaelena Ornelas Work Phone: 7(879)705-719163 [place] [address] 08-13-2022 08:45-0500 Systolic blood pressure 102 mm[Hg] Dr. Mariaelena Ornelas Work Phone: 6(348)711-742563 [place] [address] 07-16-2022 13:23-0500 Body mass index (BMI) [Percentile] Per age and sex 81.6 % Dr. Mariaelena Ornelas Work Phone: 9(009)077-709663 [place] [address] 07-16-2022 13:23-0500 Body mass index (BMI) [Ratio] 25.3 kg/m2 Dr. Mariaelena Ornelas Work Phone: 9(214)500-480263 [place] [address] 07-16-2022 13:23-0500 Body weight 64.[address] Mariaelena Ornelas Work Phone: 2(600)280-136163 [place] [address] 07-16-2022 13:23-0500 Diastolic blood pressure 73 mm[Hg] Dr. Mariaelena Ornelas Work Phone: 3(039)533-458163 [place] [address] 07-16-2022 13:23-0500 Systolic blood pressure 114 mm[Hg] Dr. Mariaelena Ornelas Work Phone: 2(931)147-912963 [place] [address] 06-18-2022 13:21-0500 Body mass index (BMI) [Percentile] Per age and sex 77.4 % Dr. Mariaelena Ornelas Work Phone: 2(540)773-859063 [place] [address] 06-18-2022 13:21-0500 Body mass index (BMI) [Ratio] 24.5 kg/m2 Dr. Mariaelena Ornelas Work Phone: 7(259)438-553163 [place] [address] 06-18-2022 13:21-0500 Body weight 62.[address] Mariaelena Ornelas Work Phone: 2(041)127-468663 [place] [address] 06-18-2022 13:21-0500 Diastolic blood pressure 76 mm[Hg] Dr. Mariaelena Ornelas Work Phone: 6(972)397-481863 [place] [address] 06-18-2022 13:21-0500 Systolic blood pressure 113 mm[Hg] Dr. Mariaelena Ornelas Work Phone: 9(194)822-026463 [place] [address] 05-31-2022 06:42-0500 Body height 160.[address] Mariaelena Ornelas Work Phone: 3(460)014-871652 [place] [address] Work Phone: 05-31-2022 06:42-0500 Body mass index (BMI) [Percentile] Per age and sex 83.2 % Dr. Mariaelena Ornelas Work Phone: 2(254)310-059131 [address] 05-31-2022 06:42-0500 Body mass index (BMI) [Ratio] 25.6 kg/m2 Dr. Mariaelena Ornelas Work Phone: 9(236)603-195231 [address] 05-31-2022 06:42-0500 Body temperature 97.6 [degF] Dr. Mariaelena Ornelas Work Phone: 9(495)508-360831 [address] 05-31-2022 06:42-0500 Body weight 65.[address] Mariaelena Ornelas Work Phone: 8(690)951-174931 [address] 05-31-2022 06:42-0500 Diastolic blood pressure 70 mm[Hg] Dr. Mariaelena Ornelas Work Phone: 9(463)347-739031 [address] 05-31-2022 06:42-0500 Heart rate 74 /min Dr. Mariaelena Ornelas Work Phone: 5(012)677-107331 [address] 05-31-2022 06:42-0500 Respiratory rate 18 /min Dr. Mariaelena Ornelas Work Phone: 6(921)264-194431 [address] 05-31-2022 06:42-0500 SaO2% (BldA) [Mass fraction] 96 % Dr. Mariaelena Ornelas Work Phone: 2(635)810-853952 [place] [address] 05-31-2022 06:42-0500 Systolic blood pressure 115 mm[Hg] Dr. Mariaelena Ornelas Work Phone: 6(374)930-162331 [address] 05-21-2022 14:07-0500 Body mass index (BMI) [Percentile] Per age and sex 75.7 % Dr. Mariaelena Ornelas Work Phone: 9(588)411-043252 [place] [address] 05-21-2022 14:07-0500 Body mass index (BMI) [Ratio] 24.2 kg/m2 Dr. Mariaelena Ornelas Work Phone: [facility] 05-21-2022 14:07-0500 Body weight 64.[address] Mariaelena Ornelas Work Phone: [facility] 05-21-2022 14:07-0500 Diastolic blood pressure 74 mm[Hg] Dr. Mariaelena Ornelas Work Phone: [facility] 05-21-2022 14:07-0500 Systolic blood pressure 114 mm[Hg] Dr. Mariaelena Ornelas Work Phone: [facility] Encounters Encounter Date Encounter Type Care Provider Facility Start: 04-19-2025 End: 04-19-2025 ambulatory Chucho Krishan Facility:[facility] Start: 04-02-2025 End: 04-02-2025 Patient encounter procedure Beverly LAWTON -[facility] Work Phone: Start: 04-02-2025 End: 04-02-2025 ambulatory Chucho Nickerson MD Work Phone: [facility] Start: 04-02-2025 End: 04-02-2025 ambulatory Jacqueline Knight Facility:[facility] Start: 03-06-2025 End: 03-06-[address] Jacqueline Knight MD -[facility] Work Phone: Start: 03-06-2025 End: 03-06-2025 ambulatory Chucho Nickerson MD Work Phone: -[facility] Start: 03-06-2025 End: 03-06-2025 ambulatory Chucho Nickerson Facility:[facility] Start: 02-04-2025 End: 02-04-2025 Patient encounter procedure Nadege Jarrell CNM -[facility] Work Phone: Start: 02-04-2025 End: 02-04-2025 ambulatory Chucho Nickerson MD Work Phone: [facility] Start: 01-24-2025 End: 01-24-2025 ambulatory [facility] Start: 01-09-2025 End: 01-09-[address] Mayi Nuñez DO [facility] Work Phone: Start: 01-09-2025 End: 01-09-2025 ambulatory Chucho Nickerson MD Work Phone: [facility] Start: 12-10-2024 End: 12-10-2024 ambulatory Chucho Nickerson MD Work Phone: [facility] Start: 12-10-2024 End: 12-10-[address] Mayi Nuñez DO [facility] Start: 12-10-2024 End: 12-10-[address] Mayi Nuñez [facility] Work Phone: Start: 12-10-2024 End: 12-10-2024 ambulatory Chucho Nickerson MD Work Phone: [facility] Start: 12-10-2024 End: 12-10-2024 ambulatory [facility] Facility:[facility] Start: 11-09-2024 ambulatory [facility] Facility:[facility] Start: 09-23-2024 End: 09-23-2024 ambulatory MARIAELENA PASCAL [place] Facility:[facility] Start: 09-23-2024 End: 09-23-2024 Office outpatient visit 15 minutes Riki Albarado APRN.CNP Work Phone: [facility] Comment on above: Viral illness (Prima ry Dx) Start: 06-22-2024 ambulatory Nadege Jarrell Facility :[facility] Start: 10-24-2023 End: 10-24-2023 Emergency department patient visit [facility] Work Phone: Start: 08-11-2023 End: 08-11-2023 Patient encounter procedure Nayan Clarke Work Phone: Podiatry Comment on above: Ingrowing toenail (P rimary Dx); Raynaud's disease without gangrene; Diminished pulses in lower extremity Start: 12-02-2022 Non-patient / Non-visit No Bette wise Care Physician [facility] Start: 12-01-2022 Non-patient / Non-visit No Bette wise Care Physician [facility] Start: 12-01-2022 End: 12-02-2022 Evaluation and management of inpatient No Primary Care Physician [facility] Start: 11-24-2022 End: 11-24-2022 Patient encounter procedure No Primary Care Physician [facility] Start: 11-17-2022 End: 11-17-2022 Patient encounter procedure No Primary Care Physician [facility]Laboratory, Specimen Start: 11-17-2022 End: 11-17-2022 Patient encounter procedure No Primary Care Physician [facility] Start: 11-03-2022 End: 11-03-2022 Patient encounter procedure No Primary Care Physician [facility] Start: 10-20-2022 End: 10-20-2022 Patient encounter procedure No Primary Care Physician [facility] Start: 10-06-2022 End: 10-06-2022 Patient encounter procedure No Primary Care Physician [facility] Start: 09-22-2022 End: 09-22-2022 Patient encounter procedure No Primary Care Physician [facility]Laboratory, Specimen Start: 09-22-2022 End: 09-22-2022 Patient encounter procedure No Primary Care Physician [facility] Start: 09-08-2022 End: 09-08-[address] Mariaelena Ornelas Work Phone: [facility] Work Phone: Start: 09-08-2022 End: 09-08-[address] Mariaelena Ornelas Work Phone: [facility] Start: 08-13-2022 End: 08-13-[address] Mariaelena Ornelas Work Phone: [facility] Start: 07-16-2022 End: 07-16-[address] Mariaelena Ornelas Work Phone: [facility] Start: 06-18-2022 End: 06-18-[address] Mariaelena Ornelas Work Phone: [facility] Start: 05-31-2022 End: 05-31-2022 Emergency department patient visit Dr. Mariaelena Ornelas Work Phone: [facility] Start: 05-24-2022 End: 05-24-[address] Mariaelena Ornelas Work Phone: [facility] Work Phone: Start: 05-24-2022 End: 05-24-[address] Mariaelena Ornelas Work Phone: [facility] Start: 05-21-2022 End: 05-21-[address] Mariaelena Ornelas Work Phone: [facility] Work Phone: Start: 05-21-2022 End: 05-21-[address] Mariaelena Ornelas Work Phone: [facility] Start: 05-21-2022 End: 05-21-[address] Mariaelena Ornelas Work Phone: [facility] Start: 05-05-2022 End: 05-05-2022 Nursing evaluation of patient and report Nurse [facility] Work Phone: OB/Gynecology Comment on above: Supervision of herrera brown first teen , unspecified trimester (Primary Dx); Nausea/vomiting in ; History of depression; Patient request for diagnostic testing Start: 05-05-2022 End: 05-05-2022 Patient requested procedure Nurse [facility]nob [facility] Work Phone: OB/Gynecology Start: 01-31-2018 End: 01-31-2018 Patient encounter KAMILAH ABEBE Facility:[facility] Start: 01-27-2018 Patient encounter KAMILAH Elliott acility:[facility] Procedures Date Procedure Procedure Detail Performing Clinician Start: 03-06-2025 Total iron binding c apacity measurement Chucho Nickerson MD Work Phone: Start: 03-06-2025 Serologic test for syphilis Chucho Nickerson MD Work Phone: Start: 12-10-2024 Hepatitis C antibody measurement Chucho [...] HCV Quant by PCR testing - HCVPCR #[id number] Non Reactive: < 0.8 Equivocal: >/= 0.8 [...] therefore, no HPV testing was performed.Performed at: [address] [id number] Director: Rabia Odom MD, Phone: [phone] Start: 12-10-2024 Procedure Chucho swain MD Work [...] P,Tdap,Td Vaccine (7 - Td or Tdap) [facility] Start: 12-10-2024 Procedure [facility] Start: 12-10-2024 Bacteria identified in Urine by Culture Urine Culture [facility] Start: 2024 Screening for malign ant neoplasm of cervix Cervical Cancer Screening [facility] Start: 02-12-2024 Covid-19 Vaccine ( season) Covid-19 Vaccine () [facility] Start: 02-12-2024 Influenza vaccination Influenza Vacc ine (#1) [facility] Start: 10-24-2023 [facility] Start: 06-13-2023 Depression Assessment Depression Ass essment [facility] Start: 02-11-2023 Influenza vaccination Influenza Vacc ine (#1) [facility] Start: 12-02-2022 Patient discharge [facility] Start: 12-01-2022 Administration of medication [facility] Start: 12-01-2022 Application of ice c ollar, cap or bag [facility] Start: 12-01-2022 Catheterization of vein [facility] Start: 12-01-2022 Introduction of urin paul catheter [facility] Start: 12-01-2022 Measuring intake and output [facility] Start: 12-01-2022 Notification of physician [facility] Start: 12-01-2022 Procedure discontinued [facility] Start: 12-01-2022 Provision of activit y privileges [facility] Start: 12-01-2022 Vital signs measurements [facility] Start: 12-01-2022 [facility] Start: 12-01-2022 Admission procedure [facility] Start: 12-01-2022 Consultation [facility] Start: 02-11-2022 Influenza vaccination INFLUENZA (#1) [facility] Start: 2021 Anxiety Screening Anxiety Screening [facility] Start: 2021 CHLAMYDIA SCREENING (18-24) CHLAMYDIA SCREENING (18-24) [facility] Start: 2021 Depression Screening Depression Scre ening [facility] Start: 2021 GC (GONORRHEA) SCREE ASIA (18-24) GC (GONORRHEA) SCREENING (18-24) [facility] Start: 2021 HEPATITIS C SCREENING HEPATITIS C [facility] Start: 2021 Hepatitis C screening Hepatitis C [facility] Start: 2021 HIV SCREENING HIV SCREENING [facility] Start: 2021 HIV screening HIV Screening [facility] Start: 2021 Screening for Chlamy juan trachomatis Chlamydia Screening (18) [facility] Start: 06-13-2021 DEPRESSION ASSESSMENT DEPRESSION ASS ESSMENT [facility] Start: 2019 Meningococcal B Vacc ine (1 of 2 - Standard) Meningococcal B Vaccine (1 of 2 - Standard) [facility] Start: 2019 Meningococcal B Vacc ine: Consider Based On Risk (1 of 2 - Patient Seeks Protection) Meningococcal B Vaccine: Consider Based On Risk (1 of 2 - Patient Seeks Protection) [facility] Start: 2019 MENINGOCOCCAL CONJUG ATE (1 - 2-dose series) MENINGOCOCCAL CONJUGATE (1 - 2-dose series) [facility] Start: 2017 PEDS TO ADULT TRANSI TION ANNUAL ASSESSMENT PEDS TO ADULT TRANSITION ANNUAL ASSESSMENT [facility] Start: 2015 PEDS TO ADULT TRANSI TION INITIAL DISCUSSION PEDS TO ADULT TRANSITION INITIAL DISCUSSION [facility] Start: 2014 HPV VACCINE (1 - 2-d ose series) HPV VACCINE (1 - 2-dose series) [facility] Start: 2014 Urine microalbumin profile DTAP,TDAP ,TD (6 - Tdap) [facility] Start: 01-13-2004 COVID-19 VACCINE (#1) COVID-19 VACCI NE (#1) [facility] Chlamydia deoxyribon ucleic acid detection [facility] Work Phone: Erythrocyte mean corpuscular volume determination [facility] Hematocrit [Volume Fraction] of Blood [facility] Hemoglobin [Mass/vol ume] in Blood [facility] Hemoglobin A1c/Hemoglobin.total in Blood [facility] Hepatitis B virus peralta rface Ag [Presence] in Serum [facility] Hepatitis C antibody measurement [facility] Leukocytes [#/volume ] in Blood [facility] Mean corpuscular hemoglobin concentration determination [facility] Mean corpuscular hemoglobin determination [facility] Neisseria gonorrhoea e rRNA [Presence] in Unspecified specimen by SARIKA with probe detection [facility] Neutrophil count [facility] Neutrophil percent differential count [facility] Path report.final Dx Spec [facility] Patient Education [facility] Work Phone: Patient referral [facility] Work Phone: PCR test for Chlamyd ia trachomatis [facility] Platelets [#/volume] in Blood [facility] Red blood cell count [facility] Red cell distributio n width determination [facility] Rubella IgG measurement [facility] Serologic test for syphilis [facility] Urine culture [facility] End: 08-10-2024 US.doppler Extremity arteries - bilateral for physiologic artery study [facility] V[facility] Lab Routine Ingrowing toenail Raynaud's disease without gangrene Diminished pulses in lower extremity 1 Occurrences starting 08/11/2023 until 08/10/2024 [facility] Work Phone: Comment on above: 1 Occurrences starti ng 08/11/2023 until 08/10/2024 [facility] Immunizations Immunization Date Immunization Notes Care Provider Sen monae 04-01-2014 influenza virus vaccine, unspecified formulation Nayan Clarke Work Phone: [facility] 09-27-2008 diphtheria, tetanus toxoids and acellular pertussis vaccine Nurse [facility] Work Phone: [facility] Work Phone: 09-27-2008 measles, mumps and rubella virus vaccine Nurse [facility] Work Phone: [facility] Work Phone: 09-27-2008 poliovirus vaccine, inactivated Nurse [facility] Work Phone: [facility] Work Phone: 09-27-2008 varicella virus vaccine Nurs e [facility] Work Phone: [facility] Work Phone: 02-24-2006 diphtheria, tetanus toxoids and acellular pertussis vaccine Nurse Wstr Work Phone: [facility] Work Phone: 02-24-2006 pneumococcal conjuga te vaccine, 7 valent Nurse Wstr Work Phone: [facility] Work Phone: 10-20-2004 haemophilus influenz ae type b vaccine, HbOC conjugate Nurse Wstr Work Phone: [facility] Work Phone: 10-20-2004 measles, mumps and rubella virus vaccine Nurse Wstr Work Phone: [facility] Work Phone: 10-20-2004 varicella virus vaccine Nurs e Wstr Work Phone: [facility] Work Phone: 01-29-2004 diphtheria, tetanus toxoids and acellular pertussis vaccine Nurse Wstr Work Phone: [facility] Work Phone: 01-29-2004 haemophilus influenz ae type b vaccine, HbOC conjugate Nurse Wstr Work Phone: [facility] Work Phone: 01-29-2004 hepatitis B vaccine, pediatric or pediatric/adolescent dosage Nurse Wstr Work Phone: [facility] Work Phone: 01-29-2004 poliovirus vaccine, inactivated Nurse Wstr Work Phone: [facility] Work Phone: 2003 diphtheria, tetanus toxoids and acellular pertussis vaccine Nurse Wstr Work Phone: [facility] Work Phone: 2003 haemophilus influenz ae type b vaccine, HbOC conjugate Nurse Wstr Work Phone: [facility] Work Phone: 2003 hepatitis B vaccine, pediatric or pediatric/adolescent dosage Nurse Wstr Work Phone: [facility] Work Phone: 2003 pneumococcal conjuga te vaccine, 7 valent Nurse Wstr Work Phone: [facility] Work Phone: 2003 poliovirus vaccine, inactivated Nurse Wstr Work Phone: [facility] Work Phone: 2003 diphtheria, tetanus toxoids and acellular pertussis vaccine Nurse Wstr Work Phone: [facility] Work Phone: 2003 haemophilus influenz ae type b vaccine, HbOC conjugate Nurse Wstr Work Phone: [facility] Work Phone: 2003 hepatitis B vaccine, pediatric or pediatric/adolescent dosage Nurse Wstr Work Phone: [facility] Work Phone: 2003 poliovirus vaccine, inactivated Nurse Wstr Work Phone: [facility] Work Phone: 2003 pneumococcal conjuga te vaccine, 7 valent Nurse Wstr Work Phone: [facility] Work Phone: Payers Date Payer Category Payer Self-pay [id number] 2022 [facility] [id number] 2018 Medicaid [id number] 2017 Medicaid [id number] 2003 Unknown [id number] 2.16. [id number] Unknown [id number] 2.16.8 [id number] Unknown [id number] 2.16.8 [id number] Unknown [id number] 2.16.8 [id number] Unknown [id number] 2.16.8 [id number] Unknown [id number] 2.16.8 [id number] Unknown [id number] 2.16.8 [id number] Unknown [id number] 2.16.8 [id number] Unknown [id number] 2.16.8 [id number] Unknown [id number] 2.16.8 [id number] Unknown [id number] 2.16.8 [id number] Unknown [id number] 2.16.8 [id number] Social History Date Type Detail Facility Start: 01-23-2018 End: 09-23-2024 Tobacco smoking status AKIS Never smoked tobacco [facility] Work Phone: Start: 01-23-2018 End: 09-23-2024 Tobacco use and exposure Smokeless tobacco non-user [facility] Work Phone: Start: 05-05-2022 End: 09-23-2024 Alcohol intake Ex-drinker (finding) [facility] Start: 05-05-2022 Education 11 [facility] Start: 05-05-2022 [facility] Start: 03-22-2022 [facility] Start: 2003 Sex Assigned At Female [facility] Start: 04-25-2022 End: 05-05-2022 Exposure to SARS-CoV-2 (event) Not sure [facility] Work Phone: Start: 05-21-2022 End: 10-24-2023 Tobacco smoking status NHIS Unknown if ever smoked [facility] Start: 03-07-2023 End: 07-16-2024 History of Social function [facility] Start: 03-07-2023 End: 07-16-2024 Tobacco use panel [facility] National Score (1-100), lower number is lower risk 54 [facility] Start: 05-05-2022 Gender identity Identifies as female gender (finding) [facility] Start: 05-05-2022 Sexual orientation Heterosexual (kleber huertas) [facility] Start: 10-26-2024 End: 12-17-2024 Tobacco smoking status NHIS Ex-smoker (finding) [facility] NEGATED: Highlighted row [facility] Goals Date Patient Goal Desired Activity /State Clinical Notes 05-05-2022 to 04-02-2025 Note Date & Type Note Facility 04-02-2025 Progress note [facility] 03-06-2025 Progress note [facility] 02-04-2025 Progress note [facility] 01-09-2025 Evaluation note Diagnosis Onset Date Resolution Alpha thalassemia silent carrier acute January 09, 2025 3:49pm Depression acute January 09 3:49pm Former smoker acute January 09, 2025 3:49pm History of elective acute January 09, 2025 3:49pm Hx of vaginal delivery acute Ju 2024 3:49pm Obesity affecting acute January 09, 2025 3:49pm acute January 09 3:49pm Supervision of high-risk acute January 09, 2 025 3:49pm Varicella vaccination status unknown acute January 09, 2025 3:49pm Alpha thalassemia silent carrier acute February 04 10:57am Depression acute February 04, 2 025 10:57am Former smoker acute January 10:57am History of elective acute February 04 10:57am Hx of vaginal delivery acute 2024 10:57am Obesity affecting acute February 04 10:57am acute February 04, 2 025 10:57am Supervision of high-risk acute February 04, 2025 10:57am Varicella vaccination status unknown acute February 04 10:57am Alpha thalassemia silent carrier acute March 06, 2025 9:43am Depression acute February 9:43am Former smoker acute February 122024 9:43am History of elective acute March 06, 2025 9:43am Hx of vaginal delivery acute Se pt2024 9:43am Obesity affecting acute March 06, 2025 9:43am acute February 9:43am Supervision of high-risk acute March 062024 9:43am Varicella vaccination status unknown acute March 06, 2025 9:43am Alpha thalassemia silent carrier acute April 02 9:54am Anemia in preg-unspec acute Mar 9:54am Depression acute April 02, 2025 9:54am Former smoker acute March 9:54am History of elective acute April 02 9:54am Hx of vaginal delivery acute Oc 2024 9:54am Obesity affecting acute April 02 9:54am acute April 02, 2025 9:54am Supervision of high-risk acute March 9:54am Varicella vaccination status unknown acute April 02 9:54am [facility] Work Phone: 1(972) 147-242906-30-2025 Evaluation note* Diagnosis Onset Date Resolution Status Admit Date Alpha thalassemia silent carrier acu te December 10, 2024 2:58pm Depression acute December 10 2:58pm Former smoker acute December 10, 2024 2:58pm History of elective acute December 10, 2024 2:58pm Hx of vaginal delivery acute Ju 2024 2:58pm Obesity affecting acute December 10, 2024 2:58pm acute December 10 2:58pm Supervision of high-risk acute December 10, 2024 2:58pm Varicella vaccination status unknown acute December 10, 2024 2:58pm [facility] Work Phone: 1(393) 566-213806-30-2025 Evaluation note* Diagnosis Onset Date Resolution Status [...] 2025 3:49pm Hx of vaginal delivery acute ly 2024 3:49pm Obesity affecting acute January 09, 2025 3:49pm acute January 09 3:49pm Supervision of high-risk acute January 09, 2025 3:49pm Varicella vaccination status unknown acute January 09, 2025 3:49pm [facility] [employer] [facility] Work Phone: 1(742) 370-439706-30-2025 Evaluation note* Diagnosis Onset Date Resolution Status [...] 3:49pm Hx of vaginal delivery acute Ju 2024 3:49pm Obesity affecting acute January 09, [...] vaccination status unknown acute February 04 10:57am [facility] Work Phone: 1(397) 305-514406-30-2025 Evaluation note* Diagnosis Onset Date Resolution Status [...] 3:49pm Hx of vaginal delivery acute Ju 2024 3:49pm Obesity affecting acute January 09, 2025 3:49pm acute January 09 3:49pm Supervision of high-risk acute January 09, 2025 3:49pm Varicella vaccination status unknown acute January 09, 2025 3:49pm Alpha thalassemia silent carrier acute February 04 10:57am Depression acute February 04, 2 025 10:57am Former smoker acute January 10:57am History of elective acute February 04, 2025 10:57am Hx of vaginal delivery acute 2024 10:57am Obesity affecting acute February 04, 2025 10:57am acute February 04, 2 025 10:57am Supervision of high-risk acute February 04 10:57am Varicella vaccination status unknown acute February 04 10:57am Alpha thalassemia silent carrier acute March 06, 2025 9:43am Depression acute February 9:43am Former smoker acute February 122024 9:43am History of elective acute March 06, 2025 9:43am Hx of vaginal delivery acute 2024 9:43am Obesity affecting acute March 06, 2025 9:43am acute February 9:43am Supervision of high-risk acute March 06, 2025 9:43am Varicella vaccination status unknown acute March 06, 2025 9:43am [facility] Work Phone: 1(252) 803-497306-30-2025 Progress [facility] [address] [place] [address], [address] [place] [address] OFFICE VISIT Date of Service: 12/10/24 MR#: [id number] Acct: [id number] Name: ADENIKE RUTH Rep #: [id number] : 2005 Provider: Dr. 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 Is patient in pain?: No [...] year weight has: increased > 10 lbs sharmila/cheondoism: None seatbelt use: sometimes do you feel [...] - full term 7lbs 11oz Female epidural [facility] Nadege Jacob Delivery Date: 12/01/22 [...] Pulmonary (e.g.,TB,Asthma), Seasonal allergies, Drug/latex allergies/reactions, Breast, 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, Anesthetic complications, History of abnormal [...] Movement Monitoring, Signs and Symptoms of Preeclampsia, Speculator Education and Family Medical Leave or Disability [...] comfortable and no acute distress Orientation: alert [facility] Head: normal to inspection, normocephalic and [...] : Status: Acute Comment: , JIMENA 06/11/25, PC Aleshia BF Solomon (3) : Status: Acute Comment: elects NIPT [...] patient chose: NIPT + AFP 12/10/24 1602 brynn Aguirre DO> Date _ Mayi Nu[facility]ez [facility] Signature: Date (if applicable) CC: ~ [facility] [id number] Progress note Author Mayi Aguirre [facility] Note Date/Time December 10, 2024 4:02 pm [facility] [address] [place] [address], [address] [place] [address] OFFICE VISIT Date of Service: 12/10/24 MR#: [id number] Acct: [id number] Name: LIDYAADENIKE CARLTON Rep #: [id number] : 2005 Provider: Dr. 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 Is patient in pain?: No [...] year weight has: increased > 10 lbs sharmila/cheondoism: None seatbelt use: sometimes do you feel [...] - full term 7lbs 11oz Female epidural [facility] Nadege Jacob Delivery Date: 12/01/22 [...] Pulmonary (e.g.,TB,Asthma), Seasonal allergies, Drug/latex allergies/reactions, Breast, 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, Anesthetic complications, History of abnormal [...] Movement Monitoring, Signs and Symptoms of Preeclampsia, Speculator Education and Family Medical Leave or Disability [...] comfortable and no acute distress Orientation: alert [facility] Head: normal to inspection, normocephalic and [...] : Status: Acute Comment: , JIMENA 06/11/25, PC TYLER Monk (3) : Status: Acute Comment: elects NIPT [...] Cosigner Signature: Date (if applicable) CC: ~ [place] [employer] Work Phone: 1(531) 438-698004-13-2025 NoteHNO ID: [id number] Author: RIKI ALBARADO APRN.[facility] Service: ? Author Type: Nurse Practitioner Type: [...] understanding and agrees to plan of care. [place] subarachnoid rule 0 this note was generated using Entreda software. It may contain errors in wording, punctuation (more content not included)...[facility]04-13-2025 History of Present illness Narrative* Riki Albarado APRN.RN CORRECTIONAL - 09/23/2024 2:31 PM EDT Subjective HPI [...] understanding and agrees to plan of care. [place] subarachnoid rule 0 this note was generated using Entred[employer] software. It may contain errors in wording, p unctuation, or spelling. Riki Albarado APRN.AYAAN [facility] History of Present illness Narrative* Nayan Clarke - 08/11/2023 10:41 AM EST Initial Podiatric [...] time. Nayan Clarke DPM Podiatry [address] [facility] [address] Dept: [phone] Dept * Gianna Prieto RN - 08/11/2023 10:18 AM EST Patient presents with: Left Foot - New: ingrown nail Right Foot - New: ingrown nail AMB ROOMING INTAKE FLOWSHEET DATA Risk Screening Do you have concerns about personal safety or safety in the home?: No documented in this encounterR[facility]23 Progress note Author Beverly Penny [facility] December 02, 2022 7:53am Note Date/Time December 02, 2022 7:[address] [facility] Medical Records Department [address] [facility] [place] [address] Progress Note - OBGYN 12/02/22 0744 MR#: [id number] Acct: [id number] Name: ADENIKE RUTH Rep #:[id number] : 2005 17 From: Beverly Penny SPEECH LANGUAGE PATHOLOGY ASSISTANT SPEECH LANGUAGE PATHOLOGY ASSISTANT-C PCP: Care Physician,No Primary Status :ADM IN Location: [place] [id number] Subjective Subjective Patient doing well without complaints. [...] wk follow up 6. home today 12/02/22 8033 <Electronically signed by Beverly Penny NP, NP-C> Cosigner Signature (if applicable): CC: ~ Signed [facility] Work Phone: 1(431) 856-636806-21-2023 Discharge summary Author Nadege Jarrell [facility] December 01, 2022 10:49am Note Date/Time December 01, 2022 10:4 9am [facility] Medical Records Department [address] [place] [address] Instructions for Home/Discharge Instructions 12/01/22 1048 MR#: [id number] Acct: [id number] Name: LIDYALILISA CARLTON Rep #:[id number] : 2005 17 From: [...] Attending Provider: Nadege Jarrell Primary Care Provider: Care Physician,Amarilis Primary Discharge Orders/Prescriptions Prescriptions: No Action prenat.vits,julius,rvc-otyo-mwxbx Tablet 1 tab PO DAILY Referrals / Follow Up: Care Physician,No Primary [Primary Care Provider] - Disposition Disposition (needs filled in before D/C Order can be placed): Home, Self Care 12/01/22 1049<Electronically signed by Nadege Jarrell CNM>Nadege Jarrell CNM CC: No Primary Care Physician ~ Signed [facility] Work Phone: 1(364) 484-660606-21-2023 Procedure [facility] 12-01-2022 Progress note Author Nadege Jarrell [facility] December 01, 2022 7:46am Note Date/Time December 01, 2022 7:46 am [facility] Medical Records Department [address] [place] [address] Progress Note 12/01/22 0743 MR#: [id number] Acct: [id number] Name: ADENIKE RUTH Rep #:[id number] : 2005 17 From: Nadege Jarrell CNM PCP: Care Physician,No Primary Status :ADM IN Location: [place] 501976-1 Progress Note patient comfortable with epidural current tracing: FHT: 145 Moderate variability reactive no decelerations category I tracing [place]: 2-4 minute Contractions SVE 5/90/0 A/P: start pitocin, titrate per protocol. continue position changes anticipate Multi Select Codes Urinary/Genital Urinary/Genital CPT Codes: No Charge 12/01/22 0746 <Electronically signed by Nadege Jarrell CNM> Nadege Jarrell CNM Cosigner Signature (if applicable): CC: ~ Signed [facility] Work Phone: 1([phone]) 698-137706-21-2023 History and physical note Author Dr. Knight [facility] December 01, 2022 5:56am Note Date/Time December 01, 2022 5:[address] [facility] Medical Records Department [address] [place] [address] H&P Exam - PROCESS HELPER 12/01/22 0546 MR#: [id number] Acct: [id number] Name: ADENIKE RUTH Rep #:[id number] : 2005 17 From: Jacqueline ellison MD PCP: Care Physician,No Primary Status :ADM IN Location: [id number] HPI - General General Date of Admission: 12/01/22 HPI Narrative ADENIKE RUTH, is a 17 F who presents IAL and SROM clear fluid regular contractions, changed from 4 to 5 cm. Maternal Data Information JIMENA Calculator Estimated Delivery Date Method Current WG Current Estimate 12/13/22 LMP (Certain) 38w 2d Other Estimates 12/13/22 Ultrasound #1 38w 2d PFSH PFSH Medical History (Updated 12/01/22 @ 05:[address] Jacqueline Knight MD) Depression Home Medications prenat.vits,julius,czb-oyej-tetrl 1 tab PO DAILY 09/08/22 [History Last [...] Labor Preferences- CB/BF classes: encouraged. Probably at [facility] labor support person: Frank labor intervention preferences: [...] anato my scan. glucola ordered. going to [place] at 31 weeks. 09/08/22 -?-?-?-?-?-?-?-?-?-?-?-?- 26w 2d 160 lb 8 oz 110/70 Nega tive -?-?-?-?-?-?-?-?-?-?-?-?- Negative 149 26 -?-?-?-?-?-?-?-?-?-?-?-?- -No VbLOF. barbara FM. Plans nexplanon pp. Larc. 28 wk labs 09/22/22 -?-?-?-?-?-?-?-?-?-?-?-?- 28w 2d 166 lb 102/68 Negative -?-?-?-?-?-?-?-?-?-?-?-?- Negative 145 28 -?-?-?-?-?-?-?-?-?-?-?-?- -No LOF. Barbara Snowden FM. 10/06/22 -?-?-?-?-?-?-?-?-?-?-?-?- 30w 2d 168 lb [...] any complications: none I have reviewed the [facility] and made any clinically relevant updates. 12/01/22 0556 <Electronically signed by Jacqueline Knight MD> Cosigner Signature (if applicable): CC: Dr. Jacqueline Knight MD; No Primary Care Physician~ Signed [facility] Work Phone: 1(157) 684-761311-23-2022 Miscellaneous Notes* Quick Notes - Noris Echeverria RN - 05/05/2022 1:26 PM EST DISTANCE HEALTH VISIT This Team Access Model visit is a phone encounter. It required patient-provider interaction for themedical decision making as documented below. Adenike Ruth is a 16 year old female seen for PNOB. She has had 2 visits of the care center. 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 Planning on graduating this spring. The father [...] aneuploidy screening. Patient given contact information for [employer] to check on insurance coverage. Patient considering genetic carrier screening testing. Patient is given contact information for the [facility] to check on insurance coverage.Noris Echeverria RN documented in this encounterR[facility] HospitalEval[facility]inity [facility] note* Diagnosis Supervision of normal first teen , unspecified trimester- Primary Nausea/vomiting in Unspecified vomiting of , unspecified as to episode of care History of depression Personal history of other mental disorder Patient request for diagnostic testing Other specified examination documented in this encounter [facility]* Diagnosis Onset Date Resolution Status acute Supervision of normal acute [facility] Work Phone: Evaluation note* Diagnosis Onset Date Resolution Status acute Supervision of normal acute Marijuana use acute acute Supervision of normal acute Marijuana use acute acute Supervision of normal acute Marijuana use acute acute Supervision of normal acute Marijuana use acute acute Supervision of normal acute [facility] Work Phone: Evaluation note* Diagnosis Onset Date [...] resolved Supervision of normal first teen resolved [facility] Work Phone: Evaluation note* Diagnosis Ingrowing toenail- Primary Ingrowing nail Raynaud's disease without gangrene Diminished pulses in lower extremity Other symptoms involving cardiovascular system documented in this encounter [facility] noteNo assessment information [facility]WDiley [facility] Work Phone: Evaluation note* Diagnosis Viral illness- Primary Unspecified viral infection, in conditions classified elsewhere and of unspecified site documented in this encounter [facility] note* Diagnosis Onset Date Resolution Status Admit Date Alpha thalassemia silent carrier acu te December 10, 2024 2:58pm Depression acute December 10 2:58pm Former smoker acute December 10, 2024 2:58pm History of elective acute December 10, 2024 2:58pm Hx of vaginal delivery acute Ju 2024 2:58pm Obesity affecting acute December 10, 2024 2:58pm acute December 10 2:58pm Supervision of high-risk acute December 10, 2024 2:58pm Varicella vaccination status unknown acute December 10, 2024 2:58pm [facility] Work Phone: Hospital Discharge instructions Additional Instructions Please follow-up outpatient. Use safe [facility] practicesWD[facility] Work Phone: Progress note Author Nadege Jarrell [facility] Note Date/Time February 04, 2025 11 :18am [facility] [address] [place] [address], [address] [place] [address] OFFICE VISIT Date of Service: 02/04/25 MR#: [id number] Acct: [id number] Name: ADENIKE RUTH Rep #: [id number] : 2005 Provider: JAXON Jarrell Age/Sex: 19/F [place] [facility] [place] Status: Signed Intake Vital Signs 01/09/25 15:51 02/04/25 10:58 Height 5 ft 4 in 5 ft 4 in Weight: 185 lb 5 oz BMI 31.8 BP 104/70 Intake Visit Reasons: 22wk ob Chief Complaint: 22wk OB Wood Cabinet Finisher Required: No Is patient in pain?: No [...] year weight has: increased > 10 lbs sharmila/cheondoism: None seatbelt use: sometimes do you feel safe at home: Yes additional social history: Boyfriend-Solomon History 4 Elective abortions 2 Hx Para 1 Spontaneous abortions Hx # Term Pregnancies Ectopic pregnancies Hx # Pregnancies Multiple births # of living children 1 Past Pregnancies Del. Date Name GA/Weeks Outcome Route Bth Weight Infant Gen Labor Lgth Anesthesia Del Locatn Provider FOB 12/01/22 Ismaeltalphilip 38 live - full term 7lbs 11oz Female epidural [facility] Nadege Jacob Delivery Date: 12/01/22 [...] Movement Monitoring, Signs and Symptoms of Preeclampsia, Speculator Education and Family Medical Leave or Disability [...] Acute Comment: , JIMENA 06/11/25, boy, PC TYLER Monk (4) : Status: Acute Qualifiers: Weeks of [...] Cosigner Signature: Date (if applicable) CC: ~ [facility] Work Phone: Progress note Author Jacqueline Knight [facility] Note Date/Time March 06, 2025 10:05am [facility] [address] [place] [address], [address] [place] [address] OFFICE VISIT Date of Service: 03/06/25 MR#: [id number] Acct: [id number] Name: ADENIKE RUTH Rep #: [id number] : 2005 Provider: Dr. Charlie Knight MD Age/Sex: 19/F [place] [facility] [place] Status: Signed Intake Vital Signs 01/09/25 15:51 02/04/25 10:58 03/06/25 09:46 Height 5 ft 4 in 5 ft 4 in 5 ft 4 in Weight: 182 lb 2 oz 185 lb 5 oz 193 lb 2 oz BMI 31.2 31.8 33.1 BP 102/67 104/70 120/78 Intake Visit Reasons: 26wk ob/glucose Chief Complaint: 26wk OB Wood Cabinet Finisher Required: No Is patient in pain?: No Allergies No Known Allergies Allergy (Verified 03/06/25 09:44) Medications ?Medication ?Instructions ?Recorded ?Confirmed ?Type PNV 153-FA 400 mcg-om3 35 mg-dha tab PO 10/26/2403/06 History 25 mg-epa 5 mg-fish oil chew tablet fluoxetine 20 mg capsule (Prozac) 20 mg PO DAILY #30 c aps 03/06/25 03/06/25 Rx vitamins no.180-ferrous 1 tab PO DAILY #30 ta bs 03/06/25 03/06/25 Rx fumarate 27 mg-folic acid 1 mg tablet ( Plus Vitamin-Mineral) Last Menstrual Period: 09/04/24 : No PFSH [...] year weight has: increased > 10 lbs sharmila/cheondoism: None seatbelt use: sometimes do you feel [...] - full term 7lbs 11oz Female epidural [facility] Nadege Jacob Delivery Date: 12/01/22 Last Updated by: Ruthy Wyatt 1st degree laceration HPI 26wk ob/glucose Details: ADENIKE RUTH is a 19 year old who presents for routine OB visit. OB Visit JIMENA Calculator Estimated Delivery Date Method Current WG Current Estimate 06/11/25 LMP (Certain) 26w 1d Expected Delivery Route/Plan Labor Preferences- CB/BF [...] tested. (new partner)also desires afp testing. 01/09/25 -?-?-?-?-?-?-?-?-?-?-?-?- 18w 1d 182 lb 2 oz 102/67 Nega tive -?-?-?-?-?-?-?-?-?-?-?-?- Negative 145 -?-?-?-?-?-?-?-?-?-?-?-?- JV- no complaint s today. FOB passed out after she gave blood last time so she wants to decline afp. He will not do the carrier testing either. will notify peds for alpha thal carrier status. 02/04/25 -?-?-?-?-?-?-?-?-?-?-?-?- 21w 6d 185 lb 5 oz 104/70 Nega tive -?-?-?-?-?-?-?-?-?-?-?-?- Negative 160 -?-?-?-?-?-?-?-?-?-?-?-?- KW- no vb/lof/ct x. +flutters. glucose info given. anatomy US normal. concerns with yeast infection-only used Monistat for 2 days. instructed to use Monistat 7 03/06/25 -?-?-?-?-?-?-?-?-?-?-?-?- 26w 1d 193 lb 2 oz 120/78 Nega tive -?-?-?-?-?-?-?-?-?-?-?-?- Negative 150 26 -?-?-?-?-?-?-?-?-?-?-?-?- SM- no vb lof go od fm n oreuglar ctx struggling with signficant depressive symptoms ACOG First Trimester First Trimester: Desire for [...] Movement Monitoring, Signs and Symptoms of Preeclampsia, Education and Family Medical Leave or Disability Forms ROS Const Denies fever(s) GI Reports as per HPI and Denies abdominal pain Reports as per HPI, Denies abnormal vaginal bleeding, Denies dysuria and Denies vaginal discharge Exam Const General: healthy appearing, comfortable and no acute distress GI Inspection: normal to inspection Palpation: soft and nontender Results POC Urinalysis 2 Dip (Clinic) Office Urine Glucose Negative Last Edit by Susan Morales on 03/06/25 09:50 Office Urine Protein Negative Last Edit by Susan Morales on 03/06/25 09:50 Coding Level of Care Code Off vis,est,level 3 Diagnoses Alpha thalassemia silent carrier D56.3 Hx of vaginal delivery Supervision of high-risk O09.90 26 weeks gestation of Z3A.26 Weeks of gestation: 26 weeks History of elective Z98.890 Obesity affecting O99.210 Depression F32.A Former smoker Z87.891 Varicella vaccination status unknown Z78.9 Assessment and Plan Assessment and Plan (1) Alpha thalassemia silent carrier: Status: Acute Comment: FOB to be tested. (2) Hx of vaginal delivery: Status: Acute (3) Supervision of high-risk : Status: Acute Comment: , JIMENA 06/11/25, boy, PC Aleshia, BF Solomon (4) : Status: Acute Qualifiers: Weeks of gestation: 26 weeks Qualified Code(s): Z3A.26 - 26 weeks gestation of Comment: NIPT low risk (5) History of elective : Status: Acute Comment: November 2023 & May 2024-medical abortions (6) Obesity affecting : Status: Acute Comment: HgbA1c (7) Depression: Status: Acute Comment: enc counseling. Support International resource provided. recommend prozac (took in the past) and counseling encouarged (8) Former smoker: Status: Acute Comment: quit 2 weeks ago (9) Varicella vaccination status unknown: Status: Acute Orders: Orders POC Urinalysis 2 Dip (Clinic) Today Glucose Challenge Gest 1H 50g Today O09.90 - Supervision of high risk , unspecified, unspecified trimester, Z13.1 - Encounter for screening for diabetes mellitus, Z3A.26 - 26 weeks gestation of CBC W/Diff, Automated Today O09.90 - Supervision of high risk , unspecified, unspecified trimester, Z3A.26 - 26 weeks gestation of Syphilis Antibodies Today O09.90 - Supervision of high risk , unspecified, unspecified trimester, Z3A.26 - 26 weeks gestation of HIV Today O09.90 - Supervision of high risk , unspecified, unspecified trimester, Z3A.26 - 26 weeks gestation of Iron+Iron Binding Capacity Today O99.019 - Anemia complicating , unspecified trimester Ferritin Today O99.019 - Anemia complicating , unspecified trimester Transferrin Today O99.019 - Anemia complicating , unspecified trimester Medications: New vit no.636-cvqi-foxlj 27 mg iron- 1 mg ( Plus Vitamin-Mineral) 1 TAB PO DAILY 30 tabs 12RF fluoxetine (Prozac) 20 mg PO DAILY 30 caps 12RF 03/06/25 1006 <Electronically signed by Jacqueline martinez MD> Date _ Jacqueline Knight MD Cosigner Signature: Date (if applicable) CC: ~ [facility] Work Phone: Progress note Author Beverly Penny [facility] Note Date/Time April 02, 2025 1 1:19am [facility] [address], [address] [place] [address] OFFICE VISIT Date of Service: 04/02/25 MR#: [id number] Acct: [id number] Name: ADENIKE RUTH Rep #: [id number] : 2005 Provider: LEIGHANN Penny Age/Sex: 19/F [place] [facility] [place]: Signed Intake Vital Signs 02/04/25 10:58 03/06/25 09:46 04/02/25 09:58 Height 5 ft 4 in 5 ft 4 in 5 ft 4 in Weight: 190 lb 2 oz BMI 32.6 BP 103/66 Intake Visit Reasons: 30wk ob Wood Cabinet Finisher Required: No Is patient in pain?: No Allergies No Known Allergies Allergy (Verified 04/02/25 09:59) Medications ?Medication ?Instructions ?Recorded ?Confirmed ?Type PNV 153-FA 400 mcg-om3 35 mg-dha tab PO 10/26/2404/02 History 25 mg-epa 5 mg-fish oil chew tablet fluoxetine 20 mg capsule (Prozac) 20 mg PO DAILY #30 c aps 03/06/25 04/02/25 Rx vitamins no.180-ferrous 1 tab PO DAILY #30 ta bs 03/06/25 04/02/25 Rx fumarate 27 mg-folic acid 1 mg tablet ( Plus Vitamin-Mineral) Last Menstrual Period: 09/04/24 Zika: Zika virus screening: Negative : Yes PFSH PFSH Medical History Vaginal delivery Depression [...] year weight has: increased > 10 lbs sharmila/cheondoism: None seatbelt use: sometimes do you feel [...] - full term 7lbs 11oz Female epidural [facility] Nadege Castelann Delivery Date: 12/01/22 Last Updated by: Ruthy Wyatt 1st degree laceration HPI 30wk ob Details: ADENIKE RUTH is a 19 year old who presents for routine OB visit. OB Visit JIMENA Calculator Estimated Delivery Date Method Current WG Current Estimate 06/11/25 LMP (Certain) 30w 0d Expected Delivery Route/Plan Labor Preferences- CB/BF classes: no labor support person: Solomon labor intervention preferences: [] pain management options preferred: epidural cut cord/dad catch: yes : yes PP control planned: discussed discussed possible routes of delivery and associated risks: [] special requests: [] Specific Issue/Plans Covid status: [] Flu vaccine: declines Tdap vaccine: declines Rhogam: na LARC form signed: yes Problem list reviewed [...] tested. (new partner)also desires afp testing. 01/09/25 -?-?-?-?-?-?-?-?-?-?-?-?- 18w 1d 182 lb 2 oz 102/67 Nega tive -?-?-?-?-?-?-?-?-?-?-?-?- Negative 145 -?-?-?-?-?-?-?-?-?-?-?-?- JV- no complaint s today. FOB passed out after she gave blood last time so she wants to decline afp. He will not do the carrier testing either. will notify peds for alpha thal carrier status. 02/04/25 -?-?-?-?-?-?-?-?-?-?-?-?- 21w 6d 185 lb 5 oz 104/70 Nega tive -?-?-?-?-?-?-?-?-?-?-?-?- Negative 160 -?-?-?-?-?-?-?-?-?-?-?-?- KW- no vb/lof/ct x. +flutters. glucose info given. anatomy US normal. concerns with yeast infection-only used Monistat for 2 days. instructed to use Monistat 7 03/06/25 -?-?-?-?-?-?-?-?-?-?-?-?- 26w 1d 193 lb 2 oz 120/78 Nega tive -?-?-?-?-?-?-?-?-?-?-?-?- Negative 150 26 -?-?-?-?-?-?-?-?-?-?-?-?- SM- no vb lof go od fm n oreuglar ctx struggling with signficant depressive symptoms 04/02/25 -?-?-?-?-?-?-?-?-?-?-?-?- 30w 0d 190 lb 2 oz 103/66 Nega tive -?-?-?-?-?-?-?-?-?-?-?-?- Negative 140 30 -?-?-?-?-?-?-?-?-?-?-?-?- MH-No VB, LOF. G ood FM. Declines flu and tdap vaccines. CBC today ACOG First Trimester First Trimester: Desire for , Alcohol, Tobacco Cessation, Illicit/Recreational Drug/Substance Use, Intimate Partner Violence, Barriers to care, Unstable Housing, Communication Barriers, Environmental/Work Hazards, Anticipated Course of Care, Toxoplasmosis Precations, Use of Any medications, Sexual activity, Exercise, Dental Care, Sauna/Hot tub use, Seat Belt use, Childbirth classes/Hospital facilities, , Travel, Indications for Ultrasound and Screening for Aneuploidy Second Trimester Second Trimester: Signs and Symptoms of Labor, Selecting a care provider, Reproductive Life Planning & Contreception, Care Planning and Intimate Partner Violence; Discussed Tobacco Cessation and Discussed Depression/Anxiety Third Trimester Third Trimester: Pain Management Plans, Labor support person(s), Immediate Larc, Movement Monitoring, Signs and Symptoms of Preeclampsia, Infant Feeding Yes , Education, Family Medical Leave or Disability Forms, Depression and Intimate Partner Violence ROS Const Reports system reviewed and no additional complaints, except as documented GI Denies abdominal pain, Denies nausea and Denies vomiting Exam Const General: cooperative Nutritional Appearance: well nourished GI Palpation: soft, nontender and other (gravid) Results POC Urinalysis 2 Dip (Clinic) Office Urine Glucose Negative Last Edit by Katherin Ornelas on 04/02/25 10 :00 Office Urine Protein Negative Last Edit by Katherin Ornelas on 04/02/25 10 :00 Coding Level of Care Code Off vis,est,level 3 Diagnoses Supervision of high risk in third trimester O09.93 Trimester: third trimester 30 weeks gestation of Z3A.30 Weeks of gestation: 30 weeks Hx of vaginal delivery Alpha thalassemia silent carrier D56.3 History of elective Z98.890 Obesity affecting in third trimester, unspecified obesity type O99.213 Trimester: third trimester Obesity type affecting : unspecified obesity Varicella vaccination status unknown Z78.9 Former smoker Z87.891 Depression, unspecified depression type F32.A Depression Type: unspecified Anemia during in third trimester O99.013 Trimester: third trimester Assessment and Plan Assessment and Plan (1) Supervision of high-risk : Status: Acute Qualifiers: Trimester: third trimester Qualified Code(s): O09.93 - Supervision of high risk , unspecified, third trimester Comment: , JIMENA 06/11/25, boy, PC Aleshia, TYLER Carbajal (2) : Status: Acute Qualifiers: Weeks of gestation: 30 weeks Qualified Code(s): Z3A.30 - 30 weeks gestation of Comment: NIPT low risk (3) Hx of vaginal delivery: Status: Acute (4) Alpha thalassemia silent carrier: Status: Acute Comment: FOB to be tested. (5) History of elective : Status: Acute Comment: November 2023 & May 2024-medical abortions (6) Obesity affecting : Status: Acute Qualifiers: Trimester: third trimester Obesity type affecting : unspecified obesity Qualified Code(s): O99.213 - Obesity complicating , third trimester Comment: HgbA1c (7) Varicella vaccination status unknown: Status: Acute (8) Former smoker: Status: Acute Comment: quit 2 weeks ago (9) Depression: Status: Acute Qualifiers: Depression Type: unspecified Qualified Code(s): F32.A - Depression, unspecified Comment: enc counseling. Support International resource provided. recommend prozac (took in the past) and counseling encouarged;improved with prozac (10) Anemia in preg-unspec: Status: Acute Qualifiers: Trimester: third trimester Qualified Code(s): O99.013 - Anemia complicating , third trimester Orders: Orders POC Urinalysis 2 Dip (Clinic) Today Plan problem list reviewed and updated for most current plan of care and appropriate orders placed. Relevant counseling for the gestational age appropriate provided and ACOG education checklist updated. Continue routine care and follow up. 04/02/25 1022 <Electronically signed by Beverly chung SPEECH LANGUAGE PATHOLOGY ASSISTANT SPEECH LANGUAGE PATHOLOGY ASSISTANT-C> Date _ Beverly Penny SPEECH LANGUAGE PATHOLOGY ASSISTANT SPEECH LANGUAGE PATHOLOGY ASSISTANT-C Cosigner Signature: Date (if applicable) CC: ~ [facility] Work Phone: Reason for referral (narrative)* Outpatient Procedure (Routine) - Authorized Specialty Diagnoses / Procedures Referred By Contac t Referred To [facility] Diagnoses Ingrowing toenail Raynaud's disease without gangrene Diminished pulses in lower extremity Procedures PVR ANK PRESS SHERRON VAS LAB NON-INVAS PHYSIOLOGIC STD EXTREMITY ART 2 LEVEL Nayan Clarke [address] [place] [address] [facility] [address] [place] [address] Referral ID Status Reason Start Date Expiration Date Visits Requested Visits Authorized [id number] Authorized Auto-Generat ed Referral 08/11/2023 08/10/2024 1 1 [facility] for referral (narrative)No reason for referral information [facility] Work Phone: Summary Purpose Family History No [...] Will No May 21 2:38pm Power of Business Analytics Intern No May 21, 2022 2:38pm Advance Directive Response Recorded Date/ Time Living Will No May 31 6:44am Power of Business Analytics Intern No May 31, 2022 6:44am Advance Directive Response Recorded Date/ Time Living Will No May 31 7:44am Power of Business Analytics Intern No May 31, 2022 7:44am Advance Directive Response Recorded Date/ Time Living Will No December 01, 2022 1:51am Power of Business Analytics Intern No December 01 1:51am Advance Directive Response Recorded Date/ Time Living Will No October 24, 2023 6 :42pm Power of Business Analytics Intern No October 24, 2023 6:42pm Chief Complaint [...] 2024 2 :58pm Obesity affecting December 10, 025 2:58pm December 10, 2024 2:58 pm [...] 04, 2025 10 :57am Supervision of high-risk Janus 2024 10:57am Varicella vaccination status unknown Jan 10:57am Chief Complaint Admit Date NOB LMP 09/04December 10, 2024 2:58 pm 18 wks ob January 09, 2025 3:49 pm 22wk ob February 04, 2025 10 :57am 26wk ob/glucose March 06, 2025 9:43am Reason for Visit Admit Date Alpha thalassemia [...] 04, 2025 10 :57am Supervision of high-risk Janus t 2024 10:57am Varicella vaccination status unknown Jan 10:57am Alpha thalassemia silent carrier Septemb er 2024 9:43am Depression March 06, 2025 9:43am Former smoker March 06, 2025 9:43am History of elective February 122024 9:43am Hx of vaginal delivery March 06, 025 9:43am Obesity affecting March 062024 9:43am March 06, 2025 9:43am Supervision of high-risk [facility] 20[facility] 9:43am Varicella vaccination status unknown Sep tember 2024 9:43am Chief Complaint Admit Date 18 wks ob January 09, 2025 3:49 pm 22wk ob February 04, 2025 10 :57am 26wk ob/glucose March 06, 2025 9:43am 30wk ob April 02, 2025 9 :54am Reason for Visit Admit Date Alpha thalassemia silent carrier January 092024 3:49pm [...] 04, 2025 10 :57am Supervision of high-risk Augus t 2024 10:57am Varicella vaccination status unknown Jan 10:57am Alpha thalassemia silent carrier Septemb er 2024 9:43am Depression March 06, 2025 9:43am Former smoker March 06, 2025 9:43am History of elective February 122024 9:43am Hx of vaginal delivery March 06, 2 025 9:43am Obesity affecting March 062024 9:43am March 06, 2025 9:43am Supervision of high-risk Septe mber 2024 9:43am Varicella vaccination status unknown Sep tember 2024 9:43am Alpha thalassemia silent carrier April 02, 2025 9:54am Anemia in preg-unspec April 02, 2025 9:54am Depression April 02, 2025 9 :54am Former smoker April 02, 2025 9 :54am History of elective March 9:54am Hx of vaginal delivery April 02 9:54am Obesity affecting March 9:54am April 02, 2025 9 :54am Supervision of high-risk Octob 2024 9:54am Varicella vaccination status unknown Oct feliciano2024 9:54am Additional Source Comments INFORMATION SOURCE (unrecogn ized section and content) DATE CREATED AUTHOR 02/01/2018 [facility] ([place]) DATE CREATED AUTHOR AUTHOR'S ORGANIZ ATION 09/24/2024 [facility] DATE CREATED AUTHOR AUTHOR'S ORGANIZ ATION 01/26/2025 [facility] DATE CREATED AUTHOR AUTHOR'S ORGANIZ ATION 04/20/2025 [facility] Comments (unrecognize d section and content) In the event this informatio n is protected by the Federal Confidentiality of Alcohol and Drug Abuse Patient Records regulations: The Federal rules restrict any use of the information to criminally investigate or prosecute any alcohol or drug abuse patient.[facility] the event this information is protected by the Federal Confidentiality of Alcohol and Drug Abuse Patient Records regulations: The Federal rules restrict any use of the information to criminally investigate or prosecute any alcohol or drug abuse patient.[facility] Hospital[facility] the event this information is protected by the Federal Confidentiality of Alcohol and Drug Abuse Patient Records regulations: The Federal rules restrict any use of the information to criminally investigate or prosecute any alcohol or drug abuse patient.[facility] Reason for Visit (unrecogniz ed section and content) Reason Comments Care Reason Comments New ingrown nail Reason Comments Headache X 3-4 days, fatigue, pain is behind the eyes Care Teams (unrecognized sec tion and content) Displayer Merchandise Relationship Specialty Start Date End Date Mariaelena [place] [address] PCP - General Pediatrics 03/14/17 Team Status: Active Member Role Status Dates Dr. Mariaelena Ornelas MD Family Provider Active No Primary Care Physician Primary Care Provider Active Team Status: Inactive Member Role Status Dates Dr. Mariaelena Ornelas MD Primary Care Provider, Referrin g Provider Active Dr. Mayi Nuñez DO Attending Provider Activ e Team Status: Inactive Member Role Status Dates Dr. Mariaelena Ornelas MD Referring Provider Active Dr. Myai Nuñez DO Attending Provider Activ e No Primary Care Physician Primary Care Provider Active Team Status: Inactive Member Role Status Dates No Primary Care Physician Primary Care Provider, Refer ring Provider Active Dr. Mayi Nuñez DO Attending Provider Activ e Team Status: Inactive Member Role Status Dates No Primary Care Physician Primary Care Provider, Refer ring Provider Active Beverly Penny SPEECH LANGUAGE PATHOLOGY ASSISTANT, SPEECH LANGUAGE PATHOLOGY ASSISTANT-C Attending Provider Active Team Status: Inactive Member [...] Provider, Refe rring Provider Active Beverly Penny SPEECH LANGUAGE PATHOLOGY ASSISTANT, SPEECH LANGUAGE PATHOLOGY ASSISTANT-C Other Provider Active Team Status: Inactive Member [...] erring Provider, Other Provider Active Beverly Penny SPEECH LANGUAGE PATHOLOGY ASSISTANT, SPEECH LANGUAGE PATHOLOGY ASSISTANT-C Attending Provider Active Team Status: Inactive Member Role Status Dates No Primary Care Physician Primary Care Provider Active Beverly Penny SPEECH LANGUAGE PATHOLOGY ASSISTANT, SPEECH LANGUAGE PATHOLOGY ASSISTANT-C Attending Provider, Referring Provider Active Team Status: Inactive Member Role Status Dates No Primary Care Physician Primary Care Provider Active Elo Rivas CNM Attending Provider, Referring Pr ovider Active Team Status: Inactive Member Role Status Dates No Primary Care Physician Primary Care Provider Active Nadege Jarrell CNM Admit Provider, Att ending Provider, Referring Provider Active Displayer Merchandise Relationship Specialty Start Date End Date Mariaelena Ornelas MD [address] [place] [address] PCP - General Pediatrics 03/14/17 Team Status: Active Member Role Status Dates Dr. Mariaelena Ornelas MD Family Provider Active Chucho Nickerson MD Primary Care Provider Active Team Status: Inactive Member Role Status Dates Chucho Nickerson MD Primary Care Provider Active Dr. Mayi Calix MD Emergency Provider Active Displayer Merchandise Relationship Specialty Start Date End Date Mariaelena Ornelas MD [address] [place] [address] PCP - General Pediatrics 03/14/17 Team Status: [...] 2024 Team Status: Active Member Role/Relationship Status Dates Chucho Nickerson MD Primary Care Provider Active St art: December 10, 2024 Dr. Mayi Nuñez DO Attending Provider Activ e Start: December 10, 2024 Dr. Mayi Nuñez DO Referring Provider Activ e Start: December 10, 2024 Team Status: Inactive Member Role/Relationship Status Dates Chucho Nickerson MD Primary Care Provider Active St art: December 10, 2024 End: December 10, 2024 Dr. Mayi Nuñez DO Attending Provider Activ e Start: December 10, 2024 End: December 10, 2024 Dr. Mayi Nuñez DO Referring Provider Activ e Start: December 10, 2024 End: December 10, 2024 Team Status: Inactive Member Role/Relationship Status Dates [...] February 04, 2025 End: February 04, 2025 Team Status: Active Member Role/Relationship Status Dates Dr. Mariaelena Ornelas MD Primary care physician Active Chucho Nickerson MD Primary care physician Active Team Status: Inactive Member Role/Relationship Status Dates Chucho Nickerson MD Primary care physician Active S tart: December 10, 2024 End: December 10, 2024 Chucho Nickerson MD Referring Provider Active Start : December 10, 2024 End: December 10, 2024 Dr. Mayi Nuñez DO Attending physician Acti ve Start: December 10, 2024 End: December 10, 2024 Team Status: Inactive Member Role/Relationship Status Narendra Nickerson MD Primary care physician Active S tart: December 10, 2024 End: December 10, 2024 Dr. Mayi Nuñez DO Attending physician Acti ve Start: December 10, 2024 End: December 10, 2024 Dr. Mayi Nuñez DO Referring Provider Activ e Start: December 10, 2024 End: December 10, 2024 Team Status: Inactive Member Role/Relationship Status Narendra Nickerson MD Primary care physician Active S tart: January 09, 2025 End: January 09, 2025 Chucho Nickerson MD Referring Provider Active Start : January 09, 2025 End: January 09, 2025 Dr. Mayi Nuñez DO Attending physician Acti ve Start: January 09, 2025 End: January 09, 2025 Team Status: Inactive Member Role/Relationship Status Narendra Nickerson MD Primary care physician Active S tart: February 04, 2025 End: February 04, 2025 Chucho Nickerson MD Referring Provider Active Start : February 04, 2025 End: February 04, 2025 Nadege Jarrell CNM Attending physician Active Start: February 04, 2025 End: February 04, 2025 Team Status: Inactive Member Role/Relationship Status Narendra Nickerson MD Primary care physician Active S tart: March 06, 2025 End: March 06, 2025 Chucho Nickerson MD Referring Provider Active Start : March 06, 2025 End: March 06, 2025 Dr. Jacqueline Knight MD Attending physician Active Start: March 06, 2025 End: March 06, 2025 Team Status: Active Member Role/Relationship Status Narendra Nickerson MD Primary care physician Active S tart: March 06, 2025 Dr. Jacqueline Knight MD Attending physician Active Start: March 06, 2025 Dr. Jacqueline Knight MD Referring Provider Active Start: March 06, 2025 Team Status: Inactive Member Role/Relationship Status Narendra Nickerson MD Primary care physician Active S tart: January 09, 2025 End: January 09, 2025 Chucho Nickerson MD Referring Provider Active Start : January 09, 2025 End: January 09, 2025 Dr. Mayi Nuñez DO Attending physician Acti ve Start: January 09, 2025 End: January 09, 2025 Team Status: Inactive Member Role/Relationship Status Narendra Nickerson MD Primary care physician Active S tart: February 04, 2025 End: February 04, 2025 Chucho Nickerson MD Referring Provider Active Start : February 04, 2025 End: February 04, 2025 Nadege Jarrell CNM Attending physician Active Start: February 04, 2025 End: February 04, 2025 Team Status: Inactive Member Role/Relationship Status Narendra Nickerson MD Primary care physician Active S tart: March 06, 2025 End: March 06, 2025 Chucho Nickerson MD Referring Provider Active Start : March 06, 2025 End: March 06, 2025 Dr. Jacqueline Knight MD Attending physician Active Start: March 06, 2025 End: March 06, 2025 Team Status: Inactive Member Role/Relationship Status Narendra Nickerson MD Primary care physician Active S tart: March 06, 2025 End: March 06, 2025 Dr. Jacqueline Knight MD Attending physician Active Start: March 06, 2025 End: March 06, 2025 Dr. Jacqueline Knight MD Referring Provider Active Start: March 06, 2025 End: March 06, 2025 Team Status: Inactive Member Role/Relationship Status Narendra Nickerson MD Primary care physician Active S tart: April 02, 2025 End: April 02, 2025 Chucho Nickerson MD Referring Provider Active Start : April 02, 2025 End: April 02, 2025 Beverly Penny SPEECH LANGUAGE PATHOLOGY ASSISTANT, SPEECH LANGUAGE PATHOLOGY ASSISTANT-C Attending physician Active Start: April 02, 2025 End: April 02, 2025 Team Status: Inactive Member Role/Relationship Status Dates Chucho Nickerson MD Primary care physician Active S tart: April 02, 2025 End: April 02, 2025 Dr. Jacqueline Knight MD Attending physician Active Start: April 02, 2025 End: April 02, 2025 Goals (unrecognized section and content) Type Care Experience Labor Preferences-CB /BF classes: encouraged. Probably at [facility] Keegenlabor intervention preferences: []pain management options preferred: epiduralcut cord/dad catch: maybebreastfeeding: yesPP control planned: plans nexplanon, info givendiscussed possible routes of delivery and associated risks: []special requests: [] Care Experience Labor Preferences-CB /BF classes: []labor support person: []labor intervention preferences: []pain management options preferred: []cut cord/dad catch: []: []PP control planned: []discussed possible routes of delivery and associated risks: []special requests: [] Type Detail Care Experience Labor Preferences-CB /BF classes: encouraged. [facility] Keegenlabor intervention preferences: []pain management options preferred: epiduralcut cord/dad catch: maybebreastfeeding: yesPP control planned: plans nexplanon, info givendiscussed possible routes of delivery and associated risks: []special requests: [] Care Experience Labor Preferences-CB /BF classes: nolabor support person: Masonlabor intervention preferences: []pain management options preferred: epiduralcut cord/dad catch: yesbreastfeeding: yesPP control planned: discusseddiscussed possible routes of delivery and associated risks: []special requests: [] FOR RECORDS PERTAINING TO PATIENTS WHO ARE [...] BE BASED ON THE PRIMARY CLINICAL RECORDS. [facility]. provides no warranty or guarantee of the accuracy or completeness of information in this document.
--- OUTSIDE RECORDS SUMMARY | 2025-06-06 05:34 | XMS RPT_ITS | CCD ---
Author Organization [facility] Care Team Providers Care Boots And Shoes Supervisor Name Role Phone KAMILAH ABEBE Unavailable Unavailable [...] Dr. Jacqueline Knight MD Referring Provider [phone] Zohaib JENNINGS-C, Beverly Attending Physician [phone] [...] Rivas Attending Unavailable Krishan, Chalon Referring Unavailable Nadege Jarrell Attending Unavailable [...] 22, 2018 11:00pm May 21, 2022 2:07pm [place] (Nk) (1 source) Start: 05-31-2022 [place] (Nk) A ctive May 31, 2022 12:00am Pnv No.241-Nf-Dz4-Dha-Epa-Fi sh 400 mcg-35 mg- 25 mg-5 mg tablet,chewable (6 sources) Start: 10-26-2024 Start: 10-26-2024 Start: 10-26-2024 Pnv No.153-Fa- Gw1-Lne-Qen-Fish 400 mcg-35 mg- 25 mg-5 mg tablet,chewable Active {tbl} PO October 26, 2024 12:00am polyethylene glycol 3350 05735 mg powder for oral solution (3 sources) [...] DOSE TO PRODUCE SOFT STOOL DAILY Vit No.194-Lrrv-Vrirl ( Plus Vitamin-Mineral) 27 mg iron- 1 [...] 1 tablet by estelita th once daily Prenat.Vits,Julius,Rzx-Dciv-Jxfxo Active 1 TABLET PO DAILY September 08, 2022 12:00am Prenat.Vits,Julius,Lfg-Uboq-Skm ic tablet (6 sources) Start: 09-08-2022 End: 10-24-2023 Prenat.Vits,Julius,Nsp-Eyte-Mja ic tablet Discontinued 1 {tbl} PO DAILY September 07, 2022 11:00pm October 24, 2023 8:12pm Start: 09-08-2022 End: 10-24-2023 Prenat.Vits,Julius,Yvi-Qiex-Wjo ic tablet Discontinued 1 {tbl} PO DAILY [...] Test Name Value Interpretation Reference Range Facility T[employer] Operator Office Visit Reporton 04-19-2025 Toll Bridge Operator Office Visit Report [facility]'s [address], [address] [place] [address] OFFICE VISIT Date of Service: 04/19/25 MR#: [id number] Acct: [id number] Name: ADENIKE RUTH Rep #: [id number] : 2005 Provider: Dr. Mayi Roach DO Age/Sex: 19/F [place] [facility] [place]: Signed Intake Vital Signs 02/04/25 10:58 04/02/25 09:58 04/19/25 14:59 04/19/25 15:01 Height 5 ft 4 in 5 ft 4 in 5 ft 4 in 5 ft 4 in Weight: 194 lb 4 oz BMI 33.3 BP 98/64 Intake Visit Reasons: 32wk ob Home Delivery Driver Required: No Is patient in pain?: No [...] year weight has: increased > 10 lbs sharmila/zoroastrianism: None seatbelt use: sometimes do you feel [...] will n (more content not included)... Normal [facility] Absolute lymphocyte countOrd ered By: Jacqueline Knight on 04-02-2025 Lymphocytes Auto (Unsp spec) [#/Vol] 1.47 10*3/uL 0.83-4.51 [facility] Absolute neutrophil countOrd ered By: Jacqueline Knight on 04-02-2025 Neutrophils (Bld) [#/Vol] 6.2 10*3/uL 2.0-7.7 [facility] Automated lymphocyte count a s percentage of total leukocytesOrdered By: Jacqueline Knight on 04-02-2025 Lymphocytes/100 WBC Auto (Unsp spec) 16.8 % Low 19-41 [facility] Basophil percentageOrdered B y: Jacqueline Knight on 04-02-2025 Basophils/100 WBC (Bld) 0.5 % 0-1 [facility] CBC W/Diff, Automatedon 03-14 Absolute Lymph 1.47 X10 3/uL Normal 0.83-4.51 [facility] Comment on above: Performed By: #### L 100.0100 ####[facility] [address] [place], [address] Absolute Neut 6.2 X10 3/uL Normal 2.0-7.7 [facility] Comment on above: Performed By: #### L 100.0100 ####[facility] [address] [place], [address] Basophils/100 WBC (Bld) 0.5 % Normal 0-1 [facility] Comment on above: Performed By: #### L 100.0100 ####[facility] [address] [place], [address] Eosinophils/100 WBC (Bld) 0.8 % Normal 0-5 [facility] Comment on above: Performed By: #### L 100.0100 ####[facility] [address] [place], [address] Erythrocyte distribution width (RBC) [Ratio] 15.4 % High 11.6-14.6 [facility] Comment on above: Performed By: #### L 100.0100 ####[facility] [address] [place], [address] Hematocrit (Bld) [Volume fraction] 34.4 % Low 37-47 [facility] Comment on above: Performed By: #### L 100.0100 ####[facility] [address] [place], [address] Hemoglobin (Bld) [Mass/Vol] 11.0 g/dL Low 12.0-15.0 [facility] Comment on above: Performed By: #### L 100.0100 ####[facility] [address] [place], [address] IG% 0.700 Normal 0.0-0.9 [facility] Comment on above: Result Comment: IG% - Immature Granulocytes (promyelocytes, myelocytes and metamyelocytes) > 1% indicates that a LEFT SHIFT is Present. Performed By: #### L 100.0100 ####[facility] [address] [place], [address] Lymphocytes/100 WBC (Bld) 16.8 % Low 19-41 [facility] Comment on above: Performed By: #### L 100.0100 ####[facility] [address] [place], [address] MCH (RBC) [Entitic mass] 24.0 pg Low 27.0-32.0 [facility] Comment on above: Performed By: #### L 100.0100 ####[facility] [address] [place], [address] MCHC (RBC) [Mass/Vol] 32.0 g/dL Normal 32-36 [facility] Comment on above: Performed By: #### L 100.0100 ####[facility] [address] [place], [address] MCV (RBC) [Entitic vol] 74.9 fL Low 81-99 [facility] Comment on above: Performed By: #### L 100.0100 ####[facility] [address] [place], [address] Monocytes/100 WBC (Bld) 10.1 % High 0-10 [facility] Comment on above: Performed By: #### L 100.0100 ####[facility] [address] [place], [address] Neutrophils/100 WBC (Bld) 71.1 % High 47-70 [facility] Comment on above: Performed By: #### L 100.0100 ####[facility] [address] [place], [address] Nucleated RBC (Bld) [#/Vol] 0 10*3/uL Normal 0-5 [facility] Comment on above: Performed By: #### L 100.0100 ####[facility] [address] [place], [address] Platelet mean volume (Bld) [Entitic vol] 10.6 fL Normal 6.2-12.0 [facility] Comment on above: Performed By: #### L 100.0100 ####[facility] [address] [place], [address] Platelets (Bld) [#/Vol] 290 10*3/uL Normal 150-450 [facility] Comment on above: Performed By: #### L 100.0100 ####[facility] [address] [place], [address] RBC (Bld) [#/Vol] 4.59 10*6/uL Normal 4.2-5.4 [facility] Comment on above: Performed By: #### L 100.0100 ####[facility] [address] [place], [address] RDW SD 41.2 fl Normal 35.1-43.9 [facility] Comment on above: Performed By: #### L 100.0100 ####[facility] [address] [place], [place], [address] WBC (Bld) [#/Vol] 8.8 10*3/uL Normal 4.4-11.0 [facility] Comment on above: Performed By: #### L 100.0100 ####[facility] [address] [place], [address] Eosinophil percentageOrdered By: Jacqueline Knight on 04-02-2025 Eosinophils/100 WBC (Bld) 0.8 % 0-5 [facility] Erythrocyte distribution wid th ratioOrdered By: Jacqueline Knight on 04-02-2025 Erythrocyte distribution width (RBC) [Ratio] 15.4 % High 11.6-14.6 [facility] Erythrocyte distribution wid th standard deviationOrdered By: Jacqueline Knight on 04-02-2025 Erythrocyte distribution width (RBC) [Ratio] 41.2 fl 35.1-43.9 [facility] Hematocrit Auto (Bld) [Volum e fraction]Ordered By: Jacqueline Knight on 04-02-2025 Hematocrit (Bld) [Volume fraction] 34.4 % Low 37-47 [facility] Hemoglobin measurementOrdere d By: Jacqueline Knight on 04-02-2025 Hemoglobin (Bld) [Mass/Vol] 11.0 g/dL Low 12.0-15.0 [facility] Immature granulocytes/100 WB C Auto (Bld)Ordered By: Jacqueline Knight on 04-02-2025 Immature granulocytes/100 WBC (Bld) 0.700 % 0.0-0.9 [facility] Comment on above: IG% - Immature Granu locytes (promyelocytes, myelocytes and metamyelocytes) > 1% indicates that a LEFT SHIFT is Present. Laboratory - Chemistry and C hemistry - challengeOrdered By: Beverly Penny on 04-02-2025 Glucose Ql (U) Negative [facility] Laboratory - UrinalysisOrder ed By: Beverly Penny on 04-02-2025 Protein Ql (U) Negative [facility] MCV (mean corpuscular volume ) determinationOrdered By: Jacqueline Knight on 04-02-2025 MCV (RBC) [Entitic vol] 74.9 fL Low 81-99 [facility] Mean corpuscular hemoglobin (MCH) determinationOrdered By: Jacqueline Knight on 04-02-2025 MCH (RBC) [Entitic mass] 24.0 pg Low 27.0-32.0 [facility] Mean corpuscular hemoglobin concentration (MCHC) determinationOrdered By: Jacqueline Knight on 04-02-2025 MCHC (RBC) [Mass/Vol] 32.0 g/dL 32-36 [facility] Mean platelet volume determi nationOrdered By: Jacqueline Knight on 04-02-2025 Platelet mean volume (Bld) [Entitic vol] 10.6 fL 6.2-12.0 [facility] Monocyte percentageOrdered B y: Jacqueline Knight on 04-02-2025 Monocytes/100 WBC (Bld) 10.1 % High 0-10 [facility] Neutrophil percentageOrdered By: Jacqueline Knight on 04-02-2025 Neutrophils/100 WBC (Bld) 71.1 % High 47-70 [facility] Nucleated red blood cell per centageOrdered By: Jacqueline Knight on 04-02-2025 Nucleated RBC/100 WBC (Bld) [Ratio] 0 % 0-5 [facility] Toll Bridge Operator Office Visit Reporton 04-02-2025 Toll Bridge Operator Office Visit Report [facility] [address], [address] [place] [address] OFFICE VISIT Date of Service: 04/02/25 MR#: [id number] Acct: [id number] Name: ADENIKE RUTH Rep #: [id number] : 2005 Provider: LEIGHANN evans Age/Sex: 19/F [place] [facility] [place]: Signed Intake Vital Signs 02/04/25 10:58 03/06/25 09:46 04/02/25 09:58 Height 5 ft 4 in 5 ft 4 in 5 ft 4 in Weight: 190 lb 2 oz BMI 32.6 BP 103/66 Intake Visit Reasons: 30wk ob Home Delivery Driver Required: No Is patient in pain?: No [...] year weight has: increased > 10 lbs sharmila/zoroastrianism: None seatbelt use: sometimes do you feel [...] - full term 7lbs 11oz Female epidural [facility] Nadege Jacob Delivery Date: 12/01/22 Last Updated [...] thal carrier (more content not included)... Normal [facility] Platelet countOrdered By: Trip Knight on 04-02-2025 Platelets (Bld) [#/Vol] 290 10*3/uL 150-450 [facility] RBC Auto (Bld) [#/Vol]Ordere d By: Jacqueline Knight on 04-02-2025 RBC (Bld) [#/Vol] 4.59 10*6/uL 4.2-5.4 [facility] White blood cell (WBC) count Ordered By: Jacqueline Knight on 04-02-2025 WBC (Bld) [#/Vol] 8.8 10*3/uL 4.4-11.0 [facility] Transferrinon 03-07-2025 Transferrin [Mass/Vol] 437 mg/dL High 192-364 [facility] Comment on above: Result Comment: Perf ormed at: CB - [facility] [address] [id number] Education And Development Manager: Iván Calles PhD, Phone: [phone] Performed By: #### L 503.6066, L503.5961, L3400.0897 ####[facility] [address] [place], [address] Absolute lymphocyte countOrd ered By: Jacqueline Keithmaximo on 03-06-2025 Lymphocytes Auto (Unsp spec) [#/Vol] 1.64 10*3/uL 0.83-4.51 [facility] Absolute neutrophil countOrd ered By: Jacqueline Keithmaximo on 03-06-2025 Neutrophils (Bld) [#/Vol] 6.6 10*3/uL 2.0-7.7 [facility] Automated lymphocyte count a s percentage of total leukocytesOrdered By: Jacqueline Keithmaximo on 03-06-2025 Lymphocytes/100 WBC Auto (Unsp spec) 17.9 % Low 19-41 [facility] Basophil percentageOrdered B y: Jacqueline Keithmaximo on 03-06-2025 Basophils/100 WBC (Bld) 0.3 % 0-1 [facility] CBC W/Diff, Automatedon 02-12 Absolute Lymph 1.64 X10 3/uL Normal 0.83-4.51 [facility] Comment on above: Performed By: #### L 3890.6006, L100.0100, L501.0250, L509.8002 ####[facility] [address] [place], [address] Absolute Neut 6.6 X10 3/uL Normal 2.0-7.7 [facility] Comment on above: Performed By: #### L 3890.6006, L100.0100, L501.0250, L509.8002 ####[facility] [address] [place], [address] Basophils/100 WBC (Bld) 0.3 % Normal 0-1 [facility] Comment on above: Performed By: #### L 3890.6006, L100.0100, L501.0250, L509.8002 ####[facility] [address] [place], [address] Eosinophils/100 WBC (Bld) 1.4 % Normal 0-5 [facility] Comment on above: Performed By: #### L 3890.6006, L100.0100, L501.0250, L509.8002 ####[facility] [address] [place], [address] Erythrocyte distribution width (RBC) [Ratio] 15.3 % High 11.6-14.6 [facility] Comment on above: Performed By: #### L 3890.6006, L100.0100, L501.0250, L509.8002 ####[facility] [address] [place], [address] Hematocrit (Bld) [Volume fraction] 32.3 % Low 37-47 [facility] Comment on above: Performed By: #### L 3890.6006, L100.0100, L501.0250, L509.8002 ####[facility] [address] [place], [address] Hemoglobin (Bld) [Mass/Vol] 10.5 g/dL Low 12.0-15.0 [facility] Comment on above: Performed By: #### L 3890.6006, L100.0100, L501.0250, L509.8002 ####[facility] [address] [place], [address] IG% 1.000 High 0.0-0.9 [facility] Comment on above: Result Comment: IG% - Immature Granulocytes (promyelocytes, myelocytes and metamyelocytes) > 1% indicates that a LEFT SHIFT is Present. Performed By: #### L 3890.6006, L100.0100, L501.0250, L509.8002 ####[facility] [address] [place], [address] Lymphocytes/100 WBC (Bld) 17.9 % Low 19-41 [facility] Comment on above: Performed By: #### L 3890.6006, L100.0100, L501.0250, L509.8002 ####[facility] [address] [place], [address] MCH (RBC) [Entitic mass] 25.1 pg Low 27.0-32.0 [facility] Comment on above: Performed By: #### L 3890.6006, L100.0100, L501.0250, L509.8002 ####[facility] [address] [place], [address] MCHC (RBC) [Mass/Vol] 32.5 g/dL Normal 32-36 [facility] Comment on above: Performed By: #### L 3890.6006, L100.0100, L501.0250, L509.8002 ####[facility] [address] [place], [address] MCV (RBC) [Entitic vol] 77.1 fL Low 81-99 [facility] Comment on above: Performed By: #### L 3890.6006, L100.0100, L501.0250, L509.8002 ####[facility] [address] [place], [address] Monocytes/100 WBC (Bld) 7.2 % Normal 0-10 [facility] Comment on above: Performed By: #### L 3890.6006, L100.0100, L501.0250, L509.8002 ####[facility] [address] [place], [address] Neutrophils/100 WBC (Bld) 72.2 % High 47-70 [facility] Comment on above: Performed By: #### L 3890.6006, L100.0100, L501.0250, L509.8002 ####[facility] [address] [place], [address] Nucleated RBC (Bld) [#/Vol] 0 10*3/uL Normal 0-5 [facility] Comment on above: Performed By: #### L 3890.6006, L100.0100, L501.0250, L509.8002 ####[facility] [address] [place], [address] Platelet mean volume (Bld) [Entitic vol] 11.0 fL Normal 6.2-12.0 [facility] Comment on above: Performed By: #### L 3890.6006, L100.0100, L501.0250, L509.8002 ####[facility] [address] [place], [address] Platelets (Bld) [#/Vol] 283 10*3/uL Normal 150-450 [facility] Comment on above: Performed By: #### L 3890.6006, L100.0100, L501.0250, L509.8002 ####[facility] [address] [place], [address] RBC (Bld) [#/Vol] 4.19 10*6/uL Low 4.2-5.4 [facility] Comment on above: Performed By: #### L 3890.6006, L100.0100, L501.0250, L509.8002 ####[facility] [address] [place], [address] RDW SD 41.6 fl Normal 35.1-43.9 [facility] Comment on above: Performed By: #### L 3890.6006, L100.0100, L501.0250, L509.8002 ####[facility] [address] [place], [address] WBC (Bld) [#/Vol] 9.1 10*3/uL Normal 4.4-11.0 [facility] Comment on above: Performed By: #### L 3890.6006, L100.0100, L501.0250, L509.8002 ####[facility] [address] [place], [address] Eosinophil percentageOrdered By: Jacqueline Knight on 03-06-2025 Eosinophils/100 WBC (Bld) 1.4 % 0-5 [facility] Erythrocyte distribution wid th ratioOrdered By: Jacqueline Kngiht on 03-06-2025 Erythrocyte distribution width (RBC) [Ratio] 15.3 % High 11.6-14.6 [facility] Erythrocyte distribution wid th standard deviationOrdered By: Jacqueline Knight on 03-06-2025 Erythrocyte distribution width (RBC) [Ratio] 41.6 fl 35.1-43.9 [facility] Ferritinon 03-06-2025 Ferritin [Mass/Vol] 11 ng/mL Low 22-378 [facility] Comment on above: Performed By: #### L 503.6030, L503.6550, L3400.3800 ####[facility] [address] [place], [address] Glucose Challenge Gest 1H 50 alanna 03-06-2025 GLU GEST 50g 1H 128 mg/dL Normal 70-140 [facility] Comment on above: Performed By: #### L 3890.6006, L100.0100, L501.0250, L509.8002 ####[facility] [address] [place], [address] Glucose measurement at 2 zamzam rs post-dose gestational glucose tolerance testOrdered By: Jacqueline Knight on 03-06-2025 Glucose [Mass/Vol] 128 mg/dL 70-140 [facility] HIVon 03-06-2025 HIV Non-Reactive Normal Nonreactive [facility] Comment on above: Result Comment: Non- Reactive Reactive Repeatedly reactive samples must be confirmed according to CDC recommended confirmatory algorithms. The subresults for either HIVAG or AHIV can be used as an aid in the selection of the confirmation algorithm for reactive samples. Send out specimens with Reactive results to [facility] for confirmation. Order the HIV antibody detection and differentiation: lc#[id number] Performed By: #### L 3890.6006, L100.0100, L501.0250, L509.8002 ####[facility] [address] [place], [place], [address] Hematocrit Auto (Bld) [Volum e fraction]Ordered By: Jacqueline Knight on 03-06-2025 Hematocrit (Bld) [Volume fraction] 32.3 % Low 37-47 [facility] Hemoglobin measurementOrdere d By: Jacqueline Knight on 03-06-2025 Hemoglobin (Bld) [Mass/Vol] 10.5 g/dL Low 12.0-15.0 [facility] Immature granulocytes/100 WB C Auto (Bld)Ordered By: Jacqueline Knight on 03-06-2025 Immature granulocytes/100 WBC (Bld) 1.000 % High 0.0-0.9 [facility] Comment on above: IG% - Immature Granu locytes (promyelocytes, myelocytes and metamyelocytes) > 1% indicates that a LEFT SHIFT is Present. Iron measurement (mass/mass) Ordered By: Jacqueline Knight on 03-06-2025 Iron (Unsp spec) [Mass/Mass] 40 ug/dL Low 50-170 [facility] Iron+Iron Binding Capacityon 03-06-2025 TIBC 513 ug/dL High 250-450 [facility] Comment on above: Performed By: #### L 503.6030, L503.6550, L3400.3800 ####[facility] [address] [place], [place], [address] Laboratory - Chemistry and C hemistry - challengeOrdered By: Jacqueline Knight on 03-06-2025 Glucose Ql (U) Negative [facility] Laboratory - UrinalysisOrder ed By: Jacqueline Knight on 03-06-2025 Protein Ql (U) Negative [facility] MCV (mean corpuscular volume ) determinationOrdered By: Jacqueline Knight on 03-06-2025 MCV (RBC) [Entitic vol] 77.1 fL Low 81-99 [facility] Mean corpuscular hemoglobin (MCH) determinationOrdered By: Jacqueline Knight on 03-06-2025 MCH (RBC) [Entitic mass] 25.1 pg Low 27.0-32.0 [facility] Mean corpuscular hemoglobin concentration (MCHC) determinationOrdered By: Jacqueline Knight on 03-06-2025 MCHC (RBC) [Mass/Vol] 32.5 g/dL 32-36 [facility] Mean platelet volume determi nationOrdered By: Jacqueline Knight on 03-06-2025 Platelet mean volume (Bld) [Entitic vol] 11.0 fL 6.2-12.0 [facility] Monocyte percentageOrdered B y: Jacqueline Knight on 03-06-2025 Monocytes/100 WBC (Bld) 7.2 % 0-10 [facility] Neutrophil percentageOrdered By: Jacqueline Knight on 03-06-2025 Neutrophils/100 WBC (Bld) 72.2 % High 47-70 [facility] No Panel InformationOrdered By: Jacqueline Knight on 03-06-2025 Unsaturated Iron Binding Capacity 473 ug/dL High 228-428 [facility] HIV (1&2) Antibody Non-Reactive Nonreactive [facility] Comment on above: Non-ReactiveReactive Repeatedly reactive samples must be confirmed according to CDC recommended confirmatory algorithms. The subresults for either HIVAG or AHIV can be used as an aid in the selection of the confirmation algorithm for reactive samples.Send out specimens with Reactive results to [facility] for confirmation.Order the HIV antibody detection and differentiation: #[id number] Nucleated red blood cell per centageOrdered By: Jacqueline Eugene on 03-06-2025 Nucleated RBC/100 WBC (Bld) [Ratio] 0 % 0-5 [facility] T[employer] Office Visit Reporton 03-06-2025 Toll Bridge Operator Office Visit Report [address], [address] [place] [address] OFFICE VISIT Date of Service: 03/06/25 MR#: [id number] Acct: [id number] Name: ADENIKE RUTH Rep #: [id number] : 2005 Provider: Dr. Jacqueline berry MD Age/Sex: 19/F [place] [facility] [place]: Signed Intake Vital Signs 01/09/25 15:51 02/04/25 10:58 03/06/25 09:46 Height 5 ft 4 in 5 ft 4 in 5 ft 4 in Weight: 182 lb 2 oz 185 lb 5 oz 193 lb 2 oz BMI 31.2 31.8 33.1 BP 102/67 104/70 120/78 Intake Visit Reasons: 26wk ob/glucose Chief Complaint: 26wk OB Home Delivery Driver Required: No Is patient in pain?: No [...] year weight has: increased > 10 lbs sharmila/zoroastrianism: None seatbelt use: sometimes do you feel [...] - full term 7lbs 11oz Female epidural [facility] Nadege Jacob Delivery Date: 12/01/22 Last Updated [...] thal jose (more content not included)... Normal [facility] Platelet countOrdered By: Trip Knight on 03-06-2025 Platelets (Bld) [#/Vol] 283 10*3/uL 150-450 [facility] RBC Auto (Bld) [#/Vol]Ordere d By: Jacqueline Knight on 03-06-2025 RBC (Bld) [#/Vol] 4.19 10*6/uL Low 4.2-5.4 [facility] Serum or plasma ferritin sharon surement (mass/volume)Ordered By: Jacqueline Knight on 03-06-2025 Ferritin [Mass/Vol] 11 ng/mL Low 22-378 [facility] Serum or plasma iron saturat ion measurement (mass fraction)Ordered By: Jacqueline Knight on 03-06-2025 Iron saturation [Mass fraction] 7.8 % Low 13-59 [facility] [facility] Comment on above: Previous reported re sult: 7.7 %Edited by: SADIE on 03/06/25:1427 Syphilis Antibodieson 2024 Syphilis Abs Non-Reactive Normal Nonreactive [facility] Comment on above: Performed By: #### L 3890.6006, L100.0100, L501.0250, L509.8002 ####[facility] [address] [place], [place], [id number] TransferrinOrdered By: Tessa Knight on 03-06-2025 Transferrin [Mass/Vol] 437 mg/dL High 192-364 [facility] Comment on above: Performed at: [address] [id number] Director: Iván Calles PhD, Phone: [phone] White blood cell (WBC) count Ordered By: Jacqueline Knight on 03-06-2025 WBC (Bld) [#/Vol] 9.1 10*3/uL 4.4-11.0 [facility] - Chemistry and C hemistry - challengeOrdered By: Nadege Jarrell on 02-04-2025 Glucose Ql (U) Negative [facility] - UrinalysisOrder ed By: Nadege Jarrell on 02-04-2025 Protein Ql (U) Negative [facility] [employer] Operator Office Visit Reporton 02-04-2025 Toll Bridge Operator Office Visit Report [facility]'[address], [address] [place] [address] OFFICE VISIT Date of Service: 02/04/25 MR#: [id number] Acct: [id number] Name: ADENIKE RUTH Rep #: [id number] : 2005 Provider: JAXON Frazier ams Age/Sex: 19/F [place] [facility] [place]: Signed Intake Vital Signs 01/09/25 15:51 02/04/25 10:58 Height 5 ft 4 in 5 ft 4 in Weight: 185 lb 5 oz BMI 31.8 BP 104/70 Intake Visit Reasons: 22wk ob Chief Complaint: 22wk OB Home Delivery Driver Required: No Is patient in pain?: No [...] year weight has: increased > 10 lbs sharmila/zoroastrianism: None seatbelt use: sometimes do you feel [...] - full term 7lbs 11oz Female epidural [facility] Nadege Jacob Delivery Date: 12/01/22 Last Updated [...] +flutters. gluco (more content not included)... Normal [facility] - Chemistry and C hemistry - challengeOrdered By: Mayi Aguirre on 01-09-2025 Glucose Ql (U) Negative [facility] - UrinalysisOrder ed By: Mayi Aguirre on 01-09-2025 Protein Ql (U) Negative [facility] Toll Bridge Operator Office Visit Reporton 01-09-2025 Toll Bridge Operator Office Visit Report [facility]'s [address], [address] [place] [address] OFFICE VISIT Date of Service: 01/09/25 MR#: [id number] Acct: [id number] Name: ADENIKE RUTH Rep #: [id number] : 2005 Provider: Dr. Mayi Roach DO Age/Sex: 19/F [place] [facility] Status: Signed Intake Vital Signs 12/10/24 15:10 12/17/24 13:25 01/09/25 15:51 Height 5 ft 4 in 5 ft 4 in 5 ft 4 in Weight: 182 lb 2 oz BMI 31.2 BP 102/67 Intake Visit Reasons: 18 wks ob Home Delivery Driver Required: No Is patient in pain?: No [...] year weight has: increased > 10 lbs sharmila/zoroastrianism: None seatbelt use: sometimes do you feel [...] - full term 7lbs 11oz Female epidural [facility] Nadege Jarrell Cecil Delivery Date: 12/01/22 Last [...] care, Un (more content not included)... Normal [facility] Chlamydia/GC SARIKA aptimaon CHLAMY,NUC ACID Negative Normal Negative [facility] Comment on above: Performed By: #### M 100.2200, L3890.6006, L509.4006, L501.9985, L3890.6102, L509.8002, L7000.1800, L3890.6301, L7400.0353, BTS, L100.0100 ####[facility] [address] [place], [place], [id number] GC BY NUC ACID Negative Normal Negative [facility] Comment on above: Result Comment: Perf ormed at: =G - [facility] [address] [id number] Education And Development Manager: Rabia Odom MD, Phone: [phone] Performed By: #### M 100.2200, L3890.6006, L509.4006, L501.9985, L3890.6102, L509.8002, L7000.1800, L3890.6301, L7400.0353, BTS, L100.0100 ####[facility] [address] [place], [address] PAP I-G w/rfx hrHPV-Aptimaon 12-13-2024 ADEQ Comment Normal . [facility] Comment on above: Order Comment: Speci men Comment: [id number] Comment: No. of containers..01 ThinPrep Vial Result Comment: Sati sfactory for evaluation. Endocervical and/or squamous metaplastic cells (endocervical component) are present. Performed By: #### M 100.2200, L3890.6006, L509.4006, L501.9985, L3890.6102, L509.8002, L7000.1800, L3890.6301, L7400.0353, BTS, L100.0100 ####[facility] [address] [place], [place], [id number] COMM . Normal . [facility] Comment on above: Order Comment: Speci men Comment: [id number] Comment: No. of containers..01 ThinPrep Vial Performed By: #### M 100.2200, L3890.6006, L509.4006, L501.9985, L3890.6102, L509.8002, L7000.1800, L3890.6301, L7400.0353, BTS, L100.0100 ####[facility] [address] [place], [address] COMMENT Comment Normal . [facility] Comment on above: Order Comment: Rufinai men Comment: [id number] Comment: No. of containers..01 ThinPrep Vial Result Comment: This liquid based ThinPrep(R) pap test was screened with the use of an image guided system. Performed By: #### M 100.2200, L3890.6006, L509.4006, L501.9985, L3890.6102, L509.8002, L7000.1800, L3890.6301, L7400.0353, BTS, L100.0100 ####[facility] [address] [place], [place], [phone] DIAG Comment Normal . [facility] Comment on above: Order Comment: Speci men Comment: [id number] Comment: No. of containers..01 ThinPrep Vial Result Comment: NEGA TIVE FOR INTRAEPITHELIAL LESION OR MALIGNANCY. Performed By: #### M 100.2200, L3890.6006, L509.4006, L501.9985, L3890.6102, L509.8002, L7000.1800, L3890.6301, L7400.0353, BTS, L100.0100 ####[facility] [address] [place], [place], [phone] HPV RFLX Comment Normal . [facility] Comment on above: Order Comment: Speci men Comment: [id number] Comment: No. of containers..01 ThinPrep Vial Result Comment: The HPV DNA reflex criteria were not met with this specimen result therefore, no HPV testing was performed. Performed at: [address] [id number] Education And Development Manager: Rabia Odom MD, Phone: [phone] Performed By: #### M 100.2200, L3890.6006, L509.4006, L501.9985, L3890.6102, L509.8002, L7000.1800, L3890.6301, L7400.0353, BTS, L100.0100 ####[facility] [address] [place], [place], [address] PAPSMR Comment Normal . [facility] Comment on above: Order Comment: Speci men Comment: [id number] Comment: No. of containers..01 ThinPrep Vial Result [...] L3890.6102, L509.8002, L7000.1800, L3890.6301, L7400.0353, BTS, L100.0100 ####[facility] [address] [place], [place], [phone] PERFORM Comment Normal . [facility] Comment on above: Order Comment: Speci men Comment: [id number] Comment: No. of containers..01 ThinPrep Vial Result Comment: Tish Calle, Digital Strategist Performed By: #### M 100.2200, L3890.6006, L509.4006, L501.9985, L3890.6102, L509.8002, L7000.1800, L3890.6301, L7400.0353, BTS, L100.0100 ####[facility] [address] [place], [address] Urine Cultureon 12-13-2024 URC Mixed Gram Positive Organisms [place] Count 11,000-25,000 MIXC Mixed contaminants. Submit a new specimen if indicated. Normal [facility] Comment on above: Performed By: #### M 100.2200, L3890.6006, L509.4006, L501.9985, L3890.6102, L509.8002, L7000.1800, L3890.6301, L7400.0353, BTS, L100.0100 ####[facility] [address] [place], [place], [id number] Absolute lymphocyte countOrd ered By: Elo Rivas on 12-10-2024 Lymphocytes Auto (Unsp spec) [#/Vol] 1.68 10*3/uL 0.83-4.51 [facility] Absolute neutrophil countOrd ered By: Elo Rivas on 12-10-2024 Neutrophils (Bld) [#/Vol] 6.4 10*3/uL 2.0-7.7 [facility] Automated blood erythrocyte countOrdered By: Elo Rivas on 12-10-2024 RBC (Bld) [#/Vol] 5.06 10*6/uL Normal 4.2-5.4 [facility] Comment on above: Performed By: #### M 100.2200, L3890.6006, L509.4006, L501.9985, L3890.6102, L509.8002, L7000.1800, L3890.6301, L7400.0353, BTS, L100.0100 #### [facility] [address] [place], [place], [address] Automated blood hematocrit ( percentage)Ordered By: Elo Rivas on 12-10-2024 Hematocrit (Bld) [Volume fraction] 39.2 % Normal 37-47 [facility] Comment on above: Performed By: #### M 100.2200, L3890.6006, L509.4006, L501.9985, L3890.6102, L509.8002, L7000.1800, L3890.6301, L7400.0353, BTS, L100.0100 #### [facility] [address] [place], [place], [address] Automated lymphocyte count a s percentage of total leukocytesOrdered By: Elo Rivas on 12-10-2024 Lymphocytes/100 WBC Auto (Unsp spec) 18.7 % Low 19-41 [facility] Basophil percentageOrdered B y: Elo Rivas on 12-10-2024 Basophils/100 WBC (Bld) 0.4 % Normal 0-1 [facility] Comment on above: Performed By: #### M 100.2200, L3890.6006, L509.4006, L501.9985, L3890.6102, L509.8002, L7000.1800, L3890.6301, L7400.0353, BTS, L100.0100 #### [facility] [address] [place], [place], [address] CBC W/Diff, Automatedon 06-3 0-2024 Absolute Lymph 1.68 X10 3/uL Normal 0.83-4.51 [facility] Comment on above: Performed By: #### M 100.2200, L3890.6006, L509.4006, L501.9985, L3890.6102, L509.8002, L7000.1800, L3890.6301, L7400.0353, BTS, L100.0100 #### [facility] [address] [place], [address] Absolute Neut 6.4 X10 3/uL Normal 2.0-7.7 [facility] Comment on above: Performed By: #### M 100.2200, L3890.6006, L509.4006, L501.9985, L3890.6102, L509.8002, L7000.1800, L3890.6301, L7400.0353, BTS, L100.0100 #### [facility] [address] [place], [address] IG% 0.300 Normal 0.0-0.9 [facility] Comment on above: Result Comment: IG% - Immature Granulocytes (promyelocytes, myelocytes and metamyelocytes) > 1% indicates that a LEFT SHIFT is Present. Performed By: #### M 100.2200, L3890.6006, L509.4006, L501.9985, L3890.6102, L509.8002, L7000.1800, L3890.6301, L7400.0353, BTS, L100.0100 #### [facility] [address] [place], [address] Lymphocytes/100 WBC (Bld) 18.7 % Low 19-41 [facility] Comment on above: Performed By: #### M 100.2200, L3890.6006, L509.4006, L501.9985, L3890.6102, L509.8002, L7000.1800, L3890.6301, L7400.0353, BTS, L100.0100 #### [facility] [address] [place], [address] Nucleated RBC (Bld) [#/Vol] 0 10*3/uL Normal 0-5 [facility] Comment on above: Performed By: #### M 100.2200, L3890.6006, L509.4006, L501.9985, L3890.6102, L509.8002, L7000.1800, L3890.6301, L7400.0353, BTS, L100.0100 #### [facility] [address] [place], [place], [phone] RDW SD 39.8 fl Normal 35.1-43.9 [facility] Comment on above: Performed By: #### M 100.2200, L3890.6006, L509.4006, L501.9985, L3890.6102, L509.8002, L7000.1800, L3890.6301, L7400.0353, BTS, L100.0100 #### [facility] [address] [place], [place], [address] Cervical or vagninal specime n microscopic examination by cytology stain (reported asOrdered By: Elo Rivas on 12-10-2024 Cytology report Cyto stain Doc (Cvx/Vag) Comment . [facility] Comment on above: The Pap smear [...] rRNA SARIKA+probe Ql (Unsp spec) Negative Negative [facility] Eosinophil percentageOrdered By: Elo Rivas on 12-10-2024 Eosinophils/100 WBC (Bld) 1.6 % Normal 0-5 [facility] Comment on above: Performed By: #### M 100.2200, L3890.6006, L509.4006, L501.9985, L3890.6102, L509.8002, L7000.1800, L3890.6301, L7400.0353, BTS, L100.0100 #### [facility] [address] [place], [address] Erythrocyte distribution wid th ratioOrdered By: Elo Rivas on 12-10-2024 Erythrocyte distribution width (RBC) [Ratio] 14.3 % Normal 11.6-14.6 [facility] Comment on above: Performed By: #### M 100.2200, L3890.6006, L509.4006, L501.9985, L3890.6102, L509.8002, L7000.1800, L3890.6301, L7400.0353, BTS, L100.0100 #### [facility] [address] [place], [place], [phone] (756) Erythrocyte distribution wid th standard deviationOrdered By: Elo Rivas on 12-10-2024 Erythrocyte distribution width (RBC) [Ratio] 39.8 fl 35.1-43.9 [facility] HIVon 12-10-2024 HIV Non-Reactive Normal Nonreactive [facility] Comment on above: Result Comment: Non- Reactive Reactive Repeatedly reactive samples must be confirmed according to CDC recommended confirmatory algorithms. The subresults for either HIVAG or AHIV can be used as an aid in the selection of the confirmation algorithm for reactive samples. Send out specimens with Reactive results to [facility] for confirmation. Order the HIV antibody detection and differentiation: lc#[id number] Performed By: #### M 100.2200, L3890.6006, L509.4006, L501.9985, L3890.6102, L509.8002, L7000.1800, L3890.6301, L7400.0353, BTS, L100.0100 #### [facility] [address] [place], [place], [id number] (023) Hemoglobin A1c percentageOrd ered By: Elo Rivas on 12-10-2024 HbA1c (Bld) [Mass fraction] 5.5 % Normal <=5.6 [facility] Comment on above: Normal < 5.7 % Predi abetic 5.7 - 6.4 % Diabetic >or= 6.5 % Please note range changes. Result Comment: Norm al < 5.7 % Prediabetic 5.7 - 6.4 % Diabetic >or= 6.5 % Please note range changes. Performed By: #### M 100.2200, L3890.6006, L509.4006, L501.9985, L3890.6102, L509.8002, L7000.1800, L3890.6301, L7400.0353, BTS, L100.0100 ####[facility] [address] [facility] [address] [place], [place], [address] Hemoglobin measurementOrdere d By: Elo Rivas on 12-10-2024 Hemoglobin (Bld) [Mass/Vol] 13.2 g/dL Normal 12.0-15.0 [facility] Comment on above: Performed By: #### M 100.2200, L3890.6006, L509.4006, L501.9985, L3890.6102, L509.8002, L7000.1800, L3890.6301, L7400.0353, BTS, L100.0100 #### [facility] [address] [place], [place], [address] Hepatitis C Antibodyon 12-10 Hepatitis C Ab Non-Reactive Normal Nonreactive [facility] Comment on above: Result Comment: Reac tive: Presumptive evidence of antibodies to HCV. Follow CDC recommendations for supplemental testing. Non-Reactive: Antibodies to HCV were not detected; does not exclude the possibility of exposure to HCV Reactive Results are presumptive evidence of antibodies to HCV. Follow CDC recommendations for supplemental testing. Order confirmation testing: HCV Quant by PCR testing - HCVPCR #[id number] Non Reactive: < 0.8 Equivocal: >/= 0.8 to < 1.0 Reactive: >/= 1.0 The CDC requires that a reactive/equivocal HCV antibody result be sent out for confirmation. HCV Quant by PCR testing. Performed By: #### M 100.2200, L3890.6006, L509.4006, L501.9985, L3890.6102, L509.8002, L7000.1800, L3890.6301, L7400.0353, BTS, L100.0100 #### [facility] [address] [facility] [place], [address] Immature granulocytes/100 WB C Auto (Bld)Ordered By: Elo Rivas on 12-10-2024 Immature granulocytes/100 WBC (Bld) 0.300 % 0.0-0.9 [facility] Comment on above: IG% - Immature Granu locytes (promyelocytes, myelocytes and metamyelocytes) > 1% indicates that a LEFT SHIFT is Present. L3890.6102on 12-10-2024 HEP B Surf Ag Non-Reactive Normal Nonreactive [facility] Comment on above: Result Comment: Reac tive: Presumptive evidence of HBV. Repeatedly reactive samples must be confirmed using a neutralization test ([employer] HBsAg Confirmatory Test) Non-Reactive: HBsAg not detected; does not exclude the possibility of exposure to HBV Performed By: #### M 100.2200, L3890.6006, L509.4006, L501.9985, L3890.6102, L509.8002, L7000.1800, L3890.6301, L7400.0353, BTS, L100.0100 #### [facility] [address] [facility] [place], [address] L509.4006on 12-10-2024 Rubella IgG REAC Normal Nonreactive [facility] Comment on above: Result Comment: Anti body Result: Interpretation Non-Reactive: Non-Immune Reactive: Immune The following results were obtained with the [employer] Rubella IgG assay. Results from assays of other manufacturers cannot be used interchangeably. Performed By: #### M 100.2200, L3890.6006, L509.4006, L501.9985, L3890.6102, L509.8002, L7000.1800, L3890.6301, L7400.0353, BTS, L100.0100 #### [facility] [address] [place], [place], [address] Laboratory - CytologyOrdered By: Elo Rivas on 12-10-2024 Digital Strategist Cyto stain Nom (Cvx/Vag) [ID] Comment . [facility] Comment on above: Misael Aguirre tologdavid Laboratory - Microbiology an d Antimicrobial susceptibilityOrdered By: Elo Rivas on 12-10-2024 HBV surface Ag Ql (S) Non-Reactive Nonreactive [facility] Comment on above: Reactive: Presumptiv e evidence of HBV. Repeatedly reactive samples must be confirmed using a neutralization test ([employer] HBsAg Confirmatory Test)Non-Reactive: HBsAg not detected; does not exclude the possibility of exposure to HBV Laboratory - Miscellaneous t estsOrdered By: Elo Rivas on 12-10-2024 Service comment (Unsp spec) [Interp] . . [facility] MCV (mean corpuscular volume ) determinationOrdered By: Elo Rivas on 12-10-2024 MCV (RBC) [Entitic vol] 77.5 fL Low 81-99 [facility] Comment on above: Performed By: #### M 100.2200, L3890.6006, L509.4006, L501.9985, L3890.6102, L509.8002, L7000.1800, L3890.6301, L7400.0353, BTS, L100.0100 #### [facility] [address] [place], [place], [address] Mean corpuscular hemoglobin (MCH) determinationOrdered By: Elo Rivas on 12-10-2024 MCH (RBC) [Entitic mass] 26.1 pg Low 27.0-32.0 [facility] Comment on above: Performed By: #### M 100.2200, L3890.6006, L509.4006, L501.9985, L3890.6102, L509.8002, L7000.1800, L3890.6301, L7400.0353, BTS, L100.0100 #### [facility] [address] [place], [address] Mean corpuscular hemoglobin concentration (MCHC) determinationOrdered By: Elo Rivas on 12-10-2024 MCHC (RBC) [Mass/Vol] 33.7 g/dL Normal 32-36 [facility] Comment on above: Performed By: #### M 100.2200, L3890.6006, L509.4006, L501.9985, L3890.6102, L509.8002, L7000.1800, L3890.6301, L7400.0353, BTS, L100.0100 #### [facility] [address] [place], [address] Mean platelet volume determi nationOrdered By: Elo Rivas on 12-10-2024 Platelet mean volume (Bld) [Entitic vol] 10.3 fL Normal 6.2-12.0 [facility] Comment on above: Performed By: #### M 100.2200, L3890.6006, L509.4006, L501.9985, L3890.6102, L509.8002, L7000.1800, L3890.6301, L7400.0353, BTS, L100.0100 #### [facility] [address] [place], [address] Monocyte percentageOrdered B y: Elo Rivas on 12-10-2024 Monocytes/100 WBC (Bld) 7.7 % Normal 0-10 [facility] Comment on above: Performed By: #### M 100.2200, L3890.6006, L509.4006, L501.9985, L3890.6102, L509.8002, L7000.1800, L3890.6301, L7400.0353, BTS, L100.0100 #### [facility] [address] [facility] [place], [place], [address] NATERAon 12-10-2024 NATURA SEE SCANNED REPORT Normal [facility] Comment on above: Performed By: #### L 900.0098 ####[facility] [address] [place], [place], [address] Neisseria gonorrhoeae nuclei c acid detection by amplified probe techniqueOrdered By: Elo Rivas on 12-10-2024 N. gonorrhoeae DNA SARIKA+probe Ql (Unsp spec) Negative Negative [facility] Comment on above: Performed at: =[address] [id number] Director: aRbia Odom MD, Phone: [phone] Neutrophil percentageOrdered By: Elo Rivas on 12-10-2024 Neutrophils/100 WBC (Bld) 71.3 % High 47-70 [facility] Comment on above: Performed By: #### M 100.2200, L3890.6006, L509.4006, L501.9985, L3890.6102, L509.8002, L7000.1800, L3890.6301, L7400.0353, BTS, L100.0100 #### [facility] [address] [place], [address] No Panel InformationOrdered By: Elo Rivas on 12-10-2024 HIV (1&2) Antibody Non-Reactive Nonreactive [facility] Comment on above: Non-ReactiveReactive Repeatedly reactive samples must be confirmed according to CDC recommended confirmatory algorithms. The subresults for either HIVAG or AHIV can be used as an aid in the selection of the confirmation algorithm for reactive samples.Send out specimens with Reactive results to [facility] for confirmation.Order the HIV antibody detection and differentiation: #[id number] Pap Smear Specimen Adequacy Comment . [facility] Comment on above: Satisfactory for iqra luation. Endocervical and/or squamous metaplasticcells (endocervical component) are present. Nucleated red blood cell per centageOrdered By: Elo Rivas on 12-10-2024 Nucleated RBC/100 WBC (Bld) [Ratio] 0 % 0-5 [facility] Toll Bridge Operator Office Visit Reporton 12-10-2024 Toll Bridge Operator Office Visit Report [facility]'s [address], [address] [place] [address] OFFICE VISIT Date of Service: 12/10/24 MR#: [id number] Acct: [id number] Name: ADENIKE RUTH Rep #: [id number] : 2005 Provider: Dr. Mayi Roach DO Age/Sex: 19/F [place] [facility] Status: Signed Intake Vital Signs 10/12/24 14:19 12/10/24 15:09 12/10/24 15:10 Height 5 ft 4 in 5 ft 4 in 5 ft 4 in Weight: 183 lb 2 oz BMI 31.4 BP 103/66 Intake Visit Reasons: NOB LMP 09/04 Home Delivery Driver Required: No Is patient in pain?: No [...] year weight has: increased > 10 lbs sharmila/zoroastrianism: None seatbelt use: sometimes do you feel [...] - full term 7lbs 11oz Female epidural [facility] Nadege Jacob Delivery Date: 12/01/22 Last Updated [...] Other an (more content not included)... Normal [facility] Platelet countOrdered By: Shaista Rivas on 12-10-2024 Platelets (Bld) [#/Vol] 318 10*3/uL Normal 150-450 [facility] Comment on above: Performed By: #### M 100.2200, L3890.6006, L509.4006, L501.9985, L3890.6102, L509.8002, L7000.1800, L3890.6301, L7400.0353, BTS, L100.0100 #### [facility] [address] [place], [address] Syphilis Antibodieson 2024 Syphilis Abs Non-Reactive Normal Nonreactive [facility] Comment on above: Performed By: #### M 100.2200, L3890.6006, L509.4006, L501.9985, L3890.6102, L509.8002, L7000.1800, L3890.6301, L7400.0353, BTS, L100.0100 #### [facility] [address] [facility] [place], [address] Type AND Screenon 12-10-2024 ABO and Rh group Nom (Bld) Blood group A Rh(D) positive Normal [facility] Comment on above: Order Comment: PN Performed By: #### M 100.2200, L3890.6006, L509.4006, L501.9985, L3890.6102, L509.8002, L7000.1800, L3890.6301, L7400.0353, BTS, L100.0100 #### [facility] [address] [facility] [address] [place], [place], [address] Urine cultureOrdered By: Elizabeth Rivas on 12-10-2024 Bacteria identified Cx Nom (U) Positive Abnormal [facility] [facility] White blood cell (WBC) count Ordered By: Elo Rivas on 12-10-2024 WBC (Bld) [#/Vol] 9.0 10*3/uL Normal 4.4-11.0 [facility] Comment on above: Performed By: #### M 100.2200, L3890.6006, L509.4006, L501.9985, L3890.6102, L509.8002, L7000.1800, L3890.6301, L7400.0353, BTS, L100.0100 #### [facility] [address], [address] CNCOon 09-23-2024 CNCO Letter Text Normal [facility] CNOVon 09-23-2024 CNOV Office Visit (UCWSTR ) LIDYAADENIKE CARLTON ([id number]) 1 F Date Time Provider Department 09/23/24 2:15 PM RIKI ALBARADO [facility] During your visit today, we recorded the following information about you: Temperature Pulse Respiration Blood pressure 98.3 degrees 84/minute 16/minute 110/76 Weight Last Period 87.5 kg 09/04/24 Riki Albarado, [employer] 09/23/2024 2:52 PM Signed Subjective HPI Nontoxic-appearing [...] otherwise unremarkabl (more content not included)... Normal [facility] Absolute lymphocyte countOrd ered By: Mickey Archer on 10-24-2023 Lymphocytes Auto (Unsp spec) [#/Vol] 2.22 10*3/uL 0.83-4.51 [facility] Amorphous sediment detection in urine sediment by light microscopyOrdered By: Mickey Archer on 10-24-2023 Amorphous sediment LM Ql (Urine sed) 1+ [facility] Automated lymphocyte count a s percentage of total leukocytesOrdered By: Mickey Archer on 10-24-2023 Lymphocytes/100 WBC Auto (Unsp spec) 31.5 % 19-41 [facility] Basophil percentageOrdered B y: Mickey Archer on 10-24-2023 Basophil percentage 0 SEEN /hpf 0-5 [facility] Basophils/100 WBC (Bld) 0.9 % 0-1 [facility] Chloride [Moles/Vol] 105 mmol/L 98-107 [facility] Eosinophils/100 WBC (Bld) 1.7 % 0-5 [facility] Glucose [Mass/Vol] 94 mg/dL 74-106 [facility] Hemoglobin (Bld) [Mass/Vol] 13.7 g/dL 12.0-15.0 [facility] Monocytes/100 WBC (Bld) 10.8 % 0-10 [facility] Neutrophils (Bld) [#/Vol] 3.9 10*3/uL 2.0-7.7 [facility] Neutrophils/100 WBC (Bld) 54.8 % 47-70 [facility] Potassium [Moles/Vol] 3.8 mmol/L 3.5-5.1 [facility] Sodium [Moles/Vol] 138 mmol/L 136-145 [facility] WBC (Bld) [#/Vol] 7.0 10*3/uL 4.4-11.0 [facility] Bilirubin Test strip Ql (U)O rdered By: Mickey Archer on 10-24-2023 Bilirubin Ql (U) Negative Negative [facility] Determination of erythrocyte mean corpuscular volume (MCV)Ordered By: Mickey Archer on 10-24-2023 MCV (RBC) [Entitic vol] 77.8 fL 81-99 [facility] Erythrocyte distribution wid th ratioOrdered By: Mickey Archer on 10-24-2023 Erythrocyte distribution width (RBC) [Ratio] 13.7 % 11.6-14.6 [facility] Erythrocyte distribution wid th standard deviationOrdered By: Mickey Archer on 10-24-2023 Erythrocyte distribution width (RBC) [Entitic vol] 38.9 fL 35.1-43.9 [facility] Hematocrit Auto (Bld) [Volum e fraction]Ordered By: Mickey Archer on 10-24-2023 Hematocrit (Bld) [Volume fraction] 42.7 % 37-47 [facility] Immature granulocytes/100 WB C Auto (Bld)Ordered By: Mickey Archer on 10-24-2023 Immature granulocytes/100 WBC (Bld) 0.300 % 0.0-0.9 [facility] Comment on above: IG% - Immature Granu locytes (promyelocytes, myelocytes and metamyelocytes) > 1% indicates that a LEFT SHIFT is Present. Ketones Test strip Ql (U)Ord ered By: Mickey Archer on 10-24-2023 Ketones Ql (U) Negative Negative [facility] - Chemistry and C hemistry - challengeOrdered By: Mickey Archer on 10-24-2023 CO2 [Moles/Vol] 28.0 mmol/L 21.0-32.0 [facility] Urea nitrogen/Creatinine [Mass ratio] 14.9 mg/mg 10-20 [facility] - Hematology and Cell countsOrdered By: Mickey Archer on 10-24-2023 MCH (RBC) [Entitic mass] 25.0 pg 27.0-32.0 [facility] MCHC (RBC) [Mass/Vol] 32.1 g/dL 32-36 [facility] Nucleated RBC/100 WBC (Bld) [Ratio] 0 % 0-5 [facility] Platelet mean volume (Bld) [Entitic vol] 9.6 fL 6.2-12.0 [facility] Platelets (Bld) [#/Vol] 356 10*3/uL 150-450 [facility] Mucus LM Ql (Urine sed)Order ed By: Mickey Archer on 10-24-2023 Mucus Ql (Urine sed) 0 SEEN /hpf [facility] Nitrite Test strip Ql (U)Ord ered By: Mickey Archer on 10-24-2023 Nitrite Ql (U) Negative Negative [facility] No Panel InformationOrdered By: Mickey Archer on 10-24-2023 Urine RBC 0 SEEN /hpf 0-5 [facility] Estimated Creatinine Clearance Calc 99.05 ml/min [facility] Estimated GFR (MDRD) Amer 107 mL/min >60 [facility] Comment on above: GFR Calc Estimated GFR (MDRD) Non-Af Amer 88 mL/min >60 [facility] Comment on above: Non- GFR Calc Protein Test strip Ql (U)Ord ered By: Mickey Archer on 10-24-2023 Protein Ql (U) Negative Negative [facility] RBC Auto (Bld) [#/Vol]Ordere d By: Mickey Archer on 10-24-2023 RBC (Bld) [#/Vol] 5.49 10*6/uL 4.2-5.4 [facility] Serum or plasma calcium debbie urement (mass/volume)Ordered By: Mickey Archer on 10-24-2023 Calcium [Mass/Vol] 9.9 mg/dL 8.5-10.1 [facility] Serum or plasma choriogonado tropin detectionOrdered By: Mayi Calix on 10-24-2023 HCG ( test) Ql Negative [facility] Serum or plasma creatinine m easurement (mass/volume)Ordered By: Mickey Archer on 10-24-2023 Creatinine [Mass/Vol] 0.87 mg/dL 0.55-1.02 [facility] Comment on above: The validity of the calculated GFR & GFRAA in patients over 70 years has not been determined. Clinical correlation is essential. Serum or plasma urea nitroge n measurement (mass/volume)Ordered By: Mickey Archer on 10-24-2023 Urea nitrogen [Mass/Vol] 13 mg/dL 7-18 [facility] Squamous epithelial cells de tection in urine sediment by light microscopyOrdered By: Mickey Archer on 10-24-2023 Epithelial cells.squamous LM Ql (Urine sed) 5-10 SEEN /hpf 5-10 [facility] Thin prep Papanicolaou smear with manual screeningOrdered By: Mickey Archer on 10-24-2023 Thin prep Papanicolaou smear with manual screening 5 5-15 [facility] Urine blood detectionOrdered By: Mickey Archer on 10-24-2023 RBC Ql (U) Negative Negative [facility] Urine clarityOrdered By: Janette Archer on 10-24-2023 Clarity (U) Sl. Cloudy Clear [facility] Urine color determinationOrd ered By: Mickey Archer on 10-24-2023 Color (U) Yellow Yellow [facility] Urine glucose detectionOrder ed By: Mickey Archer on 10-24-2023 Glucose Ql (U) Normal mg/dl Normal [facility] Urine leukocyte esterase det ection by dipstickOrdered By: Mickey Archer on 10-24-2023 Leukocyte esterase Test strip Ql (U) 25 /ul Negative [facility] Urine pHOrdered By: Mickey garza on 10-24-2023 pH (U) 6.5 [pH] 5.0 - 8.0 [facility] Urine sediment bacteria coun t by microscopy (number/high power field)Ordered By: Mickey Archer on 10-24-2023 Bacteria LM.HPF (Urine sed) [#/Area] 2 /[HPF] None Seen [facility] Urine specific gravity measu rementOrdered By: Mickey Archer on 10-24-2023 Specific gravity (U) [Rel density] 1.020 1.002-1.030 [facility] Urine urobilinogen measureme ntOrdered By: Mickey Archer on 10-24-2023 Urobilinogen Ql (U) Normal mg/dl Normal [facility] Absolute lymphocyte countOrd ered By: Dr. Knight on 12-01-2022 Lymphocytes Auto (Unsp spec) [#/Vol] 1.92 10*3/uL 0.83-4.51 [facility] Basophil percentageOrdered B y: Dr. Knight on 12-01-2022 Basophils/100 WBC (Bld) 0.4 % 0-1 [facility] Eosinophils/100 WBC (Bld) 1.7 % 0-5 [facility] Neutrophils (Bld) [#/Vol] 7.3 10*3/uL 2.0-7.7 [facility] Neutrophils/100 WBC (Bld) 67.7 % 47-70 [facility] WBC (Bld) [#/Vol] 10.7 10*3/uL 4.4-11.0 [facility] Blood erythrocytes count (nu mber/volume)Ordered By: Dr. Knight on 12-01-2022 RBC (Bld) [#/Vol] 4.72 10*6/uL 4.2-5.4 [facility] Blood hemoglobin measurement (mass/volume)Ordered By: Dr. Knight on 12-01-2022 Hemoglobin (Bld) [Mass/Vol] 12.0 g/dL 12.0-15.0 [facility] Blood lymphocytes/100 leukoc ytesOrdered By: Dr. Knight on 12-01-2022 Lymphocytes/100 WBC (Bld) 17.9 % 19-41 [facility] Blood monocytes/100 leukocyt esOrdered By: Dr. Knight on 12-01-2022 Monocytes/100 WBC (Bld) 10.8 % 0-10 [facility] Blood platelet mean volumeOr dered By: Dr. Knight on 12-01-2022 Platelet mean volume (Bld) [Entitic vol] 10.7 fL 6.2-12.0 [facility] Determination of erythrocyte mean corpuscular volume (MCV)Ordered By: Dr. Knight on 12-01-2022 MCV (RBC) [Entitic vol] 77.8 fL 81-99 [facility] Hematocrit Auto (Bld) [Volum e fraction]Ordered By: Dr. Knight on 12-01-2022 Hematocrit (Bld) [Volume fraction] 36.7 % 37-47 [facility] - Drug toxicology Ordered By: Dr. Knight on 12-01-2022 Amphetamines Ql (U) Negative <1000 ng/mL [facility] Benzodiazepines Ql (U) Negative < 200 ng/mL [facility] Cannabinoids Screen Ql (U) Negative < 50 ng/mL [facility] Cocaine Ql (U) Negative < 300 ng/mL [facility] Opiates Ql (U) Negative < 300 ng/mL [facility] - Hematology and Cell countsOrdered By: Dr. Knight on 12-01-2022 Erythrocyte distribution width (RBC) [Entitic vol] 41.8 fL 35.1-43.9 [facility] Erythrocyte distribution width (RBC) [Ratio] 15.1 % 11.6-14.6 [facility] Immature granulocytes/100 WBC (Bld) 1.500 % 0.0-0.9 [facility] Comment on above: IG% - Immature Granu locytes (promyelocytes, myelocytes and metamyelocytes) > 1% indicates that a LEFT SHIFT is Present. MCH (RBC) [Entitic mass] 25.4 pg 27.0-32.0 [facility] Nucleated RBC/100 WBC (Bld) [Ratio] 0 % 0-5 [facility] MCHC Auto (RBC) [Mass/Vol]Or dered By: Dr. Knight on 12-01-2022 MCHC (RBC) [Mass/Vol] 32.7 g/dL 32-36 [facility] No Panel InformationOrdered By: Dr. Knight on 12-01-2022 MDMA (Ecstasy) Screen Negative < 500 ng/mL [facility] Urine Barbiturates Screen Negative < 200 ng/mL [facility] Urine Drug Screen Comment [facility] Comment on above: CONFIRMATORY TESTING FOR [...] Methadone Screen Negative < 300 ng/mL [facility] Vaginal Amniotic Fluid Detection Positive Negative [facility] Comment on above: Amniotic fluid prese nt indicates rupture of Membranes. RESULTS CALLED TO Bladimir SCHAFER 12/01/22 011Jacey Echavarria.REPORT READ BACK BY SAME. Platelets bldOrdered By: Dr. Knight on 12-01-2022 Platelets (Bld) [#/Vol] 278 10*3/uL 150-450 [facility] Serum Treponema species anti body detectionOrdered By: Dr. Knight on 12-01-2022 Treponema sp Ab Ql (S) Non-Reactive [facility] Urine phencyclidine (PCP) de tectionOrdered By: Dr. Knight on 12-01-2022 Phencyclidine Ql (U) Negative < 25 ng/mL [facility] Laboratory - Chemistry and C hemistry - challengeon 11-24-2022 Glucose Ql (U) Negative [facility] - Urinalysison Protein Ql (U) Negative [facility] No Panel InformationOrdered By: Elo Rivas on 11-20-2022 Group B Streptococcus Culture Group B Beta Streptococcus is not isolated. [facility] - Chemistry and C hemistry - challengeon 11-17-2022 Glucose Ql (U) Negative [facility] - Urinalysison Protein Ql (U) Negative [facility] - Chemistry and C hemistry - challengeon 11-03-2022 Glucose Ql (U) Negative [facility] - Urinalysison Protein Ql (U) Negative [facility] - Chemistry and C hemistry - challengeon 10-20-2022 Glucose Ql (U) Negative [facility] - Urinalysison Protein Ql (U) Negative [facility] - Chemistry and C hemistry - challengeon 10-06-2022 Glucose Ql (U) Negative [facility] - Urinalysison Protein Ql (U) Negative [facility] Chlamydia trachomatis rRNA d etection by probe and target amplification methodOrdered By: Beverly Penny on 09-22-2022 C. trachomatis rRNA SARIKA+probe Ql (Unsp spec) Negative Negative [facility] - Chemistry and C hemistry - challengeon 09-22-2022 Glucose Ql (U) Negative [facility] - Microbiology an d Antimicrobial susceptibilityOrdered By: Beverly Penny on 09-22-2022 N. gonorrhoeae DNA SARIKA+probe Ql (Unsp spec) Negative Negative [facility] Comment on above: Performed at: =[address] [id number] Director: Rabia Odom MD, Phone: [phone] Laboratory - Urinalysison Protein Ql (U) Negative [facility] Absolute lymphocyte countOrd ered By: Dr. Aguirre on 09-08-2022 Lymphocytes Auto (Unsp spec) [#/Vol] 1.43 10*3/uL 0.83-4.51 [facility] Basophil percentageOrdered B y: Dr. Aguirre on 09-08-2022 Basophils/100 WBC (Bld) 0.4 % 0-1 [facility] Eosinophils/100 WBC (Bld) 2.1 % 0-5 [facility] Neutrophils (Bld) [#/Vol] 7.4 10*3/uL 2.0-7.7 [facility] Neutrophils/100 WBC (Bld) 72.9 % 47-70 [facility] WBC (Bld) [#/Vol] 10.1 10*3/uL 4.4-11.0 [facility] Blood erythrocytes count (nu mber/volume)Ordered By: Dr. Aguirre on 09-08-2022 RBC (Bld) [#/Vol] 4.48 10*6/uL 4.2-5.4 [facility] Blood hemoglobin measurement (mass/volume)Ordered By: Dr. Aguirre on 09-08-2022 Hemoglobin (Bld) [Mass/Vol] 11.7 g/dL 12.0-15.0 [facility] Blood lymphocytes/100 leukoc ytesOrdered By: Dr. Aguirre on 09-08-2022 Lymphocytes/100 WBC (Bld) 14.2 % 19-41 [facility] Blood monocytes/100 leukocyt esOrdered By: Dr. Aguirre on 09-08-2022 Monocytes/100 WBC (Bld) 8.8 % 0-10 [facility] Blood platelet mean volumeOr dered By: Dr. Aguirre on 09-08-2022 Platelet mean volume (Bld) [Entitic vol] 9.8 fL 6.2-12.0 [facility] Determination of erythrocyte mean corpuscular volume (MCV)Ordered By: Dr. Aguirre on 09-08-2022 MCV (RBC) [Entitic vol] 82.4 fL 81-99 [facility] Gestational diabetes screen 1-hour screen with 50g oral glucose loadOrdered By: Dr. Aguirre on 09-08-2022 Glucose 1 Hr post 50 g glucose PO [Mass/Vol] 113 mg/dL 70-140 [facility] HIV 1 and HIV-2 antibody ass ay with HIV-1 p24 antigen detectionOrdered By: Dr. Aguirre on 09-08-2022 HIV 1+2 Ab+HIV1 p24 Ag IA Ql Non-Reactive Nonreactive [facility] Hematocrit Auto (Bld) [Volum e fraction]Ordered By: Dr. Aguirre on 09-08-2022 Hematocrit (Bld) [Volume fraction] 36.9 % 37-47 [facility] - Chemistry and C hemistry - challengeon 09-08-2022 Glucose Ql (U) Negative [facility] - Drug toxicology Ordered By: Beverly Penny on 09-08-2022 Amphetamines Ql (U) Negative <1000 ng/mL [facility] Benzodiazepines Ql (U) Negative < 200 ng/mL [facility] Cannabinoids Screen Ql (U) Negative < 50 ng/mL [facility] Cocaine Ql (U) Negative < 300 ng/mL [facility] Opiates Ql (U) Negative < 300 ng/mL [facility] - Hematology and Cell countsOrdered By: Dr. Aguirre on 09-08-2022 Erythrocyte distribution width (RBC) [Entitic vol] 43.7 fL 35.1-43.9 [facility] Erythrocyte distribution width (RBC) [Ratio] 14.9 % 11.6-14.6 [facility] Immature granulocytes/100 WBC (Bld) 1.600 % 0.0-0.9 [facility] Comment on above: IG% - Immature Granu locytes (promyelocytes, myelocytes and metamyelocytes) > 1% indicates that a LEFT SHIFT is Present. MCH (RBC) [Entitic mass] 26.1 pg 27.0-32.0 [facility] Nucleated RBC/100 WBC (Bld) [Ratio] 0 % 0-5 [facility] Laboratory - Urinalysison Protein Ql (U) Negative [facility] MCHC Auto (RBC) [Mass/Vol]Or dered By: Dr. Aguirre on 09-08-2022 MCHC (RBC) [Mass/Vol] 31.7 g/dL 32-36 [facility] No Panel InformationOrdered By: Beverly Penny on 09-08-2022 MDMA (Ecstasy) Screen Negative < 500 ng/mL [facility] Urine Barbiturates Screen Negative < 200 ng/mL [facility] Urine Drug Screen Comment [facility] Comment on above: CONFIRMATORY TESTING FOR [...] Methadone Screen Negative < 300 ng/mL [facility] Platelets bldOrdered By: Dr. Aguirre on 09-08-2022 Platelets (Bld) [#/Vol] 317 10*3/uL 150-450 [facility] Serum Treponema species anti body detectionOrdered By: Dr. Aguirre on 09-08-2022 Treponema sp Ab Ql (S) Non-Reactive [facility] Urine phencyclidine (PCP) de tectionOrdered By: Beverly Penny on 09-08-2022 Phencyclidine Ql (U) Negative < 25 ng/mL [facility] Laboratory - Chemistry and C hemistry - challengeon 08-13-2022 Glucose Ql (U) Negative [facility] - Urinalysison Protein Ql (U) Negative [facility] - Chemistry and C hemistry - challengeon 07-16-2022 Glucose Ql (U) Negative [facility] - Urinalysison Protein Ql (U) Negative [facility] - Chemistry and C hemistry - challengeon 06-18-2022 Glucose Ql (U) Negative [facility] - Urinalysison Protein Ql (U) Negative [facility] Absolute lymphocyte countOrd ered By: Dr. Oshea on 05-31-2022 Lymphocytes Auto (Unsp spec) [#/Vol] 1.39 10*3/uL 0.83-4.51 [facility] Basophil percentageOrdered B y: Dr. Oshea on 05-31-2022 Basophils/100 WBC (Bld) 0.3 % 0-1 [facility] Bilirubin [Mass/Vol] 0.30 mg/dL 0.20-1.00 [facility] Comment on above: For patients on eltr ombopag therapy, use of Dimension Marcell TBIL is not recommended. Chloride [Moles/Vol] 106 mmol/L 98-107 [facility] Eosinophils/100 WBC (Bld) 1.6 % 0-3 [facility] Glucose [Mass/Vol] 91 mg/dL 74-106 [facility] Neutrophils (Bld) [#/Vol] 4.7 10*3/uL 2.0-7.7 [facility] Neutrophils/100 WBC (Bld) 68.2 % 34-64 [facility] Potassium [Moles/Vol] 3.4 mmol/L 3.5-5.1 [facility] Protein [Mass/Vol] 7.5 g/dL 6.4-8.2 [facility] Sodium [Moles/Vol] 137 mmol/L 136-145 [facility] WBC (Bld) [#/Vol] 6.9 10*3/uL 4.5-13.0 [facility] Blood erythrocytes count (nu mber/volume)Ordered By: Dr. Oshea on 05-31-2022 RBC (Bld) [#/Vol] 4.96 10*6/uL 4.1-4.8 [facility] Blood hemoglobin measurement (mass/volume)Ordered By: Dr. Oshea on 05-31-2022 Hemoglobin (Bld) [Mass/Vol] 12.8 g/dL 12.0-15.0 [facility] Blood lymphocytes/100 leukoc ytesOrdered By: Dr. Oshea on 05-31-2022 Lymphocytes/100 WBC (Bld) 20.2 % 25-45 [facility] Blood monocytes/100 leukocyt esOrdered By: Dr. Oshea on 05-31-2022 Monocytes/100 WBC (Bld) 9.3 % 3-6 [facility] Blood platelet mean volumeOr dered By: Dr. Oshea on 05-31-2022 Platelet mean volume (Bld) [Entitic vol] 9.4 fL 6.2-12.0 [facility] Determination of erythrocyte mean corpuscular volume (MCV)Ordered By: Dr. Oshea on 05-31-2022 MCV (RBC) [Entitic vol] 78.4 fL 78-96 [facility] Hematocrit Auto (Bld) [Volum e fraction]Ordered By: Dr. Oshea on 05-31-2022 Hematocrit (Bld) [Volume fraction] 38.9 % 37-46 [facility] - Chemistry and C hemistry - challengeOrdered By: Dr. Oshea on 05-31-2022 ALP [Catalytic activity/Vol] 46 U/L 47-119 [facility] ALT [Catalytic activity/Vol] 18 U/L 13-56 [facility] CO2 [Moles/Vol] 24.0 mmol/L 21.0-32.0 [facility] Globulin (S) [Mass/Vol] 4.0 g/dL 2.2-4.2 [facility] Lipase [Catalytic activity/Vol] 75 U/L 73-393 [facility] Urea nitrogen/Creatinine [Mass ratio] 9.3 mg/mg 10-20 [facility] - Hematology and Cell countsOrdered By: Dr. Oshea on 05-31-2022 Erythrocyte distribution width (RBC) [Entitic vol] 37.7 fL 35.1-43.9 [facility] Erythrocyte distribution width (RBC) [Ratio] 13.3 % 11.6-14.6 [facility] Immature granulocytes/100 WBC (Bld) 0.400 % 0.0-0.9 [facility] Comment on above: IG% - Immature Granu locytes (promyelocytes, myelocytes and metamyelocytes) > 1% indicates that a LEFT SHIFT is Present. MCH (RBC) [Entitic mass] 25.8 pg 25.0-35.0 [facility] Nucleated RBC/100 WBC (Bld) [Ratio] 0 % 0-5 [facility] MCHC Auto (RBC) [Mass/Vol]Or dered By: Dr. Oshea on 05-31-2022 MCHC (RBC) [Mass/Vol] 32.9 g/dL 32-36 [facility] No Panel InformationOrdered By: Dr. Oshea on 05-31-2022 Estimated Creatinine Clearance Calc 139.76 ml/min [facility] Estimated GFR (MDRD) Amer 189 mL/min >60 [facility] Comment on above: GFR Calc Estimated GFR (MDRD) Non-Af Amer 156 mL/min >60 [facility] Comment on above: Non- GFR Calc Platelets bldOrdered By: Dr. Oshea on 05-31-2022 Platelets (Bld) [#/Vol] 294 10*3/uL 150-450 [facility] Serum or plasma albumin debbie urement (mass/volume)Ordered By: Dr. Oshea on 05-31-2022 Albumin [Mass/Vol] 3.5 g/dL 3.2-5.0 [facility] Serum or plasma albumin/glob ulin mass ratioOrdered By: Dr. Oshea on 05-31-2022 Albumin/Globulin [Mass ratio] 0.9 {ratio} 0.9-2.4 [facility] Serum or plasma calcium debbie urement (mass/volume)Ordered By: Dr. Oshea on 05-31-2022 Calcium [Mass/Vol] 9.7 mg/dL 8.5-10.1 [facility] Serum or plasma choriogonado tropin detectionOrdered By: Dr. Oshea on 05-31-2022 HCG ( test) Ql [address] mIU/mL <4 [facility] Comment on above: hCG levels with Gest ational AgeGestational Age hCG mIU/mL (IU/L)0.2 - 1 week 5 - 501-2 weeks 50 - 5002-3 weeks 100 - 67283-1 weeks 500 - 019135-2 weeks 1000 - 202266-6 weeks 20398 - 100,0006-8 weeks 13574 - 200,0002-3 months 03163 - 100,000 Serum or plasma creatinine m easurement (mass/volume)Ordered By: Dr. Oshea on 05-31-2022 Creatinine [Mass/Vol] 0.54 mg/dL 0.55-1.02 [facility] Comment on above: The validity of the calculated GFR & GFRAA in patients over 70 years has not been determined. Clinical correlation is essential. Serum or plasma urea nitroge n measurement (mass/volume)Ordered By: Dr. Oshea on 05-31-2022 Urea nitrogen [Mass/Vol] 5 mg/dL 7-18 [facility] Thin prep Papanicolaou smear with manual screeningOrdered By: Dr. Oshea on 05-31-2022 Thin prep Papanicolaou smear with manual screening 10 U/L 15-37 [facility] Thin prep Papanicolaou smear with manual screening 7 5-15 [facility] Culture, urineOrdered By: Dr Kerry Aguirre on 05-24-2022 Bacteria identified Cx Nom (U) Positive [facility] No Panel InformationOrdered By: Dr. Aguirre on 05-24-2022 Miscellaneous Test Comment MAILED SPECIMEN [facility] Absolute lymphocyte countOrd ered By: Dr. Aguirre on 05-21-2022 Lymphocytes Auto (Unsp spec) [#/Vol] 1.54 10*3/uL 0.83-4.51 [facility] Basophil percentageOrdered B y: Dr. Aguirre on 05-21-2022 Basophils/100 WBC (Bld) 0.3 % 0-1 [facility] Eosinophils/100 WBC (Bld) 1.0 % 0-3 [facility] Neutrophils (Bld) [#/Vol] 6.2 10*3/uL 2.0-7.7 [facility] Neutrophils/100 WBC (Bld) 71.4 % 34-64 [facility] WBC (Bld) [#/Vol] 8.7 10*3/uL 4.5-13.0 [facility] Blood erythrocytes count (nu mber/volume)Ordered By: Dr. Aguirre on 05-21-2022 RBC (Bld) [#/Vol] 5.02 10*6/uL 4.1-4.8 [facility] Blood hemoglobin measurement (mass/volume)Ordered By: Dr. Aguirre on 05-21-2022 Hemoglobin (Bld) [Mass/Vol] 13.3 g/dL 12.0-15.0 [facility] Blood lymphocytes/100 leukoc ytesOrdered By: Dr. Aguirre on 05-21-2022 Lymphocytes/100 WBC (Bld) 17.8 % 25-45 [facility] Blood monocytes/100 leukocyt esOrdered By: Dr. Aguirre on 05-21-2022 Monocytes/100 WBC (Bld) 9.2 % 3-6 [facility] Blood platelet mean volumeOr dered By: Dr. Aguirre on 05-21-2022 Platelet mean volume (Bld) [Entitic vol] 9.4 fL 6.2-12.0 [facility] Determination of erythrocyte mean corpuscular volume (MCV)Ordered By: Dr. Aguirre on 05-21-2022 MCV (RBC) [Entitic vol] 78.9 fL 78-96 [facility] HIV 1 and HIV-2 antibody ass ay with HIV-1 p24 antigen detectionOrdered By: Dr. Aguirre on 05-21-2022 HIV 1+2 Ab+HIV1 p24 Ag IA Ql Non-Reactive Nonreactive [facility] Hematocrit Auto (Bld) [Volum e fraction]Ordered By: Dr. Aguirre on 05-21-2022 Hematocrit (Bld) [Volume fraction] 39.6 % 37-46 [facility] Laboratory - Drug toxicology Ordered By: Dr. Aguirre on 05-21-2022 Amphetamines Ql (U) Negative <1000 ng/mL [facility] Benzodiazepines Ql (U) Negative < 200 ng/mL [facility] Cannabinoids Screen Ql (U) Positive < 50 ng/mL [facility] Cocaine Ql (U) Negative < 300 ng/mL [facility] Opiates Ql (U) Negative < 300 ng/mL [facility] Laboratory - Hematology and Cell countsOrdered By: Dr. Aguirre on 05-21-2022 Erythrocyte distribution width (RBC) [Entitic vol] 37.7 fL 35.1-43.9 [facility] Erythrocyte distribution width (RBC) [Ratio] 13.3 % 11.6-14.6 [facility] Immature granulocytes/100 WBC (Bld) 0.300 % 0.0-0.9 [facility] Comment on above: IG% - Immature Granu locytes (promyelocytes, myelocytes and metamyelocytes) > 1% indicates that a LEFT SHIFT is Present. MCH (RBC) [Entitic mass] 26.5 pg 25.0-35.0 [facility] Nucleated RBC/100 WBC (Bld) [Ratio] 0 % 0-5 [facility] MCHC Auto (RBC) [Mass/Vol]Or dered By: Dr. Aguirre on 05-21-2022 MCHC (RBC) [Mass/Vol] 33.6 g/dL 32-36 [facility] No Panel InformationOrdered By: Dr. Aguirre on 05-21-2022 MDMA (Ecstasy) Screen Negative < 500 ng/mL [facility] Urine Barbiturates Screen Negative < 200 ng/mL [facility] Urine Drug Screen Comment [facility] Comment on above: CONFIRMATORY TESTING FOR [...] Urine Methadone Screen Negative < 300 ng/mL [facility] Hepatitis B Surface Antigen Non-Reactive Nonreactive [facility] Hepatitis C Antibody Non-Reactive Nonreactive [facility] Comment on above: Non Reactive: < 0.8 Equivocal: >/= 0.8 to < 1.0 Reactive: >/= 1.0The CDC recommends that a reactive/equivocal HCV antibody result be followed up by the HCV Nucleic Acid Amplificationtest ([id number]) Rubella IgG Antibody Reactive Nonreactive [facility] Comment on above: Antibody Results Int erpretation of Immune Status Non Reactive Presumed Non-Immune Equivocal Equivocal Reactive Presumed Immune Platelets bldOrdered By: Dr. Aguirre on 05-21-2022 Platelets (Bld) [#/Vol] 402 10*3/uL 150-450 [facility] Serum Treponema species anti body detectionOrdered By: Dr. Aguirre on 05-21-2022 Treponema sp Ab Ql (S) Non-Reactive [facility] Urine phencyclidine (PCP) de tectionOrdered By: Dr. Aguirre on 05-21-2022 Phencyclidine Ql (U) Negative < 25 ng/mL [facility] AOH MAIN OR Intraop Recordon 01-31-2018 AOH MAIN OR Intraop Record Normal [facility] Depart Summaryon 01-31-2018 Depart Summary Normal [facility]) [facility] Operative Reporton 01-31-2018 [facility] Operative Report Normal [facility]) [facility] Outpatient Patient Summaryon 01-31-2018 [facility] Patient Summary Normal [facility]) XR FLUORO < 1HR TECH TIMEon 01-31-2018 XR FLUORO < 1HR TECH TIME ORIGINAL Images acquired, not reported on this accession number. Normal [facility]) Culture, urine Bacteria identified Cx Nom (U) Positive [facility] Work Phone: Vital Signs Date Time Vital Sign Value Performing Clinician Facility 04-02-2025 09:58-0400 Body height 162.56 cm Chucho Nickerson MD Work Phone: [facility] 04-02-2025 09:58-0400 Body mass index (BMI) [Ratio] 32.6 kg/m2 Chucho Nickerson MD Work Phone: [facility] 04-02-2025 09:58-0400 Body weight 86.23 kg Chucho Nickerson MD Work Phone: [facility] 04-02-2025 09:58-0400 Diastolic blood pressure 66 mm[Hg] Chucho Nickerson MD Work Phone: [facility] 04-02-2025 09:58-0400 Systolic blood pressure 103 mm[Hg] Chucho Nickerson MD Work Phone: [facility] 03-06-2025 09:46-0400 Body height 162.56 cm Chucho Nickerson MD Work Phone: [facility] 03-06-2025 09:46-0400 Body mass index (BMI) [Ratio] 33.1 kg/m2 Chucho Nickerson MD Work Phone: [facility] 03-06-2025 09:46-0400 Body weight 87.6 kg Chucho Nickerson MD Work Phone: [facility] 03-06-2025 09:46-0400 Diastolic blood pressure 78 mm[Hg] hCucho Nickerson MD Work Phone: [facility] 03-06-2025 09:46-0400 Systolic blood pressure 120 mm[Hg] Chucho Nickerson MD Work Phone: [facility] 02-04-2025 10:58-0400 Body height 162.56 cm Chucho Nickerson MD Work Phone: [facility] 02-04-2025 10:58-0400 Body mass index (BMI) [Ratio] 31.8 kg/m2 Chucho Nickerson MD Work Phone: [facility] 02-04-2025 10:58-0400 Body weight 84.05 kg Chucho Nickersno MD Work Phone: [facility] 02-04-2025 10:58-0400 Diastolic blood pressure 70 mm[Hg] Chucho Nickerson MD Work Phone: [facility] 02-04-2025 10:58-0400 Systolic blood pressure 104 mm[Hg] Chucho Nickerson MD Work Phone: [facility] 01-09-2025 15:51-0400 Body height 162.56 cm Chucho Nickerson MD Work Phone: [facility] 01-09-2025 15:51-0400 Body mass index (BMI) [Ratio] 31.2 kg/m2 Chucho Nickerson MD Work Phone: [facility] 01-09-2025 15:51-0400 Body weight 82.61 kg Chucho Nickerson MD Work Phone: [facility] 01-09-2025 15:51-0400 Diastolic blood pressure 67 mm[Hg] Chucho Nickerson MD Work Phone: [facility] 01-09-2025 15:51-0400 Systolic blood pressure 102 mm[Hg] Chucho Nickerson MD Work Phone: [facility] 12-10-2024 15:10-0400 Body height 162.56 cm Chucho Nickerson MD Work Phone: [facility] 12-10-2024 15:09-0400 Body mass index (BMI) [Ratio] 31.4 kg/m2 Chucho Nickerson MD Work Phone: [facility] 12-10-2024 15:09-0400 Body weight 83.06 kg Chucoh Nickerson MD Work Phone: [facility] 12-10-2024 15:09-0400 Diastolic blood pressure 66 mm[Hg] Chucho Nickerson MD Work Phone: [facility] 12-10-2024 15:09-0400 Systolic blood pressure 103 mm[Hg] Chucho Nickerson MD Work Phone: [facility] 09-23-2024 14:25-0400 Body temperature 98.29 [degF] Riki Albarado [employer] Work Phone: [facility] 09-23-2024 14:25-0400 Body weight 87.5 kg Riki Albarado [employer] Work Phone: [facility] 09-23-2024 14:25-0400 Diastolic blood pressure 76 mm[Hg] Riki Albarado [employer] Work Phone: [facility] 09-23-2024 14:25-0400 Heart rate 84 /min Riki Albarado [employer] Work Phone: [facility] 09-23-2024 14:25-0400 Respiratory rate 16 /min Riki Albarado [employer] Work Phone: [facility] 09-23-2024 14:25-0400 SaO2% (BldA) [Mass fraction] 98 % Riki Albarado [employer] Work Phone: [facility] 09-23-2024 14:25-0400 Systolic blood pressure 110 mm[Hg] Riki Albarado [employer] Work Phone: [facility] 10-24-2023 20:18-0400 Diastolic blood pressure 87 mm[Hg] [facility] 10-24-2023 20:18-0400 Heart rate 68 /min [facility] 10-24-2023 20:18-0400 Respiratory rate 18 /min [facility] 10-24-2023 20:18-0400 SaO2% (BldA) [Mass fraction] 100 % [facility] 10-24-2023 20:18-0400 Systolic blood pressure 125 mm[Hg] [facility] 10-24-2023 18:18-0400 Body height 162.56 cm [facility] 10-24-2023 18:18-0400 Body mass index (BMI) [Ratio] 26.4 kg/m2 [facility] 10-24-2023 18:18-0400 Body temperature 97.8 [degF] [facility] 10-24-2023 18:18-0400 Body weight 70.02 kg [facility] 12-02-2022 13:53-0400 Body temperature 97.8 [degF] No Primary Care Physician [facility] 12-02-2022 13:53-0400 Diastolic blood pressure 62 mm[Hg] No Primary Care Physician [facility] 12-02-2022 13:53-0400 Heart rate 87 /min No Primary Care Physician [facility] 12-02-2022 13:53-0400 Respiratory rate 15 /min No Primary Care Physician [facility] 12-02-2022 13:53-0400 SaO2% (BldA) [Mass fraction] 97 % No Primary Care Physician [facility] 12-02-2022 13:53-0400 Systolic blood pressure 101 mm[Hg] No Primary Care Physician [facility] 12-01-2022 00:56-0400 Body height 162.56 cm No Primary Care Physician [facility] 12-01-2022 00:56-0400 Body mass index (BMI) [Percentile] Per age and sex 95.4 % No Primary Care Physician [facility] 12-01-2022 00:56-0400 Body mass index (BMI) [Ratio] 31.8 kg/m2 No Primary Care Physician [facility] 12-01-2022 00:56-0400 Body weight 84.02 kg No Primary Care Physician [facility] 11-24-2022 09:13-0400 Body mass index (BMI) [Percentile] Per age and sex 95.7 % No Primary Care Physician [facility] 11-24-2022 09:13-0400 Body mass index (BMI) [Ratio] 32.1 kg/m2 No Primary Care Physician [facility] 11-24-2022 09:13-0400 Body weight 82.15 kg No Primary Care Physician [facility] 11-24-2022 09:13-0400 Diastolic blood pressure 71 mm[Hg] No Primary Care Physician [facility] 11-24-2022 09:13-0400 Systolic blood pressure 113 mm[Hg] No Primary Care Physician [facility] 11-17-2022 10:24-0400 Body mass index (BMI) [Percentile] Per age and sex 95.4 % No Primary Care Physician [facility] 11-17-2022 10:24-0400 Body mass index (BMI) [Ratio] 31.7 kg/m2 No Primary Care Physician [facility] 11-17-2022 10:24-0400 Body weight 81.3 kg No Primary Care Physician [facility] 11-17-2022 10:24-0400 Diastolic blood pressure 75 mm[Hg] No Primary Care Physician [facility] 11-17-2022 10:24-0400 Systolic blood pressure 112 mm[Hg] No Primary Care Physician [facility] 11-03-2022 08:42-0400 Body mass index (BMI) [Percentile] Per age and sex 94.9 % No Primary Care Physician [facility] 11-03-2022 08:42-0400 Body mass index (BMI) [Ratio] 31.1 kg/m2 No Primary Care Physician [facility] 11-03-2022 08:42-0400 Body weight 79.83 kg No Primary Care Physician [facility] 11-03-2022 08:42-0400 Diastolic blood pressure 70 mm[Hg] No Primary Care Physician [facility] 11-03-2022 08:42-0400 Systolic blood pressure 111 mm[Hg] No Primary Care Physician [facility] 10-20-2022 09:15-0400 Body mass index (BMI) [Percentile] Per age and sex 94.3 % No Primary Care Physician [facility] 10-20-2022 09:15-0400 Body mass index (BMI) [Ratio] 30.5 kg/m2 No Primary Care Physician [facility] 10-20-2022 09:15-0400 Body weight 78.24 kg No Primary Care Physician [facility] 10-20-2022 09:15-0400 Diastolic blood pressure 66 mm[Hg] No Primary Care Physician [facility] 10-20-2022 09:15-0400 Systolic blood pressure 107 mm[Hg] No Primary Care Physician [facility] 10-06-2022 10:09-0400 Body mass index (BMI) [Percentile] Per age and sex 93.3 % No Primary Care Physician [facility] 10-06-2022 10:09-0400 Body mass index (BMI) [Ratio] 29.7 kg/m2 No Primary Care Physician [facility] 10-06-2022 10:09-0400 Body weight 76.26 kg No Primary Care Physician [facility] 10-06-2022 10:09-0400 Diastolic blood pressure 67 mm[Hg] No Primary Care Physician [facility] 10-06-2022 10:09-0400 Systolic blood pressure 102 mm[Hg] No Primary Care Physician [facility] 09-22-2022 09:10-0400 Body mass index (BMI) [Percentile] Per age and sex 92.9 % No Primary Care Physician [facility] 09-22-2022 09:10-0400 Body mass index (BMI) [Ratio] 29.4 kg/m2 No Primary Care Physician [facility] 09-22-2022 09:10-0400 Body weight 75.29 kg No Primary Care Physician [facility] 09-22-2022 09:10-0400 Diastolic blood pressure 68 mm[Hg] No Primary Care Physician [facility] 09-22-2022 09:10-0400 Systolic blood pressure 102 mm[Hg] No Primary Care Physician [facility] 09-08-2022 08:51-0400 Body height 160.[address] Mariaelena Ornelas Work Phone: 3(193)150-972524 [address] [address] 09-08-2022 08:51-0400 Body mass index (BMI) [Percentile] Per age and sex 91.3 % Dr. Mariaelena Ornelas Work Phone: 6(551)185-199124 [place] [address] 09-08-2022 08:51-0400 Body mass index (BMI) [Ratio] 28.4 kg/m2 Dr. Mariaelena Ornelas Work Phone: 4(218)678-779324 [place] [address] 09-08-2022 08:51-0400 Body weight 72.[address] Mariaelena Ornelas Work Phone: 6(947)396-550124 [place] [address] 09-08-2022 08:51-0400 Diastolic blood pressure 70 mm[Hg] Dr. Mariaelena Ornelas Work Phone: 7(954)811-176424 [place] [address] 09-08-2022 08:51-0400 Systolic blood pressure 110 mm[Hg] Dr. Mariaelena Ornelas Work Phone: 6(628)925-251524 [address] [address] 08-13-2022 08:45-0500 Body mass index (BMI) [Percentile] Per age and sex 88.3 % Dr. Mariaelena Ornelas Work Phone: 4(311)726-845624 [place] [address] 08-13-2022 08:45-0500 Body mass index (BMI) [Ratio] 27.1 kg/m2 Dr. Mariaelena Ornelas Work Phone: 8(676)467-448424 [address] [address] 08-13-2022 08:45-0500 Body weight 69.[address] Mariaelena Ornelas Work Phone: 8(789)458-106624 [place] [address] 08-13-2022 08:45-0500 Diastolic blood pressure 61 mm[Hg] Dr. Mariaelena Ornelas Work Phone: 8(772)326-441824 [place] [address] 08-13-2022 08:45-0500 Systolic blood pressure 102 mm[Hg] Dr. Mariaelena Ornelas Work Phone: 5(781)732-994824 [place] [address] 07-16-2022 13:23-0500 Body mass index (BMI) [Percentile] Per age and sex 81.6 % Dr. Mariaelena Ornelas Work Phone: 7(064)179-742024 [place] [address] 07-16-2022 13:23-0500 Body mass index (BMI) [Ratio] 25.3 kg/m2 Dr. Mariaelena Ornelas Work Phone: 4(875)421-712124 [place] [address] 07-16-2022 13:23-0500 Body weight 64.[address] Mariaelena Ornelas Work Phone: 4(164)512-745224 [place] [address] 07-16-2022 13:23-0500 Diastolic blood pressure 73 mm[Hg] Dr. Mariaelena Ornelas Work Phone: 1(247)455-874424 [place] [address] 07-16-2022 13:23-0500 Systolic blood pressure 114 mm[Hg] Dr. Mariaelena Ornelas Work Phone: 9(429)304-249724 [place] [address] 06-18-2022 13:21-0500 Body mass index (BMI) [Percentile] Per age and sex 77.4 % Dr. Mariaelena Ornelas Work Phone: 5(835)756-811124 [place] [address] 06-18-2022 13:21-0500 Body mass index (BMI) [Ratio] 24.5 kg/m2 Dr. Mariaelena Ornelas Work Phone: 7(669)259-711824 [place] [address] 06-18-2022 13:21-0500 Body weight 62.[address] Mariaelena Ornelas Work Phone: 1(970)560-339224 [place] [address] 06-18-2022 13:21-0500 Diastolic blood pressure 76 mm[Hg] Dr. Mariaelena Ornelas Work Phone: 9(466)721-363224 [place] [address] 06-18-2022 13:21-0500 Systolic blood pressure 113 mm[Hg] Dr. Mariaelena Ornelas Work Phone: 9(904)205-653724 [place] [address] 05-31-2022 06:42-0500 Body height 160.[address] Mariaelena Ornelas Work Phone: 1(095)039-559058 [place] [address] Work Phone: 05-31-2022 06:42-0500 Body mass index (BMI) [Percentile] Per age and sex 83.2 % Dr. Mariaelena Ornelas Work Phone: 1(885)710-219670 [address] 05-31-2022 06:42-0500 Body mass index (BMI) [Ratio] 25.6 kg/m2 Dr. Mariaelena Ornelas Work Phone: 7(790)023-062570 [address] 05-31-2022 06:42-0500 Body temperature 97.6 [degF] Dr. Mariaelena Ornelas Work Phone: 7(343)895-174170 [address] 05-31-2022 06:42-0500 Body weight 65.[address] Mariaelena Ornelas Work Phone: 2(053)955-091870 [address] 05-31-2022 06:42-0500 Diastolic blood pressure 70 mm[Hg] Dr. Mariaelena Ornelas Work Phone: 4(012)873-082970 [address] 05-31-2022 06:42-0500 Heart rate 74 /min Dr. Mariaelena Ornelas Work Phone: 4(999)257-343370 [address] 05-31-2022 06:42-0500 Respiratory rate 18 /min Dr. Mariaelena Ornelas Work Phone: 2(771)206-713470 [address] 05-31-2022 06:42-0500 SaO2% (BldA) [Mass fraction] 96 % Dr. Mariaelena Ornelas Work Phone: 3(423)444-378758 [place] [address] 05-31-2022 06:42-0500 Systolic blood pressure 115 mm[Hg] Dr. Mariaelena Ornelas Work Phone: 7(426)339-067870 [address] 05-21-2022 14:07-0500 Body mass index (BMI) [Percentile] Per age and sex 75.7 % Dr. Mariaelena Ornelas Work Phone: 3(170)349-596958 [place] [address] 05-21-2022 14:07-0500 Body mass index (BMI) [Ratio] 24.2 kg/m2 Dr. Mariaelena Ornelas Work Phone: [facility] 05-21-2022 14:07-0500 Body weight 64.[address] Mariaelena Ornelas Work Phone: [facility] 05-21-2022 14:07-0500 Diastolic blood pressure 74 mm[Hg] Dr. Mariaelena Ornelas Work Phone: [facility] 05-21-2022 14:07-0500 Systolic blood pressure 114 mm[Hg] Dr. Mariealena Ornelas Work Phone: [facility] Encounters Encounter Date Encounter Type Care Provider Facility Start: 04-19-2025 End: 04-19-2025 ambulatory Chucho Krishan Facility:[facility] Start: 04-02-2025 End: 04-02-2025 Patient encounter procedure Beverly LAWTON -[facility] Work Phone: Start: 04-02-2025 End: 04-02-2025 ambulatory Chucho Nickerson MD Work Phone: [facility] Start: 04-02-2025 End: 04-02-2025 ambulatory Jacqueline Knight Facility:[facility] Start: 03-06-2025 End: 03-06-[address] Jacqueline Knight MD -[facility] Work Phone: Start: 03-06-2025 End: 03-06-2025 ambulatory Chucho Nickerson MD Work Phone: -[facility] Start: 03-06-2025 End: 03-06-2025 ambulatory Chucho Nickerson Facility:[facility] Start: 02-04-2025 End: 02-04-2025 Patient encounter procedure Nadege Jarrell CNM -[facility] Work Phone: Start: 02-04-2025 End: 02-04-2025 ambulatory Chucho Nickerson MD Work Phone: [facility] Start: 01-24-2025 End: 01-24-2025 ambulatory [facility] Start: 01-09-2025 End: 01-09-[address] Mayi Nuñez DO [facility] Work Phone: Start: 01-09-2025 End: 01-09-2025 ambulatory Chucho Nickerson MD Work Phone: [facility] Start: 12-10-2024 End: 12-10-2024 ambulatory Chucho Nickerson MD Work Phone: [facility] Start: 12-10-2024 End: 12-10-[address] Mayi Nuñez DO [facility] Start: 12-10-2024 End: 12-10-[address] Mayi Nuñez [facility] Work Phone: Start: 12-10-2024 End: 12-10-2024 ambulatory Chucho Nickerson MD Work Phone: [facility] Start: 12-10-2024 End: 12-10-2024 ambulatory [facility] Facility:[facility] Start: 11-09-2024 ambulatory [facility] Facility:[facility] Start: 09-23-2024 End: 09-23-2024 ambulatory MARIAELENA PASCAL FELTON Facility:[facility] Start: 09-23-2024 End: 09-23-2024 Office outpatient visit 15 minutes Riki Albarado APRN.CNP Work Phone: [facility] Comment on above: Viral illness (Prima ry Dx) Start: 06-22-2024 ambulatory Nadege Jarrell Facility :[facility] Start: 10-24-2023 End: 10-24-2023 Emergency department patient visit [facility] Work Phone: Start: 08-11-2023 End: 08-11-2023 Patient encounter procedure Nayan Clarke Work Phone: Podiatry Comment on above: Ingrowing toenail (P rimary Dx); Raynaud's disease without gangrene; Diminished pulses in lower extremity Start: 12-02-2022 Non-patient / Non-visit No Bette wise Care Physician [facility] Start: 12-01-2022 Non-patient / Non-visit No Bette wise Care Physician [facility] Start: 12-01-2022 End: 12-02-2022 Evaluation and management of inpatient No Primary Care Physician [facility] Start: 11-24-2022 End: 11-24-2022 Patient encounter procedure No Primary Care Physician [facility] Start: 11-17-2022 End: 11-17-2022 Patient encounter procedure No Primary Care Physician [facility]-Laboratory, Specimen Start: 11-17-2022 End: 11-17-2022 Patient encounter procedure No Primary Care Physician [facility] Start: 11-03-2022 End: 11-03-2022 Patient encounter procedure No Primary Care Physician [facility] Start: 10-20-2022 End: 10-20-2022 Patient encounter procedure No Primary Care Physician [facility] Start: 10-06-2022 End: 10-06-2022 Patient encounter procedure No Primary Care Physician [facility] Start: 09-22-2022 End: 09-22-2022 Patient encounter procedure No Primary Care Physician [facility], Specimen Start: 09-22-2022 End: 09-22-2022 Patient encounter procedure No Primary Care Physician [facility] Start: 09-08-2022 End: 09-08-[address] Mariaelena Ornelas Work Phone: [facility] Work Phone: Start: 09-08-2022 End: 09-08-[address] Mariaelena Ornelas Work Phone: [facility] Start: 08-13-2022 End: 08-13-[address] Mariaelena Ornelas Work Phone: [facility] Start: 07-16-2022 End: 07-16-[address] Mariaelena Ornelas Work Phone: [facility] Start: 06-18-2022 End: 06-18-[address] Mariaelena Ornelas Work Phone: [facility] Start: 05-31-2022 End: 05-31-2022 Emergency department patient visit Dr. Mariaelena Ornelas Work Phone: [facility] Start: 05-24-2022 End: 05-24-[address] Mariaelena Ornelas Work Phone: [facility] Work Phone: Start: 05-24-2022 End: 05-24-[address] Mariaelena Ornelas Work Phone: [facility] Start: 05-21-2022 End: 05-21-[address] Mariaelena Ornelas Work Phone: [facility] Work Phone: Start: 05-21-2022 End: 05-21-[address] Mariaelena Ornelas Work Phone: [facility] Start: 05-21-2022 End: 05-21-[address] Mariaelena Ornelas Work Phone: [facility] Start: 05-05-2022 End: 05-05-2022 Nursing evaluation of patient and report Nurse [facility] Work Phone: OB/Gynecology Comment on above: Supervision of herrera brown first teen , unspecified trimester (Primary Dx); Nausea/vomiting in ; History of depression; Patient request for diagnostic testing Start: 05-05-2022 End: 05-05-2022 Patient requested procedure Nurse [facility] Work Phone: OB/Gynecology Start: 01-31-2018 End: [...] HCV Quant by PCR testing - HCVPCR #[id number] Non Reactive: < 0.8 Equivocal: >/= 0.8 [...] therefore, no HPV testing was performed.Performed at: [address] [id number] Director: Rabia Odom MD, Phone: [phone] Start: 12-10-2024 Procedure Chucho swain MD Work [...] P,Tdap,Td Vaccine (7 - Td or Tdap) [facility] Start: 12-10-2024 Procedure [facility] Start: 12-10-2024 Bacteria identified in Urine by Culture Urine Culture [facility] Start: 2024 Screening for malign ant neoplasm of cervix Cervical Cancer Screening [facility] Start: 02-12-2024 Covid-19 Vaccine ( season) Covid-19 Vaccine () [facility] Start: 02-12-2024 Influenza vaccination Influenza Vacc ine (#1) [facility] Start: 10-24-2023 [facility] Start: 06-13-2023 Depression Assessment Depression Ass essment [facility] Start: 02-11-2023 Influenza vaccination Influenza Vacc ine (#1) [facility] Start: 12-02-2022 Patient discharge [facility] Start: 12-01-2022 Administration of medication [facility] Start: 12-01-2022 Application of ice c ollar, cap or bag [facility] Start: 12-01-2022 Catheterization of vein [facility] Start: 12-01-2022 Introduction of urin paul catheter [facility] Start: 12-01-2022 Measuring intake and output [facility] Start: 12-01-2022 Notification of physician [facility] Start: 12-01-2022 Procedure discontinued [facility] Start: 12-01-2022 Provision of activit y privileges [facility] Start: 12-01-2022 Vital signs measurements [facility] Start: 12-01-2022 [facility] Start: 12-01-2022 Admission procedure [facility] Start: 12-01-2022 Consultation [facility] Start: 02-11-2022 Influenza vaccination INFLUENZA (#1) [facility] Start: 2021 Anxiety Screening Anxiety Screening [facility] Start: 2021 CHLAMYDIA SCREENING (18-24) CHLAMYDIA SCREENING (18-24) [facility] Start: 2021 Depression Screening Depression Scre ening [facility] Start: 2021 GC (GONORRHEA) SCREE ASIA (18-24) GC (GONORRHEA) SCREENING (18-24) [facility] Start: 2021 HEPATITIS C SCREENING HEPATITIS C [facility] Start: 2021 Hepatitis C screening Hepatitis C [facility] Start: 2021 HIV SCREENING HIV SCREENING [facility] Start: 2021 HIV screening HIV Screening [facility] Start: 2021 Screening for Chlamy juan trachomatis Chlamydia Screening (18) [facility] Start: 06-13-2021 DEPRESSION ASSESSMENT DEPRESSION ASS ESSMENT [facility] Start: 2019 Meningococcal B Vacc ine (1 of 2 - Standard) Meningococcal B Vaccine (1 of 2 - Standard) [facility] Start: 2019 Meningococcal B Vacc ine: Consider Based On Risk (1 of 2 - Patient Seeks Protection) Meningococcal B Vaccine: Consider Based On Risk (1 of 2 - Patient Seeks Protection) [facility] Start: 2019 MENINGOCOCCAL CONJUG ATE (1 - 2-dose series) MENINGOCOCCAL CONJUGATE (1 - 2-dose series) [facility] Start: 2017 PEDS TO ADULT TRANSI TION ANNUAL ASSESSMENT PEDS TO ADULT TRANSITION ANNUAL ASSESSMENT [facility] Start: 2015 PEDS TO ADULT TRANSI TION INITIAL DISCUSSION PEDS TO ADULT TRANSITION INITIAL DISCUSSION [facility] Start: 2014 HPV VACCINE (1 - 2-d ose series) HPV VACCINE (1 - 2-dose series) [facility] Start: 2014 Urine microalbumin profile DTAP,TDAP ,TD (6 - Tdap) [facility] Start: 01-13-2004 COVID-19 VACCINE (#1) COVID-19 VACCI NE (#1) [facility] Chlamydia deoxyribon ucleic acid detection [facility] Work Phone: Erythrocyte mean corpuscular volume determination [facility] Hematocrit [Volume Fraction] of Blood [facility] Hemoglobin [Mass/vol ume] in Blood [facility] Hemoglobin A1c/Hemoglobin.total in Blood [facility] Hepatitis B virus peralta rface Ag [Presence] in Serum [facility] Hepatitis C antibody measurement [facility] Leukocytes [#/volume ] in Blood [facility] Mean corpuscular hemoglobin concentration determination [facility] Mean corpuscular hemoglobin determination [facility] Neisseria gonorrhoea e rRNA [Presence] in Unspecified specimen by SARIKA with probe detection [facility] Neutrophil count [facility] Neutrophil percent differential count [facility] Path report.final Dx Spec [facility] Patient Education [facility] Work Phone: Patient referral [facility] Work Phone: PCR test for Chlamyd ia trachomatis [facility] Platelets [#/volume] in Blood [facility] Red blood cell count [facility] Red cell distributio n width determination [facility] Rubella IgG measurement [facility] Serologic test for syphilis [facility] Urine culture [facility] End: 08-10-2024 US.doppler Extremity arteries - bilateral for physiologic artery study [facility] V[facility] Lab Routine Ingrowing toenail Raynaud's disease without gangrene Diminished pulses in lower extremity 1 Occurrences starting 08/11/2023 until 08/10/2024 [facility] Work Phone: Comment on above: 1 Occurrences starti ng 08/11/2023 until 08/10/2024 [facility] Immunizations Immunization Date Immunization Notes Care Provider Sen monae 04-01-2014 influenza virus vaccine, unspecified formulation Nayan Clarke Work Phone: [facility] 09-27-2008 diphtheria, tetanus toxoids and acellular pertussis vaccine Nurse [facility] Work Phone: [facility] Work Phone: 09-27-2008 measles, mumps and rubella virus vaccine Nurse [facility] Work Phone: [facility] Work Phone: 09-27-2008 poliovirus vaccine, inactivated Nurse [facility]str Work Phone: [facility] Work Phone: 09-27-2008 varicella virus vaccine Nurs e Wstr Work Phone: [facility] Work Phone: 02-24-2006 diphtheria, tetanus toxoids and acellular pertussis vaccine Nurse Wstr Work Phone: [facility] Work Phone: 02-24-2006 pneumococcal conjuga te vaccine, 7 valent Nurse Wstr Work Phone: [facility] Work Phone: 10-20-2004 haemophilus influenz ae type b vaccine, HbOC conjugate Nurse Wstr Work Phone: [facility] Work Phone: 10-20-2004 measles, mumps and rubella virus vaccine Nurse Wstr Work Phone: [facility] Work Phone: 10-20-2004 varicella virus vaccine Nurs e Wstr Work Phone: [facility] Work Phone: 01-29-2004 diphtheria, tetanus toxoids and acellular pertussis vaccine Nurse Wstr Work Phone: [facility] Work Phone: 01-29-2004 haemophilus influenz ae type b vaccine, HbOC conjugate Nurse Wstr Work Phone: [facility] Work Phone: 01-29-2004 hepatitis B vaccine, pediatric or pediatric/adolescent dosage Nurse Wstr Work Phone: [facility] Work Phone: 01-29-2004 poliovirus vaccine, inactivated Nurse Wstr Work Phone: [facility] Work Phone: 2003 diphtheria, tetanus toxoids and acellular pertussis vaccine Nurse Wstr Work Phone: [facility] Work Phone: 2003 haemophilus influenz ae type b vaccine, HbOC conjugate Nurse Wstr Work Phone: [facility] Work Phone: 2003 hepatitis B vaccine, pediatric or pediatric/adolescent dosage Nurse Wstr Work Phone: [facility] Work Phone: 2003 pneumococcal conjuga te vaccine, 7 valent Nurse Wstr Work Phone: [facility] Work Phone: 2003 poliovirus vaccine, inactivated Nurse Wstr Work Phone: [facility] Work Phone: 2003 diphtheria, tetanus toxoids and acellular pertussis vaccine Nurse Wstr Work Phone: [facility] Work Phone: 2003 haemophilus influenz ae type b vaccine, HbOC conjugate Nurse Wstr Work Phone: [facility] Work Phone: 2003 hepatitis B vaccine, pediatric or pediatric/adolescent dosage Nurse Wstr Work Phone: [facility] Work Phone: 2003 poliovirus vaccine, inactivated Nurse Wstr Work Phone: [facility] Work Phone: 2003 pneumococcal conjuga te vaccine, 7 valent Nurse Wstr Work Phone: [facility] Work Phone: Payers Date Payer Category Payer Self-pay [id number] 2022 [facility] [id number] 2018 Medicaid [id number] 2017 Medicaid [id number] 2003 Unknown [id number] 2.16. [id number] Unknown [id number] 2.16.8 [id number] Unknown [id number] 2.16.8 [id number] Unknown [id number] 2.16.8 [id number] Unknown [id number] 2.16.8 [id number] Unknown [id number] 2.16.8 [id number] Unknown [id number] 2.16.8 [id number] Unknown [id number] 2.16.8 [id number] Unknown [id number] 2.16.8 [id number] Unknown [id number] 2.16.8 [id number] Unknown [id number] 2.16.8 [id number] Unknown [id number] 2.16.8 [id number] Social History Date Type Detail Facility Start: 01-23-2018 End: 09-23-2024 Tobacco smoking status WIIS Never smoked tobacco [facility] Work Phone: Start: 01-23-2018 End: 09-23-2024 Tobacco use and exposure Smokeless tobacco non-user [facility] Work Phone: Start: 05-05-2022 End: 09-23-2024 Alcohol intake Ex-drinker (finding) [facility] Start: 05-05-2022 Education 11 [facility] Start: 05-05-2022 Alcohol Comment rarely [facility] Start: 03-22-2022 [facility] Start: 2005 Sex Assigned At Female C [facility] Start: 04-25-2022 End: 05-05-2022 Exposure to SARS-CoV-2 (event) Not sure [facility] Work Phone: Start: 05-21-2022 End: 10-24-2023 Tobacco smoking status NHIS Unknown if ever smoked [facility] Start: 03-07-2023 End: 07-16-2024 History of Social function [facility] Start: 03-07-2023 End: 07-16-2024 Tobacco use panel [facility] National Score (1-100), lower number is lower risk 54 [facility] Start: 05-05-2022 Gender identity Identifies as female gender (finding) [facility] Start: 05-05-2022 Sexual orientation Heterosexual (kleber huertas) [facility] Start: 10-26-2024 End: 12-17-2024 Tobacco smoking status NHIS Ex-smoker (finding) [facility] NEGATED: Highlighted row [facility] Goals Date Patient Goal Desired Activity /State Clinical Notes 05-05-2022 to 04-02-2025 Note Date & Type Note Facility 04-02-2025 Progress note [facility] 03-06-2025 Progress note [facility] 02-04-2025 Progress note [facility] 01-09-2025 Evaluation note Diagnosis Onset [...] vaccination status unknown acute April 02 9:54am [facility] Work Phone: 1(215) 832-761906-30-2025 Evaluation note* Diagnosis Onset Date Resolution Status [...] status unknown acute December 10, 2024 2:58pm [facility] Work Phone: 1(193) 984-648906-30-2025 Evaluation note* Diagnosis Onset Date Resolution Status [...] status unknown acute January 09, 2025 3:49pm [facility] Work Phone: 1(106) 991-339406-30-2025 Evaluation note* Diagnosis Onset Date Resolution Status [...] vaccination status unknown acute February 04 10:57am [facility] Work Phone: 1(292) 743-857006-30-2025 Evaluation note* Diagnosis Onset Date Resolution Status [...] status unknown acute March 06, 2025 9:43am [facility] Work Phone: 1(552) 500-701006-30-2025 Progress [facility] [address] [place] [address], [address] [place] [address] OFFICE VISIT Date of Service: 12/10/24 MR#: [id number] Acct: [id number] Name: ADENIKE RUTH Rep #: [id number] : 2005 Provider: Dr. Kat Nuñez, Age/Sex: 19/F Location[place] [facility] Status: Signed Intake Vital Signs 10/12/24 14:19 12/10/24 15:09 12/10/24 15:10 Height 5 ft 4 in 5 ft 4 in 5 ft 4 in Weight: 183 lb 2 oz BMI 31.4 BP 103/66 Intake Visit Reasons: NOB LMP 09/04 Home Delivery Driver Required: No Is patient in pain?: No [...] year weight has: increased > 10 lbs sharmila/zoroastrianism: None seatbelt use: sometimes do you feel [...] - full term 7lbs 11oz Female epidural [facility] Nadege Jacob Delivery Date: 12/01/22 Last Updated [...] Pulmonary (e.g.,TB,Asthma), Seasonal allergies, Drug/latex allergies/reactions, Breast, Molecular Spectroscopist surgery, Anesthetic complications, History of abnormal pap, [...] Movement Monitoring, Signs and Symptoms of Preeclampsia, [place] Education and Family Medical Leave or Disability [...] comfortable and no acute distress Orientation: alert [facility] Head: normal to inspection, normocephalic and [...] Aguirre DO> Date _ Mayi Nu[facility]ez [facility] Signature: Date (if applicable) CC: ~ [facility] [id number] Progress note Author Mayi Aguirre [facility] Note Date/Time December 10, 2024 4:02 pm [facility] [address] [place] [address], [address] [place] [address] OFFICE VISIT Date of Service: 12/10/24 MR#: [id number] Acct: [id number] Name: LIDYAADENIKE CARLTON Rep #: [id number] : 2005 Provider: Dr. Kat Nuñez DO Age/Sex: 19/F Location[place] [facility] Status: Signed Intake Vital Signs 10/12/24 14:19 12/10/24 15:09 12/10/24 15:10 Height 5 ft 4 in 5 ft 4 in 5 ft 4 in Weight: 183 lb 2 oz BMI 31.4 BP 103/66 Intake Visit Reasons: NOB LMP 09/04 Home Delivery Driver Required: No Is patient in pain?: No [...] year weight has: increased > 10 lbs sharmila/zoroastrianism: None seatbelt use: sometimes do you feel [...] - full term 7lbs 11oz Female epidural [facility] Nadege Jacob Delivery Date: 12/01/22 Last Updated [...] Pulmonary (e.g.,TB,Asthma), Seasonal allergies, Drug/latex allergies/reactions, Breast, Molecular Spectroscopist surgery, Anesthetic complications, History of abnormal pap, [...] Movement Monitoring, Signs and Symptoms of Preeclampsia, [place] Education and Family Medical Leave or Disability [...] comfortable and no acute distress Orientation: alert [facility] Head: normal to inspection, normocephalic and [...] Cosigner Signature: Date (if applicable) CC: ~ [facility] Work Phone: 1(810) 947-564404-13-2025 NoteHNO ID: [id number] Author: RIKI ALBARADO APRN.[facility] Service: ? Author Type: Nurse Practitioner Type: [...] understanding and agrees to plan of care. [place]well subarachnoid rule 0 this note was generated using autoGraph software. It may contain errors in wording, punctuation (more content not included)...[facility]04-13-2025 History of Present illness Narrative* Riki Albarado APRN.[employer] - 09/23/2024 2:31 PM EDT Subjective HPI [...] understanding and agrees to plan of care. [place] subarachnoid rule 0 this note was generated using autoGraph software. It may contain errors in wording, p unctuation, or spelling. Riki Albarado APRN.AYAAN [facility] History of Present illness Narrative* Nayan Clarke [...] time. Nayan Clarke DPM Podiatry [address] [facility] [address] Dept: [phone] Dept * Gianna Prieto RN - 08/11/2023 10:18 AM EST Patient presents with: Left Foot - New: ingrown nail Right Foot - New: ingrown nail AMB ROOMING INTAKE FLOWSHEET DATA Risk Screening Do you have concerns about personal safety or safety in the home?: No documented in [facility]2023 Progress note Author Beverly Penny [facility] December 02, 2022 7:53am Note Date/Time December 02, 2022 7:53 am [facility] Medical Records Department [address] [facility] [address] [place] [address] Progress Note - OBGYN 12/02/22 0744 MR#: [id number] Acct: [id number] Name: ADENIKE RUTH Rep #:[id number] : 2005 17 From: Beverly Penny METERMAN METERMAN-C PCP: Care Physician,No Primary Status :ADM IN Location: [place] [id number] Subjective Subjective Patient doing well without complaints. [...] wk follow up 6. home today 12/02/22 9873 <Electronically signed by Beverly Penny NP, NP-C> Cosigner Signature (if applicable): CC: ~ Signed [facility] Work Phone: 1([phone]) 995-552706-21-2023 Discharge summary Author Nadege Jarrell [facility] December 01, 2022 10:49am Note Date/Time December 01, 2022 10:4 9am [facility] Medical Records Department [address] [place] [address] Instructions for Home/Discharge Instructions 12/01/22 1048 MR#: [id number] Acct: [id number] Name: LIDYALILISA CARLTON Rep #:[id number] : [...] Physician,Amarilis Primary Discharge Orders/Prescriptions Prescriptions: No Action prenat.vits,julius,ygr-gstg-ypufr Tablet 1 tab PO DAILY Referrals / Follow Up: Care Physician,No Primary [Primary Care Provider] - Disposition Disposition (needs filled in before D/C Order can be placed): Home, Self Care 12/01/22 1049<Electronically signed by Nadege Jarrell CNM>Nadege Jarrell CNM CC: No Primary Care Physician ~ Signed [facility] Work Phone: 1(128) 807-269106-21-2023 Procedure [facility] 12-01-2022 Progress note Author Nadege Jarrell [facility] December 01, 2022 7:46am Note Date/Time December 01, 2022 7:46 am [facility] Medical Records Department [address] [place] [address] Progress Note 12/01/22 0743 MR#: [id number] Acct: [id number] Name: ADENIKE RUTH Rep #:[id number] : 2005 17 From: Nadege Jarrell CNM PCP: Care Physician,No Primary Status :ADM IN Location: [place] [address]016-1 Progress Note patient comfortable with epidural current tracing: FHT: 145 Moderate variability reactive no decelerations category I tracing [place]: 2-4 minute Contractions SVE 5/90/0 A/P: start pitocin, titrate per protocol. continue position changes anticipate Multi Select Codes Urinary/Genital Urinary/Genital CPT Codes: No Charge 12/01/22 0746 <Electronically signed by Nadege Jarrell CNM> Nadege Jarrell CNM Cosigner Signature (if applicable): CC: ~ Signed [facility] Work Phone: 1(628) 800-770406-21-2023 History and physical note Author Dr. 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 Jacqueline Knight MD) Depression Home Medications prenat.vits,julius,sda-aksj-mufbp 1 tab PO DAILY 09/08/22 [History Last [...] Labor Preferences- CB/BF classes: encouraged. [facility] at [facility] labor support person: Frank labor intervention [...] anato my scan. glucola ordered. going to [place] at 31 weeks. 09/08/22 -?-?-?-?-?-?-?-?-?-?-?-?- 26w 2d [...] none I have reviewed the [facility] and made any clinically relevant updates. 12/01/22 0556 <Electronically signed by Jacqueline Knight MD> Cosigner Signature (if applicable): CC: Dr. Jacqueline Knight MD; No Primary Care Physician~ Signed [facility] Work Phone: 1(460) 536-439511-23-2022 Miscellaneous Notes* Quick Notes - Noris Echeverria RN - 05/05/2022 1:26 PM EST DISTANCE HEALTH VISIT This Team Access Model visit is a phone encounter. It required patient-provider interaction for themedical decision making as documented below. Adenike Ruth is a 16 year old female seen for PNOB. She has had 2 visits of the care center. 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 Planning on graduating this spring. The father [...] aneuploidy screening. Patient given contact information for [employer] to check on insurance coverage. Patient considering genetic carrier screening testing. Patient is given contact information for the [facility] to check on insurance coverage.Noris Echeverria RN documented in [facility]* Diagnosis Supervision of normal first teen , unspecified trimester- Primary Nausea/vomiting in Unspecified vomiting of , unspecified as to episode of care History of depression Personal history of other mental disorder Patient request for diagnostic testing Other specified examination documented in this encounter [facility]* Diagnosis Onset Date Resolution Status acute Supervision of normal acute [facility] Work Phone: Evaluation note* Diagnosis Onset Date Resolution Status acute Supervision of normal acute Marijuana use acute acute Supervision of normal acute Marijuana use acute acute Supervision of normal acute Marijuana use acute acute Supervision of normal acute Marijuana use acute acute Supervision of normal acute [facility] Work Phone: Evaluation note* Diagnosis Onset [...] resolved Supervision of normal first teen resolved [facility] Work Phone: Evaluation note* Diagnosis Ingrowing toenail- Primary Ingrowing nail Raynaud's disease without gangrene Diminished pulses in lower extremity Other symptoms involving cardiovascular system documented in this encounter [facility] noteNo assessment information availableWAkron [facility] Work Phone: Evaluation note* Diagnosis Viral illness- Primary Unspecified viral infection, in conditions classified elsewhere and of unspecified site documented in this encounter [facility] note* Diagnosis Onset Date Resolution Status Admit [...] status unknown acute December 10, 2024 2:58pm [facility] Work Phone: Hospital Discharge instructions Additional Instructions Please follow-up outpatient. Use safe sex practicesWAkron Children's Hospital Work Phone: Progress note Author Nadege Jarrell [facility] Note Date/Time February 04, 2025 11 :18am [facility] [address] [place] [address], [address] [place] [address] OFFICE VISIT Date of Service: 02/04/25 MR#: [id number] Acct: [id number] Name: ADENIKE RUTH Rep #: [id number] : 2005 Provider: JAXON Jarrell Age/Sex: 19/F [place] [facility] [place]: Signed Intake Vital Signs 01/09/25 15:51 02/04/25 10:58 Height 5 ft 4 in 5 ft 4 in Weight: 185 lb 5 oz BMI 31.8 BP 104/70 Intake Visit Reasons: 22wk ob Chief Complaint: 22wk OB Home Delivery Driver Required: No Is patient in pain?: No [...] year weight has: increased > 10 lbs sharmila/zoroastrianism: None seatbelt use: sometimes do you feel [...] - full term 7lbs 11oz Female epidural [facility] Nadege Jacob Delivery Date: 12/01/22 Last Updated [...] Movement Monitoring, Signs and Symptoms of Preeclampsia, [place] Education and Family Medical Leave or Disability [...] Cosigner Signature: Date (if applicable) CC: ~ [facility] Work Phone: Progress note Author Jacqueline Kngiht [facility] Note Date/Time March 06, 2025 10:05am [facility] [address] [place] [address], [address] [place] [address] OFFICE VISIT Date of Service: 03/06/25 MR#: [id number] Acct: [id number] Name: ADENIKE RUTH Rep #: [id number] : 2005 Provider: Dr. Charlie Knight MD Age/Sex: 19/F [place] [facility] [place]: Signed Intake Vital Signs 01/09/25 15:51 02/04/25 10:58 03/06/25 09:46 Height 5 ft 4 in 5 ft 4 in 5 ft 4 in Weight: 182 lb 2 oz 185 lb 5 oz 193 lb 2 oz BMI 31.2 31.8 33.1 BP 102/67 104/70 120/78 Intake Visit Reasons: 26wk ob/glucose Chief Complaint: 26wk OB Home Delivery Driver Required: No Is patient in pain?: No [...] year weight has: increased > 10 lbs sharmila/zoroastrianism: None seatbelt use: sometimes do you feel [...] - full term 7lbs 11oz Female epidural [facility] Nadege Jacob Delivery Date: 12/01/22 Last Updated [...] complicating , unspecified trimester Medications: New vit no.[id number] 27 mg iron- 1 mg ( Plus Vitamin-Mineral) 1 TAB PO DAILY 30 tabs 12RF fluoxetine (Prozac) 20 mg PO DAILY 30 caps 12RF 03/06/25 1006 <Electronically signed by Jacqueline martinez MD> Date _ Jacqueline Knight MD Cosigner Signature: Date (if applicable) CC: ~ [facility] Work Phone: Progress note Author Beverly Penny [facility] Note Date/Time April 02, 2025 1 1:19am [facility] [address], [address] [place] [address] OFFICE VISIT Date of Service: 04/02/25 MR#: [id number] Acct: [id number] Name: ADENIKE RUTH Rep #: [id number] : 2005 Provider: LEIGHANN Penny Age/Sex: 19/F [place] [facility] [place]: Signed Intake Vital Signs 02/04/25 10:58 03/06/25 09:46 04/02/25 09:58 Height 5 ft 4 in 5 ft 4 in 5 ft 4 in Weight: 190 lb 2 oz BMI 32.6 BP 103/66 Intake Visit Reasons: 30wk ob Home Delivery Driver Required: No Is patient in pain?: No [...] year weight has: increased > 10 lbs sharmila/zoroastrianism: None seatbelt use: sometimes do you feel [...] - full term 7lbs 11oz Female epidural [facility] Nadege Castelann Delivery Date: 12/01/22 Last Updated [...] 04/02/25 1022 <Electronically signed by Beverly chung METERMAN METERMAN-C> Date _ Beverly Penny METERMAN METERMAN-C Cosigner Signature: Date (if applicable) CC: ~ [facility] Work Phone: Reason for referral (narrative)* Outpatient Procedure (Routine) - Authorized Specialty Diagnoses / Procedures Referred By Contac t Referred To [facility] Diagnoses Ingrowing toenail Raynaud's disease without gangrene Diminished pulses in lower extremity Procedures PVR [facility]K [facility] NON-INVAS PHYSIOLOGIC STD EXTREMITY ART 2 LEVEL Nayan Clarke [address] [place] [address] [facility] [address] [place] [address] Referral ID Status Reason Start Date Expiration Date Visits Requested Visits Authorized [id number] Authorized Auto-Generat ed Referral 08/11/2023 08/10/2024 1 1 [facility] for referral (narrative)No reason for referral information availableBlUC [facility] Work Phone: Summary Purpose Family History No [...] Will No May 21 2:38pm Power of Woodworker Helper No May 21, 2022 2:38pm Advance Directive Response Recorded Date/ Time Living Will No May 31 6:44am Power of Woodworker Helper No May 31, 2022 6:44am Advance Directive Response Recorded Date/ Time Living Will No May 31 7:44am Power of Woodworker Helper No May 31, 2022 7:44am Advance Directive Response Recorded Date/ Time Living Will No December 01, 2022 1:51am Power of Woodworker Helper No December 01 1:51am Advance Directive Response Recorded Date/ Time Living Will No October 24, 2023 6 :42pm Power of Woodworker Helper No October 24, 2023 6:42pm Chief Complaint [...] March 06, 2025 9:43am [facility] Varicella vaccination status unknown Sep [...] section and content) DATE CREATED AUTHOR 02/01/2018 [facility] DATE CREATED AUTHOR AUTHOR'S ORGANIZ ATION 09/24/[address] [facility] DATE CREATED AUTHOR AUTHOR'S ORGANIZ ATION 01/26/2025 [facility] DATE CREATED AUTHOR AUTHOR'S ORGANIZ ATION 04/20/2025 [facility] Source Comments (unrecognize d section and content) In the event this informatio n is protected by the Federal Confidentiality of Alcohol and Drug Abuse Patient Records regulations: The Federal rules restrict any use of the information to criminally investigate or prosecute any alcohol or drug abuse patient.[facility] CenterIn the event this information is protected by the Federal Confidentiality of Alcohol and Drug Abuse Patient Records regulations: The Federal rules restrict any use of the information to criminally investigate or prosecute any alcohol or drug abuse patient.[facility] CenterIn the event this information is protected by the Federal Confidentiality of Alcohol and Drug Abuse Patient Records regulations: The Federal rules restrict any use of the information to criminally investigate or prosecute any alcohol or drug abuse patient.[facility] Reason for Visit (unrecogniz ed section and content) Reason Comments Care Reason Comments New ingrown nail Reason Comments Headache X 3-4 days, fatigue, pain is behind the eyes Care Teams (unrecognized sec tion and content) Boots And Shoes Supervisor Relationship Specialty Start Date End Date Maria[place] [address] PCP - General Pediatrics 03/14/17 Team Status: [...] Provider, Refer ring Provider Active Beverly Penny METERMAN, METERMAN-C Attending Provider Active Team Status: Inactive Member [...] Provider, Refe rring Provider Active Beverly Penny METERMAN, METERMAN-C Other Provider Active Team Status: Inactive Member [...] erring Provider, Other Provider Active Beverly Penny METERMAN, METERMAN-C Attending Provider Active Team Status: Inactive Member Role Status Dates No Primary Care Physician Primary Care Provider Active Beverly Penny METERMAN, METERMAN-C Attending Provider, Referring Provider Active Team Status: Inactive Member Role Status Dates No Primary Care Physician Primary Care Provider Active Elo Rivas CNM Attending Provider, Referring Pr ovider Active Team Status: Inactive Member Role Status Dates No Primary Care Physician Primary Care Provider Active Nadege Jarrell CNM Admit Provider, Att ending Provider, Referring Provider Active Boots And Shoes Supervisor Relationship Specialty Start Date End Date Mariaelena Ornelas MD [address] [place] [address] PCP - General Pediatrics 03/14/17 Team Status: Active Member Role Status Dates Dr. Mariaelena Ornelas MD Family Provider Active Chucho Nickerson MD Primary Care Provider Active Team Status: Inactive Member Role Status Dates Chucho Nickerson MD Primary Care Provider Active Dr. Mayi Calix MD Emergency Provider Active [employer]s And Shoes Supervisor Relationship Specialty Start Date End Date Mariaelena Ornelas MD [address] [place] [address] PCP - General Pediatrics 03/14/17 Team Status: [...] 2025 End: April 02, 2025 Beverly Penny METERMAN, METERMAN-C Attending physician Active Start: April 02, 2025 [...] Labor Preferences-CB /BF classes: encouraged. [facility]: Keegenlabor intervention preferences: []pain management [...] BE BASED ON THE PRIMARY CLINICAL RECORDS. [facility]. provides no warranty or guarantee of the accuracy or completeness of information in this document.
[2025-06-06] MEDS: Penicillin G Pot 5,000,000 UNITS in 0.9% Normal Saline (100mL MB+) 100 ML 150 UNITS IV (05:42)
[2025-06-06] MEDS: Lactated Ringers 1,000 ML 50 ML IV (05:43)
[2025-06-06 06:03] LABS: Hematocrit 33.1 % (37-47); Hemoglobin 10.2 g/dL (12.0-15.0); Immature Granulocytes Count 0.070 X10^3/uL (0.0-0.0); Mean Corp Hgb Conc 30.8 g/dL (32-36); Mean Corpuscular Volume 70.1 fL (81-99); Mean Platelet Vol. 11.0 fl (6.2-12.0); NRBC Flagged by Analyzer 0 % (0-5); Platelet Count 282 K/mm3 (150-450); RBC Distribution Width CV 18.2 % (11.6-14.6); RBC Distribution Width SD 45.0 fl (35.1-43.9); Red Blood Count 4.72 M/mm3 (4.2-5.4); White Blood Count 9.8 K/mm3 (4.4-11.0)
[2025-06-06 07:22] LABS: Syphilis Antibodies Nonreactive (Nonreactive)
[2025-06-06] MEDS: Lactated Ringers 1,000 ML 200 ML IV (08:11)
[2025-06-06] MEDS: fentaNYL-bupivacaine (epidural) 100 ML BAG EPIDURAL (08:36)
--- NOTE | 2025-06-06 08:50 | HP.PCM.OB_ITS ---
HPI - General General Date of Admission: 06/06/25 HPI Narrative ADENIKE BOSE, is a 19 F , at 39w2d here in active labor after SROM at home at ~4am. She is GBS positive and receiving penicillin. complicated by alpha thal silent carrier status, BMI of 35, and depression. Maternal Data Information JIMENA Calculator Estimated Delivery Date Method Current WG Current Estimate 06/11/25 LMP (Certain) 39w 2d PFSH PFSH Medical History Vaginal delivery Depression Home Medications ?Medication ?Instructions ?Recorded ?Last Taken ?Type fluoxetine 20 mg capsule (Prozac) 20 mg PO DAILY #30 c aps 03/06/25 06/04/25 Rx Allergy/AdvReac Type Severity Reaction Status Date / Time No Known Allergies Allergy Verified 06/06/25 05:06 Family History Father Diabetes Hypertension Uncle Diabetes Maternal Grandmother Diabetes Maternal Hypertension Maternal Surgical History Clavicle fracture Social History adopted: No household members: significant other and children number of children: 1 current occupational status: employed 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 current occupational exposures/hazards: No pets and animals: No history of recent travel: No sexually active: Yes Smoking Status: Former smoker quit date: 10/12/24 alcohol intake: never substance use type: does not use well-balanced diet: about half the time caffeine: No eating out: 1-3 times/week during the past year weight has: increased > 10 lbs sharmila/protestant: None seatbelt use: sometimes do you feel safe at home: Yes additional social history: Boyfriend-Solomon History 4 Elective abortions 2 Hx Para 1 Spontaneous abortions Hx # Term Pregnancies Ectopic pregnancies Hx # Pregnancies Multiple births # of living children 1 Past Pregnancies Del. Date Name GA/Weeks Outcome Route Bth Weight Infant Gen Labor Lgth Anesthesia Del Locatn Provider FOB 12/01/22 Esatalyne 38 live - full term 7lbs 11oz Female epidural [facility] Nadege Jacob Delivery Date: 12/01/22 Last Updated by: Ruthy Wyatt 1st degree laceration Visit Details Expected Delivery Route/Plan Labor Preferences- CB/BF classes: no labor support person: Solomon labor intervention preferences: [] pain management options preferred: epidural cut cord/dad catch: yes : yes PP control planned: discussed discussed possible routes of delivery and associated risks: [] special requests: [] Plans Covid status: [] Flu vaccine: declines Tdap vaccine: declines Rhogam: na LARC form signed: yes Problem list reviewed and updated with the most current plan of care details and appropriate orders placed. Relevant counseling for the gestational age provided. Continue routine care and follow up unless otherwise noted in visit notes/problem list details OB Flowsheet Initial Weight: Not Recorded Date -?-?-?-?-?-?-?-?-?-?-?-?- EGA Weight BP Urine Prot -?-?-?-?-?-?-?-?-?-?-?-?- Glucose FHR FuHt Pres Dilation -?-?-?-?-?-?-?-?-?-?-?-?- Effaced St Visit Note 12/10/24 -?-?-?-?-?-?-?-?-?-?-?-?- 13w 6d 183 lb 2 oz 103/66 -?-?-?-?-?-?-?-?-?-?-?-?- 165 -?-?-?-?-?-?-?-?-?-?-?-?- JV- CRL consiste nt with LMP. 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 FOB to be tested. (new partner)also desires afp testing. 01/09/25 -?-?-?-?-?-?-?-?-?-?-?-?- 18w 1d 182 lb 2 oz 102/67 Nega tive -?-?-?-?-?-?-?-?-?-?-?-?- Negative 145 -?-?-?-?-?-?-?-?-?-?-?-?- JV- no complaint s today. FOB passed out after she gave blood last time so she wants to decline afp. He will not do the carrier testing either. will notify peds for alpha thal carrier status. 02/04/25 -?-?-?-?-?-?-?-?-?-?-?--?- 21w 6d 185 lb 5 oz 104/70 Nega tive -?-?-?-?-?-?-?-?-?-?-?-?- Negative 160 -?-?-?-?-?-?-?-?-?-?-?-?- KW- no vb/lof/ct x. +flutters. glucose info given. anatomy US normal. concerns with yeast infection-only used Monistat for 2 days. instructed to use Monistat 7 03/06/25 -?-?-?-?-?-?-?-?-?-?-?-?- 26w 1d 193 lb 2 oz 120/78 Nega tive -?-?-?-?-?-?-?-?-?-?-?-?- Negative 150 26 -?-?-?-?-?-?-?-?-?-?-?-?- SM- no vb lof go od fm n oreuglar ctx struggling with signficant depressive symptoms 04/02/25 -?-?-?-?-?-?-?-?-?-?-?-?- 30w 0d 190 lb 2 oz 103/66 Nega tive -?-?-?-?-?-?-?-?-?-?-?-?- Negative 140 30 -?-?-?-?-?-?-?-?-?-?-?-?- MH-No VB, LOF. G ood FM. Declines flu and tdap vaccines. CBC today 04/19/25 -?-?-?-?-?-?-?-?-?-?-?-?- 32w 3d 194 lb 4 oz 98/64 Nega tive -?-?-?-?-?-?-?-?-?-?-?-?- Negative 134 32 -?-?-?-?-?-?-?-?-?-?-?-?- JV- no lof, vagi nal bleeding, or dec. fm 04/30/25 -?-?-?-?-?-?-?-?-?-?-?-?- 34w 0d 196 lb 9 oz 100/70 Nega tive -?-?-?-?-?-?-?-?-?-?-?-?- Negative 150 34 Cephalic 1 .5 -?-?-?-?-?-?-?-?-?-?-?-?- 50 -3 JV- pt vom ited last night an felt a gush of fluid. She is here to rule out rom. No pooling on exam. rom + ordered stat. LEXIE is 17 05/16/25 -?-?-?-?-?-?-?-?-?-?-?-?- 36w 2d 202 lb 5 oz 117/80 Nega tive -?-?-?-?-?-?-?-?-?-?-?-?- Negative 150 35.5 Cephalic 1 .5 -?-?-?-?-?-?-?-?-?-?-?-?- 60 -2 JV- pt has a clogged breast duct. She tried to pump and got some out and is using heat and massage and tylenol. she feels that since she made the initial complaint that it is getting much smaller. gbs collected. no further intervention since is getting smaller 05/24/25 -?-?-?-?-?-?-?-?-?-?-?-?- 37w 3d 202 lb 6 oz 108/73 Nega tive -?-?-?-?-?-?-?-?-?-?-?-?- Negative 145 37 Cephalic -?-?-?-?-?-?-?-?-?-?-?-?- KW- no vb/lof/ct x. good fm. GBS positve 05/28/25 -?-?-?-?-?-?-?-?-?-?-?-?- 38w 0d 205 lb 6 oz 124/74 Nega tive -?-?-?-?-?-?-?-?-?--?-?-?- Negative 140 38 Cephalic 3 -?-?-?-?-?-?-?-?-?-?-?-?- 70 -2 KW- no vb/ lof/ctx. good fm 06/03/25 -?-?-?-?-?-?-?-?-?-?-?-?- 38w 6d 204 lb 4 oz 111/72 Nega tive -?-?-?-?-?-?-?-?-?-?-?-?- Negative 138 38 Cephalic 4 -?-?-?-?-?-?-?-?-?-?-?-?- 70 -2 KV- Good F M. No regular ctx/LOF/VB. Interested in 40-41w induction if no spontaneous labor by then. NST FHR Rate Baby A Baseline: 140 Variability:: Moderate Accelerations:: 15 x 15 Decelerations:: None NST Reactive:: Yes FHR Category:: Category I Uterine Activity:: q3-5 min Vital Signs Vital Signs Vital Signs: 06/06/25 05:01 06/06/25 05:01 06/06/25 05:02 Temperature Temperature Source Pulse Rate 103 H Respiratory Rate 16 Blood Pressure 117/80 BP Systolic 117 BP Diastolic 80 Pulse Ox 06/06/25 05:04 06/06/25 06:06 06/06/25 06:07 Temperature 97.9 F Temperature Source Pulse Rate Respiratory Rate 16 Blood Pressure 121/76 H BP Systolic 121 BP Diastolic 76 Pulse Ox 06/06/25 06:07 06/06/25 06:07 06/06/25 07:10 Temperature 98.2 F Temperature Source Pulse Rate 80 86 Respiratory Rate Blood Pressure BP Systolic BP Diastolic Pulse Ox 06/06/25 07:10 06/06/25 07:11 06/06/25 07:11 Temperature Temperature Source Pulse Rate 99 Respiratory Rate Blood Pressure 107/67 BP Systolic 107 BP Diastolic 67 Pulse Ox 98 06/06/25 07:11 06/06/25 07:11 06/06/25 07:11 Temperature 97.8 F Temperature Source Oral Pulse Rate Respiratory Rate 16 Blood Pressure BP Systolic BP Diastolic Pulse Ox 06/06/25 07:20 06/06/25 08:14 06/06/25 08:14 Temperature Temperature Source Pulse Rate 99 Respiratory Rate 18 Blood Pressure BP Systolic BP Diastolic Pulse Ox 100 06/06/25 08:19 06/06/25 08:19 06/06/25 08:19 Temperature Temperature Source Pulse Rate 119 H Respiratory Rate Blood Pressure 137/91 H BP Systolic 137 BP Diastolic 91 Pulse Ox 100 06/06/25 08:19 06/06/25 08:19 06/06/25 08:19 Temperature 98.0 F Temperature Source Oral Pulse Rate Respiratory Rate 18 Blood Pressure BP Systolic BP Diastolic Pulse Ox 06/06/25 08:24 06/06/25 08:24 06/06/25 08:24 Temperature Temperature Source Pulse Rate 100 113 H Respiratory Rate Blood Pressure 132/74 H BP Systolic 132 BP Diastolic 74 Pulse Ox 06/06/25 08:24 06/06/25 08:29 06/06/25 08:29 Temperature Temperature Source Pulse Rate 95 Respiratory Rate Blood Pressure 119/73 BP Systolic 119 BP Diastolic 73 Pulse Ox 92 06/06/25 08:29 06/06/25 08:29 06/06/25 08:34 Temperature Temperature Source Pulse Rate 93 Respiratory Rate Blood Pressure 134/79 H BP Systolic 134 BP Diastolic 79 Pulse Ox 100 06/06/25 08:34 06/06/25 08:34 06/06/25 08:34 Temperature Temperature Source Pulse Rate 100 100 Respiratory Rate Blood Pressure BP Systolic BP Diastolic Pulse Ox 100 06/06/25 08:34 06/06/25 08:39 06/06/25 08:39 Temperature Temperature Source Pulse Rate 110 H Respiratory Rate 16 Blood Pressure 131/74 H BP Systolic 131 BP Diastolic 74 Pulse Ox 06/06/25 08:39 06/06/25 08:39 06/06/25 08:44 Temperature Temperature Source Pulse Rate Respiratory Rate 16 Blood Pressure 124/74 H BP Systolic 124 BP Diastolic 74 Pulse Ox 100 06/06/25 08:44 06/06/25 08:44 06/06/25 08:44 Temperature Temperature Source Pulse Rate 105 H Respiratory Rate 16 Blood Pressure BP Systolic BP Diastolic Pulse Ox 100 06/06/25 08:49 06/06/25 08:49 06/06/25 08:49 Temperature Temperature Source Pulse Rate 109 H 117 H Respiratory Rate Blood Pressure 117/68 BP Systolic 117 BP Diastolic 68 Pulse Ox 06/06/25 08:49 06/06/25 08:54 06/06/25 08:54 Temperature Temperature Source Pulse Rate 98 Respiratory Rate Blood Pressure 128/75 H BP Systolic 128 BP Diastolic 75 Pulse Ox 100 06/06/25 08:54 06/06/25 08:59 06/06/25 08:59 Temperature Temperature Source Pulse Rate 95 Respiratory Rate Blood Pressure 126/80 H BP Systolic 126 BP Diastolic 80 Pulse Ox 99 06/06/25 08:59 06/06/25 09:00 06/06/25 09:00 Temperature Temperature Source Oral Pulse Rate Respiratory Rate 16 Blood Pressure BP Systolic BP Diastolic Pulse Ox 99 06/06/25 09:00 06/06/25 09:04 06/06/25 09:04 Temperature 98.0 F Temperature Source Pulse Rate 111 H Respiratory Rate Blood Pressure 126/79 H BP Systolic 126 BP Diastolic 79 Pulse Ox 06/06/25 09:40 06/06/25 09:40 06/06/25 10:10 Temperature Temperature Source Pulse Rate 80 Respiratory Rate Blood Pressure 94/50 L 95/53 L BP Systolic 94 95 BP Diastolic 50 53 Pulse Ox 06/06/25 10:10 06/06/25 11:29 06/06/25 11:29 Temperature Temperature Source Pulse Rate 102 H 128 H Respiratory Rate Blood Pressure 110/54 L BP Systolic 110 BP Diastolic 54 Pulse Ox 06/06/25 11:29 06/06/25 11:29 06/06/25 11:29 Temperature 98.2 F Temperature Source Pulse Rate Respiratory Rate 16 Blood Pressure BP Systolic BP Diastolic Pulse Ox 98 Weight Weight: 207 lb Body Mass Index (BMI) 35.5 PRE- weight 186 lb PRE- Body Mass Index 31.7 (BMI) Physical Exam Const alert, no apparent distress, healthy appearing and well nourished General Appearance: comfortable HEENT normocephalic Head and Scalp: atraumatic Neck full ROM and supple Resp normal respiratory effort and no use of accessory muscles GI soft to palpation and non-tender Extremity normal to inspection Labs Labs Labs: Blood Type A POSITIVE Antibody Screen NEGATIVE Hct, (37-47) 33.1 % L Hgb, (12.0-15.0) 10.2 g/dL L Syphilis Total Ab, (Nonreactive) Nonreactive Rubella IgG Antibody, (Nonreactive) REAC Hep Bs Antigen, (Nonreactive) Nonreactive Hepatitis C Antibody, (Nonreactive) Nonreactive Chlamydia DNA (SARIKA), (Negative) Negative N.gonorrhoeae DNA (SARIKA), (Negative) Negative HIV 1&2 Antibody, (Nonreactive) Nonreactive Glucose 1 Hr 50 gm, (70-140) 128 mg/dL Assessment & Plan (1) Labor and delivery indication for care or intervention: PLAN: Patient presents IAL, plan expectant management for , pitocin/AROM PRN if needed. Pain management: plans epidural. GBS positive plan IV PCN. Management of any complications: none I have reviewed the [facility] and made any clinically relevant updates. (2) Anemia in preg-unspec: QUALIFIERS: Trimester: third trimester Qualified Code(s): O99.013 - Anemia complicating , third trimester COMMENT: Admission hgb 10.2 (3) Obesity affecting : QUALIFIERS: Trimester: third trimester Obesity type affecting : unspecified obesity Qualified Code(s): O99.213 - Obesity complicating , third trimester COMMENT: HgbA1c 5.5 at NOB (4) Depression: QUALIFIERS: Depression Type: unspecified Qualified Code(s): F32.A - Depression, unspecified COMMENT: Support International resource provided. Fluoxetine 20mg daily (5) Alpha thalassemia silent carrier: COMMENT: uncertain FOB testing
[2025-06-06] MEDS: Penicillin G 3,000,000 Units 50 ML 100 UNITS IV (10:10)
[2025-06-06] MEDS: Oxytocin 15 Units/NS 250ml 15 UNITS/250 ML IV.SOLN 2 UNITS IV (10:39)
[2025-06-06] MEDS: Oxytocin 15 Units/NS 250ml 15 UNITS/250 ML IV.SOLN 83 UNITS IV (14:27)
--- NOTE | 2025-06-06 14:28 | EX.PCM.OBVAG ---
Maternal Data Information JIMENA Calculator Estimated Delivery Date Method Current WG Current Estimate 06/11/25 LMP (Certain) 39w 2d Vaginal Delivery Maternal Presentation Maternal Presentation: Active Labor and Spontaneous Rupture of Membranes Type of Induction: Pitocin Vaginal Delivery Information Procedure Performed: Spontaneous Vaginal Delivery Surgeon/Practitioner: Nadege Jackson Date of Procedure: 06/06/25 Pre-Procedure Diagnosis: active labor, spontaneous rupture of membranes Post-Procedure Diagnosis: spontaneous vaginal delivery of liveborn male Type of anesthesia: Epidural Special Medications: IV pitocin Estimated Blood Loss: 50 cc Time of Delivery: 13:50 Findings Description of procedure: Phillip Ruth is a 19-year-old, now , who presented at 39w2d in active labor with spontaneous rupture of membranes at 0400. She was GBS positive and received penicillin. She received an epidural for maternal analgesia. She did require pitocin for augmentation and then progressed to 10cm dilated. Patient began pushing and delivered the head in the HARSHAL presentation. The head was delivered atraumatically and a loose nuchal cord ?1 was identified and easily reduced over the 's head. The anterior and posterior shoulders delivered without complication followed by the rest of the and the was placed on the maternal abdomen. Delayed cord clamping was employed for approximately 60 seconds. Cord was clamped and cut and gentle traction was applied to the cord and the placenta delivered spontaneously immediately following it was noted to be intact with three-vessel cord. The perineum and vagina were inspected and noted to have a 1st degree laceration that was repaired in the usual fashion with 3-0 vicryl rapide. EBL was 50 cc. Patient and infant tolerated delivery well. Presentation: HARSHAL Amniotic Membrane Rupture Type: Spontaneous Amniotic Fluid Description: Clear Placental Delivery Description: Spontaneous Placenta Disposition: [facility] Specimen collected: No Cord Vessel Description: 3 Vessels Cord Entanglement: Around neck x 1, loose Nuchal Cord Compression: With compression Infant A Gender: Male (1 minute): 8 (5 minute): 9 Delayed Cord Clamping: Yes Filteration Operator a&p technician: No Post Vaginal Deli Medications given after delivery: IV Pitocin Episiotomy Description: None Laceration: 1st degree Complication Complications: No
--- NOTE | 2025-06-06 14:34 | DCINST_ITS ---
Discharge Instructions DC O2, CPAP, BIPAP needs Home O2 Discharge instructions: No Dressing / Incision Discharge Activity: Return to Normal Activity, May Not Drive (while taking narcotic pain medications.) and May Shower May resume sexual activity in: 4-6 weeks Dressing / Incision Call your doctor if your incision/area has: Continuous Slow Oozing, Sudden Increased Bleeding and Foul Smelling Discharge Call your doctor if you observe: Fever of 101 or Higher and Chest pain Follow Up Care When: Call [phone] to make an appointment with your doctor in 6 weeks. If you had elevated blood pressure or 4th degree laceration, you will need to be seen in 2 weeks. Test Results: Test results from this visit will be discussed in further detail at your follow- up appointment, if applicable. Discharge Plan Admission Admit Date/Time: 06/06/25 05:25 Primary Reason for Your Visit: labor and delivery Attending Provider: Nadege Jarrell Primary Care Provider: Chucho Nickerson Discharge Orders/Prescriptions Prescriptions: No Action fluoxetine [Prozac] 20 mg capsule 20 mg PO DAILY Qty: 30 12RF Referrals / Follow Up: Chucho Nickerson MD [Primary Care Provider, Family Practice] Disposition Disposition (needs filled in before D/C Order can be placed): Home, Self Care
[2025-06-07] VITALS (7 sets, daily range): BP systolic 105–133; BP diastolic 67–86; PULSE 81–107; RESP 13–16; TEMP 35.9–36.6; O2SAT 98–99
--- NOTE | 2025-06-07 06:55 | PCM.PN.BLA ---
Progress Note Patient doing well without complaints. Tolerating PO. Ambulating and voiding without difficulty. Feeding well. Denies chest pain, shortness of breath, calf pain/swelling, fevers, chills, lightheadedness. Physical Exam Const alert, oriented x3 and no apparent distress HEENT Head and Scalp: normocephalic and atraumatic Resp normal respiratory effort Effort and Inspection: able to speak in complete sentences and symmetric chest movement Cardio regular rate and regular rhythm GI soft to palpation and non-tender Bimanual Exam - Vag & Uterus: uterus non-tender Uterus Palpation: uterus fundus firm (below Umbilicus) Assessment & Plan Assessment/Plan (1) Spontaneous vaginal delivery: PLAN: s/p PPD # 1 1. routine post delivery care 2. breast feeding- support given 3. rh positive 4. rubella immune 5. BP during admission reviewed, wnl d/c this evening
--- NOTE | 2025-06-07 06:58 | DS.PCM_ITS ---
Providers Date of Admission: 06/06/25 Primary Care Physician: Chucho Nickerson MD Reason For Visit: VAG DELIVERY Diagnosis Discharge Diagnosis (1) Spontaneous vaginal delivery: Status: Acute Code(s): O80 - Encounter for full-term uncomplicated delivery Plan: s/p PPD # 1 1. routine post delivery care 2. breast feeding- support given 3. rh positive 4. rubella immune 5. BP during admission reviewed, wnl d/c this evening Medications at Discharge Home Medications fluoxetine 20 mg capsule (Prozac) 20 mg PO DAILY #30 caps 03/06/25 Hospital Course Summary of Care Provided Hospital Course: Phillip Ruth is a 19-year-old, now , who presented at 39w2d in active labor with spontaneous rupture of membranes. She was augmented with pitocin and had an uncomplicated spontaneous vaginal delivery of a baby boy weighing 8lb2oz with apgars of 8 and 9. She met all milestones and was discharged in stable condition on PPD#1. Weight / BMI Weight Weight: 207 lb Body Mass Index (BMI) 35.5 PRE- weight 186 lb PRE- Body Mass Index 31.7 (BMI) ABG / Lab / Microbiology Data 06/06/25 05:40 Laboratory: Laboratory Results - last 24 hr 06/06/25 05:40: Syphilis Total Ab Nonreactive D/C Instructions May resume sexual activity in: 4-6 weeks Call your doctor if your incision/area has: Continuous Slow Oozing, Sudden Increased Bleeding and Foul Smelling Discharge Call your doctor if you observe: Fever of 101 or Higher and Chest pain DC O2, CPAP, BIPAP Needs Home O2 Discharge instructions: No When: Call [phone] to make an appointment with your doctor in 6 weeks. If you had elevated blood pressure or 4th degree laceration, you will need to be seen in 2 weeks. Meaningful Use Info Meaningful Use Meaningful Use Diagnoses (Choose all that apply): None applicable Discharge Plan Admission Admit Date/Time: 06/06/25 05:25 Primary Reason for Your Visit: labor and delivery Attending Provider: Nadege Jarrell Primary Care Provider: Chucho Nickerson Instructions Patient Instructions: After a Vaginal Delivery (WP) Discharge Orders/Prescriptions Prescriptions: No Action fluoxetine [Prozac] 20 mg capsule 20 mg PO DAILY Qty: 30 12RF Referrals / Follow Up: Chucho Nickerson MD [Primary Care Provider, [facility]] Disposition Disposition (needs filled in before D/C Order can be placed): Home, Self Care
== END 2025-06-07 20:11 | disposition home or self-care (01) | DRG 560 ==
LOC: WPOUT 05:31 → WP 05:31
PROVIDERS: Admitting Provider Advanced Practice Midwife; PCP Family Medicine; Referring Provider Advanced Practice Midwife; Visit Provider Advanced Practice Midwife
DX: O42.02 Full-term premature rupture of membranes, onset of labor within 24 hours of rupture (principal); Z37.0 Single live birth; O98.82 Other maternal infectious and parasitic diseases complicating childbirth; F32.A Depression, unspecified; O99.214 Obesity complicating childbirth; D56.3 Thalassemia minor; B95.1 Streptococcus, group B, as the cause of diseases classified elsewhere; O99.344 Other mental disorders complicating childbirth; O99.02 Anemia complicating childbirth; O70.0 First degree perineal laceration during delivery; O69.81X0 Labor and delivery complicated by cord around neck, without compression, not applicable or unspecified; Z3A.39 39 weeks gestation of pregnancy; Z79.899 Other long term (current) drug therapy; Z87.891 Personal history of nicotine dependence
CPT/HCPCS: 59025; 59050; 85025; 86780; 86850; 86900; 86901; 99221; G0378; J2405